=== PATIENT | female | born 1950 | race Caucasian/White ===

== ENCOUNTER 2018-04-14 12:17 | Outpatient (REF) | payer MEDICARE, BC, SELFPAY ==
[2018-04-14 21:36] LABS: Anion Gap 7.9 mmol/L (3-11); BUN 20 mg/dL (7-18); CO2 25.1 mmol/L (21.0-32.0); CREATININE 1.15 mg/dL (0.55-1.02); Calcium 9.1 mg/dL (8.5-10.1); Chloride 110 mmol/L (98-107); Estimated GFR 47.21 (mL/min/1.73m2); Glucose 91 mg/dL (70-100); Potassium 3.7 mmol/L (3.5-5.1); Sodium 143 mmol/L (136-145)
== END 2018-04-14 12:37 ==
LOC: NCHCN 12:17
PROVIDERS: PCP Nurse Practitioner Family; Visit Provider Nurse Practitioner Family
DX: F43.20 Adjustment disorder, unspecified (principal); E78.5 Hyperlipidemia, unspecified; R51 Headache; J45.20 Mild intermittent asthma, uncomplicated; F32.9 Major depressive disorder, single episode, unspecified; Z62.810 Personal history of physical and sexual abuse in childhood
CPT/HCPCS: 80048

== ENCOUNTER → 2018-12-19 12:55 | Outpatient (BNVA) | payer MEDICARE, BC, SELFPAY | PROVIDERS: PCP Nurse Practitioner Family; Visit Provider Nurse Practitioner Adult Health | DX: G43.009 Migraine without aura, not intractable, without status migrainosus (principal) | CPT/HCPCS: 99213 ==

== ENCOUNTER → 2018-12-22 13:39 | Outpatient (BNVA) | payer MEDICARE, BC, SELFPAY | PROVIDERS: PCP Nurse Practitioner Family; Visit Provider Nurse Practitioner Adult Health | DX: G43.009 Migraine without aura, not intractable, without status migrainosus (principal) | CPT/HCPCS: 99211 ==

== ENCOUNTER → 2019-03-06 13:00 | Outpatient (BNVA) | payer MEDICARE, BC, SELFPAY | PROVIDERS: PCP Nurse Practitioner Family; Visit Provider Nurse Practitioner Adult Health | DX: G43.009 Migraine without aura, not intractable, without status migrainosus (principal) | CPT/HCPCS: 99213 ==

== ENCOUNTER 2019-04-06 12:54 | Outpatient (REF) | payer MEDICARE, BC, SELFPAY ==
[2019-04-06 21:20] LABS: Abs Immature Grans 0.01 k/cumm (0.0-0.09); Absolute Basophil Count 0.06 k/cumm (0.0-0.2); Absolute Lymphocyte Count 1.12 k/cumm (1.2-3.4); Absolute Monocyte Count 0.45 k/cumm (0.11-0.7); Absolute Neutrophil Count 3.43 k/cumm (1.2-6.7); Basophils % 1.1; Eosinophils % 5.6; HCT 41.5 % (36.0-46.0); HGB 13.4 g/dL (12.0-15.5); Immature Grans % 0.2; Lymphocytes % 20.9; Mean Corp. HGB Concentration 32.3 g/dL (32.0-36.0); Mean Corpuscular Hemoglobin 28.2 pg (27.0-33.0); Mean Corpuscular Volume 87.2 fL (80-95); Mean Platelet Volume 10.6 fL (8.0-11.0); Monocytes % 8.4; Neutrophils % 63.8; Platelet Count 257 x1000/uL (130-400); RBC 4.76 m/cumm (4.00-5.20); RBC Distribution Width 13.7 % (11.7-14.6); White Blood Cell Count 5.37 k/cumm (4.4-10.8)
[2019-04-06 21:49] LABS: ALT 23 U/L (14-59); AST 13 U/L (15-37); Albumin 3.7 g/dL (3.4-5.0); Alkaline Phosphatase 113 U/L (46-116); Anion Gap 9.5 mmol/L (3-11); BUN 22 mg/dL (7-18); Bilirubin, Total 0.3 mg/dL (0.2-1.0); CO2 24.5 mmol/L (21.0-32.0); CREATININE 1.14 mg/dL (0.55-1.02); Calculated LDL 147 mg/dL; Chloride 107 mmol/L (98-107); Cholesterol 241 mg/dL (50-200); Estimated GFR 47.54 (mL/min/1.73m2); Glucose 79 mg/dL (70-100); HDL Cholesterol 74 mg/dL (40-60); Potassium 4.2 mmol/L (3.5-5.1); Sodium 141 mmol/L (136-145); TSH (W/Ref FT4) 3.82 uIU/mL (0.36-3.74); Total Protein 6.8 g/dL (6.4-8.2); Triglyceride 100 mg/dL (30-150)
[2019-04-06 22:07] LABS: FREE T4 1.09 ng/dL (0.76-1.46)
== END 2019-04-06 13:14 ==
LOC: NCHCN 12:54
PROVIDERS: PCP Nurse Practitioner Family; Visit Provider Nurse Practitioner Family
DX: E78.5 Hyperlipidemia, unspecified (principal); F32.9 Major depressive disorder, single episode, unspecified; R51 Headache; R61 Generalized hyperhidrosis; R06.83 Snoring; M54.5 Low back pain; J30.9 Allergic rhinitis, unspecified
CPT/HCPCS: 80053; 80061; 84439; 84443; 85025

== ENCOUNTER 2020-01-11 01:27 | Outpatient (CLI) | payer MEDICARE, BC, SELFPAY ==
--- NOTE | 2020-01-11 | DI.CTLCSR_ITS ---
EXAM: CT CHEST LUNG CANCER SCREEN CLINICAL HISTORY: THE PATIENT REPORTEDLY HAS A HISTORY OF SMOKING 30 PACK YEARS AND PRESENTLY SMOKES OR HAS QUIT THE PAST 15 YEARS, [id number]-FORMER SMOKER, [facility], Z00.00. TECHNIQUE: Imaging Protocol: Axial computed tomography images with coronal and sagittal reformatted images were created and reviewed COMPARISON: CT ABD PELVIS WITH CONTRAST from 05/17/2013 CT ABD PELVIS WITH CONTRAST from 05/17/2013 CT RENAL COLIC WO CONTRAST from 05/17/2013 FINDINGS: Tracheobronchial tree: Patent where visualized. Mediastinum and Nubia: No dominant adenopathy or fluid collection. Pulmonary parenchyma: No consolidation or dominant measurable mass. Centrilobular emphysema. Lung Nodules: 4 mm pulmonary nodule in the anterolateral aspect of the left lower lobe. Pleura: No effusion or pneumothorax. Heart: The heart is not dilated. Mild coronary artery calcification. No significant pericardial effu juan jose. Aorta: Thoracic aorta non-dilated.Atherosclerosis. Upper abdomen: Unremarkable. Bones: Within normal limits. Soft Tissues: Unremarkable. IMPRESSION: 4 mm pulmonary nodule in the left lower lobe. Lung RADS Cat 2 - Benign Appearance / Behavior: Nodules with a very low likelihood of becoming a clin ically active caner due to size or lack of growth Lung-RADS 1.0 CATEGORIES: Category 0 - Prior chest CT exam(s) being located for comparison. Category 1 - Annual screening in 12 months. No nodules or definitely benign nodules. Category 2 - Annual screening in 12 months. Benign appearance. Nodules with low likelihood of becomin g active cancer. Category 3 - 6-month follow-up. Probably benign. Short-term follow-up suggested. Nodules with low lik elihood of becoming active cancer. Category 4A - 3-month follow-up and CT/PET if >8 mm in size. Suspicious finding. Findings which requi re additional testing. Category 4B - Findings which require additional testing and tissue sampling. Suspicious finding. C Added to Any of the Above - History of prior lung cancer screening. S Added to Any of the Above - Significant unexpected other finding. RADIATION DOSE DELIVERED: 81.26mGy.cm Total DLP DATA REPOSITORY: All CT scans at this facility are submitted to the National Radiology Data Registry (NRDR) Dose Index Registry (DIR) with the [employer] (ACR). RADIATION OPTIMIZATION: All CT scans at this facility use at least one of these dose optimization te chniques: automated exposure control; mA and/or kV adjustment per patient size (includes targeted exa ms where dose is matched to clinical indication); or iterative reconstruction.
--- NOTE | 2020-01-11 14:35 | DI.DEXA_ITS ---
EXAM: XR DEXA BONE DENSITY W/WO SALOMÓN CLINICAL HISTORY: [facility],Z00.00,SCREENING FOR OSTEOPOROSIS IN [place] TECHNIQUE: COMPARISON: No exams were available for comparison FINDINGS: Lateral Spine Image: Unremarkable. No compression deformities identified. Left hip: Total T-Score: -1.5 Total Z-Score: -0.1 T- and Z-scores: Consistent with osteopenia Lumbar Spine: Total T-Score: -2.4 Total Z-Score: -0.4 T- and Z-scores: Consistent with osteopenia IMPRESSION: Findings consistent with osteopenia in the lumbar spine and left hip.
== END 2020-01-11 01:47 ==
PROVIDERS: PCP Nurse Practitioner Family; Visit Provider Nurse Practitioner Family
DX: M85.88 Other specified disorders of bone density and structure, other site (principal); Z78.0 Asymptomatic menopausal state; Z12.2 Encounter for screening for malignant neoplasm of respiratory organs; R91.1 Solitary pulmonary nodule; F17.210 Nicotine dependence, cigarettes, uncomplicated; J43.8 Other emphysema
CPT/HCPCS: 77080; G0297

== ENCOUNTER 2020-04-02 04:39 | Outpatient (CLI) | payer MEDICARE, BC, SELFPAY ==
[2020-04-02 12:10] LABS: Anion Gap 8.5 mmol/L (3-11); BUN 16 mg/dL (7-18); CO2 24.5 mmol/L (21.0-32.0); CREATININE 1.05 mg/dL (0.55-1.02); Calcium 8.8 mg/dL (8.5-10.1); Chloride 111 mmol/L (98-107); Estimated GFR 52.12 (mL/min/1.73m2); Glucose 93 mg/dL (74-106); Potassium 4.2 mmol/L (3.5-5.1); Sodium 144 mmol/L (136-145)
[2020-04-02 12:16] LABS: Calculated LDL 63 mg/dL (<100); Cholesterol 152 mg/dL (<200); HDL Cholesterol 71 mg/dL (40-60); Triglyceride 93 mg/dL (<150)
== END 2020-04-02 04:59 ==
PROVIDERS: Family Medicine; PCP Nurse Practitioner Family; Visit Provider Surgery
DX: E78.5 Hyperlipidemia, unspecified (principal); C50.911 Malignant neoplasm of unspecified site of right female breast
CPT/HCPCS: 36415; 80048; 80061

== ENCOUNTER → 2021-01-29 13:53 | Outpatient (BNVA) | payer MEDICARE, BC, SELFPAY | PROVIDERS: PCP Nurse Practitioner Family; Referring Provider Nurse Practitioner Family; Visit Provider Nurse Practitioner Adult Health | DX: G43.009 Migraine without aura, not intractable, without status migrainosus (principal) | CPT/HCPCS: 99214; 99215 ==

== ENCOUNTER 2021-03-19 21:38 | Emergency (ER) | payer MEDICARE, BC, SELFPAY ==
[2021-03-19 21:41] VITALS: BP 165/84; PULSE 80; RESP 18; TEMP 36.5; O2SAT 97
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
--- NOTE | 2021-03-19 22:00 | DI.CT_ITS ---
Exam(s) CT THORACIC LUMBAR SPINE WO EXAM: CT THORACIC LUMBAR SPINE WO CLINICAL HISTORY: R thoracic/L lumbar paraspinal pain. TECHNIQUE: Imaging Protocol: Axial computed tomography images with coronal and sagittal reformatted images were created and reviewed. CONTRAST MATERIAL: Intravenous: None COMPARISON: CT CT CHEST LUNG CANCER SCREEN from 01/11/[address] CHEST LUNG CANCER SCREEN from 01/11/2020 FINDINGS: OSSEOUS: There are no fractures in the thoracic and lumbar vertebral bodies. No listhesis. No osseo us lesions. No significant disc space narrowing. No significant facet arthropathy with the exceptio n of left-sided degenerative change in the left facet joint at L5-S1 level. Milder degenerative oliveira ges the right facet joint at this level. Other facet joints above this level appear unremarkable. T here is no evidence of osseous spinal canal stenosis.. PARASPINAL SOFT TISSUES: Unremarkable OTHER: There is asymmetric infiltrate right upper lobe apical region was not evident on prior CT scan January 2020. Left lung apex is clear. Also noted in the field of view is some scarring in the soil surveyor ior basal segment of the left lower lobe. No pleural effusions. IMPRESSION: No evidence of fractures in the thoracic and lumbar vertebrae. No osseous lesions. Incidentally noted is significant infiltrate in the superior aspect of the right upper lobe which is a significant new finding was not evident on the prior CT scan of January 2020. This requires further i nvestigation. RADIATION DOSE DELIVERED: 755.07mGy.cm Total DLP DATA REPOSITORY: All CT scans at this facility are submitted to the National Radiology Data Registry (NRDR) Dose Index Registry (DIR) with the [employer] (ACR). RADIATION OPTIMIZATION: All CT scans at this facility use at least one of these dose optimization te chniques: automated exposure control; mA and/or kV adjustment per patient size (includes targeted exa ms where dose is matched to clinical indication); or iterative reconstruction.
[2021-03-19] MEDS: oxyCODONE 10 MG TAB PO (22:11)
[2021-03-19] MEDS: predniSONE 20 MG TAB 60 MG PO (22:11)
[2021-03-19] MEDS: diazePAM 5 MG TAB PO (22:11)
--- NOTE | 2021-03-19 22:16 | NUR.NOTE ---
Nursing Note: Patient to CT scan via wheelchair.
--- NOTE | 2021-03-19 22:25 | NUR.NOTE ---
Nursing Note: Patient returned from CT scan.
--- NOTE | 2021-03-19 23:13 | DI.VRAD_ITS ---
PROCEDURE INFORMATION: Exam: CT Thoracic Spine Without Contrast Exam date and time: 03/19/2021 10:08 PM Age: 70 years old Clinical indication: Other: General; Patient HX: Back pain 5 weeks TECHNIQUE: Imaging protocol: Computed tomography images of the thoracic spine without contrast. COMPARISON: CT CHEST LUNG CANCER SCREEN 01/11/2020 1:33 PM FINDINGS: Vertebrae: No acute fracture. Normal alignment. Discs/Spinal canal/Neural foramina: No significant disc protrusion. No severe spinal canal stenosis. No significant neural foraminal narrowing. Soft tissues: Negative for paraspinal hematoma or fluid collection. Vasculature: Descending thoracic aorta is negative for aneurysm. Mild vascular calcifications are present. Lungs: Moderate consolidation and/or fibrosis noted in the right upper lobe, new from January 2020. Linear pleuroparenchymal scar is observed in the left lower lobe, incidental. The visualized lung rogers are relatively clear. Negative for dependent pleural effusions. IMPRESSION: 1. Negative for compression fracture. 2. Irregular consolidation noted in the right upper lobe. Correlate for any interval radiation treatment. Infectious pneumonia considered. PROCEDURE INFORMATION: Exam: CT Lumbar Spine Without Contrast Exam date and time: 03/19/2021 10:08 PM Age: 70 years old Clinical indication: Other: General; Patient HX: Back pain 5 weeks TECHNIQUE: Imaging protocol: Computed tomography images of the lumbar spine without contrast. COMPARISON: CT CHEST LUNG CANCER SCREEN 01/11/2020 1:33 PM FINDINGS: Vertebrae: No acute fracture. Normal alignment. Negative for destructive or erosive lesion. Discs/Spinal canal/Neural foramina: No significant disc space narrowing. No significant spinal canal stenosis or neural foraminal narrowing. 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 Kidneys and ureters: Visualized kidneys are normal, negative for hydronephrosis. Stomach and bowel: Scattered diverticula are noted in the sigmoid colon, without inflammatory change. Vasculature: Abdominal aorta is negative for aneurysm. Moderate vascular calcifications present. Soft tissues: Psoas muscles are normal. Negative paraspinal fluid collection or soft tissue mass. IMPRESSION: Negative for lumbar spine fracture. No significant degenerative changes. Dictated and Authenticated by: Herb Wallace MD. Ordering:HU Hartman MD
[2021-03-19] MEDS: diazePAM 5 MG TAB 10 MG PO (23:19)
[2021-03-19 23:22] VITALS: BP 97/62; PULSE 84; RESP 16; TEMP 36.4; O2SAT 95
== END 2021-03-19 23:23 | disposition home or self-care (01) ==
PROVIDERS: Emergency Provider Physician Assistant; PCP Nurse Practitioner Family
DX: M54.5 Low back pain (principal); M54.6 Pain in thoracic spine
CPT/HCPCS: 99284; 72128; 72131; J7512

== ENCOUNTER 2021-03-30 10:32 | Emergency (ER) | payer MEDICARE, BC, SELFPAY ==
[2021-03-30] VITALS (15 sets, daily range): BP systolic 116–128; BP diastolic 63–67; PULSE 65–71; RESP 16–18; TEMP 36.4; O2SAT 93–99
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
[2021-03-30] MEDS: Normal Saline 1,000 ML 125 ML IV (11:03)
[2021-03-30] MEDS: HYDROmorphone 2 MG/ML VIAL 1 MG IVP (11:05)
[2021-03-30] MEDS: Dexamethasone 10 MG/ML VIAL IVP (11:06)
[2021-03-30 11:09] LABS: HCT 36.3 % (36.0-46.0); HGB 11.1 g/dL (11.2-15.7); MCH 26.6 pg (27.0-33.0); MCHC 30.6 % (32.0-36.0); MCV 87.1 fL (80-95); Platelet Count 122 10^3/uL (130-400); RBC 4.17 10^6/uL (3.93-5.22); RDW 18.3 % (11.7-14.6); RDW-SD 58.2 fL; WBC 7.11 10^3/uL (4.4-10.8)
[2021-03-30 11:18] LABS: Anion Gap 10.2 mmol/L (3-11); BUN 28 mg/dL (7-18); CO2 28.8 mmol/L (21.0-32.0); CREATININE 0.9 mg/dL (0.55-1.02); Calcium 8.3 mg/dL (8.5-10.1); Chloride 106 mmol/L (98-107); Glucose 78 mg/dL (74-106); Potassium 3.5 mmol/L (3.5-5.1); Sodium 145 mmol/L (136-145)
== END 2021-03-30 12:56 | disposition home or self-care (01) ==
PROVIDERS: Emergency Provider Emergency Medicine; PCP Nurse Practitioner Family
DX: M54.42 Lumbago with sciatica, left side (principal)
CPT/HCPCS: 36415; 80048; 85027; 96361; 96374; 96375; 99283; 99284; J1100

== ENCOUNTER 2021-04-13 20:35 | Emergency (ER) | payer MEDICARE, BC, SELFPAY ==
[2021-04-13 20:53] VITALS: BP 121/66; PULSE 90; RESP 18; TEMP 37.1; O2SAT 93
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
[2021-04-13] MEDS: MORPHine 4 MG/ML SYR IM (21:39)
[2021-04-13] MEDS: Cyclobenzaprine 10 MG TAB, 3 TABS/BTL PO (21:43)
== END 2021-04-13 21:47 | disposition home or self-care (01) ==
PROVIDERS: Emergency Provider Student in an Organized Health Care Education/Training Program; PCP Nurse Practitioner Family
DX: M54.9 Dorsalgia, unspecified (principal); M62.830 Muscle spasm of back; Z85.3 Personal history of malignant neoplasm of breast
CPT/HCPCS: 96372; 99284; 99283; J2270

== ENCOUNTER 2022-12-15 17:48 | Outpatient (REF) | payer MEDICARE, BC, SELFPAY ==
[2022-12-15 21:17] LABS: BUN 18 mg/dL (7-18); CREATININE 0.9 mg/dL (0.55-1.02); Calcium 8.9 mg/dL (8.5-10.1); Chloride 109 mmol/L (98-107); Estimated GFR 68.77 (mL/min/1.73m2); Glucose 71 mg/dL (74-106); Potassium 3.2 mmol/L (3.5-5.1); Sodium 141 mmol/L (136-145)
== END 2022-12-15 17:49 | disposition home or self-care (01) ==
LOC: NCHCN 17:48
PROVIDERS: PCP Nurse Practitioner Family; Visit Provider Nurse Practitioner Family
DX: N28.9 Disorder of kidney and ureter, unspecified (principal); M54.16 Radiculopathy, lumbar region; E78.5 Hyperlipidemia, unspecified
CPT/HCPCS: 80048

== ENCOUNTER 2023-01-13 13:57 | Outpatient (REF) | payer MEDICARE, BC, SELFPAY ==
[2023-01-13 21:38] LABS: Potassium 4.4 mmol/L (3.5-5.1)
== END 2023-01-13 13:58 | disposition home or self-care (01) ==
LOC: NCHCN 13:57
PROVIDERS: PCP Nurse Practitioner Family; Visit Provider Nurse Practitioner Family
DX: E87.6 Hypokalemia (principal)
CPT/HCPCS: 84132

== ENCOUNTER 2023-02-16 15:54 | Outpatient (REF) | payer MEDICARE, BC, SELFPAY ==
[2023-02-16 16:41] LABS: ALT 65 U/L (14-59); AST 47 U/L (15-37); Albumin 3.6 g/dL (3.4-5.0); Alkaline Phosphatase 446 U/L (46-116); Anion Gap 9.1 mmol/L (3-11); BUN 16 mg/dL (7-18); Bilirubin, Total 0.5 mg/dL (0.2-1.0); CO2 28.9 mmol/L (21.0-32.0); CREATININE 1.1 mg/dL (0.55-1.02); Calcium 9.3 mg/dL (8.5-10.1); Calculated LDL 60 mg/dL (<100); Chloride 108 mmol/L (98-107); Cholesterol 159 mg/dL (<200); Estimated GFR 53.72 (mL/min/1.73m2); Glucose 95 mg/dL (74-106); HDL Cholesterol 81 mg/dL (40-60); Potassium 3.8 mmol/L (3.5-5.1); Sodium 146 mmol/L (136-145); TSH (W/Ref FT4) 6.57 uIU/mL (0.36-3.74); Total Protein 7.1 g/dL (6.4-8.2); Triglyceride 91 mg/dL (<150)
[2023-02-16 17:08] LABS: FREE T4 0.93 ng/dL (0.76-1.46)
[2023-02-17 13:13] LABS: GGT 406 U/L (5-55)
== END 2023-02-16 15:55 | disposition home or self-care (01) ==
LOC: NCHCN 15:54
PROVIDERS: PCP Nurse Practitioner Family; Visit Provider Nurse Practitioner Family
DX: E03.9 Hypothyroidism, unspecified (principal); F32.9 Major depressive disorder, single episode, unspecified; R74.8 Abnormal levels of other serum enzymes; E87.6 Hypokalemia; N28.9 Disorder of kidney and ureter, unspecified; I70.90 Unspecified atherosclerosis; C50.919 Malignant neoplasm of unspecified site of unspecified female breast; G44.89 Other headache syndrome; M54.16 Radiculopathy, lumbar region
CPT/HCPCS: 80053; 80061; 82306; 82977; 84439; 84443

== ENCOUNTER 2023-02-24 10:46 | Outpatient (REF) | payer MEDICARE, BC, SELFPAY ==
[2023-02-25 10:48] LABS: Hepatitis A Antibody IgM Negative (Negative); Hepatitis B Core Antibody Negative (Negative); Hepatitis B surface Ag Negative (Negative); Hepatitis C Ab w Rflx HCV PCR Negative (Negative)
== END 2023-02-24 10:47 | disposition home or self-care (01) ==
LOC: NCHCN 10:46
PROVIDERS: PCP Nurse Practitioner Family; Visit Provider Nurse Practitioner Family
DX: R79.89 Other specified abnormal findings of blood chemistry (principal); R74.8 Abnormal levels of other serum enzymes
CPT/HCPCS: 86704; 86709; 86803; 87340

== ENCOUNTER 2023-03-05 00:30 | Outpatient (CLI) | payer MEDICARE, BC, SELFPAY ==
--- NOTE | 2023-03-05 08:00 | DI.US_ITS ---
Exam(s) US ABDOMEN LIMITED EXAM: US ABDOMEN LIMITED CLINICAL HISTORY: ELEVATED ALK PHOS, R74.8; ELEVATED LFTS, R79.89 TECHNIQUE: Ultrasound abdomen performed using standard protocol. COMPARISON: No exams were available for comparison FINDINGS: There is no ascites evident. LIVER: There are no hepatic lesions evident nor dilatation of intrahepatic ducts. GALLBLADDER/BILIARY: There are no gallstones. No gallbladder wall edema nor pericholecystic fluid. The common hepatic duct ismildly dilated, measuring 7mm at the level of lola hepatis. PANCREAS: There is no evidence of pancreatic mass nor dilatation of the pancreatic duct. RIGHT KIDNEY:Nonobstructive 8 mm calculus noted. No solid lesions. No significant cysts. No hydron ephrosis. IMPRESSION: 1. No evidence of cholelithiasis nor dilatation of the biliary tree. CBD diameter 7 mm probably age related. 2. 8 millimeter hyperechoic focus in the right kidney, probably a nonobstructive calculus. No other significant focal right kidney findings. 3. There is no ascites. DATA REPOSITORY:
== END 2023-03-05 00:50 ==
LOC: DI 00:30
PROVIDERS: PCP Nurse Practitioner Family; Visit Provider Nurse Practitioner Family
DX: R79.89 Other specified abnormal findings of blood chemistry (principal); R74.8 Abnormal levels of other serum enzymes; N20.0 Calculus of kidney
CPT/HCPCS: 76705

== ENCOUNTER → 2023-04-01 00:08 | Outpatient (CLI) | payer MEDICARE, BC, SELFPAY ==
--- NOTE | 2023-04-01 | DI.DEXA_ITS ---
Exam(s) XR DEXA BONE DENSITY W/WO SALOMÓN EXAM: XR DEXA BONE DENSITY W/WO SALOMÓN CLINICAL HISTORY: DISORDER BONE DENSITY M85.88 OSTEOPENIA M85.80 SCREENING OSTEOPOROSIS TECHNIQUE: COMPARISON: CR XR DEXA BONE DENSITY W/WO SALOMÓN from 01/11/2020 FINDINGS: Lateral Spine Image: Unremarkable. No compression deformities identified. Left hip: Total T-Score: -1.9. This compares to -1.5 on the prior examination. Total Z-Score: -0.3 T- and Z-scores: Findings are consistent with osteopenia. Note is made of osteoporosis in the femora l neck with a T-score of -2.6. Lumbar Spine: Total T-Score: -2.0. This compares to -2.4 on the prior examination. Total Z-Score: 0.2 T- and Z-scores: Findings are consistent with osteopenia in the lumbar spine. Note is made of osteop orosis in the L1 vertebral body with a T-score of -2.5. IMPRESSION: Findings of osteoporosis seen in the femoral neck and the L1 vertebral body.
== END ==
PROVIDERS: PCP Nurse Practitioner Family; Visit Provider Nurse Practitioner Family
DX: M85.88 Other specified disorders of bone density and structure, other site (principal); Z13.820 Encounter for screening for osteoporosis
CPT/HCPCS: 77080

== ENCOUNTER 2023-05-07 18:19 | Outpatient (REF) | payer MEDICARE, BC, SELFPAY ==
[2023-05-07 15:45] LABS: ALT 46 U/L (14-59); AST 36 U/L (15-37); Albumin 3.6 g/dL (3.4-5.0); Alkaline Phosphatase 350 U/L (46-116); Anion Gap 9.8 mmol/L (3-11); BUN 15 mg/dL (7-18); Bilirubin, Total 0.7 mg/dL (0.2-1.0); CO2 26.2 mmol/L (21.0-32.0); Calcium 9.2 mg/dL (8.5-10.1); Chloride 104 mmol/L (98-107); Estimated GFR 60.23 (mL/min/1.73m2); Glucose 99 mg/dL (74-106); Sodium 140 mmol/L (136-145); Total Protein 6.8 g/dL (6.4-8.2)
[2023-05-07 17:37] LABS: Vitamin D 25 Total 53.3 ng/mL (30-100)
[2023-05-11 11:55] LABS: 2-OH-Ethyl-Flurazepam Negative ng/mL (Cutoff: 10); 7-NH-Clonazepam Negative ng/mL (Cutoff: 10); 7-NH-Flunitrazepam Negative ng/mL (Cutoff: 10); Alpha OH-Alprazolam Negative ng/mL (Cutoff: 10); Alpha-OH Midazolam Negative ng/mL (Cutoff: 10); Alpha-OH-Triazolam Negative ng/mL (Cutoff: 10); Alprazolam Negative ng/mL (Cutoff: 10); Benzodiazepines Interpretation Negative.; Chlordiazepoxide Negative ng/mL (Cutoff: 10); Clobazam Negative ng/mL (Cutoff: 10); Clonazepam Negative ng/mL (Cutoff: 10); Diazepam Negative ng/mL (Cutoff: 10); Flurazepam Negative ng/mL (Cutoff: 10); Lorazepam Negative ng/mL (Cutoff: 10); Midazolam Negative ng/mL (Cutoff: 10); N-Desmethylclobazam Negative ng/mL (Cutoff: 10); Prazepam Negative ng/mL (Cutoff: 10); Temazepam Negative ng/mL (Cutoff: 10); Triazolam Negative ng/mL (Cutoff: 10); Zolpidem Carboxylic acid Negative ng/mL (Cutoff: 10)
== END 2023-05-07 18:20 | disposition home or self-care (01) ==
LOC: NCHCN 18:19
PROVIDERS: PCP Nurse Practitioner Family; Visit Provider Nurse Practitioner Family
DX: R74.8 Abnormal levels of other serum enzymes (principal); R79.89 Other specified abnormal findings of blood chemistry; M81.0 Age-related osteoporosis without current pathological fracture; N28.9 Disorder of kidney and ureter, unspecified; F32.9 Major depressive disorder, single episode, unspecified; G44.89 Other headache syndrome; Z79.899 Other long term (current) drug therapy; M54.16 Radiculopathy, lumbar region
CPT/HCPCS: 80053; 82306; 80346; 83735

== ENCOUNTER 2024-03-10 17:11 | Outpatient (REF) | payer MEDICARE, BC, SELFPAY ==
--- OUTSIDE RECORDS SUMMARY | 2024-03-10 17:18 | XMS_ITS | Encounter Summary ---
Author Organization [facility] Address [address] [place] [address] Care Team Providers Care Technology Advisor Name Role Phone Nerissa Cody Primary Care Provider [phone] Reason for Visit * Reason Onset Date Comments Other 05/04/2012 Encounter Details Date Type Department Care Team (Late st Contact Info) Description 05/04/2012 Telephone [facility] [place] [address] [place] [address] [phone] Joaquin Mckeon MD PhD [address] [place] [address] [address] [place] [phone] Other Social History Tobacco Use Types Packs/Day Years Used Date Smoking Tobacco: Never Assessed Sex and Gender Information Value Date Recorded Sex Assigned at Not on file Gender Identity Not on file Sexual Orientation Not on file documented as of this encounter Miscellaneous Notes * Telephone Encounter - Bianca Schuster - 05/04/2012 1607 EDT REMINDED PT TO BRING NPV FORM TO APT. SPOKE TO PT DIRECTLY. documented in this encounter Plan of Treatment Not on file documented as of this encounter Visit Diagnoses Not on filedocumented in this encounter Care Teams Technology Advisor Relationship Specialty Start Date End Date Nerissa Cody FNP [address] [place], [place] [phone] PCP - General 01/15/10 03/15/16 documented as of this encounter
--- OUTSIDE RECORDS SUMMARY | 2024-03-10 17:18 | XMS_ITS | Continuity of Care Document ---
Author Organization [facility] Address [address] [place] [address] Care Team Providers Care Sales Support Advisor Name Role Phone ROSANA SIMON APRN Primary Care Physician Encounter LTTL_AK FIN NBR [id number] Date(s): 03/22/23 - 03/22/[address] [address] Encounter Diagnosis Malignant neoplasm of unspecified site of right female breast(Final) - Discharge Disposition: Home or Self Care Attending Physician: BRODY CHASE M.D. Admitting Physician: BRODY CHASE M.D. Referring Physician: ROSANA SIMON APRN Allergies, Adverse Reactions, Alerts Substance Reaction Severity Status codeine Nausea Unknown Active Cats Sneezing Mild Active Environmental Smoke Unknown Unknown Active Medications Albuterol (Eqv-ProAir HFA) 0 Refill(s) Start Date: 01/08/23 Status: Ordered atorvastatin 20 mg oral tablet 0 Refill(s) Start Date: 01/08/23 Status: Ordered FLUoxetine 40 mg oral capsule 90 cap, 0 Refill(s) Start Date: 01/04/23 Status: Ordered fluticasone 50 mcg/inh nasal spray 16 sprays, 0 Refill(s) Start Date: 01/04/23 Status: Ordered folic acid 0.4 mg oral tablet 0.4 mg = 1 tab, Oral, Daily, # 100 tab, 0 Refill(s) Start Date: 01/08/23 Status: Ordered gabapentin 100 mg oral capsule 180 EA, TAKE TWO CAPSULES BY MOUTH THREE TIMES A DAY, 0 Refill(s) Start Date: 01/04/23 Status: Ordered oxyCODONE-acetaminophen 5 mg-325 mg oral tablet 120 EA, TAKE 1 TABLET BY MOUTH FOUR TIMES A DAY NEEDED FOR PAIN, 0 Refill(s) Start Date: 01/04/23 Status: Ordered Potassium Chloride (Zva-Clvi-Nnh 10) 10 mEq oral tablet, extended release 90 EA, TAKE ONE TABLET BY MOUTH EVERY DAY, 0 Refill(s) Start Date: 01/04/23 Status: Ordered Zomig 5 mg oral tablet 5 mg = 1 tab, Oral, Daily, PRN as needed for migraine headache, may repeat dose after 2 hours up toa maximum of 10 mg in 24 hours, # 3 tab, 0 Refill(s) Start Date: 01/08/23 Status: Ordered Problem List Condition Confirmation Course Effective Dates Status Health St atus Informant Asthma Confirmed Active S/P tonsillectomy Confirmed Active Breast CA Confirmed Active Migraine Confirmed Active Procedures Procedure Date Related Diagnosis Body Site Status Cataract Completed Colonoscopy Completed Frozen shoulder Completed History of tonsillectomy Completed History of tubal ligation Completed Results Laboratory List Name Date .Morphology (LTTL) 03/22/23 Automated Diff 03/22/23 CBC w/ Diff 03/22/23 Comprehensive Metabolic Panel 03/22/23 Most recent to oldest [Reference Range]: 1 WBC [4.8-10.8 K/mcL] 4.8 K/mcL 1 (03/22/23 10:37 AM) RBC [4.20-5.40 Million/mcL] 4.18 Million /mcL 2 *LOW* (03/22/23 10:37 AM) Neutro Auto [42.2-75.2 %] 73.3 % 3 (03/22/23 10:37 AM) Lymph Auto [20.5-51.1 %] 14.3 % 4 *LOW* (03/22/23 10:37 AM) Hanson Auto [1.7-9.3 %] 7.6 % 5 (03/22/23 10:37 AM) Basophil Auto [0.0-0.8 %] 0.6 % 6 (03/22/23 10:37 AM) BUN [8-26 mg/dL] 18 mg/dL (03/22/23 10:37 AM) Glucose Level [74-106 mg/dL] 127 mg/dL *HI* (03/22/23 10:37 AM) Potassium Level [3.5-5.1 mmol/L] 3.7 mmo l/L (03/22/23 10:37 AM) Baso Absolute [0.0-0.2 K/mcL] 0.0 K/mcL 7 (03/22/23 10:37 AM) MCV [81.0-99.0 fL] 88.5 fL 8 (03/22/23 10:37 AM) RBC Morph [Normal] Normal 9 (03/22/23 10:37 AM) AST [15-41 IntlUnit/L] 41 IntlUnit/L (03/22/23 10:37 AM) ALT [14-54 IntlUnit/L] 37 IntlUnit/L (03/22/23 10:37 AM) MCHC [32.0-36.0 g/dL] 31.9 g/dL 10 *LOW* (03/22/23 10:37 AM) Osmolality [275-295 mOsm/kg] 285 mOsm/kg (03/22/23 10:37 AM) Sodium Level [134-143 mmol/L] 141 mmol/L (03/22/23 10:37 AM) Lymph Absolute [1.2-3.4 K/mcL] 0.7 K/mcL 11 *LOW* (03/22/23 10:37 AM) Hct [37.0-47.0 %] 37.0 % 12 (03/22/23 10:37 AM) Calcium Level [8.9-10.3 mg/dL] 9.1 mg/dL (03/22/23 10:37 AM) Hanson Absolute [0.1-0.6 K/mcL] 0.4 K/mcL 13 (03/22/23 10:37 AM) Albumin Level [3.5-5.0 g/dL] 3.7 g/dL (03/22/23 10:37 AM) Protein Total [6.5-8.1 g/dL] 6.4 g/dL *LOW* (03/22/23 10:37 AM) MCH [27.0-31.0 pg] 28.2 pg 14 (03/22/23 10:37 AM) Neutro Absolute [1.4-6.5 K/mcL] 3.5 K/mc L 15 (03/22/23 10:37 AM) Bilirubin Total [0.2-1.2 mg/dL] 0.7 mg/d L (03/22/23 10:37 AM) Hgb [12.0-16.0 g/dL] 11.8 g/dL 16 *LOW* (03/22/23 10:37 AM) Alk Phos [38-130 IntlUnit/L] 283 IntlUni t/L *HI* (03/22/23 10:37 AM) MPV [7.4-10.4 fL] 8.2 fL 17 (03/22/23 10:37 AM) Platelets [130-400 K/mcL] 85 K/mcL 18 *LOW* (03/22/23 10:37 AM) CO2 [22-32 mmol/L] 26 mmol/L (03/22/23 10:37 AM) Eos Absolute [0.0-0.2 K/mcL] 0.2 K/mcL 1 9 (03/22/23 10:37 AM) Chloride Level [98-111 mmol/L] 105 mmol/ L (03/22/23 10:37 AM) RDW-CV [11.5-14.5 %] 14.0 % 20 (03/22/23 10:37 AM) A/G Ratio [1.0-2.5 g/dL] 1.4 g/dL (03/22/23 10:37 AM) BUN/Creat Ratio [8.0-20.0] 19.6 (03/22/23 10:37 AM) Globulin [2.3-3.5 g/dL] 2.7 g/dL (03/22/23 10:37 AM) Imm Gran Absolute 0.01 21 *NA* (03/22/23 10:37 AM) Imm Gran Auto [0.0-0.5 %] 0.2 % 22 (03/22/23 10:37 AM) NRBC Auto 0 23 *NA* (03/22/23 10:37 AM) NRBC Absolute 0 24 *NA* (03/22/23 10:37 AM) Slide Review Morph Only (03/22/23 10:37 AM) Creatinine Level [0.44-1.00 mg/dL] 0.92 mg/dL (03/22/23 10:37 AM) Plt Estimation Decreased 25 *NA* (03/22/23 10:37 AM) Anion Gap [3.0-12.0] 10.0 (03/22/23 10:37 AM) Eos, Auto [0.00-3.00 %] 4.00 % 26 *HI* (03/22/23 10:37 AM) eGFR CKD-EPI [>=60 mL/min/1.73 m2] 67 mL /min/1.73 m2 (03/22/23 10:37 AM) 1Result Comment: Results verified by repeat analysis. 2Result Comment: Results verified by repeat analysis. 3Result Comment: Results verified by repeat analysis. 4Result Comment: Results verified by repeat analysis. 5Result Comment: Results verified by repeat analysis. 6Result Comment: Results verified by repeat analysis. 7Result Comment: Results verified by repeat analysis. 8Result Comment: Results verified by repeat analysis. 9Result Comment: Results verified by repeat analysis. 10Result Comment: Results verified by repeat analysis. 11Result Comment: Results verified by repeat analysis. 12Result Comment: Results verified by repeat analysis. 13Result Comment: Results verified by repeat analysis. 14Result Comment: Results verified by repeat analysis. 15Result Comment: Results verified by repeat analysis. 16Result Comment: Results verified by repeat analysis. 17Result Comment: Results verified by repeat analysis. 18Result Comment: Results verified by repeat analysis. Verified by repeat and microscopic estimate 19Result Comment: Results verified by repeat analysis. 20Result Comment: Results verified by repeat analysis. 21Result Comment: Results verified by repeat analysis. 22Result Comment: Results verified by repeat analysis. 23Result Comment: Results verified by repeat analysis. 24Result Comment: Results verified by repeat analysis. 25Result Comment: Results verified by repeat analysis. 26Result Comment: Results verified by repeat analysis. Social History Social History Type Response Tobacco Former tobacco user Tobacco Use:. Sex Patient Care team information Care Team Personnel Name: ROSANA SIMON APRN Position: No Access Member Role: Primary Care Physician Address: Address: [address] [place] [id number] [place] [address] Care Team Related Persons Name: COLLINS HUMMEL Address: Home [address] [place] [address] [place] Name: COLLINS HUMMEL
--- OUTSIDE RECORDS SUMMARY | 2024-03-10 17:18 | XMS_ITS | Encounter Summary ---
Author Organization [facility] Address [address] [place] [address] Care Team Providers Care Consumer Marketing Analyst Name Role Phone Unavailable Primary Care Provider Unavailabl e Encounter Details Date Type Department Care Team (Late st Contact Info) Description 01/13/2010 Results Only [facility] Laboratory Services - [facility] ([facility] [address] [place], [place] [id number] Dylan Torres MD [address] [place] [address] Social History Tobacco Use Types Packs/Day Years Used Date Smoking Tobacco: Never Assessed Sex and Gender Information Value Date Recorded Sex Assigned at Not on file Gender Identity Not on file Sexual Orientation Not on file documented as of this encounter Plan of Treatment Not on file documented as of this encounter Procedures Procedure Name Priority Date/Time Associated Diagnosis Comments SURGICAL PATHOLOGY Routine 01/13/2010 0:00 EDT documented in this encounter Results * SURGICAL PATHOLOGY (01/13/2010 0:00 EDT) Pathology Report: SURGICAL PATHOLOGY REPORT ? Reports generated via electronic interface contain original data; ? however they are lacking the format of the original report. ? Caution should be taken when reading/interpreti ng unformatted reports. ? Name: ? ROSANA NINA ? Accession #: ? [id number] ? : ? 1950 (Age: 59) ??F ? Collect Date: ? 01/13/2010 ? Location: ? [facility] ? Receive Date: ? 01/13/2010 ? Provider: DYLAN TORRES MD ? Copy to: SHYANNE BOUDREAUX MD ? Final Pathologic Diagnosis: ? A. ?Colon, ascending, polyp, biopsy: ? 1. ?Tubular adenoma. ? B. ?Colon, hepatic flexure, polyp, biopsies: ? 1. ?Tubular adenoma. ? Document reviewed and electronically signed by: ? Gilmer Vernon MD ? Report ??Date: 01/16/2010 18:37 ? By the signature above, the attending physician certifies that he/she has ? personally conducted a gross and/or microscopic examination of the described ? specimens and rendered or confirmed the above diagnosis. ? Specimen(s) Received: ? A. ? ascending colon polyp ? B. ? Polyp hepatic flexure ? Clinical History: ? Colorectal screen ? Gross Description: ? [facility] labelled Rosana Nina and #1 ? ascending colon polyp is a 0.3 x 0.2 x 0.1 cm biopsy. ??The specimen is ? submitted intact as (A). ? Received in reMaile's fixative labelled Rosana Nina and #2 hepatic ? flexure polyp are three polypoid biopsies which vary in size from 0.3 x 0.2 x ?? 0.2 cm up to 0.4 x 0.3 x 0.3 cm. ??The specimens are submitted intact as (B). ? (LOIS Peng/stew ? End of Report ? DB KWONG 01/13/2010 01/13/2010 19: 19 EDT Dylan Torres MD PATHOLOGY ORDERABLES Performing Organization Address City/State/[facility] Co de Phone Number [facility] [address] [place] [address] documented in this encounter Visit Diagnoses Not on filedocumented in this encounter
--- OUTSIDE RECORDS SUMMARY | 2024-03-10 17:18 | XMS_ITS | Encounter Summary ---
Author Organization [facility] Address [address] [place] [address] Care Team Providers Care Set Up And Lay Out Inspector Name Role Phone Unavailable Primary Care Provider Unavailabl e Encounter Details Date Type Department Care Team (Late st Contact Info) Description 05/11/2008 Before PRISM Converted Visit (Maple) [facility] - Maple conversion [address] [place] [address] Gini Claudio [address] [place], [place] [id number] Social History Tobacco Use Types Packs/Day Years Used Date Smoking Tobacco: Never Assessed Sex and Gender Information Value Date Recorded Sex Assigned at Not on file Gender Identity Not on file Sexual Orientation Not on file documented as of this encounter Progress Notes * Gini Claudio J - 02/21/2009 0957 EDT NEUROLOGY HEALTH CARE SERVICE PROGRESS/FOLLOWUP NOTE - 05/11/2008 PROBLEM Migraine. NGOC Harman is seen in the office for a followup appointment. She was last seen on November 04, 2007, by Dr. Mckeon and Dr. Yaya Harris. Since her last appointment, she has had a job change as of last April 2008. She has had a significant decrease in the number of headaches and the severity. She has had one or two headaches that she describes as bad headaches for which she has had to take Zomig. The rest of them she thinks she does quite well with Aleve. At her last visit, she was offered the opportunity to see Dr. Gayle, but she postponed that, just wanting to see what happened without any particular intervention. When she takes the Zomig, it is usually 2.5 mg. PAST MEDICAL HISTORY She has an inflamed nerve in the left foot and ankle. She has had some injections of alcohol in that over the last six months. REVIEW OF SYSTEMS Denies fevers, chills, chest pain, shortness of breath, or problems with bladder or bowels. 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 She smokes about a half a pack of cigarettes daily. She has no caffeine. She does not tolerate strong, spicy foods. She drinks beer on occasion. ALLERGIES No known drug allergies. MEDICATIONS 1. Prozac 20 mg one p.o. daily. 2. Advair inhaler 250/50 twice daily. 3. Aspirin 81 mg once daily. 4. Vitamin E 800 international units daily. 5. Zomig 2.5 mg. 6. Metoclopramide 10 mg as needed. 7. Lotrel 2.5/10 mg five tablets daily. 8. Flonase p.r.n. 9. Aleve twice daily. OBJECTIVE This is a well-groomed woman in no acute distress, blood pressure 118/72, heart rate 92 and regular, respiratory rate 16, weight 146 pounds. Neurologic exam not done. ASSESSMENT Ghazal has had some improvement primarily secondary to a job change probably more than anything. PLAN 1. Diagnostic: Nothing today. 2. Therapeutic: Continue current medications at this point. We cautioned her about the increased risk of chronic daily headaches with the use of NSAIDs. 3. Followup with me will be in four months. Patient was seen with Dr.Robert Mckeon Signed by Gini Claudio NP 06/21/2008 11:12 Gini Claudio NP - Gini Claudio NP - Job ID: [id number] Doc ID: [id number] cc: MACEY Vidal documented in this encounter Plan of Treatment Not on file documented as of this encounter Visit Diagnoses Not on filedocumented in this encounter
--- OUTSIDE RECORDS SUMMARY | 2024-03-10 17:18 | XMS_ITS | Encounter Summary ---
Author Organization [facility] Address [address] [place] [address] Care Team Providers Care Sheet Metal Erector Name Role Phone JakeNerissaGhazal Luis Antonio AYDIN Primary Care Provider [phone] Encounter Details Date Type Department Care Team (Late st Contact Info) Description 02/24/2023 Lab Requisition [facility] Pathology & Laboratory Medicine - [facility] [address] [place] [address] Outr Resulting Lab, Provider Social History Tobacco Use Types Packs/Day Years Used Date Smoking Tobacco: Never Assessed Interpersonal Safety Answer Date Record ed Physically Hurt Never 04/14/2020 Verbally Threaten Not on file 04/14/2020 Sex and Gender Information Value Date Recorded Sex Assigned at Not on file Gender Identity Not on file Sexual Orientation Not on file documented as of this encounter Plan of Treatment Not on file documented as of this encounter Procedures Procedure Name Priority Date/Time Associated Diagnosis Comments ACUTE HEPATITIS PROFILE Routine 02/24/2023 10:10 EDT documented in this encounter Results * ACUTE HEPATITIS PROFILE (02/24/2023 10:10 EDT) Hep B Surface Ag Negative Negative 02/25/2023 10:43 EDT [facility] Hep C Antibody Negative Negative 02/25/2023 10:43 EDT [facility] Hepatitis A Antibody, IgM Negative Negative 02/25/2023 10:43 EDT [facility] Comment:The results of this assay can be falsely lowered due to the consumption of Biotin. Hepatitis B Core Ab, Total Negative Negative 02/25/2023 10:43 EDT [facility] Blood VENOUS BLOOD / Unknown 02/24/2023 10:10 EDT 02/24/2023 21:26 EDT Provider Outr Resulting Lab CHEMISTRY & BLOOD GAS ORDERABLES [facility] [address] [place] [address] documented in this encounter Visit Diagnoses Not on filedocumented in this encounter Care Teams Sheet Metal Erector Relationship Specialty Start Date End Date Ghazal Joseph APRN [address] [place] [address] PCP - General 03/16/16 documented as of this encounter
--- OUTSIDE RECORDS SUMMARY | 2024-03-10 17:18 | XMS_ITS | Encounter Summary ---
Author Organization [facility] Address [address] [place] [address] Care Team Providers Care Plastics Patternmaker Name Role Phone Unavailable Primary Care Provider Unavailabl e Encounter Details Date Type Department Care Team (Late st Contact Info) Description 11/04/2007 Before PRISM Converted Visit (Maple) [facility] - Maple conversion [address] [place] [address] Joaquin Mckeon MD PhD [address] [facility] [address] [place] [id number] Social History Tobacco Use Types Packs/Day Years Used Date Smoking Tobacco: Never Assessed Sex and Gender Information Value Date Recorded Sex Assigned at Not on file Gender Identity Not on file Sexual Orientation Not on file documented as of this encounter Progress Notes * Joaquin Mckeon MD - 05/02/2009 2223 EDT NEUROLOGY HEALTH CARE SERVICE PROGRESS/FOLLOWUP NOTE - 11/04/2007 SUBJECTIVE Ghazal Nina is a 56-year-old woman with a history of migraine. She was last seen in clinic in followup on January 21, 2007, along with Dr. Yaya Harris. MEDICATIONS 9 Since her last visit, she has been maintained on: 1. Prozac 20 mg daily. 2. Flonase nasal spray as needed. 3. Advair inhaler daily. 4. Aspirin 81 mg daily. 5. Vitamin E daily. 6. Zomig 5 mg as needed. 7. Lotrel 2.5/10 four tablets daily. 8. Fexofenadine 180 mg as needed. 9. Metoclopramide 10 mg as needed. She has noticed a reduction in her headache frequency, generally down to 6 to 11 days per month, although in June 2007, she had two days with headaches. She attributes reduction in her headaches to Lotrel, as well changes in her job. She finds that Zomig is effective for her for the headaches. OBJECTIVE Blood pressure 122/72, pulse 76, respiration 16, weight 148 pounds, currently with 3/10 headache. She has normal speech, language and recall, normal coordinated eye movements, facial movements, limb movements and gait. IMPRESSION Ghazal Nina has shown some benefit from Lotrel. PLAN Increase Lotrel to 2.5/10, five tablets daily, watching for potential side effects which might include pedal edema, constipation, orthostatic lightheadedness, and cough. I will refer her to Dr. Roxann Gayle for cognitive behavioral therapy. I refilled the prescription for Zomig 5 mg tablets. She will keep track of her headaches with a headache record and return to clinic in approximately six months. Signed by Joaquin Mckeon MD,PhD 11/28/2007 08:30 Joaquin Mckeon MD,PhD - Joaquin Mckeon MD,PhD - Job ID: [id number] Doc ID: [id number] cc: MACEY Vidal documented in this encounter Plan of Treatment Not on file documented as of this encounter Visit Diagnoses Not on filedocumented in this encounter
--- OUTSIDE RECORDS SUMMARY | 2024-03-10 17:18 | XMS_ITS | Encounter Summary ---
Author Organization [facility] Address [address] [place] [address] Care Team Providers Care Acoustic Engineer Name Role Phone Nerissa Cody Primary Care Provider [phone] Encounter Details Date Type Department Care Team (Latest Contact Info) Description 03/11/2016 10:11 EDT - 03/11/2016 23:59 EDT Hospital Encounter [address] [address] Unknown, Provider, Discharge Disposition: Home or Self Care Social History Tobacco Use Types Packs/Day Years Used Date Smoking Tobacco: Never Assessed Sex and Gender Information Value Date Recorded Sex Assigned at Not on file Gender Identity Not on file Sexual Orientation Not on file documented as of this encounter Discharge Disposition Disposition Code Departure Means Destination Home or Self Snf documented in this encounter Plan of Treatment Not on file documented as of this encounter Visit Diagnoses Not on filedocumented in this encounter Care Teams Acoustic Engineer Relationship Specialty Start Date End Date Nerissa Cody FNP [address] [place] [address] PCP - General 01/15/10 03/15/16 documented as of this encounter
--- OUTSIDE RECORDS SUMMARY | 2024-03-10 17:18 | XMS_ITS | Encounter Summary ---
Author Organization [facility] Address [address] [place] [address] Care Team Providers Care Flooring Professional Name Role Phone Nerisas Cody MACEY Primary Care Provider Encounter Details Date Type Department Care Team (Late st Contact Info) Description 02/07/2013 Results Only [facility] [phone] Rosana Simon, MOVING WORKER [address] [facility] [address] [place] [phone] Social History Tobacco Use Types Packs/Day Years Used Date Smoking Tobacco: Never Assessed Sex and Gender Information Value Date Recorded Sex Assigned at Not on file Gender Identity Not on file Sexual Orientation Not on file documented as of this encounter Plan of Treatment Not on file documented as of this encounter Procedures Procedure Name Priority Date/Time Associated Diagnosis Comments SURGICAL PATHOLOGY Routine 02/07/2013 8:42 EDT documented in this encounter Results * SURGICAL PATHOLOGY (02/07/2013 8:42 EDT) Pathology Report: SURGICAL PATHOLOGY REPORT Reports generated via electronic interface contain original data; however they are lacking the format of the original report. Caution should be taken when reading/interpreting unformatted reports. Name: ? SELIN NINAHREVELINE Ruelas ? Accession #: ? [id number] ? : ? 1950 (Age: 62) ??F ? Collect Date: ? 02/07/2013 ? Location: ? [facility] ? Receive Date: ? 02/08/2013 ? Provider: ROSANA SIMON MOVING WORKER Copy to: ? Final Pathologic Diagnosis: SKIN OF THIGH, RIGHT LATERAL, EXCISIONAL BIOPSIES: - Fragments of squamous cell carcinoma, well differentiated, invasive. ??See comment. Comment: The specimen consists of several portions of skin, many of which consist of consist of well differentiated, invasive squamous cell carcinoma. ??The largest portion of tissue, which resembles an elliptical excision, has squamous cell carcinoma at the deep margin. ??(Dr. Huerta)/[facility] Microscopic Description: The stratum corneum is thickened by confluent parakeratosis. ??The epidermis is hyperplastic with accentuation of the rete architecture. ??The keratinocytes show a significant degree of nuclear atypia that involves the full thickness of the epidermis. ??The cells have an increased nuclear-cytoplasmic ratio with nuclear pleomorphism and hyperchromasia. ??The atypia also involves the epithelium of follicular structures. ??There is a moderately dense lymphohistiocytic infiltrate in the superficial dermis. ??(Dr. Huerta)/[facility] Document reviewed and electronically signed by: DIOGO HUERTA MD Report ??Date: 02/10/2013 16:49 By the signature above, the attending physician certifies that he/she has personally conducted a gross and/or microscopic examination of the described specimens and rendered or confirmed the above diagnosis. Specimen(s) Received: Lesion R lateral thigh Clinical History: Not listed Gross Description: Received in formalin labelled with proper patient identification (initials B, K) and lesion R lateral thigh is an unoriented elliptical excision of plummer-white skin measuring 2.0 x 1.2 cm and is excised to a depth of 0.5 cm. ??There is an eccentric 0.9 x 0.8 x 0.3 cm ovoid conway-white and scaled, centrally brown and crusted nodule. ??The margins are inked. ??Also received is a 1.3 x 0.5 x 0.2 cm irregular plummer-conway and smooth, focally granular skin fragment. ??Also received is a 1.0 x 0.7 x 0.3 cm irregular plummer-conway smooth skin fragment. ??Also received is a 0.3 cm in diameter x 0.6 cm in thickness punch biopsy of plummer-white granular skin. ??The specimen is entirely submitted as follows: BLOCK MCCOLLUM 1- ?excision, central sections 2- ??excision, central sections 3- ??excision, tips, reverse en face 4-5- ??larger skin fragment, serially sectioned 6- ??smaller skin fragment, trisected 7- ??punch, intact Ramana Payam 02/09/2013 09:55 AM End of Report DB KWONG 02/07/2013 8:42 EDT 02/08/2013 8:42 EDT Rosana Simon MOVING WORKER PATHOLOGY ORDERAB LES Performing Organization Address City/State/[facility] Co de Phone Number [facility] [address] [place] [address] documented in this encounter Visit Diagnoses Not on filedocumented in this encounter Care Teams Flooring Professional Relationship Specialty Start Date End Date Nerissa Cody FNP [address] [place], [place] [address] PCP - General 01/15/10 03/15/16 documented as of this encounter
--- OUTSIDE RECORDS SUMMARY | 2024-03-10 17:18 | XMS_ITS | Encounter Summary ---
Author Organization [facility] Address [address] [place] [address] Care Team Providers Care Butcher Helper Name Role Phone JakeJamal wrayyn Luis Antonio AYDIN Primary Care Provider [phone] [phone] Encounter Details Date Type Department Care Team (Late st Contact Info) Description 03/28/2020 Lab Requisition [facility] Pathology & Laboratory Medicine - [facility] [address] [place] [address] Rosa Maria Huff MD [address] [place] [address] Unspecified lump in the right breast, unspecified quadrant Social History Tobacco Use Types Packs/Day Years Used Date Smoking Tobacco: Never Assessed Sex and Gender Information Value Date Recorded Sex Assigned at Not on file Gender Identity Not on file Sexual Orientation Not on file documented as of this encounter Plan of Treatment Not on file documented as of this encounter Procedures Procedure Name Priority Date/Time Associated Diagnosis Comments SURGICAL PATHOLOGY Today 03/28/2020 13 :55 EDT Unspecified lump in the right breast, unspecified quadrant documented in this encounter Results * SURGICAL PATHOLOGY (03/28/2020 13:55 EDT) Ancillary Studies Addendum SPECIMEN A - BREAST, RIGHT, 7 O'CLOCK ESTROGEN AND PROGESTERONE RECEPTORS Tissue submitted: Paraffin embedded tissue block labelled [id number] from [facility] Immunohistochemical assays for estrogen receptors (SP1, Lazear) and progesterone receptors (16, Leica) have been performed on this specimen. Intranuclear receptor complexes were visualized on tissue sections using an HRP polymer immunohistochemical technique. This assay is intended for paraffin-embedded tissue fixed in 10% neutral buffered formalin for 6-72 hours. Results are reported as negative (<1% nuclear staining) or positive with the proportion of positive cells noted. Estrogen receptor expression in <5% of tumor cells may not have a strong interaction with estrogen receptor modulators such as Tamoxifen. Reference: ASCO-CAP Guideline Recommendations for IHC testing of ER and [place]. J Clin Oncol 2010;28:4774-4445. INTERPRETATION: BREAST, RIGHT, ULTRASOUND-GUIDED CORE BIOPSY: - Adenocarcinoma, invasive - Negative for estrogen receptors - Negative for progesterone receptors COMMENT: Cold ischemic time and total formalin fixation time appropriate: Yes Internal control benign epithelium is appropriately staining for estrogen and progesterone receptors HER2 (ERBB2) IMMUNOHISTOCHEMISTRY Tissue submitted: Paraffin embedded tissue block labelled [id number] From [facility] Fixative: Formalin This immunohistochemical assay is intended to paraffin-embedded tissue fixed in 10% neutral buffered formalin for 6-72 hours; 18-24 hour fixation with maximum tissue thickness of 3-4 millimeters is recommended for best assay performance. Time from biopsy to placement in formalin (cold ischemic time) should be minimized to less than one hour. Her2 should not be performed on alcohol fixed tissues. The assay was performed under appropriate conditions according to the lining scrubber's instructions with appropriate assay and tissue controls using an Anti-Her2 (4B5) Rabbit Monoclonal Antibody (Lazear). Her2 Scoring Guidelines (invasive tumor component only) 0 negative No staining or membrane staining in less than 10% of cells 1+ negative Faint partial membrane staining in more than 10% of cells 2+ weakly positive Moderate complete membrane staining in more than 10% of cells 3+ positive Strong complete membrane staining in more than 10% of cells Reference: ASCO-CAP Recommendations for Her2 Testing. J Clin Oncol 2018; epub (www.jco.org January 18, 2018) *FDA statement Assay results Her2 IHC Score: 3+ Tumor location: Right Breast 7 o'clock Cold ischemic time and total formalin fixative time appropriate: Yes Cells with complete membrane stainin% Membrane staining intensity: Strong Partial membrane staining: Present in 40% of cells Cytoplasmic staining: Faint Staining pattern: Homogeneous Staining in benign epithelium: Absent The Her2 assay performed is interpreted as: POSITIVE SPECIMEN B - RIGHT AXILLA ESTROGEN AND PROGESTERONE RECEPTORS Tissue submitted: Paraffin embedded tissue block labelled [id number] from [facility] Immunohistochemical assays for estrogen receptors (SP1, Lazear) and progesterone receptors (16, Leica) have been performed on this specimen. Intranuclear receptor complexes were visualized on tissue sections using an HRP polymer immunohistochemical technique. This assay is intended for paraffin-embedded tissue fixed in 10% neutral buffered formalin for 6-72 hours. Results are reported as negative (<1% nuclear staining) or positive with the proportion of positive cells noted. Estrogen receptor expression in <5% of tumor cells may not have a strong interaction with estrogen receptor modulators such as Tamoxifen. Reference: ASCO-CAP Guideline Recommendations for IHC testing of ER and [place]. J Clin Oncol 2010;28:1210-4320. INTERPRETATION: LYMPH NODE, RIGHT AXILLA, ULTRASOUND-GUIDED CORE BIOPSY: - Adenocarcinoma, invasive - Negative for estrogen receptors - Negative for progesterone receptors COMMENT: Cold ischemic time and total formalin fixation time appropriate: Yes HER2 (ERBB2) IMMUNOHISTOCHEMISTRY Tissue submitted: Paraffin embedded tissue block labelled [id number] From [facility] Fixative: Formalin This immunohistochemical assay is intended to paraffin-embedded tissue fixed in 10% neutral buffered formalin for 6-72 hours; 18-24 hour fixation with maximum tissue thickness of 3-4 millimeters is recommended for best assay performance. Time from biopsy to placement in formalin (cold ischemic time) should be minimized to less than one hour. Her2 should not be performed on alcohol fixed tissues. The assay was performed under appropriate conditions according to the lining scrubber's instructions with appropriate assay and tissue controls using an Anti-Her2 (4B5) Rabbit Monoclonal Antibody (Lazear). Her2 Scoring Guidelines (invasive tumor component only) 0 negative No staining or membrane staining in less than 10% of cells 1+ negative Faint partial membrane staining in more than 10% of cells 2+ weakly positive Moderate complete membrane staining in more than 10% of cells 3+ positive Strong complete membrane staining in more than 10% of cells Reference: ASCO-CAP Recommendations for Her2 Testing. J Clin Oncol 2018; epub (www.jco.org January 18, 2018) *FDA statement Assay results Her2 IHC Score: 3+ Tumor location: Right axilla lymph node Cold ischemic time and total formalin fixative time appropriate: Yes Cells with complete membrane stainin% Membrane staining intensity: Strong Partial membrane staining: Present in 20% of cells Cytoplasmic staining: Faint Staining pattern: Homogeneous Staining in benign epithelium: N/A The Her2 assay performed is interpreted as: POSITIVE NOTE: One or more of the reagents used in immunoperoxidase testing in this case may not have been cleared or approved by the U.S. Food and Drug Administration (FDA). The FDA has determined that such clearance or approval is not necessary. These tests are used for clinical purposes. They should not be regarded as investigational or for research. These reagents' performance characteristics have been determined by [facility] and/or by the referring laboratory. The positive and negative controls worked appropriately. If immunoperoxidase staining has been performed on alcohol fixed cytology specimens, which has not been fully validated, the assays should be interpreted with caution and correlated with clinical data. This laboratory is certified under the Clinical Laboratory Improvement Amendments of 1988 (CLIA-88) as qualified to perform high complexity clinical laboratory testing. 0 13:47 [facility] Addendum electronically signed by Dylan Simons MD on 04/01/2020 at 1347 Final Diagnosis A. 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 See comment. B. 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 See comment. 0 13:47 [facility] Diagnosis Comment A preliminary diagnosis was communicated to Dr. Ramana Huff on 03/29/20 at 4:[address] Ramana Chew. Train Examiner slides of this case were reviewed at the intradepartmental consultation conference. The findings in both biopsies is of an invasive carcinoma with focal apocrine features, invading fibroadipose tissue with prominent tumor infiltrating lymphocytes. Specimen B is designated as a lymph node. Although lymphoid tissue is present, no definite lymph node is identified. Clinical correlation is needed. Estrogen and progesterone receptor assays and Her2 studies have been ordered and results will be issued in an Addendum. 0 13:47 [facility] Attestation There was significan t resident/fellow involvement in the diagnostic evaluation of this case. By the signature below, the attending physician certifies that they have personally conducted a gross and/or microscopic examination of the described specimens and rendered or confirmed the above diagnosis. 0 13:47 EDT [facility] at 0915 Clinical History Right breast mass 7 o'clock 5 cm from nipple. Right axillary lymph node; clinical diagnosis code: N63.10 0 13:47 EDT [facility] Gross Description A. Received in formalin labelled with proper patient identification (initials B, K) and RT breast are 4 yellow and white fibrofatty tissue cores (0.5 cm to 1.4 cm in length, and each 0.1 cm in diameter). Entirely submitted in A1-A2. Time removed from patient: 13:55 hours 03/28/2020 Time placed in formalin: 13:55 hours 03/28/2020 Time out of formalin: 09:00 03/29/2020 B. Received in formalin labelled with proper patient identification (initials B, K) and RT axilla are 7 yellow and white fibrofatty tissue cores (0.4 cm to 2.0 cm in length, and ranging from 0.1 to 0.2 cm in diameter). Entirely submitted in B1-B3. Time removed from patient: 14:20 hours 03/28/2020 Time placed in formalin: 14:20 hours 03/28/2020 Time out of formalin: 09:00 03/29/2020 Sophie Osborn 03/29/2020 7:28 0 13:47 EDT [facility] Resident/Fell ow: Shobha Oliver MD 0 13:47 EDT [facility] Performing Lab [facility] 0 13:47 EDT [facility] Scanned Images 0 13:47 EDT [facility] Tissue BREAST STRUCTURE / Unknown 03/28/2020 13:55 EDT 03/28/2020 22:59 EDT Tissue specimen (specimen) AXILLARY LYMPH NODE STRUCTURE / Unknown 03/28/2020 13:55 EDT 03/28/2020 22:59 EDT Rosa Maria Huff MD PATHOLOGY ORDERABLES [facility] [address] [place] [address] documented in this encounter Visit Diagnoses Diagnosis Unspecified lump in the right breast, unspecified quadrant documented in this encounter Care Teams Butcher Helper Relationship Specialty Start Date End Date Ghazal Joseph APRN [address] [place] [address] PCP - General 03/16/16 documented as of this encounter
--- OUTSIDE RECORDS SUMMARY | 2024-03-10 17:18 | XMS_ITS | Encounter Summary ---
Author Organization [facility] Address [address] [place] [address] Care Team Providers Care Career Resource Specialist Name Role Phone Unavailable Primary Care Provider Unavailabl e Encounter Details Date Type Department Care Team (Late st Contact Info) Description 01/21/2007 Before PRISM Converted Visit (Maple) [facility] - Maple conversion [address] [place] [address] Yaya Harris MD [address] [place] [address] Social History Tobacco Use Types Packs/Day Years Used Date Smoking Tobacco: Never Assessed Sex and Gender Information Value Date Recorded Sex Assigned at Not on file Gender Identity Not on file Sexual Orientation Not on file documented as of this encounter Progress Notes * Yaya Harris - 06/09/2009 1701 EST NEUROLOGY HEALTH CARE SERVICE PROGRESS/FOLLOWUP NOTE - 01/21/2007 PROBLEM 1. Asthma. 2. Migraine headaches CURRENT MEDICATIONS 1. Prozac 20 mg daily. 2. Mariela 180 mg daily. 3. Flonase 50 mcg one spray daily. 4. Advair 250/50 daily one puff b.i.d. 5. Aspirin 81 mg daily. 6. Vitamin E 400 daily. 7. Zomig 5 mg tablet p.r.n. 8. Lotrel 2.5/10 mg three tablets daily. 9. Metoclopramide 10 mg p.r.n. ALLERGIES None. INTERIM HISTORY Ghazal is a 56-year-old woman with migraine headache. She was last seen in our clinic in July 2006. At that point, she was having headache frequency between 11 to 14 every month. She was startedon Lotrel 2.5/10 gradually increasing her dose up to three tablets per day and she is here today for follow up. Since her last visit and change she was started on Lotrel, her headache frequency was almost the same. She had seven in August. She had eight in September. She had 12 in September, 14 in October and 12 in November. Every times has to take Zomig between half to two tablets. Her headache frequency was about the same. She believes that the Topamax was working better. But we discontinued Topamax as she started to have a ringing at the higher dose of Topamax which was 200 mg daily, no other complaint. REVIEW OF SYSTEMS No fever or chills, weight loss. No double vision, blurry vision. No chest pain, shortness of breath. No abdominal pain. No diarrhea. No constipation. No joint swelling or pain. No urinary symptoms. No psychiatric problem. No skin rash. No bleeding tendency. the rest of 10 point review of system was negative. OBJECTIVE General Exam: Her blood pressure was 102/64. Her pulse was 67. Respirations was 16. Her weight was 142. She does not have any pain at the point. There was no carotid or subclavian bruit. Normal heartsound. No gallop, no murmur. Clear both lung. abd was lax no tenderness, no palpable organ. Neurological examination: Fully awake and oriented. Speech and language normal. Memory and concentration were unremarkable. Cranial nerve examination: Normal eye movements. No nystagmus. No field defect. Normal funduscopic exam. No facial asymmetry. Intact facial sensation. Normal shoulder shrug. Normal hearing to finger rub. Motor power, no drift, normal motor power, 3 deep tendon reflexes, flexor plantar bilateral, sensation intact both superficial and deep sensation. Coordination finger to nose and heel to knee test and her gait is normal. ASSESSMENT / PLAN She still has the headache frequency the same. She is tolerated Lotrel very well. She does not haveany complications. We recommend to increase the dose to four tablets daily. She will continue on this dose until March and then she will give us a call if she is still having headache, maybe we willhave to switch to Namenda. saw and examined the patient with the resident/fellow. I agree with the findings and plan of care documented in the resident's/fellow's note. Signed by Joaquin Mckeon MD,PhD 05/25/2007 09:12 Reviewed by Yaya Harris MD 03/08/2007 12:41 Ladonna Harris, Danii Harris, Nicolás Mckeon MD,PhD Dictated by: Shireen Harris MD Joaquin Mckeon MD,PhD - Yaya Harris MD - C[facility] Job ID: [id number] Doc ID: [id number] cc: MACEY Vidal documented in this encounter Plan of Treatment Not on file documented as of this encounter Visit Diagnoses Not on filedocumented in this encounter
--- OUTSIDE RECORDS SUMMARY | 2024-03-10 17:18 | XMS_ITS | Encounter Summary ---
Author Organization [facility] Address [address] [place] [address] Care Team Providers Care Publication Director Name Role Phone Unavailable Primary Care Provider Unavailabl e Encounter Details Date Type Department Care Team (Late st Contact Info) Description 05/11/2008 16:20 EDT Hospital Encounter [address] [address] Joaquin Mckeon MD PhD [address] [place] [address] [address] [place] [address] Social History Tobacco Use Types Packs/Day Years [...]
--- OUTSIDE RECORDS SUMMARY | 2024-03-10 17:18 | XMS_ITS | Clinical Summary ---
Author Organization [facility] Address [address] [place] [address] Care Team Providers Care Play Therapist Name Role Phone Ghazal Joseph APRN Primary Care Provider [phone] Social History Tobacco Use Types Packs/Day Years Used Date Smoking Tobacco: Never Assessed Interpersonal Safety Answer Date Record ed Physically Hurt Never 04/14/2020 Verbally Threaten Not on file 04/14/2020 Sex and Gender Information Value Date Recorded Sex Assigned at Not on file Gender Identity Not on file Sexual Orientation Not on file Plan of Treatment Health Maintenance Due Date Last Done Comments Hepatitis C Screen 1950 RSV Immunization ( o r 60+ Years) (1 - 1-dose 60+ series) 2011 Fall Risk Screening 12/26/2016 COVID-19 Vaccine ( season) 2023 Care Teams Play Therapist Relationship Specialty Start Date End Date Ghazal Joseph APRN [address] [place] [address] PCP - General 03/16/16
--- OUTSIDE RECORDS SUMMARY | 2024-03-10 17:18 | XMS_ITS | Referral Summary ---
Author Organization [facility] Address [address] [place] [address] Care Team Providers Care Jacquard Twine Polisher Operator Name Role Phone JakeGhazal Luis Antonio AYDIN Primary Care Provider [phone] Social History Tobacco Use Types Packs/Day Years Used Date Smoking Tobacco: Never Assessed Interpersonal Safety Answer Date Record ed Physically Hurt Never 04/14/2020 Verbally Threaten Not on file 04/14/2020 Sex and Gender Information Value Date Recorded Sex Assigned at Not on file Gender Identity Not on file Sexual Orientation Not on file Plan of Treatment Not on file Care Teams Jacquard Twine Polisher Operator Relationship Specialty Start Date End Date Ghazal Joseph APRN [address] [place] [address] PCP - General 03/16/16
--- OUTSIDE RECORDS SUMMARY | 2024-03-10 17:18 | XMS_ITS | Encounter Summary ---
Author Organization [facility] Address [address] [place] [address] Care Team Providers Care Glass Deposition Tender Name Role Phone Unavailable Primary Care Provider Unavailabl e Encounter Details Date Type Department Care Team (Latest Contact Info) Description 11/04/2007 9:09 EDT - 11/04/2007 11:59 EDT Hospital Encounter [address] [address] Joaquin Mckeon MD PhD [address] [place] [address] [address] [place] [address] Discharge Disposition: Auto Discharge Social History Tobacco Use Types Packs/Day Years Used Date Smoking Tobacco: Never Assessed Sex and Gender Information Value Date Recorded Sex Assigned at Not on file Gender Identity Not on file Sexual Orientation Not on file documented as of this encounter Discharge Disposition Disposition Code Departure Means Destination Auto Discharge documented in this encounter Plan of Treatment Not on file documented as of this encounter Visit Diagnoses Not on filedocumented in this encounter
--- OUTSIDE RECORDS SUMMARY | 2024-03-10 17:18 | XMS_ITS | Continuity of Care Document ---
Author Organization [facility] Address [address] [place] [address] Care Team Providers Care Teaching Music Lessons Name Role Phone ROSANA SIMON APRN Primary Care Physician Encounter [facility] NBR [id number] Date(s): 01/08/23 - 01/08/23 [facility] [address] [place] [address] [place] Encounter Diagnosis Breast CA(Discharge Diagnosis) - 01/08/23 Discharge Disposition: Home or Self Care Attending Physician: Rosa Maria Huff Allergies, Adverse Reactions, Alerts Substance Reaction Severity Status codeine Nausea Unknown Active Cats Sneezing Mild Active Environmental Smoke Unknown Unknown Active Assessment and Plan Future Appointments Functional Status 01/08/23 Recent Travel History No recent travel Other exposure to Infectious Disease Non e Medications Albuterol (Eqv-ProAir HFA) 0 Refill(s) Start [...] Start Date: 01/04/23 Status: Ordered Potassium Chloride (Trt-Ryjh-Buz 10) 10 mEq oral tablet, extended release [...] tonsillectomy Completed History of tubal ligation Completed Vital Signs Most recent to oldest [Reference Range]: 1 Temperature Temporal Artery [36-38 Deg C ] 35.2 Deg C *LOW* (01/08/23 11:00 AM) Apical Heart Rate [60-100 bpm] 84 bpm (01/08/23 11:00 AM) Blood Pressure [90-140/60-90 mmHg] 148/8 2mmHg *HI* (01/08/23 11:00 AM) Weight 71.2 kg (01/08/23 11:00 AM) Weight Measured (lbs) 156.969 lb (01/08/23 11:00 AM) [place] Body Weight Calculated 53.55 kg (01/08/23 11:00 AM) Height 161.29 cm (01/08/23 11:00 AM) Height/Length Measured (inches) 63.5 inc h (01/08/23 11:00 AM) BSA Measured 1.79 m2 (01/08/23 11:00 AM) Body Mass Index 27.37 kg/m2 (01/08/23 11:00 AM) Social History Social History Type Response Tobacco Former tobacco user Tobacco Use:. Sex Physician Outpatient Note * Rosa Maria Huff: PERFORM Event Display: Office Clinic Note Physician Authored Date: [id number] ROSANA HUMMEL :1950 Age:72 years Sex:Female Visit Date:01/08/2023 Primary Care Physician: ROSANA SIMON APRN Chief Complaint MEDIPORT REMOVAL History of Present Illness Rosana is a sarina lady who has ??completed treatment for breast cancer. ??She now needs to have the port removed. ??The procedure, purpose, risk, expected benefits, potential complications alternative forms of therapy discussed with her and she is agreeable to the procedure Physical Exam Vitals & Measurements T:??35.2?C ??(Temporal Artery)?? HR:??84??(Apical)?? BP:??148/82?? SpO2:??96%?? HT:??161.29??cm?? WT:??71.2??kg?? BMI:??27.37?? BSA:??1.79?? Procedure Preop Dx: infusaport in place Postop diagnosis: Same Procedure:??Removal Geqcvj-f-Kmjh Anesthesia: 1% lidocaine Technique patient was identified then taken into the procedure room where after timeout the left breast chest and neck were prepped with Betadine solution draped in sterile fashion the patient placedin Trendelenburg position. After infiltration with 1% Xylocaine??an incision was made directly over??lying the previous incision that had been used to place the port.?? By blunt and sharp dissection the port was dissected free from the pocket. ??The??Prolene sutures were cut. ??The port was removedin its entirety. ??Pressure held at the venous insertion site. ??The??lining of the pocket was cauterized using the Bovie cautery. ??Hemostasis assured. ??The wound was closed subcutaneous with 3-0 Vi cryl and Steri-Strips for skin closure. ??A pressure dressing applied and patient discharged in stable condition Assessment/Plan 1.??Breast CA??C50.919 Problem List/Past Medical History Ongoing Asthma Breast CA Migraine S/P tonsillectomy Historical No qualifying data Procedure/Surgical History ???Cataract???Colonoscopy???Frozen shoulder???History of tonsillectomy???History of tubal ligation Medications Albuterol (Eqv-ProAir HFA) atorvastatin 20 mg oral tablet FLUoxetine 40 mg oral capsule fluticasone 50 mcg/inh nasal spray folic acid 0.4 mg oral tablet, 0.4 mg= 1 tab, Oral, Daily gabapentin 100 mg oral capsule oxyCODONE-acetaminophen 5 mg-325 mg oral tablet Potassium Chloride (Acf-Bhkw-Zct 10) 10 mEq oral tablet, extended release Zomig 5 mg oral tablet, 5 mg= 1 tab, Oral, Daily, PRN Allergies Cats??(Sneezing) Environmental Smoke??(Unknown) codeine??(Nausea) Social History Alcohol Never Electronic Cigarette/Vaping Electronic Cigarette Use: Never. Tobacco Former tobacco user Tobacco Use:. Electronically Signed on 01/08/23 12:24 PM Rosa Maria Huff Patient Care team information Care Team Personnel Name: ROSANA SIMON APRN Position: No Access Member Role: Primary Care Physician Address: Address: [address] [place] [address] Care Team Related Persons Name: COLLINS HUMMEL Address: [address] [place], [place] [address] [place] [address]
--- OUTSIDE RECORDS SUMMARY | 2024-03-10 17:18 | XMS_ITS | Encounter Summary ---
Author Organization [facility] Address [address] [place] [address] Care Team Providers Care Parking Lot Attendant Name Role Phone Unavailable Primary Care Provider Unavailabl e Encounter Details Date Type Department Care Team (Late st Contact Info) Description 11/15/2009 Results Only [facility] - [facility] ([facility]) [address] [place], [place] [id number] Carlos Hartley ARNP [address] [place] [address] Social History Tobacco Use Types Packs/Day Years Used Date Smoking Tobacco: Never Assessed Sex and Gender Information Value Date Recorded Sex Assigned at Not on file Gender Identity Not on file Sexual Orientation Not on file documented as of this encounter Plan of Treatment Not on file documented as of this encounter Procedures Procedure Name Priority Date/Time Associated Diagnosis Comments CYTOPATHOLOGY Routine 11/15/2009 0:00 EDT documented in this encounter Results * CYTOPATHOLOGY (11/15/2009 0:00 EDT) Pathology Report: CYTOPATHOLOGY REPORT ? Reports generated via electronic interface contain original data; ? however they are lacking the format of the original report. ? Caution should be taken when reading/interpreti ng unformatted reports. ? Name: ? ROSANA NINA ? Accession #: ? [id number] ? : ? 1950 (Age: 58) ??F ?Collect Date: ? 11/15/2009 ? Location: ? [facility] ? Receive Date: ? 11/19/2009 ? Provider: ?CARLOS CULP ? Copy to: ?SHYANNE BOUDREAUX MD ? Specimen/Source: ?Pap Test, Vagina/Cervix/Endo cervix, ThinPrep Imaging ? System with manual evaluation ? Last Menstrual Period: ? Previous Gynecologic Pathology: ? Yes: H/O 01/88 Mild Atypia ? Other: ? HPVA - HPV testing requested if ASC-US on the current ThinPrep Pap test. ? SPECIMEN ADEQUACY ? Satisfactory for Evaluation ? - transformation zone component present ? GENERAL CATEGORIZATION ? Negative for Intraepithelial Lesion or Malignancy ? Document reviewed and electronically signed by: ? Joaquin Stumler, [place](ASCP) ? Report Date: ??11/22/2009 10:33 ? End of Report ? DB KWONG 11/15/2009 11/19/2009 Carlos CULP PATHOLOGY ORDERABL ES [facility] [address] [place] [address] documented in this encounter Visit Diagnoses Not on filedocumented in this encounter
--- OUTSIDE RECORDS SUMMARY | 2024-03-10 17:18 | XMS_ITS | Encounter Summary ---
Author Organization [facility] Address [address] [place] [address] Care Team Providers Care City Route Driver Name Role Phone Unavailable Primary Care Provider Unavailabl e Encounter Details Date Type Department Care Team (Late st Contact Info) Description 01/21/2007 9:34 EDT Hospital Encounter [address] [address] Joaquin Mckeon MD PhD [address] [place] [address] [address] [place] [address] Social History Tobacco Use Types [...]
--- OUTSIDE RECORDS SUMMARY | 2024-03-10 17:18 | XMS_ITS | Encounter Summary ---
Author Organization [facility] Address [address] [place] [address] Care Team Providers Care Behavioral Therapy Coordinator Name Role Phone Nerissa Cody MACEY Primary Care Provider [phone] Encounter Details Date Type Department Care Team (Late st Contact Info) Description 03/11/2016 Results Only [facility] [phone] Nelly Mixon, DO [address] [place] [address] Social History Tobacco Use Types Packs/Day Years Used Date Smoking Tobacco: Never Assessed Sex and Gender Information Value Date Recorded Sex Assigned at Not on file Gender Identity Not on file Sexual Orientation Not on file documented as of this encounter Plan of Treatment Not on file documented as of this encounter Procedures Procedure Name Priority Date/Time Associated Diagnosis Comments SURGICAL PATHOLOGY Routine 03/11/2016 10 :58 EDT documented in this encounter Results * SURGICAL PATHOLOGY (03/11/2016 10:58 EDT) Pathology Report: SURGICAL PATHOLOGY REPORT Reports generated via electronic interface contain original data; however they are lacking the format of the original report. Caution should be taken when reading/interpret ing unformatted reports. Name: ? ESTEPHANIE ROSANA Jessenia ? Accession #: ? [id number] ? : ? 1950 (Age: 65) ??F ? Collect Date: ? 03/11/2016 ? Location: ? [facility] ? Receive Date: ? 03/11/2016 ? Provider: NELLY MIXON DO Copy to: ROSANA Luis Antonio [employer]EARCH SPECIALIST ? Final Pathologic Diagnosis: RECTUM, POLYPS, BIOPSIES: - Fragments of hyperplastic polyp(s). Document reviewed and electronically signed by: CATHY GUERRERO MD Report ??Date: 03/13/2016 13:27 By the signature above, the attending physician certifies that he/she has personally conducted a gross and/or microscopic examination of the described specimens and rendered or confirmed the above diagnosis. Specimen(s) Received: Rectal polyps x2 Clinical History: P/H colon polyps; clinical diagnosis code: Z86.010 Gross Description: ? Received in formalin labelled with proper patient identification (initials B, K) and rectal polyps are two plummer-brown tissues averaging 0.3 x 0.2 x 0.2 cm. Entirely submitted in 1. Sophie Osborn 03/12/2016 11:46 AM End of Report [facility] 03/11/2016 10:5 8 EDT 03/11/2016 10:58 EDT Nelly Mixon DO PATHOLOGY ORDERABLES [facility] [address] [place] [address] documented in this encounter Visit Diagnoses Not on filedocumented in this encounter Care Teams Behavioral Therapy Coordinator Relationship Specialty Start Date End Date Nerissa Cody FNP [address] [place], [place] [id number] PCP - General 01/15/10 03/15/16 documented as of this encounter
--- OUTSIDE RECORDS SUMMARY | 2024-03-10 17:18 | XMS_ITS | Encounter Summary ---
Author Organization [facility] Address [address] [place] [address] Care Team Providers Care Slot Machine Floor Person Name Role Phone Nerissa Cody MACEY Primary Care Provider [phone] Encounter Details Date Type Department Care Team (Late st Contact Info) Description 12/10/2006 Results Only [facility] [address] [place] [address] Carlos Hartley ARNP [address] [place] [address] Social History Tobacco Use Types Packs/Day Years Used Date Smoking Tobacco: Never Assessed Sex and Gender Information Value Date Recorded Sex Assigned at Not on file Gender Identity Not on file Sexual Orientation Not on file documented as of this encounter Plan of Treatment Not on file documented as of this encounter Procedures Procedure Name Priority Date/Time Associated Diagnosis Comments CYTOPATHOLOGY Routine 12/10/2006 0:00 EDT documented in this encounter Results * CYTOPATHOLOGY (12/10/2006 0:00 EDT) Pathology Report: CYTOPATHOLOGY REPORT Reports generated via electronic interface contain original data; however they are lacking the format of the original report. Caution should be taken when reading/interpreti ng unformatted reports. Name: ? ROSANA NINA ? Accession #: ? [id number] : ? 1950 (Age: 55) ??F ?Collect Date: ? 12/10/2006 Location: ? [facility] ? Receive Date: ? 12/14/2006 Provider: ?CARLOS CULP Copy to: ? Specimen/Source: ?ThinPrep Pap Test, Vagina/Cervix/Endo cervix, processed on [facility] ThinPrep Imaging System, with manual evaluation Last Menstrual Period: ? Previous Gynecologic Pathology: ? Yes: MIld Atypia ? SPECIMEN ADEQUACY ? Satisfactory for Evaluation - transformation zone component present GENERAL CATEGORIZATION ? Negative for Intraepithelial Lesion or Malignancy ? Document reviewed and electronically signed by: ? Aliyah Crum, [facility](ASCP) ? Report Date: ??12/15/2006 11:18 End of Report DB KWONG 12/10/2006 12/14/2006 Carlos CULP PATHOLOGY ORDERABL ES DB KW[facility] [address] [place] [address] documented in this encounter Visit Diagnoses Not on filedocumented in this encounter Care Teams Slot Machine Floor Person Relationship Specialty Start Date End Date Nerissa Cody FNP [address] [place], [place] [phone] PCP - General 01/15/10 03/15/16 documented as of this encounter
--- OUTSIDE RECORDS SUMMARY | 2024-03-10 17:19 | XMS_ITS | Encounter Summary ---
Author Organization [facility] Address [address] [place] [address] Care Team Providers Care Sap Crm Developer Name Role Phone Ghazal Joseph APRN Primary Care Provider [phone] Encounter Details Date Type Department Care Team (Late st Contact Info) Description 04/03/2021 Notes Only [facility] [address] [place] [address] Herlinda Payton, RN Social History Tobacco Use Types Packs/Day Years Used Date Smoking Tobacco: Former Cigarettes 1 50 0 01/28/1964 - 01/27/2014 Smokeless Tobacco: Never Overall Financial Resource Strain (CARDIA) Answe r Date Recorded How hard is it for you to pa y for the very basics like food, housing, medical care, and heating? Not hard at all 12/19/2020 Hunger Vital Sign Answer Date Recorded Within the past 12 months, y ou worried that your food would run out before you got the money to buy more. Never true 12/20/19 21 Ran Out of Food in the Last Year Not on file 12/19/2020 PRAPARE - Transportation Answer Date Re corded In the past 12 months, has l ack of transportation kept you from medical appointments or from getting medications? No 12/19/2020 Lack of Transportation (Non-Medical) Not on file 12/19/2020 Housing Stability Vital Sign Answer Marcelo e Recorded In the last 12 months, was t here a time when you were not able to pay the mortgage or rent on time? No 12/19/2020 In the last 12 months, how many places have you lived? 2 12/19/2020 In the last 12 months, was t here a time when you did not have a steady place to sleep or slept in a snf (including now)? No 12/19/2020 Sex and Gender Information Value Date Recorded Sex Assigned at Not on file Gender Identity Not on file Sexual Orientation Not on file documented as of this encounter Progress Notes * Herlinda Payton, RN - 04/03/2021 1:30 PM EDT [facility] Outreach Treatment Note - Socorro Nina [id number] 1950 Allergies Allergen Reactions ??? Codeine Nausea Only Cycle: 6 Day: Medication Dose Route Kadcyla 225mg IV Cumulative Drug Doses Medication Cumulative Dose Patient tolerated treatment well without incident or adverse reaction. Patient instructed to contact this clinic during regular business hours if they have any concerns related to treatment, patient was instructed to contact [facility] section leader screen printing oncologist after hours, on weekends and holidays for concernsrelated to their cancer diagnosis current treatment. documented in this encounter Plan of Treatment Not on file documented as of this encounter Visit Diagnoses Not on filedocumented in this encounter Care Teams Sap Crm Developer Relationship Specialty Start Date End Date Ghazal Joseph APRN [address] [place] [address] PCP - General Family Medicine 12/19/20 documented as of this encounter
--- OUTSIDE RECORDS SUMMARY | 2024-03-10 17:19 | XMS_ITS | Encounter Summary ---
Author Organization [facility] Address [facility] [place] [address] Care Team Providers Care Food And Beverage Checker Name Role Phone Ghazal Joseph APRN Primary Care Provider [phone] [phone] Encounter Details Date Type Department Care Team (Late st Contact Info) Description 01/23/2021 9:30 AM EDT Office Visit [facility] [address] [place] [address] Maricruz Cooley, RN HER2-positive carcinoma of right breast; Intractable periodic headache syndrome; Encounter for therapeutic drug level monitoring Social History Tobacco Use Types Packs/Day Years Used Date Smoking Tobacco: Never Assessed Overall Financial Resource Strain (CARDIA) Ans[place] r [...] place to sleep or slept in a fci (including now)? No 12/19/2020 Sex and Gender Information Value Date Recorded Sex Assigned at Not on file Gender Identity Not on file Sexual Orientation Not on file documented as of this encounter Last Filed Vital Signs Vital Sign Reading Time Taken Comments Blood Pressure 145/84 01/23/2021 9:30 AM EDT Pulse 85 01/23/2021 9:30 AM EDT Temperature 36.3 ??C (97.3 ??F) 01/23/2021 9:30 AM ED T Respiratory Rate 18 01/23/2021 9:30 AM EDT Oxygen Saturation 98% 01/23/2021 9:30 AM EDT Inhaled Oxygen Concentration - - Weight 63.9 kg (140 lb 14 oz) 01/23/2021 9:30 AM EDT Height 163 cm (5' 4.17) 01/23/2021 9:30 AM EDT Body Mass Index 24.05 01/23/2021 9:30 AM EDT documented in this encounter Progress Notes * Maricruz Cooley APRN - 01/23/2021 9:30 AM EDT Images from the original note were not included. Diagnosis:R ?multifocal IDC, Gr 2-3, ER-/MT-, Her2 3+ by IHC, N1 Subjective HPI:Ghazal Nina is 70 y.o.F referred by Dr. Huff for a consultation on new diagnosis of breast cancer. - late January 2020 felt lump in r breast -03/15/20 mammogram with R US ovoid lobular lesion at the 7 o'clock 5 cm from nipple 1.4x1.3x0.8 cm -03/28/20 ultrasound-guided biopsy of right breast mass and axillary lymph node -04/18/2020 MRI breast bilateral: The right breast ovoid enhancing poorly marginated mass in the right lower outer quadrant measuring 1.4 x 1.4 x 2 cm. Avoid new enhancing mass in the right upper outer quadrant measuring approximately 4.5 x 5.1 x 5.6 mm this is suspicious for neoplastic lesion. Addit ional irregular nodular areas of enhancement in the right mid breast extending to monitor I will again with multiple small nodular enhancing foci in the right nipple. Findings are suspicious for neoplastic involvement. Enlarged enhancing right axillary lymph nodes consistent with known metastatic involvement measuring 1.3 x 1.6 x 1.6 cm. Left breast no mass or abnormal enhancement. No abnormal nipple enhancement or retraction. No skin thickening. Complains on soreness and pain in the right axillary area Interval history(01/23/21): Ms. Nina is in clinic for follow-up of breast cancer. She completed neoadjuvant chemotherapy followed by surgery on November 07 and November 21. She has residual disease afterneoadjuvant chemotherapy and she started on Kadcyla on December 10 in [place]. Ghazal is here today forC3. She is feeling well today. She is currently receiving RT and treatments have been going well. She does complain of pain in her left shoulder during positioning on table. No skin issues. She is using Alvaro's cream. She is still having migraines but she thinks she may be having rebound headaches from the medication. She is seeing the neurologist in [facility] on the of this month. Her MRI was negative for metastatic disease. Denies any dizziness, vision changes, confusion or changes inbalance or weakness. Other than the headaches she is feeling well. Appetite is good. No nausea, vomiting or constipation. She does have some diarrhea for a few days post treatment but it is well controlled with the imodium. She has taken Zofran in the past without having any issues with headaches. No breast issues or new lumps or bumps. She denies any numbness or tingling in extremities. No otherfocal complaints today. 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 Father had kidney cancer OBGYN History: , menarche at age of 12, age of first live 23, menopausal in mid 50s, no hormone replacement therapy, use local estrogen cream Allergies: Allergies Allergen Reactions ??? Codeine Nausea Only Medications: Your Medications Accurate as of January 23, 2021 9:56 AM. If you have any questions, ask your nurse or doctor. Continued medications, unchanged Dose Details albuterol sulfate 90 mcg/actuation Aepb Inhale 180 mcg into the lungs. 180 mcg Refills: 0 atorvastatin 10 mg Tab Commonly known as: Lipitor Take 20 mg by mouth daily. 20 mg Refills: 0 benazepriL 20 mg Tab Commonly known as: LOTENSIN Take 10 mg by mouth daily. 10 mg Refills: 0 Calcium 600 + D(3) 600 mg(1,500mg) -200 unit Tab Take by mouth. Generic drug: calcium-vitamin D3 Refills: 0 CREAM BASE TOP Apply topically. Jeans Cream. Apply to area of radiation twice a day but no less than 2 hours before a treatment. Refills: 0 FLUoxetine 10 mg Cap Commonly known as: PROzac Take 30 mg by mouth daily. 30 mg Refills: 0 fluticasone propionate 50 mcg/actuation Spsn Commonly known as: FLONASE 1 spray daily. 1 spray Refills: 0 ondansetron 4 mg Tab Commonly known as: Zofran Refills: 0 oxyCODONE-acetaminophen 5-325 mg Tab Commonly known as: Percocet Refills: 0 prochlorperazine 10 mg Tab Commonly known as: Compazine Refills: 0 Singulair 10 mg Tab Take 10 mg by mouth nightly. Generic drug: montelukast 10 mg Refills: 0 ZOLMitriptan 5 mg Tab Commonly known as: ZOMIG Take 5 mg by mouth as needed for Migraine. Initial dose: 1.25 to 2.5 mg (maximum: 5 mg/dose). May repeat dose after 2 hours. Max daily dose: 10 mg 5 mg Refills: 0 Review of Systems: Constitutional: Negative for fever, chills, activity change, fatigue and unexpected weight change. HEENT: Negative for sore throat, mouth sores and trouble swallowing. Positive for headaches. Eyes: Negative. Respiratory: Negative for cough, shortness of breath and wheezing. Tickle in my throat at night Cardiovascular: Negative for chest pain, palpitations and leg swelling. Gastrointestinal: Negative for nausea, vomiting, abdominal pain, diarrhea, constipation and abdominal distention. Genitourinary: Negative for dysuria and difficulty urinating. Musculoskeletal: Negative. Skin: Negative. Neurological: Negative. Hematological: Negative for adenopathy. PE: General: AAAx3, in NAD Head: Normocephalic, without obvious abnormality, atraumatic Eyes: PERRL, conjunctiva/corneas clear, EOM's intact both eyes Ears: Normal external ear canals, both ears Nose: Nares normal, septum midline, mucosa normal, no drainage or sinus tenderness Throat: Lips, mucosa, and tongue normal; teeth and gums normal Neck: Supple, symmetrical, trachea midline, no adenopathy, thyroid: not enlarged, symmetric, no tenderness/mass/nodules Back: Symmetric, no curvature, ROM normal, no CVA tenderness Lungs: Clear to auscultation bilaterally, respirations unlabored Chest Wall: Right breast surgically absent, well-healed surgical incision. No palpable masses or lumps in the left breast Heart: Regular rate and rhythm, S1, S2 normal, no murmur, rub or gallop Abdomen: Soft, non-tender, bowel sounds active all four quadrants, no masses, no organomegaly. There is no appreciable ascites Extremities: Extremities normal, atraumatic, no cyanosis or edema Pulses: 2+ and symmetric Skin: Skin color, texture, turgor normal, no rashes or lesions Lymph nodes: No palpable lymph nodes in cervical or axillary areas Neurologic: Normal No focal deficit. Vitals BP 145/84 (BP Location (NBP): Left arm, Patient Position: Sitting, BP Cuff Sizes: Adult (25-34 cm)) Pulse 85 Temp 36.3 ??C (97.3 ??F) (Temporal) Resp 18 Ht 163 cm (5' 4.17) Wt 63.9 kg (140 lb 14 oz) SpO2 98% BMI 24.05 kg/m?? Pathology: 11/21/20 11/07/20 03/28/20 INTERPRETATION: BREAST, RIGHT, ULTRASOUND-GUIDED CORE BIOPSY: - Adenocarcinoma, invasive - Negative for estrogen receptors - Negative for progesterone receptors COMMENT: Cold ischemic time and total formalin fixation time appropriate: Yes Internal control benign epithelium is appropriately staining for estrogen and progesterone receptors HER2 (ERBB2) IMMUNOHISTOCHEMISTRY Her2 IHC Score: 3+ Tumor location: Right [...] - RIGHT AXILLA ESTROGEN AND PROGESTERONE RECEPTORS INTERPRETATION: LYMPH NODE, RIGHT AXILLA, ULTRASOUND-GUIDED CORE BIOPSY: - Adenocarcinoma, invasive - Negative for estrogen receptors - Negative for progesterone receptors COMMENT: Cold ischemic time and total formalin fixation time appropriate: Yes HER2 (ERBB2) IMMUNOHISTOCHEMISTRY Tissue submitted: Paraffin embedded tissue block labelled [id number] From [facility] F 3+ positive Strong complete membrane staining in more than 10% of cells Reference: ASCO-CAP Recommendations for Her2 Testing. J Clin Oncol 2018; epub (www.jco.org December) *FDA statement Assay results Her2 IHC Score: [...] Administration (FDA). The FDA has determined that suchclearance or approval is not necessary. These tests are used for clinical purposes. They should notbe regarded as investigational or for research. These reagents' performance characteristics have been determined by [facility] and/or by the referring laboratory. The positive and negative controls worked appropriately. If immunoperoxidase staining has been performed on alcohol fixed cytology specimens, which has not been fully validated, the assays should be interpreted with caution and correlated with clinical data. This laboratory is certified under the ClinicalLaboratory Improvement Amendments of 1988 (CLIA-88) as qualified to perform high complexity clinical laboratory testing. ?? Final Diagnosis A. 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 See comment. B. 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 See comment. ?? Diagnosis Comment A preliminary diagnosis was communicated to Dr. Ramana Huff on 03/29/20 at 4:25 pm byDr. Ramana Chew. Bid Analyst slides of this case were reviewed at the intradepartmental consultation conference. The findings in both biopsies is of an invasive carcinoma with focal apocrine features, invading fibroadipose tissue with prominent tumor infiltrating lymphocytes. Specimen B is designated as a lymphnode. Although lymphoid tissue is present, no definite lymph node is identified. Clinical correlation is needed. Estrogen and progesterone receptor assays and Her2 studies have been ordered and results will be issued in an Addendum. ?? Attestation There was significant resident/fellow involvement in the diagnostic evaluation of this case. By the signature below, the attending physician certifies that they have personally conducted a gross and/or microscopic examination of the described specimens and rendered or confirmed the above diagnosis. ?? Clinical History Right breast mass 7 o'clock 5 cm from nipple. Right axillary lymph node; clinical diagnosis code: N63.10 ?? Gross Description A. Received in formalin labelled with proper patient identification (initials B, K) and RT breast are 4 yellow and white fibrofatty tissue cores (0.5 cm to 1.4 cm in length, and each 0.1 cm in diameter). Entirely submitted in A1-A2. Time removed from patient: 13:55 hours 03/28/2020 Time placed in formalin: 13:55 hours 03/28/2020 Time out of formalin: 09:00 03/29/2020 Labs: 01/20/21- WBC-3.8 Hgb/Hct-10.3/33.6 Plt-134 ANC-2.36 Na-140 K+-4.1 Ca-9.1 Glucose-88 BUN/Cr-16/0.92 T. Bili-0.5 Albumin-3.4 Alk phos- 286 AST-39 ALT-33 01/02/21- WBC-4.3 Hgb/Hct-10.7/34.3 MCV-89.6 Plt-158 Na-140 K+-4.0 Ca-8.8 BUN/cr-17/0.96 T. Bili-0.2 albumin-3.5 Alk phos-316 AST-81 ALT-64 12/10/2020 WBC 4.6, hemoglobin 11.8, platelet count 183, ANC 2.82, 11/25/20 BUN 13, creatinine 1.02, calcium 9.0, protein 6.1, albumin 3.7, alkaline phosphatase 379, AST 35, ALT 32. 04/19/2020 sodium 141, potassium 4.0, calcium 9.8, BUN 19, creatinine 1.09, TB 0.5, total protein 7.1, albumin 4.0, alkaline phosphatase 418, AST 26, ALT 33 WBC 5.3, hemoglobin 13.5, platelet count 268 Imagin01/15/21- MRI brain- Impression: No intracranial mass, mass effect or abnormal enhancement with no evidence of metastatic disease. No acute or recent infarct on diffusion series. 12/02/2020 echocardiogram: The estimated ejection fraction is 60-65%. Normal ventricular systolic function 10/09/20 breast MRI 05/03/2020 LV ejection fraction 66%. The left ventricular wall motion is normal. 05/03/2020 brain MRI: Impression: No intracranial mass, mass-effect or abnormal enhancement with no evidence of metastatic disease. No acute or recent infarct on diffusion series. 05/01/2020 CT chest, abdomen pelvis: Impression: No focal infiltrate or pulmonary mass with mild biapical scarring. Right axillary adenopathy as described on the recent MRI breast examination. No mediastinal mass or adenopathy. Small enhancing nodular lesion in the right breast as described on recent breast MRI no evidence of metastatic disease in abdomen or pelvis. 05/01/2020 bone scan: Impression: Normal whole-body bone scan. No evidence of osseous metastatic disease. 03/15/20 mammogram with R US ovoid lobular lesion at the 7 o'clock 5 cm from nipple 1.4x1.3x0.8 cm -03/28/20 ultrasound second mass 1.1 x 0.6 x 0.7 cm at 10-11 o'clock position -04/18/2020 MRI breast bilateral: The right breast ovoid enhancing poorly marginated mass in the right lower outer quadrant measuring 1.4 x 1.4 x 2 cm. Avoid no new enhancing mass in the right upper outer quadrant measuring approximately 4.5 x 5.1 x 5.6 mm this is suspicious for neoplastic lesion. Ad ditional irregular nodular areas of enhancement in the right mid breast extending to monitor I willagain with multiple small nodular enhancing foci in the right nipple. Findings are suspicious for neoplastic involvement. Enlarged enhancing right axillary lymph nodes consistent with known metastatic involvement measuring 1.3 x 1.6 x 1.6 cm. Left breast no mass or abnormal enhancement. No abnormal nipple enhancement or retraction. No skin thickening Assessment and Plan: Diagnosis:R ?multifocal IDC, Gr 2-3, ER-/MT-, Her2 3+ by IHC, T2N1M0, stage IIB, [id number], ER-/MT-,Her 2 3+ By IHC Treatment: -06/04/2020 -09/17/2020 6 cycle of neoadjuvant TCHP -11/07/20 right total mastectomy and sentinel lymph node biopsy -11/21/2020 right lymph node dissection - 12/10/20 started Kadcyla 3.6 mg/kg Mrs. Nina is a new diagnosis of right breast ductal carcinoma grade 2-3 ER and MT negative and HER-2 3+ by immunochemistry. Lymph node has histologically proven IDC as well. He alkaline phosphatase is above 400 which is concerning for more extensive disease. CT chest showed right axillary lymphadenopathy but no distant metastatic disease. Bone scan and brain MRI negative for metastatic disease. She had Mediport placed. We discussed treatment with chemotherapy and targeted HER-2 therapy. Treatment plan recommended 6 cycles of docetaxel, carboplatin, trastuzumab and Pertuzumab followed by surgery and radiation therapy. --------- Peggy is back from [place] where she completed 6 cycle of TCHP chemotherapy in neoadjuvant fashion under care of Dr.Swati Street. She underwent right mastectomy and sentinel lymph node biopsy November 07, 2020.pathology revealed residual 6 mm tumor as well as 4 mm deposit in lymph node. She had lymph node dissection on November 21. 1 out of 2 lymph nodes was positive for carcinoma. As per Dr. Street plan Mrs. Nina started adjuvant Kadcyla on December 10 with plan for total of 14 cycles followed by neratinib p.o. She is currently receiving adjuvant radiation in [place] with Dr. Lange. We will continue Kacyla every 3 weeks with monitoring for liver function and thrombocytopenia. We will hold treatment for platelet count below 75,000 on liver enzymes more than upper limit of normal x3 or elevated bilirubin. We will check echocardiogram every 3 months during her anti-Her2 treatment. # LFT's- normalized. # Headaches- she has a history of migraines. She feels this headache is different and her usual medications are not helping. MRI was negative for metastatic disease. Possibly rebound migraines. She has an appt with Neurology in [facility] on the . Plan: 1. Proceed with C3 Kadcyla today as scheduled. 2. Echocardiogram in March 2021. 3. Follow up with neurology as scheduled. 4 Next visit in 3 weeks with CBC, CMP, Mg and 4th cycle of Kadcyla. Ghazal voiced understanding of the plan and was given an opportunity to ask questions which I answered to the best of my ability.Amaury understands he can call the clinic between visits with any questions/concerns or new symptoms. Maricruz Cooley MSN, PICKLING MACHINE OPERATOR, AOCNP Medical Oncology documented in this encounter Plan of Treatment Not on file documented as of this encounter Visit Diagnoses Diagnosis HER2-positive carcinoma of right breast Intractable periodic headache syndrome Variants of migraine, not elsewhere classified, with intractable migraine, so stated, without mention of status migrainosus Encounter for therapeutic drug level monitoring Encounter for therapeutic drug monitoring documented in this encounter Care Teams Food And Beverage Checker Relationship Specialty Start Date End Date Ghazal Joseph APRN [address] [place] [address] PCP - General Family Medicine 12/19/20 documented as of this encounter
--- OUTSIDE RECORDS SUMMARY | 2024-03-10 17:19 | XMS_ITS | Encounter Summary ---
Author Organization [facility] Address [facility] [place] [address] Care Team Providers Care Rn Bone Marrow Transplant Name Role Phone Ghazal Joseph APRN Primary Care Provider [phone] Reason for Visit * Reason Comments On Treatment Visit Encounter Details Date Type Department Care Team (Late st Contact Info) Description 02/07/2021 11:45 AM EDT Office Visit Radiation Oncology at [address] [address] Jonna Lange MD [facility] [place] [address] Malignant neoplasm of upper-outer quadrant of right female breast, unspecified estrogen receptor status Social History Tobacco Use Types Packs/Day Years [...] place to sleep or slept in a detention (including now)? No 12/19/2020 Sex and Gender Information Value Date Recorded Sex Assigned at Not on file Gender Identity Not on file Sexual Orientation Not on file documented as of this encounter Last Filed Vital Signs Vital Sign Reading Time Taken Comments Blood Pressure 145/87 02/07/2021 11:46 AM EDT Pulse 78 02/07/2021 11:46 AM EDT Temperature 36.6 ??C (97.8 ??F) 02/07/2021 11:46 AM E DT Respiratory Rate 16 02/07/2021 11:46 AM EDT Oxygen Saturation 100% 02/07/2021 11:46 AM EDT Inhaled Oxygen Concentration - - Weight 63.8 kg (140 lb 9.6 oz) 02/07/2021 11:46 AM EDT Height - - Body Mass Index 24 01/23/2021 9:30 AM EDT documented in this encounter Progress Notes * Jonna Lange MD - 02/07/2021 11:45 AM EDT Images from the original note were not included. DIAGNOSIS: Breast ca, R, IDC, ER-HI-, Her2+, cT1 cN1, s/p neoadjuvant TCHP followed by R mastectomy& SNB, then completion R ax lymph node dissxn, ypT1b ypN1. Continues on kadcyla & neratinibplanned. ?? CURRENT TREATMENT DOSE: 44 Gy R Supraclav, Axilla, IMC & R Chest Wall ANTICIPATED TOTAL DOSE: 50 Gy R Supraclav, Axilla, IMC & R Chest Wall; 60 Gy Mastectomy Scar Current # of xrt received: 22 R Supraclav, Axilla, IMC & R Chest Wall Anticipated total # of xrt txs: 25 R Supraclav, Axilla, IMC & R Chest Wall; 30 Mastectomy Scar Evaluation of port verification films: Approved. For details, see electronic film record in [employer]. Changes in Medical Condition: Increased skin rxn w/in irrad'd area. Back of R shoulder has least degree of skin rxn but is the most itchy. She applies silvadene, aquaphor & phytoplex cream to irrad'd area. Denies throat irritation. Pain?: When on tx table w/arms up, manages w/visualization, does not want to take analgesic. Your Medications Accurate as of February 07, 2021 12:14 PM. If you have any questions, ask your nurse or doctor. Continued medications, unchanged Dose Details ACETAMINOPHEN ORAL Take 1,000 mg by mouth. 1,000 mg Refills: 0 albuterol sulfate 90 mcg/actuation Aepb Commonly known as: ProAir RespiClick Inhale 180 mcg into the lungs. 180 mcg Refills: 0 atorvastatin 20 mg Tab Commonly known as: Lipitor Refills: 0 benazepriL 10 mg Tab Commonly known as: LOTENSIN Take by mouth. Refills: 0 Calcium 600 + D(3) 600 [...] 1 spray daily. 1 spray Refills: 0 oxyCODONE-acetaminophen 5-325 mg Tab Commonly known as: Percocet Refills: 0 PROBIOTIC ORAL Take by mouth daily. Refills: 0 silver sulfADIAZINE 1 % Crea Commonly known as: SILVADENE Apply as often as needed to irradiated area, up to 4 g/day. Quantity: 85 g Refills: 0 Singulair 10 mg Tab Take 10 mg by mouth nightly. Generic drug: montelukast 10 mg Refills: 0 ZOLMitriptan 5 mg Tab Commonly known as: ZOMIG Take 5 mg by mouth as needed for Migraine. Initial dose: 1.25 to 2.5 mg (maximum: 5 mg/dose). May repeat dose after 2 hours. Max daily dose: 10 mg 5 mg Refills: 0 Physical Exam: BP 145/87 (Patient Position: Sitting) Pulse 78 Temp 36.6 ??C (97.8 ??F) (Temporal) Resp 16 Wt 63.8 kg (140 lb 9.6 oz) SpO2 100% BMI 24.00 kg/m?? A&Ox3, NAD. Irrad'd area w/moderately brisk erythema, moist prominent in R infraclav area & overlying R clavicle; mild folliculitis, most prominent in R post shoulder area; skin intact. Imagin12/24/20 Dx'ic Rad Interp CTsim: No suspicious lesion. Performance Status: KPS 100% Response to xrt: As expected. Irradiation Related Symptoms: Skin rxn. Treatment for Symptom Control: Given mepilex-lite to protect irrad'd area from clothing rubbing against it. Discussed use of benadryl cream for itchiness; could also try benadryl tab/capsule PO @ bedtime for itchiness. Silvadene, phytoplex cream, skintegrity ointment, aquaphor ointment, Alvaro's cream. Pain Management: Visualization. Recommendation on Continuing Course of xrt: Cont. documented in this encounter Plan of Treatment Not on file documented as of this encounter Visit Diagnoses Diagnosis Malignant neoplasm of upper-outer quadrant of right female breast, unspecified estrogen receptor status documented in this encounter Care Teams Rn Bone Marrow Transplant Relationship Specialty Start Date End Date Ghazal Joseph APRN [address] [place] [address] PCP - General Family Medicine 12/19/20 documented as of this encounter
--- OUTSIDE RECORDS SUMMARY | 2024-03-10 17:19 | XMS_ITS | Encounter Summary ---
Author Organization [facility] [place] [address] Care Team Providers Care Shrinker Name Role Phone Ghazal Joseph APRN Primary Care Provider [phone] Encounter Details Date Type Department Care Team (Latest Contact Info) Description 01/18/2023 Travel Social History Tobacco Use Types Packs/Day Years [...] place to sleep or slept in a residential (including now)? No 12/19/2020 Sex and Gender Information Value Date Recorded Sex Assigned at Not on file Gender Identity Not on file Sexual Orientation Not on file documented as of this encounter Plan of Treatment Not on file documented as of this encounter Visit Diagnoses Not on filedocumented in this encounter Care Teams Shrinker Relationship Specialty Start Date End Date Ghazal Joseph APRN [address] [place] [address] PCP - General Family Medicine 12/19/20 documented as of this encounter
--- OUTSIDE RECORDS SUMMARY | 2024-03-10 17:19 | XMS_ITS | Encounter Summary ---
Author Organization [facility] [place] [address] Care Team Providers Care Statistician Mathematical Name Role Phone Ghazal Joseph APRN Primary Care Provider [phone] Encounter Details Date Type Department Care Team (Late st Contact Info) Description 04/30/2022 1:00 PM EDT Office Visit [facility] [address] [address] Maricruz Cooley, RN Breast cancer metastasized to axillary lymph node, right; Intractable periodic headache syndrome Social History Tobacco Use Types Packs/Day Years [...] file 12/19/2020 Housing Stability Vital Sign Answer Mracelo e Recorded In the last 12 months, [...] place to sleep or slept in a longterm (including now)? No 12/19/2020 Sex and Gender Information Value Date Recorded Sex Assigned at Not on file Gender Identity Not on file Sexual Orientation Not on file documented as of this encounter Last Filed Vital Signs Vital Sign Reading Time Taken Comments Blood Pressure 149/77 04/30/2022 1:21 PM EDT Pulse 72 04/30/2022 1:21 PM EDT Temperature 36.4 ??C (97.5 ??F) 04/30/2022 1:21 PM ED T Respiratory Rate - - Oxygen Saturation 96% 04/30/2022 1:21 PM EDT Inhaled Oxygen Concentration - - Weight 66.9 kg (147 lb 7.8 oz) 04/30/2022 1:21 P M EDT Height 162 cm (5' 3.78) 04/30/2022 1:21 PM EDT Body Mass Index 25.49 04/30/2022 1:21 PM EDT documented in this encounter Progress Notes * Maricruz Cooley, AYDIN - 04/30/2022 1:00 PM EDT Images from the original note were not included. 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 Huff for a [...] mid breast [place] small nodular enhancing foci in the right nipple. Findings are suspicious for neoplastic involvement. Enlarged enhancing right axillary lymph nodes consistent with known metastatic involvement measuring 1.3 x 1.6 x 1.6 cm. Left breast no mass or abnormal enhancement. No abnormal nipple enhancement or retraction. No skin thickening. Complains on soreness and pain in the right axillary area Ghazal developed intense lumbar pain in the beginning of March and went to [facility] on March 03. Another visit to ER on March 06. She was seen by her chiropractor on March 13. No improvement in backpain. She had several visits to emergency room with back pain he followed with Dr. Street she has been on the full dose of 240 mg neratinib daily since December 11. Interval history(04/30/22)- Ms Nina returns to clinic today for routine followup of her breast cancer and neratinib toxicity check. She is compliant with neratinib and tolerates it reasonably well. She has had more issues with diarrhea lately and has needed to take immodium several times/day. The first time it happened she did not do that and she went 5-6 times before she realized that she should start taking it. She also has had more headaches lately as well. She denies any numbness or tingling loss of bowel or bladder control. Her appetite is good. Her weight is relatively stable. No nausea or vomiting. ROS is otherwise negatve. Interval history(02/23/22): Ms. Nina is in clinic for follow-up of breast cancer and neratinib toxicity check. Ghazal is compliant with neratinib and tolerates it reasonably well with mild fatigue.. Denies any bleeding.. No diarrhea. She denies any numbness, tingling or loss of bowel or bladdercontrol. Denies any falls. No difficulties with gait. Appetite is good. No nausea, vomiting or constipation. No new lumps or bumps. No other focal complaints today. PMH: No interval changes since last visit Acute back pain. ER visit on April 13 DERIK, diarrhea/pancytopenia and headaches admitted at the end of May [address] [facility] Migraine, asthma, tonsillectomy, tubal ligation, cataract surgery, colonoscopy for colon polyp, frozen shoulder repair Social History: No interval changes since last visit. 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 Father had kidney cancer OBGYN History: No interval changes since last visit , menarche at age of 12, age of first live 23, menopausal in mid 50s, no hormone replacement therapy, use local estrogen cream Allergies: Allergies Allergen Reactions ??? Codeine Nausea Only Medications: Your Medications Accurate as of April 30, 2022 2:07 PM. If you have any questions, ask your nurse or doctor. Continued medications, unchanged Dose Details albuterol sulfate 90 mcg/actuation Aepb Commonly known as: ProAir RespiClick Inhale 180 mcg into the lungs. 180 mcg Refills: 0 atorvastatin 20 mg Tab Commonly known as: Lipitor Refills: 0 calcium-vitamin D3 600 mg-5 mcg (200 unit) Tab Take by mouth. Refills: 0 FLUoxetine 10 mg Cap Commonly known as: PROzac Take 30 mg by mouth daily. 30 mg Refills: 0 fluticasone propionate 50 mcg/actuation Spsn Commonly known as: Flonase 1 spray daily. 1 spray Refills: 0 folic acid 1 mg Tab Commonly known as: Folvite Take 1 mg by mouth daily. 1 mg Refills: 0 montelukast 10 mg Tab Commonly known as: Singulair Take 10 mg by mouth nightly. 10 mg Refills: 0 neratinib 40 mg tablet Commonly known as: Nerlynx Take 6 tablets (240 mg) by mouth daily. Indications: HER2 positive breast cancer 240 mg Quantity: 180 tablet Refills: 11 oxyCODONE-acetaminophen 5-325 mg Tab Commonly known as: Percocet Refills: 0 potassium chloride ER 10 mEq Tbsr Commonly known as: K-Dur/Klor-Con Take 1 tablet by mouth daily. 10 mEq Quantity: 30 tablet Refills: 3 ZOLMitriptan 5 mg Tab Commonly known as: ZOMIG Take 1 tablet by mouth as needed for Migraine. Initial dose: 1.25 to 2.5 mg (maximum: 5 mg/dose). May repeat dose after 2 hours. Max daily dose: 10 mg 5 mg Quantity: 30 tablet Refills: 0 Review of Systems: Constitutional: Negative for fever, chills, activity change, fatigue and unexpected weight change. HEENT: Negative for sore throat, mouth sores and trouble swallowing. Positive for headaches. Eyes: Negative. Respiratory: Negative for cough, shortness of breath and wheezing. Cardiovascular: Negative for chest pain, palpitations and leg swelling. Gastrointestinal: Negative for nausea, vomiting, abdominal pain, constipation and abdominal distention.positive for diarrhea Genitourinary: Negative for dysuria and difficulty urinating. Musculoskeletal: Positive for LBP and upper leg pain Skin: Erythema at radiation site on right chest. Neurological: Negative. Hematological: Negative for adenopathy. PE: [...] or edema Pulses: 2+ and symmetric Skin: Grade 2-3 skin reaction on right breast to right clavicle to radiation. Lymph nodes: No palpable lymph nodes in cervical or axillary areas Neurologic: Normal No focal deficit. Vitals BP 149/77 (BP Location (NBP): Left arm, Patient Position: Sitting, BP Cuff Sizes: Adult (25-34 cm)) Pulse 72 Temp 36.4 ??C (97.5 ??F) Ht 162 cm (5' 3.78) Wt 66.9 kg (147 lb 7.8 oz) SpO2 96% BMI 25.49 kg/m?? Pathology: 11/21/20 11/07/20 03/28/20 INTERPRETATION: BREAST, [...] Tissue submitted: Paraffin embedded tissue block labelled [id number] From [facility] F 3+ positive Strong complete membrane [...] performance characteristics have been determined by [facility] and/or by the referring laboratory. The [...] 03/29/20 at 4:25 pm byDr. Ramana Chew. Steam Service Inspector slides of this case were reviewed at [...] 03/28/2020 Time out of formalin: 09:00 03/29/2020 LABS: 04/30/22- WBC-3.5 Hgb/Hct-12.3/37.4 MCV-94.7 Plt-70 ANC-2.45 Na-141 K+-3.6 Ca-9.5 Glucose-86 BUN/cr-15/0.88 T. Bili-0.7 albumin-3.7 Alk phos- 380 AST-56 ALT-44 04/11/2021 WBC 3.1, hemoglobin 9.8, platelet count 44,000, magnesium 2.1, sodium 140, potassium 3.4,cold cell 8.5, BUN 11, creatinine 1.01, TB 0.6, total protein 7.1, albumin 3.4, alkaline phosphatase 259, ALT 44, AST 54. 9/08/23 WBC WBC 3.7 H/H 12.1/37 Plts 63 ANC 2479 Na 141 K+ 3.1 BUN/Cr 18/0.95 t bili 0.6 Alk phos 319 AST 35 ALT 24 02/22/2022 BUN 16, creatinine 0.78, TB 0.8, total protein 6.4, alkaline phosphatase 319, albumin 3.4, AST 49, ALT 17 WBC 3.2, hemoglobin 12.1, platelet count 63,000, ANC 2048, 01/06/2022 sodium 144, potassium 4.2, calcium 9.4, BUN 17, creatinine 0.95, TB 1.1, total protein 6.4, albumin 3.6, alkaline phosphatase 370, AST 52, ALT 42, WBC 3.3, hemoglobin 13.5, platelet count 57,000 12/17/2021 WBC 3.8, hemoglobin 13.3, platelet count 76, ANC 2.5, monocytes 10.9%, sodium 143, potassium 3.2, calcium 9.2, BUN 12, creatinine 0.85, TB 1.2, albumin 3.4, alkaline phosphatase 346, AST 84, ALT 66 03/26/21- WBC-8.1 Hgb/Hct-11.0/35.5 Plt-137 ANC-6.4 Na-138 K+-3.4 Ca-9.0 Glucose-94 BUN/cr-22/0.80 T. Bili-0.5 Albumin-3.3 Alk phos- 252 AST-40 ALT-53 Mg-2.0 03/03/21-WBC-5.2 Hgb/Hct-11.4/36.4 Plt-129 ANC-3.8 Na-137 K+-3.8 Ca-9.4 Glucose-98 BUN/cr-13/0.94 T. Bili-0.4 Albumin-3.7 Alk phos- 493 AST-51 ALT-38 Mg-1.9 02/10/21- WBC-4.6 Hgb/Hct-10.9/35.7 Plt-112 ANC-2.94 Na-140 K+-4.9 Ca-10.1 Glucose-89 BUN/cr-15/0.90 T. Bili-0.5 Albumin-3.7 Alk phos-394 AST-56 ALT-49 Mg-2.0 01/20/21- WBC-3.8 Hgb/Hct-10.3/33.6 Plt-134 ANC-2.36 Na-140 K+-4.1 [...] WBC 5.3, hemoglobin 13.5, platelet count 268 Imagin04/27/22- CT chest/abdomen/pelvis w contrast: CT chest impression- Stable area of mild consolidation involving the anterior aspect of the right lung apex likely reflecting radiation fibrosis with minimal lung scarring in the anterolateral aspectof the right upper lobe. Lungs otherwise clear with no focal consolidation or pulmonary mass. No mediastinal, hilar or axillary adenopathy. CT Abd/pelvis w contrast: Impression- Splenomegaly. The spleen appears slightly larger since previous study. No focal spleniclesion. Stable small cyst in the right hepatic lobe. No suspicious focal hepatic lesions. Tiny low-attenuation renal lesions bilaterally which were seen previously without significant change, too small to characterize. Findings likely reflect small cysts. 02/06/2022 CT chest, abdomen pelvis: Focal area of consolidation with air bronchogram in anterior aspect of the right flank may reflect radiation pneumonitis or radiation fibrosis. Minimal scarring also noted. Lung: Was clear with no focal infiltrate or pulmonary mass. No mediastinal, hilar or axillary adenopathy. Previously describedright axillary adenopathy is no longer seen. Splenomegaly. Spleen size appears slightly increased since prior study. No focal splenic lesion. Stable cyst in the right hepatic lobe. No suspicious focal hepatic lesion. Tiny low-attenuation renal lesions bilaterally too small to characterize. Findingslikely reflect small cyst. 01/07/2022 echocardiogram: LVEF is 59% point. Wall motion is normal. Normal left ventricular wall thickness and chamber size. Normal right ventricular size and function. No significant valvular disease. 08/21/2021 echocardiogram LVEF 60-65-65%, grade 2 diastolic dysfunction. 07/31/2021 liver ultrasound showed no abnormalities. 04/11/2021 lumbar MRI: Impression: No focal marrow lesion or abnormal enhancement with no evidence of regional osseous metastatic disease. No focal disc protrusion no significant lumbar stenosis. Mild splenomegaly. Normal conus. 04/09/21 PET scan: IMPRESSION 1. No evidence for osseous metastasis. 2. Small FDG avid linear subcutaneous soft tissue tissue thickening in the medial right chest wall is favored to represent post-radiation inflammation. 3. FDG avid opacities in the right upper lung and medial left upper lung are most consistent with post-radiation inflammation. 4. Small FDG avid adenopathy in the precarinal and right hilar regions, consistent with reactive inflammatory lymph nodes. 5. Small FDG avid nodule posterior to the left upper thyroid pole is stable compared to CT of 04/2020, consistent with a small exophytic thyroid nodule or parathyroid adenoma. 6. Increased FDG avidity within the left lateral tongue and left tongue base, may represent normal physiologic variant uptake, although a neoplastic etiology is not excluded. Consider direct visualization. (This result was discussed with Dr. Grigsby). 03/26/21- NM Bone Scan- No abnormal focal osseous uptake to suggest osseous metastatic disease. No significant change from prior study. 03/19/2021 CT lumbar spine and CT thoracic spine: Impression: Negative for compression fracture. Irregular consolidation noted in the right upper lobe. Correlate for any interval radiation treatment. Negative for lumbar spine fracture. No significant degenerative changes. 02/24/21- CT abd/pelvis w - Impression- Mild splenomegaly, new since prior study. No focal splenic lesion. Stable cyst in right hepatic lobe. No suspicious focal hepatic lesion. Stable tiny low-attenuation renal lesions bilaterally. Difficult to characterize based on size. Findings likely reflect small cysts. 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 Lymph [...] followed by surgery and radiation therapy. --------- Luis Daniel back from [place] where she completed 6 cycle of TCHP chemotherapy in neoadjuvant fashionunder care of Dr.Swati Street. She underwent right [...] 14 cycles followed by neratinib p.o. She completed adjuvant radiation in [facility] with Dr. Lange on 02/18/21. She received total 5 cycles of Kadcyla. Kadcyla was held last week due to possible side effect/backpain. Bone scan was negative for metastatic disease. We will resume Kadcyla this . We will continue Kadcyla every 3 weeks with monitoring for liver function and thrombocytopenia. We will hold treatment for platelet count below 75,000 or liver enzymes more than upper limit of normalx3 or elevated bilirubin. We will check echocardiogram every 3 months during her anti-Her2 treatment. Echo done in March 2021- EF 60-65% Even though the chances of the pain relates to cancer recurrence are very low I plan to restage herwith PET scan. Back pain: Lumbar MRI and PET scan are negative for metastatic disease.. Referral to palliative care Dr. Leger for pain management. We will send prescription for gabapentin 100 mg 3 times daily. Ghazal was in the ED 5 times for severe low back pain radiating down legs for acute onset low backpain that she has had for over 8 weeks now. Pain was getting worse and not relieved with medication. Metastatic work-up was negative. . She states her legs feel weak but denies numbness. Gait is steady and she has not had any falls. Kadcyla can cause arthralgias/myalgias and peripheral neuropathy. Her platelet counts and 44,000 so we will hold off Kadcyla. She plans to go to [place] in couple of weeks or so, but she is not sure if he is able to travel given her debilitating back pain 12/22/21 completed Kacyla on October 28, 2021. She is currently on neratinib 240 mg a dayfor total of 1 year if tolerates. She complains of heartburns and nosebleeds. She is still thrombocytopenic most likely due toprior treatment with Kadcyla. Her liver enzymes elevated, but not high enough to halt neratinib. Her oncologist in [place] planned to restage her with CT scan in December. 01/19/22 Ghazal tolerates neratinib reasonably well with some fatigue. He has mild leukopenia and thrombocytopenia, but platelet count is improving.. I am not sure if that is a side effect of Kadcylaor neratinib is contributing to that She has very mild nosebleeds. No signs of bleeding. We will continue to monitor. She can continue full dose of medication. If her counts go down we can reconsiderand hold neratinib following by dose reduction. 02/23/22 ARJUN. Mrs. Nina currently on adjuvant neratinib. Has mild fatigue, mild leukopenia and thrombocytopenia. Mild elevation of liver enzymes. Over davis, she tolerates treatment well. We will continue current regimen. We will check on her every 4-5 weeks for neratinib toxicity. She is going back to [place] in mid of May. Will do restaging CT scan prior next visit 04/02/22 she continues on neratinib. She has some fatigue and leukopenia and thrombocytopenia. Her Alk phos remains elevated. She also has diarrhea now. She is controlling it with imodium. She is hypokalemic today as well. She will receive one dose of IV potassium and one liter of fluid. She will take the imodium as soon as she gets the diarrhea so that it does not get too bad. When she returns rigoll have a CT scan prior to the visit. She will be going to [place] for the winter in mid May. --- 04/30/22- Amaury is tolerating the Neratinib 240mg daily well. No evidence of clinical toxicities. Her diarrhea has resolved. She is now controlling it with imodium. We reviewed lab work and CT scanstoday. No clinical evidence of disease recurrence. She is stable. Thrombocytopenia has improved- plt 70k. Alk phos remains elevated. We will continue Neratinib 240 mg daily. She will be returning to [place] in 2 weeks and will follow up with her oncologist there. # LFT's-alkaline phosphatase elevated # Headaches- she has a history of migraines. MRI was negative for metastatic disease. She is being followed by Neurology. #Rectal bleeding: Likely secondary to bleeding internal hemorrhoids and there is evidence on colonoscopy done in September 2021. GI recommended capsule endoscopy. Currently resolved. #Iron deficiency: Was treated with IV Venofer #Abnormal liver enzymes: Liver enzymes are elevated most likely secondary to neratinib. Will monitor Plan: 1. Continue neratinib 240 mg daily 2. Ghazal returns to [place] in 2 weeks and will follow up with oncology [place]. [place] Ghazal voiced understanding of the plan and was given an opportunity to ask questions which I answered to the best of my ability.Amaury understands he can call the clinic between visits with any questions/concerns or new symptoms. 99 documented in this encounter Plan of Treatment Not on file documented as of this encounter Visit Diagnoses Diagnosis Breast cancer metastasized to axillary lymph node, right Intractable periodic headache syndrome Variants of migraine, not elsewhere classified, with intractable migraine, so stated, without mention of status migrainosus documented in this encounter Care Teams Statistician Mathematical Relationship Specialty Start Date End Date Ghazal Joseph APRN [address] [place] [address] PCP - General Family Medicine 12/19/20 documented as of this encounter
--- OUTSIDE RECORDS SUMMARY | 2024-03-10 17:19 | XMS_ITS | Encounter Summary ---
Author Organization [facility] Address [address] [place] [address] Care Team Providers Care Exercise Specialist Name Role Phone Ghazal Joseph APRN Primary Care Provider [phone] Encounter Details Date Type Department Care Team (Late st Contact Info) Description 01/23/2021 Notes Only [facility] [address] [place] [address] Rere Faulkner RN Social History Tobacco Use Types Packs/Day [...] place to sleep or slept in a fdc (including now)? No 12/19/2020 Sex and Gender Information Value Date Recorded Sex Assigned at Not on file Gender Identity Not on file Sexual Orientation Not on file documented as of this encounter Progress Notes * Rere Faulkner RN - 01/23/2021 3:00 PM EDT [facility] [place] [place] - Socorro Harman Jessenia Maico [id number] Allergies Allergen Reactions ??? Codeine Nausea Only Cycle: 3 Day: Medication Dose Route kadcyla 225 mg IV Cumulative Drug Doses Medication Cumulative Dose Patient tolerated treatment well without incident or adverse reaction. Patient instructed to contact this clinic during regular business hours if they have any concerns related to treatment, patient was instructed to contact [facility] manager environmental health and safety oncologist after hours, on weekends and holidays for concernsrelated to their cancer diagnosis current treatment. documented in this encounter Plan of Treatment Not on file documented as of this encounter Visit Diagnoses Not on filedocumented in this encounter Care Teams Exercise Specialist Relationship Specialty Start Date End Date Ghazal Joseph APRN [address] [place] [address] PCP - General Family Medicine 12/19/20 documented as of this encounter
--- OUTSIDE RECORDS SUMMARY | 2024-03-10 17:19 | XMS_ITS | Encounter Summary ---
Author Organization [facility] Address [facility] [place] [address] Care Team Providers Care Reconciliation Analyst Name Role Phone Ghazal Joseph APRN Primary Care Provider [phone] Reason for Referral * Consultation (Routine) - Closed Specialty Diagnoses / Procedures Referred By Contsusy t Referred To Contact Hospice and Palliative Medicine Diagnoses Acute bilateral low back pain with bilateral sciatica Graeme Grigsby MD [facility] [address] [place] [address] Ruddy Leger MD [address] [place] [address] Referral ID Status Reason Start Date Expiration Date V isits Requested Visits Authorized [id number] Closed Consult, Test & Treat 04/14/2021 10/11/2021 1 1 Encounter Details Date Type Department Care Team (Late st Contact Info) Description 04/14/2021 9:30 AM EDT Office Visit [facility] [address] [place] [address] Graeme Grigsby MD [facility] [place] [address] Acute bilateral low back pain with bilateral sciatica; HER2-positive carcinoma of right breast; Breast cancer metastasized to axillary lymph node, right; Elevated serum alkaline phosphatase level Social History Tobacco Use Types Packs/Day Years [...] place to sleep or slept in a skilled nursing (including now)? No 12/19/2020 Sex and Gender Information Value Date Recorded Sex Assigned at Not on file Gender Identity Not on file Sexual Orientation Not on file documented as of this encounter Last Filed Vital Signs Vital Sign Reading Time Taken Comments Blood Pressure 97/77 04/14/2021 9:43 AM EDT Pulse 86 04/14/2021 9:43 AM EDT Temperature 36.6 ??C (97.9 ??F) 04/14/2021 9:43 AM ED T Respiratory Rate 18 04/14/2021 9:43 AM EDT Oxygen Saturation 94% 04/14/2021 9:43 AM EDT Inhaled Oxygen Concentration - - Weight 63.4 kg (139 lb 12.4 oz) 04/14/2021 9:43 AM EDT Height 162 cm (5' 3.78) 04/14/2021 9:43 AM EDT Body Mass Index 24.16 04/14/2021 9:43 AM EDT documented in this encounter Progress Notes * Graeme Grigsby MD - 04/14/2021 9:30 AM EDT Images from the original note were not included. Diagnosis:R ?multifocal IDC, Gr 2-3, ER-/LA-, Her2 3+ by IHC, N1 CC: I had terrible back sick HPI:Ghazal Nina is 70 y.o.F referred by [...] of March and went to [facility] on March 03-. Another visit to ER on March 06. She was seen by her chiropractor on March 13. No improvement in backpain. She had several visits to emergency room with back pain Interval history(04/14/21): Ms. Nina is in clinic for follow-up of breast cancer and back pain. She went to emergency room yesterday. Had prescription for oxycodone and Flexeril. No improvement inback pain. She still has back pain on and off. Back pain that radiates down her left leg. She states at times her legs feel weak. She denies any numbness, tingling or loss of bowel or bladder control. Denies any falls. No difficulties with gait. Appetite is good. No nausea, vomiting or constipation. No new lumps or bumps. No other focal complaints today. PMH: Acute back pain. ER visit on April 13 DERIK, diarrhea/pancytopenia and headaches admitted at the end of May 2020 in [facility] Migraine, asthma, tonsillectomy, tubal ligation, cataract surgery, colonoscopy for colon polyp, frozen shoulder repair Social History: No interval changes since last visit. 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 Father had kidney cancer OBGYN History: No interval changes since last visit , menarche at age of 12, age of first live 23, menopausal in mid 50s, no hormone replacement therapy, use local estrogen cream Allergies: Allergies Allergen Reactions ??? Codeine Nausea Only Medications: Your Medications Accurate as of April 14, 2021 9:46 AM. If you have any questions, ask your nurse or doctor. Continued medications, unchanged Dose Details acetaminophen 500 mg Tab Commonly known as: Tylenol Take by mouth. Refills: 0 albuterol sulfate 90 mcg/actuation Aepb [...] 2 hours before a treatment. Refills: 0 diazePAM 5 mg Tab Commonly known as: Valium Take by mouth. Refills: 0 FLUoxetine 10 mg Cap Commonly known as: PROzac Take 30 mg by mouth daily. 30 mg Refills: 0 fluticasone propionate 50 mcg/actuation Spsn Commonly known as: Flonase 1 spray daily. 1 spray Refills: 0 HYDROcodone-acetaminophen 5-325 mg Tab Commonly known as: [place] TAKE 1 TABLET BY MOUTH EVERY 4 TO 6 HOURS NEEDED FOR PAIN Refills: 0 methylPREDNISolone 4 mg Dspk Commonly known as: MEDROL DOSPACK FOLLOW PACKAGE DIRECTIONS Refills: 0 oxyCODONE-acetaminophen 5-325 mg Tab Commonly known as: Percocet Refills: 0 pantothenic Ac-Min Oil-Pet,Hyd 41 % Oint Commonly known as: Aquaphor Apply topically. Refills: 0 * PREDNISONE (BULK) MISC by Misc.(Non-Drug; Combo Route) route. Client does not know dosage. states she takes two pills a day and has two more days to take it. She is taking for pinched nerve in lower left back. Refills: 0 * predniSONE 20 mg Tab Commonly known as: Deltasone Refills: 0 PROBIOTIC ORAL Take by mouth daily. Refills: 0 silver sulfADIAZINE 1 % Crea Commonly known as: Silvadene Apply as often as needed to irradiated [...] dose: 10 mg 5 mg Refills: 0 * This list has 2 medication(s) that are the same as other medications prescribed for you. Read thedirections carefully, and ask your doctor or other care provider to review them with you. Review of Systems: Constitutional: Negative for fever, [...] Neurologic: Normal No focal deficit. Vitals BP 97/77 (BP Location (NBP): Left arm, Patient Position: Sitting, BP Cuff Sizes: Adult (25-34 cm)) Pulse 86 Temp 36.6 ??C (97.9 ??F) (Temporal) Resp 18 Ht 162 cm (5' 3.78) Wt 63.4 kg (139 lb 12.4 oz) SpO2 94% BMI 24.16 kg/m?? Pathology: 11/21/20 11/07/20 03/28/20 INTERPRETATION: BREAST, [...] Tissue submitted: Paraffin embedded tissue block labelled [id number] From [facility] F 3+ positive Strong complete membrane [...] performance characteristics have been determined by [facility] and/or by the referring laboratory. The [...] 03/29/20 at 4:25 pm byDr. Ramana Chew. Curator Of Manuscripts slides of this case were reviewed at [...] 03/28/2020 Time out of formalin: 09:00 03/29/2020 04/11/2021 WBC 3.1, hemoglobin 9.8, platelet count 44,000, magnesium 2.1, sodium 140, potassium 3.4,cold cell 8.5, BUN 11, creatinine 1.01, TB 0.6, total protein 7.1, albumin 3.4, alkaline phosphatase 259, ALT 44, AST 54. Labs: 03/26/21- WBC-8.1 Hgb/Hct-11.0/35.5 Plt-137 ANC-6.4 Na-138 K+-3.4 [...] WBC 5.3, hemoglobin 13.5, platelet count 268 Imagin04/11/2021 lumbar MRI: Impression: No focal marrow lesion [...] and Plan: Diagnosis:R ?multifocal IDC, Gr 2-3, ER-/LA-, Her2 3+ by IHC, T2N1M0, stage IIB, [id number], ER-/LA-,Her 2 3+ By IHC Treatment: -06/04/2020 -09/17/2020 6 cycle of neoadjuvant TCHP -11/07/20 right total mastectomy and sentinel lymph node biopsy -11/21/2020 right lymph node dissection - 12/10/20 started Kadcyla 3.6 mg/kg -02/19/21 completed adjuvant radiation therapy Mrs. Nina is a new diagnosis of right breast ductal carcinoma grade 2-3 ER and LA negative and HER-2 3+ by immunochemistry. Lymph [...] radiation therapy. --------- Peggy is back from [place] where she completed 6 cycle of TCHP [...] neratinib p.o. She completed adjuvant radiation in [facility] with Dr. Lange on 02/18/21. [...] off Kadcyla. She plans to go to [place] in couple of weeks or so, but she is not sure if he is able to travel given her debilitating back pain # LFT's-alkaline phosphatase elevated # Headaches- she has a history of migraines. She feels this headache is different and her usual medications are not helping. MRI was negative for metastatic disease. Possibly rebound migraines. She is being followed by Neurology. Plan: 1. Hold Kadcyla 2. Gabapentin 100 mg 3 times daily 3. Referral to Dr. Leger 4. Next visit in 2 weeks with CBC, CMP, Mg and 7th cycle of Kadcyla Ghazal voiced understanding of the plan and was given an opportunity to ask questions which I answered to the best of my ability.Amaury understands he can call the clinic between visits with any questions/concerns or new symptoms. 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
--- OUTSIDE RECORDS SUMMARY | 2024-03-10 17:19 | XMS_ITS | Encounter Summary ---
Author Organization [facility] Address [facility] [place] [address] Care Team Providers Care Mortgage Collector Name Role Phone Ghazal Joseph APRN Primary Care Provider [phone] Encounter Details Date Type Department Care Team (Late st Contact Info) Description 02/06/2022 Ancillary Procedure Radiology Library [place] [facility] [place] [address] Ghazal Joseph APRN [address] [place] [address] Social History Tobacco Use Types Packs/Day Years [...] place to sleep or slept in a [place] health care facility (including now)? No 12/19/2020 Sex and Gender Information Value Date Recorded Sex Assigned at Not on file Gender Identity Not on file Sexual Orientation Not on file documented as of this encounter Plan of Treatment Not on file documented as of this encounter Procedures Procedure Name Priority Date/Time Associated Diagnosis Comments FILM LIBRARY STORAGE ONLY CT CHEST ABDOMEN PELVIS Routine 02/06/2022 12:00 AM EDT documented in this encounter Results * Film Library- Storage Only CT Chest Abdomen Pelvis (02/06/2022 12:00 AM EDT) Narrative [facility] - 02/18/2022 1:19 PM EDT This exam is auto-finalizing. It's purpose is for storage only. Ghazal Joseph APRN Fco FILM LIBRARY ORDERABLES Performing Organization Address City/State/[facility] Co de Phone Number [place], [place] documented in this encounter Visit Diagnoses Not on filedocumented in this encounter Care Teams Mortgage Collector Relationship Specialty Start Date End Date Ghazal Joseph APRN [address] [place] [address] PCP - General Family Medicine 12/19/20 documented as of this encounter
--- OUTSIDE RECORDS SUMMARY | 2024-03-10 17:19 | XMS_ITS | Encounter Summary ---
Author Organization [facility] Address [facility] [address] Care Team Providers Care Wildlife Enforcement Major Name Role Phone Ghazal Joseph AYDIN Primary Care Provider [phone] Encounter Details Date Type Department Care Team (Late st Contact Info) Description 04/02/2022 11:30 AM EDT Office Visit [facility] [address] [place] [address] Keyona Hanley APRN [facility] [place] [address] HER2-positive carcinoma of right breast; Hypokalemia Social History Tobacco Use Types Packs/Day Years [...] place to sleep or slept in a nursing home (including now)? No 12/19/2020 Sex and Gender Information Value Date Recorded Sex Assigned at Not on file Gender Identity Not on file Sexual Orientation Not on file documented as of this encounter Last Filed Vital Signs Vital Sign Reading Time Taken Comments Blood Pressure 138/77 04/02/2022 11:18 AM EDT Pulse 71 04/02/2022 11:18 AM EDT Temperature 36.6 ??C (97.9 ??F) 04/02/2022 11:18 AM E DT Respiratory Rate - - Oxygen Saturation 96% 04/02/2022 11:18 AM EDT Inhaled Oxygen Concentration - - Weight 66.3 kg (146 lb 2.6 oz) 04/02/2022 11:18 AM EDT Height 161.3 cm (5' 3.5) 04/02/2022 11:18 AM ED T Body Mass Index 25.48 04/02/2022 11:18 AM EDT documented in this encounter Patient Instructions * Patient Instructions* Keyona Hanley APRN - 04/02/2022 11:30 AM EDT She will return in [address] scan prior and lab documented in this encounter Progress Notes * Keyona Hanley APRN - 04/02/2022 11:30 AM EDT Images from the original note were not included. Diagnosis:R ?multifocal IDC, Gr 2-3, ER-/AL-, Her2 3+ by IHC, N1 CC: I [...] the beginning of March and went to [facility] on March 03-. Another visit to ER on March 06. She was seen by her chiropractor on March 13. No improvement in backpain. She had several visits to emergency room with back pain he followed with Dr. Street she has been on the full dose of 240 mg neratinib daily since December 11. Interval history 04/02/22 Ms Nina returns to clinic today for routine followup of her breast cancer and neratinib toxicity check. She is compliant with neratinib and tolerates it reasonably well. She has had more issues with diarrhea lately and has needed to take immodium several times/day. The first time it happened she did not do that and she went 5-6 times before she realized that she shouldstart taking it. She also has had more headaches lately as well. She denies any numbness or tingling loss of bowel or bladder control. Her appetite is good. Her weight is relatively stable. No nauseaor vomiting. ROS is otherwise negatve. Interval history(02/23/22): [...] end of May 2020 in [facility] Migraine, asthma, tonsillectomy, tubal ligation, cataract surgery, colonoscopy for colon polyp, frozen shoulder repair Social History: No interval changes since last visit. 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 Father had kidney cancer OBGYN History: No interval changes since last visit , menarche at age of 12, age of first live 23, menopausal in mid 50s, no hormone replacement therapy, use local estrogen cream Allergies: Allergies Allergen Reactions ??? Codeine Nausea Only Medications: Your Medications Accurate as of April 02, 2022 12:45 PM. If you have any questions, ask [...] Tab Commonly known as: Percocet Refills: 0 ZOLMitriptan 5 mg Tab Commonly [...] masses or lumps in the left breast examination in the presence of RN Rox Heart: Regular rate and rhythm, S1, S2 [...] Neurologic: Normal No focal deficit. Vitals BP 138/77 (Patient Position: Sitting, BP Cuff Sizes: Adult (25-34 cm)) Pulse 71 Temp 36.6 ??C (97.9 ??F) Ht 161.3 cm (5' 3.5) Wt 66.3 kg (146 lb 2.6 oz) SpO2 96% BMI 25.48 kg/m?? Pathology: 11/21/20 11/07/20 03/28/20 INTERPRETATION: BREAST, [...] Tissue submitted: Paraffin embedded tissue block labelled [id number] From [facility] F 3+ positive Strong complete membrane staining in more than 10% of cells Reference: ASCO-CAP Recommendations for Her2 Testing. J Clin Oncol 2018; epub (www.jco.org January 182018) *FDA statement Assay results Her2 IHC Score: [...] performance characteristics have been determined by [facility] and/or by the referring laboratory. The positive [...] 03/29/20 at 4:25 pm byDr. Ramana Chew. Assistant Professor Surgical Technology slides of this case were reviewed at [...] phosphatase 259, ALT 44, AST 54. Labs: 04/02/22 WBC WBC 3.7 H/H 12.1/37 Plts 63 [...] WBC 5.3, hemoglobin 13.5, platelet count 268 Imagin02/06/2022 CT chest, abdomen pelvis: Focal area of [...] and Plan: Diagnosis:R ?multifocal IDC, Gr 2-3, ER-/AL-, Her2 3+ by IHC, T2N1M0, stage IIB, [id number], ER-/AL-,Her 2 3+ By IHC Treatment: -06/04/2020 -09/17/2020 6 cycle of neoadjuvant TCHP -11/07/20 right total mastectomy and sentinel lymph node biopsy -11/21/2020 right lymph node dissection - 12/10/20 started Kadcyla 3.6 mg/kg -02/19/21 completed adjuvant radiation therapy -10/28/2021 completed adjuvant Kadcyla -11/27/2021 started neratinib escalating dose -12/11/2021 on full dose of neratinib 240 mg a day Mrs. Nina is a new diagnosis of right breast ductal carcinoma grade 2-3 ER and AL negative and HER-2 3+ by immunochemistry. Lymph [...] radiation therapy. --------- Luis Daniel back from [place] where she completed 6 cycle of TCHP [...] neratinib p.o. She completed adjuvant radiation in [facility] with Dr. Lange on 02/18/21. She received [...] off Kadcyla. She plans to go to [place] in couple of weeks or so, but [...] enough to halt neratinib. Her oncologist in [place] planned to restage her with CT scan [...] neratinib toxicity. She is going back to [place] in mid of May. Will do restaging [...] not get too bad. When she returns karinewill have a CT scan prior to the visit. She will be going to [place] for the winter in mid May. # LFT's-alkaline phosphatase elevated # Headaches- she has a history of migraines. She feels this headache is different and her usual medications are not helping. MRI was negative for metastatic disease. Possibly rebound migraines. She is being followed by Neurology. #Rectal bleeding: Likely secondary to bleeding internal hemorrhoids and there is evidence on colonoscopy done in September 2021. GI recommended capsule endoscopy. Currently resolved. #Iron deficiency: Was treated with IV Venofer #Abnormal liver enzymes: Liver enzymes are elevated most likely secondary to neratinib. Will monitor Plan: 1. Continue neratinib 240 mg daily 2. She will return in 4 weeks with labs prior and CT scan 3. She will receive hydration and IV potassium today I will also give her a prescription for oral potassium to take while she is having the diarrhea. She knows to stop it when her diarrhea resolves. Ghazal voiced understanding of the plan and was given an opportunity to ask questions which I answered to the best of my ability.Amaury understands he can call the clinic between visits with any questions/concerns or new symptoms. 99 documented in this encounter Plan of Treatment Not on file documented as of this encounter Visit Diagnoses Diagnosis HER2-positive carcinoma of right breast Hypokalemia Hypopotassemia documented in this encounter Care Teams Wildlife Enforcement Major Relationship Specialty Start Date End Date Ghazal Joseph APRN [address] [place] [address] PCP - General Family Medicine 12/19/20 documented as of this encounter
--- OUTSIDE RECORDS SUMMARY | 2024-03-10 17:19 | XMS_ITS | Encounter Summary ---
Author Organization [facility] Address [address] [place] [address] Care Team Providers Care Rn L And D Name Role Phone Nerissa Cody MACEY Primary Care Provider [phone] Encounter Details Date Type Department Care Team (Late st Contact Info) Description 12/09/2005 Results Only [facility] - [facility] [address] [place] [address] Carlos Hartley ARNP [address] [place] [id number] Social History Tobacco Use Types Packs/Day Years Used Date Smoking Tobacco: Never Assessed Sex and Gender Information Value Date Recorded Sex Assigned at Not on file Gender Identity Not on file Sexual Orientation Not on file documented as of this encounter Plan of Treatment Not on file documented as of this encounter Procedures Procedure Name Priority Date/Time Associated Diagnosis Comments CYTOPATHOLOGY Routine 12/09/2005 0:00 EDT documented in this encounter Results * CYTOPATHOLOGY (12/09/2005 0:00 EDT) Pathology Report: CYTOPATHOLOGY REPORT Reports generated via electronic interface contain original data; however they are lacking the format of the original report. Caution should be taken when reading/interpreti ng unformatted reports. Name: ? ROSANA NINA ? Accession #: ? [id number] : ? 1950 (Age: 54) ??F ?Collect Date: ? 12/09/2005 Location: ? [facility] ? Receive Date: ? 12/11/2005 Provider: ?CARLOS CULP Copy to: ? Specimen/Source: ?ThinPrep Pap Test, Cervix/Endocervix, processed on [employer] ThinPrep Imaging System, with manual evaluation Last Menstrual Period: ? 1 yr. Other: ? Additional clinical information: Previous Atypical. Benign Hx. HPVA - HPV testing requested if ASC-US on the current ThinPrep Pap test. ? SPECIMEN ADEQUACY ? Satisfactory for Evaluation - transformation zone component present GENERAL CATEGORIZATION ? Negative for Intraepithelial Lesion or Malignancy ? Document reviewed and electronically signed by: ? DOMENICO Calvert(ASCP) ? Report Date: ??12/14/2005 12:40 End of Report DB KWONG 12/09/2005 12/11/2005 Carlos CULP PATHOLOGY ORDERABL ES [facility] [address] [place] [address] documented in this encounter Visit Diagnoses Not on filedocumented in this encounter Care Teams Rn L And D Relationship Specialty Start Date End Date Nerissa Cody FNP [address] [place], [place] [id number] PCP - General 01/15/10 03/15/16 documented as of this encounter
--- OUTSIDE RECORDS SUMMARY | 2024-03-10 17:19 | XMS_ITS | Encounter Summary ---
Author Organization [facility] Address [facility] [place] [address] Care Team Providers Care Advertising Strategist Name Role Phone Ghazal Joseph APRN Primary Care Provider [phone] Encounter Details Date Type Department Care Team (Late st Contact Info) Description 01/07/2022 4:40 PM EDT Ext Surgery or Single Event [facility] [address] [place] [address] Loreta Gonzalez MD [address] [place] [address] DR CARDIOLOGY [place], [place] [id number] HER2-positive carcinoma of right breast Social History Tobacco Use Types Packs/Day Years [...] place to sleep or slept in a prison (including now)? No 12/19/2020 Sex and Gender Information Value Date Recorded Sex Assigned at Not on file Gender Identity Not on file Sexual Orientation Not on file documented as of this encounter Plan of Treatment Not on file documented as of this encounter Procedures Procedure Name Priority Date/Time Associated Diagnosis Comments ECHO SCAN (SCAN) 01/07/2022 12:0 0 AM EDT documented in this encounter Results * SCAN DOC: ECHO (01/07/2022 12:00 AM EDT) Anatomical Region Laterality Modality Cardiac Other Unknown MEDIA MGR SCAN EXT O RDR/RSLT documented in this encounter Visit Diagnoses Diagnosis HER2-positive carcinoma of right breast documented in this encounter Care Teams Advertising Strategist Relationship Specialty Start Date End Date Ghazal Joseph APRN [address] [place] [address] PCP - General Family Medicine 12/19/20 documented as of this encounter
--- OUTSIDE RECORDS SUMMARY | 2024-03-10 17:19 | XMS_ITS | Encounter Summary ---
Author Organization [facility] [place] [address] Care Team Providers Care Brusher And Shearer Name Role Phone Ghazal Joseph APRN Primary Care Provider [phone] Encounter Details Date Type Department Care Team (Late st Contact Info) Description 03/06/2021 9:30 AM EDT Office Visit [facility] [address] [place] [address] Maricruz Cooley, RN HER2-positive carcinoma of right breast; Acute left-sided low back pain without sciatica Social History Tobacco Use Types Packs/Day Years [...] place to sleep or slept in a usp (including now)? No 12/19/2020 Sex and Gender Information Value Date Recorded Sex Assigned at Not on file Gender Identity Not on file Sexual Orientation Not on file documented as of this encounter Last Filed Vital Signs Vital Sign Reading Time Taken Comments Blood Pressure 142/82 03/06/2021 9:19 AM EDT Pulse 78 03/06/2021 9:19 AM EDT Temperature 36.5 ??C (97.7 ??F) 03/06/2021 9:19 AM ED T Respiratory Rate - - Oxygen Saturation 98% 03/06/2021 9:19 AM EDT Inhaled Oxygen Concentration - - Weight 63.9 kg (140 lb 14 oz) 03/06/2021 9:19 AM EDT Height 162 cm (5' 3.78) 03/06/2021 9:19 AM EDT Body Mass Index 24.35 03/06/2021 9:19 AM EDT documented in this encounter Progress Notes * Maricruz Cooley APRN - 03/06/2021 9:30 AM EDT Images from the original note were not included. Diagnosis:R ?multifocal IDC, Gr 2-3, ER-/VT-, Her2 3+ by IHC, N1 Subjective HPI:Ghazal [...] pain in the right axillary area Interval history(03/06/21): Ms. Nina is in clinic for follow-up of breast cancer. She completed neoadjuvant chemotherapy followed by surgery on November 07 and November 21. She has residual disease after neoadjuvant chemotherapy and she started on Kadcyla on December 10 in [place]. Ghazal is here today for C5. She was in the emergency room for low back pain over a 2 week period that was progressively getting worse. She was taking tylenol and advil without any pain relief. She was given Prednisone po- she is currently taking 40mg daily and will taper down. She is currently pain free. Denies any numbness of tingling in extremities. No weakness, loss of bowel or bladder control or trouble with gait. She has a moderate amount of erythema to the right breast and chest area post RT. She does complain ofdry mouth today and finds it difficult to eat. Using silvadene, aquaphor ointment and mepilex to chest area. She is still having migraines and is seeing Neurology. She may try Botox for the migraines. Appetite is good. No nausea, vomiting or constipation. She does have some diarrhea for a few days post treatment but it is well controlled with the imodium. She has taken Zofran in the past without having any issues with headaches. No new lumps or bumps. She denies any numbness or tingling in extremities. No other focal complaints today. 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 Father had kidney cancer OBGYN History: , menarche at age of 12, age of first live 23, menopausal in mid 50s, no hormone replacement therapy, use local estrogen cream Allergies: Allergies Allergen Reactions ??? Codeine Nausea Only Medications: Your Medications Accurate as of March 06, 2021 9:34 AM. If you have any questions, ask [...] Oil-Pet,Hyd 41 % Oint Commonly known as: AQUAPHOR Apply topically. Refills: 0 PROBIOTIC ORAL Take by mouth [...] dysuria and difficulty urinating. Musculoskeletal: Negative. Skin: Erythema at radiation site on right [...] Neurologic: Normal No focal deficit. Vitals BP 142/82 (BP Location (NBP): Left arm, Patient Position: Sitting) Pulse 78 Temp 36.5 ??C (97.7 ??F) Ht 162 cm (5' 3.78) Wt 63.9 kg (140 lb 14 oz) LMP (LMP Unknown) SpO2 98% BMI24.35 kg/m?? Pathology: 11/21/20 11/07/20 03/28/20 INTERPRETATION: BREAST, [...] Tissue submitted: Paraffin embedded tissue block labelled [id number] From [facility] F 3+ positive [...] at 4:25 pm byDr. Ramana Chew. Steam Conditioner Operator slides of this case were reviewed at [...] Time out of formalin: 09:00 03/29/2020 Labs: 03/03/21-WBC-5.2 Hgb/Hct-11.4/36.4 Plt-129 ANC-3.8 Na-137 K+-3.8 Ca-9.4 [...] WBC 5.3, hemoglobin 13.5, platelet count 268 Imagin02/24/21- CT abd/pelvis w - Impression- Mild splenomegaly, [...] and Plan: Diagnosis:R ?multifocal IDC, Gr 2-3, ER-/VT-, Her2 3+ by IHC, T2N1M0, stage IIB, zeA1bO0u, ER-/VT-,Her 2 3+ By IHC Treatment: -06/04/2020 -09/17/2020 6 cycle of neoadjuvant TCHP -11/07/20 right total mastectomy and sentinel lymph node biopsy -11/21/2020 right lymph node dissection - 12/10/20 started Kadcyla 3.6 mg/kg Mrs. 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 Lymph [...] radiation therapy. --------- Peggy is back from [place] where she completed 6 cycle of TCHP [...] neratinib p.o. She completed adjuvant radiation in [facility] with Dr. Lange on 02/18/21. We will continue Kacyla every 3 weeks with monitoring for liver function and thrombocytopenia. We will hold treatment for platelet count below 75,000 or liver enzymes more than upper limit of normal x3 or elevated bilirubin. We will check echocardiogram every 3 months during her anti-Her2 treatment. Echo done in March 2021- EF 60-65% # Low back pain- Ghazal was in the ED on 03/03 for acute onset low back pain that she has had for over 3 weeks now. Pain was getting worse and not relieved with medication. CT scan done - showed no metastatic disease. She is taking Prednisone 40mg po daily and is pain free at present. Will order bone scan to evaluate for any metastatic disease. She has had a consistently rising Alk phos. # LFT's- normalized. # Headaches- she has a history of migraines. She feels this headache is different and her usual medications are not helping. MRI was negative for metastatic disease. Possibly rebound migraines. She is being followed by Neurology. Plan: 1. Proceed with C5 Kadcyla today as scheduled. 2. NM bone scan 4 Next visit in 3 weeks with CBC, CMP, Mg and 6th cycle of Kadcyla. Ghazal voiced understanding of the plan and was given an opportunity to ask questions which I answered to the best of my ability.Amaury understands he can call the clinic between visits with any questions/concerns or new symptoms. Maricruz Cooley MSN, MACHINERY RIGGER, AOCNP Medical Oncology documented in this encounter Plan of Treatment Not on file documented as of this encounter Visit Diagnoses Diagnosis HER2-positive carcinoma of right breast Acute left-sided low back pain without sciatica documented in this encounter Care Teams Brusher And Shearer Relationship Specialty Start Date End Date Ghazal Joseph APRN [address] [place] [address] PCP - General Family Medicine 12/19/20 documented as of this encounter
--- OUTSIDE RECORDS SUMMARY | 2024-03-10 17:19 | XMS_ITS | Encounter Summary ---
Author Organization [facility] Address [facility] [address] [place] [address] Care Team Providers Care Mobile Solutions Architect Name Role Phone Ghazal Joseph APRN Primary Care Provider [phone] Encounter Details Date Type Department Care Team (Late st Contact Info) Description 01/11/2022 Orders Only Hematology and Oncology at [facility] [place] [address] Graeme Grigsby MD [facility] [address] [place]EMAT[place] [address] High risk medication use (Primary Dx) Social History Tobacco Use Types Packs/Day Years [...] place to sleep or slept in a fpc (including now)? No 12/19/2020 Sex and Gender Information Value Date Recorded Sex Assigned at Not on file Gender Identity Not on file Sexual Orientation Not on file documented as of this encounter Plan of Treatment Not on file documented as of this encounter Visit Diagnoses Diagnosis High risk medication use- Primary Encounter for long-term (current) use of other medications documented in this encounter Care Teams Mobile Solutions Architect Relationship Specialty Start Date End Date Ghazal Joseph APRN [address] [place] [address] PCP - General Family Medicine 12/19/20 documented as of this encounter
--- OUTSIDE RECORDS SUMMARY | 2024-03-10 17:19 | XMS_ITS | Encounter Summary ---
Author Organization [facility] Address [address] [place] [address] Care Team Providers Care Emts Name Role Phone Unavailable Primary Care Provider Unavailabl e Encounter Details Date Type Department Care Team (Late st Contact Info) Description 02/10/2006 Before PRISM Converted Visit (Maple) [facility] - Maple conversion [address] [place] [address] Joaquin Mckeon MD PhD [address] [facility] [address] [place] [id number] Social History Tobacco Use Types Packs/Day Years Used Date Smoking Tobacco: Never Assessed Sex and Gender Information Value Date Recorded Sex Assigned at Not on file Gender Identity Not on file Sexual Orientation Not on file documented as of this encounter Progress Notes * Joaquin Mckeon MD - 07/26/2009 1103 EST NEUROLOGY HEALTH CARE SERVICE PROGRESS/FOLLOWUP NOTE - 02/10/2006 Ghazal Nina is a 55 year-old woman with a history of chronic recurrent headaches consistent with migraine. She was last seen in clinic in follow up on 09/17/05 with Maricruz Davies. Since her last visit she had been started on a higher dose of Topamax to 100 mg p.o. b.i.d. She subsequently developed a left greater than right high pitched humming tinnitus and discontinued the Topamax at the end ofSeptember 2005. This reduced the volume of the tinnitus,but did not eliminate it, so she restarted the Topamax approximately four days later and the tinnitus increased again, so she discontinued it permanently at that point and she still experiences at low volume this tinnitus. She states that her headaches have decreased in severity to approximately 2 -3/10. The last severe headache she experienced was in 07/2005, and she has been off Topamax now for approximately three months. She took Zomig for six days in September, 13 days in October, 10 days in November, 10 days in December. Maybe 20% of those days she required taking Zomig two tablets to relieve her attack. In terms of the number of attacks of headaches that she had, if they are measured in successive days as a single attack, she had four attacks in September, eight in October, six in November and six in December. On rare occasions, she may have a mild headache that she does not treat with Zomig all. She has noticed that her headache pattern has changed somewhat since she entered menopause. She is still having hot flashes and menstrual irregularity. She does states that her headaches now will often begin with a feeling of a chill as a prodrome to her headaches. Medications: Prozac 20 mg daily, Mariela 180 mg daily, Flonase 50 mg daily Advair 100/50 b.i.d., aspirin 81 mg daily, vitamin E 800 units daily, Zomig 5 mg p.r.n., metoclopramide 10 mg p.r.n. On examination, blood pressure is 120/72, pulse 76, respirations 16, weight is 136pounds. Currentlyin no pain. She has normal speech, language and recall. Normal coordinated eye movements, facial movements and limb movements in gait. Impression: Ghazal Nina continues to have chronic recurrent headaches consistent with migraine. She is now off of Topamax. We had a discussion about potential preventive medications for migraineand in particular considered Atacand, Depakote, Norvasc and Lotrel, as well as Neurontin. After describing all of these medications, she stated that she was interested in trying Atacand which is off label use of this medication for migraine, but based on inadequately sized controlled clinical trial. We will start her at 16 mg daily. Side effects of Atacand were minimal apart from rare orthostaticlightheadedness. She will use Zomig 5 mg tablets not to exceed two days per week on average, without running the risk of increasing the possibility of developing medication overuse headache. She willreturn to clinic in approximately four monthstime and be seen either by myself or Mariann Santos nursepractitioner. Signed by Joaquin Mckeon MD 02/22/2006 08:39 Nicolás Almanza MD Joaquin Mckeon MD - Joaquin Mckeon MD P - cjr Job ID: [id number] Document ID: [id number] cc: [email or web address] Vidal documented in this encounter Plan of Treatment Not on file documented as of this encounter Visit Diagnoses Not on filedocumented in this encounter
--- OUTSIDE RECORDS SUMMARY | 2024-03-10 17:19 | XMS_ITS | Encounter Summary ---
Author Organization [facility] Address [facility] [place] [address] Care Team Providers Care Division Human Resources Manager Name Role Phone Ghazal Joseph APRN Primary Care Provider [phone] [phone] Encounter Details Date Type Department Care Team (Late st Contact Info) Description 12/22/2021 10:00 AM EDT Office Visit [facility] [address] [place] [address] Graeme Chase MD [facility] [place] [address] HER2-positive carcinoma of right breast (Primary Dx) Social History Tobacco Use Types [...] place to sleep or slept in a jail (including now)? No 12/19/2020 Sex and Gender Information Value Date Recorded Sex Assigned at Not on file Gender Identity Not on file Sexual Orientation Not on file documented as of this encounter Last Filed Vital Signs Vital Sign Reading Time Taken Comments Blood Pressure 151/76 12/22/2021 11:01 AM EDT Pulse 77 12/22/2021 11:01 AM EDT Temperature 36.4 ??C (97.5 ??F) 12/22/2021 1 1:01 AM EDT Respiratory Rate - - Oxygen Saturation 96% 12/22/2021 11: 01 AM EDT Inhaled Oxygen Concentration - - Weight 64.8 kg (142 lb 13.7 oz) 022 11:01 AM EDT Height 163 cm (5' 4.17) 12/22/2021 11: 01 AM EDT Body Mass Index 24.39 12/22/2021 11:01 AM EDT documented in this encounter Progress Notes * Graeme Chase MD - 12/22/2021 10:00 AM EDT Images from the original note were not included. Diagnosis:R ?multifocal IDC, Gr 2-3, ER-/FL-, Her2 3+ by IHC, N1 CC: I [...] the beginning of March and went to [facility] on March 03-. Another visit to ER on March 06. She was seen by her chiropractor on March 13. No improvement in backpain. She had several visits to emergency room with back pain Interval history(12/22/21): Ms. Nina is in clinic for follow-up of breast cancer and neratinib toxicity check. She returned from [place]. Ghazal started neratinib and escalating dose on November 27.She followed with Dr. Street she has been on the full dose of 240 mg neratinib daily since December 11. Complains on frequent nosebleeds and heartburns. She still has back pain on and off. She was evaluated by orthopedics but her surgery was canceled due to thrombocytopenia in spite of transfusing 2 units of platelets. She denies any numbness, tingling or loss of bowel or bladder control. Denies any falls. No difficulties with gait. Appetite is good. No nausea, vomiting or constipation. No new lumpsor bumps. No other focal complaints today. She had mammogram in [place] in October. PMH: No interval changes since last visit Acute back pain. ER visit on April 13 DERIK, diarrhea/pancytopenia and headaches admitted at the end of May 2020 in [place] [facility] Migraine, asthma, tonsillectomy, tubal ligation, cataract surgery, colonoscopy for colon polyp, frozen shoulder repair Social History: No interval changes since last visit. 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 Father had kidney cancer OBGYN History: No interval changes since last visit , menarche at age of 12, age of first live 23, menopausal in mid 50s, no hormone replacement therapy, use local estrogen cream Allergies: Allergies Allergen Reactions ??? Codeine Nausea Only Medications: Your Medications Accurate as of December 22, 2021 11:29 AM. If you have any questions, ask [...] as: LOTENSIN Take by mouth. Refills: 0 calcium-vitamin D3 600 mg-5 mcg (200 unit) Tab Take by mouth. Refills: 0 CREAM BASE TOP Apply topically. [...] by mouth daily. 1 mg Refills: 0 gabapentin 100 mg Cap Commonly known as: Neurontin Take 1 capsule by mouth 3 times daily. 100 mg Quantity: 90 capsule Refills: 12 HYDROcodone-acetaminophen 5-325 mg Tab Commonly known as: [place] TAKE 1 TABLET BY MOUTH EVERY 4 TO 6 HOURS NEEDED FOR PAIN Refills: 0 methylPREDNISolone 4 mg Dspk Commonly known as: MEDROL DOSPACK FOLLOW PACKAGE DIRECTIONS Refills: 0 montelukast 10 mg Tab Commonly known as: Singulair Take 10 mg by mouth nightly. 10 mg Refills: 0 NERLYNX ORAL Take 240 mg by mouth daily. Unsure of dosage. Stares she she takes 6 pills per day has a picture onher phone 40 mg tab nerlynx. 240 mg Refills: 0 oxyCODONE-acetaminophen 5-325 mg Tab Commonly [...] 4 g/day. Quantity: 85 g Refills: 0 ZOLMitriptan 5 mg Tab Commonly [...] Neurologic: Normal No focal deficit. Vitals BP 151/76 (BP Location (NBP): Left arm, Patient Position: Sitting, BP Cuff Sizes: Adult (25-34 cm)) Pulse 77 Temp 36.4 ??C (97.5 ??F) Ht 163 cm (5' 4.17) Wt 64.8 kg (142 lb 13.7 oz) SpO2 96% BMI 24.39 kg/m?? Pathology: 11/21/20 11/07/20 03/28/20 INTERPRETATION: BREAST, [...] Tissue submitted: Paraffin embedded tissue block labelled [id number] From [facility] F 3+ positive Strong complete membrane [...] performance characteristics have been determined by [facility] and/or by the referring laboratory. The [...] 03/29/20 at 4:25 pm byDr. Ramana Chew. Vet Tech slides of this case were reviewed at [...] phosphatase 259, ALT 44, AST 54. Labs: 12/17/2021 WBC 3.8, hemoglobin 13.3, platelet count [...] WBC 5.3, hemoglobin 13.5, platelet count 268 Imagin08/21/2021 echocardiogram LVEF 60-65-65%, grade 2 diastolic dysfunction. [...] visualization. (This result was discussed with Dr. Chase). 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 Lymph [...] radiation therapy. --------- Luis Daniel back from [place] where she completed 6 cycle of TCHP [...] neratinib p.o. She completed adjuvant radiation in [facility] with Dr. Lange on 02/18/21. She received [...] off Kadcyla. She plans to go to [place] in couple of weeks or so, but [...] enough to halt neratinib. Her oncologist in [place] planned to restage her with CT scan in December. # LFT's-alkaline phosphatase elevated # Headaches- she [...] 1. Continue neratinib 240 mg daily 2. CMP in 2 weeks 3. Next visit in 4 weeks with CBC, CMP and echocardiogram Ghazal voiced understanding of the plan and was given an opportunity to ask questions which I answered to the best of my ability.Amaury understands he can call the clinic between visits with any questions/concerns or new symptoms. documented in this encounter Miscellaneous Notes * Addendum Note - Rere Faulkner RN - 12/22/2021 10:00 AM EDTAddended by: RERE FAULKNER on: 12/22/2021 03:22 PM Modules accepted: Orders * Addendum Note - Graeme Chase MD - 12/22/2021 10:00 AM EDTAddended by: GRAEME CHASE on: 12/22/2021 03:49 PM Modules accepted: Orders documented in this encounter Plan of Treatment Not on file documented as of this encounter Visit Diagnoses Diagnosis HER2-positive carcinoma of right breast- Primary documented in this encounter Care Teams Division Human Resources Manager Relationship Specialty Start Date End Date Ghazal Joseph APRN [address] [place] [address] PCP - General Family Medicine 12/19/20 documented as of this encounter
--- OUTSIDE RECORDS SUMMARY | 2024-03-10 17:19 | XMS_ITS | Encounter Summary ---
Author Organization [facility] Address [address] [place] [address] Care Team Providers Care Lime Sludge Kiln Operator Name Role Phone Unavailable Primary Care Provider Unavailabl e Encounter Details Date Type Department Care Team (Latest Contact Info) Description 07/21/2006 11:36 EST - 07/21/2006 11:59 [facility] Hospital Encounter [address] [address] Joaquin Mckeon MD PhD [address] [place] [address] [address] [place] [id number] Discharge Disposition: Auto Discharge Social History Tobacco [...]
--- OUTSIDE RECORDS SUMMARY | 2024-03-10 17:19 | XMS_ITS | Encounter Summary ---
Author Organization Count Includes [facility] Address [facility] [place] [address] Care Team Providers Care Balling Machine Operator Name Role Phone Ghazal Joseph APRN Primary Care Provider [phone] [phone] Encounter Details Date Type Department Care Team (Late st Contact Info) Description 01/19/2022 2:00 PM EDT Office Visit [facility] [address] [place] [address] Graeme Grigsby MD [facility] [place] [address] Breast cancer metastasized to axillary lymph node, right (Primary Dx); HER2-positive carcinoma of right breast Social History [...] Sign Reading Time Taken Comments Blood Pressure 149/75 01/19/2022 3:05 PM EDT Pulse 83 01/19/2022 3:05 PM EDT Temperature 36.9 ??C (98.4 ??F) 01/19/2022 3:05 PM ED T Respiratory Rate - - Oxygen Saturation 96% 01/19/2022 3:05 PM EDT Inhaled Oxygen Concentration - - Weight 65.8 kg (145 lb 1 oz) 01/19/2022 3:05 PM EDT Height 162 cm (5' 3.78) 01/19/2022 3:05 PM EDT Body Mass Index 25.07 01/19/2022 3:05 PM EDT documented in this encounter Progress Notes * Graeme Grigsby MD - 01/19/2022 2:00 PM EDT Images from the original note were not included. 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 Another visit to ER on March 06. She was seen by her chiropractor on March 13. No improvement in backpain. She had several visits to emergency room with back pain he followed with Dr. Street she has been on the full dose of 240 mg neratinib daily since December 11. Interval history(01/19/22): Ms. Nina is in clinic for follow-up of breast cancer and neratinib toxicity check. Ghazal is compliant with neratinib and tolerates it reasonably well with mild fatigue... Complains on mild nosebleeds 1-2 tinmes a week. No diarrhea. She denies any numbness, tingling [...] at the end of May 2020 in [facility] Migraine, asthma, tonsillectomy, tubal ligation, cataract surgery, colonoscopy for colon polyp, frozen shoulder repair Social History: No interval changes since last visit. 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 Father had kidney cancer OBGYN History: No interval changes since last visit , menarche at age of 12, age of first live 23, menopausal in mid 50s, no hormone replacement therapy, use local estrogen cream Allergies: Allergies Allergen Reactions ??? Codeine Nausea Only Medications: Your Medications Accurate as of January 19, 2022 3:10 PM. If you have any questions, ask [...] HYDROcodone-acetaminophen 5-325 mg Tab Commonly known as: [place] TAKE 1 TABLET BY MOUTH EVERY 4 [...] Neurologic: Normal No focal deficit. Vitals BP 149/75 (BP Location (NBP): Left arm, Patient Position: Sitting, BP Cuff Sizes: Adult (25-34 cm)) Pulse 83 Temp 36.9 ??C (98.4 ??F) Ht 162 cm (5' 3.78) Wt 65.8 kg (145 lb 1 oz) SpO2 96% BMI 25.07 kg/m?? Pathology: 11/21/20 11/07/20 03/28/20 INTERPRETATION: BREAST, [...] Tissue submitted: Paraffin embedded tissue block labelled [id number] From [facility] F 3+ positive Strong complete membrane [...] performance characteristics have been determined by [facility] and/or by the referring laboratory. The [...] 03/29/20 at 4:25 pm byDr. Ramana Chew. Loan Teller slides of this case were reviewed at [...] phosphatase 259, ALT 44, AST 54. Labs: 01/06/2022 sodium 144, potassium 4.2, calcium 9.4, [...] WBC 5.3, hemoglobin 13.5, platelet count 268 Imagin01/07/2022 echocardiogram: LVEF is 59% point. Wall motion [...] Her2 3+ by IHC, T2N1M0, stage IIB, [id number], ER-/VT-,Her 2 3+ By IHC Treatment: -06/04/2020 [...] neratinib p.o. She completed adjuvant radiation in [facility] with Dr. Lange on 02/18/21. She received [...] tolerates neratinib reasonably well with some fatigue. Your platelet counts are still low as well as white cell count. I am not sure if that is a side effect of concealer on neratinibis contributing. She has very mild nosebleeds. No other signs of bleeding. We will continue to monitor. She can continue full dose of medication. If her counts go down we can reconsider and hold neratinib following by dose reduction. Will do restaging CT scan prior next visit # LFT's-alkaline phosphatase elevated # Headaches- she [...] 1. Continue neratinib [address] chest abdomen pelvis prior to next visit 3. Next visit in 4 weeks with CBC, CMP Ghazal voiced understanding of the plan and was given an opportunity to ask questions which I answered to the best of my ability.Amaury understands he can call the clinic between visits with any questions/concerns or new symptoms. 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
--- OUTSIDE RECORDS SUMMARY | 2024-03-10 17:19 | XMS_ITS | Encounter Summary ---
Author Organization [facility] Address [facility] [place] [address] Care Team Providers Care Workers Compensation Defense Attorney Name Role Phone Ghazal Joseph APRN Primary Care Provider [phone] Reason for Visit * Reason Comments Follow-up Encounter Details Date Type Department Care Team (Late st Contact Info) Description 12/22/2021 3:00 PM EDT Office Visit Radiation Oncology at [address] [address] Jonna Lange MD [facility] [place] [address] S/P radiotherapy Social History Tobacco Use Types Packs/Day Years [...] as of this encounter Progress Notes * Jonna Lange MD - 12/22/2021 3:00 PM EDT Images from the original note were not included. CC: Sched'd fu s/p xrt completion. HPI: Ghazal is a 70 y/o f who completed xrt to R supraclav, R axilla, R IMC & R chest wall 1 yr., 10 mos ago (02/19/21) for breast ca, R, IDC, ER-MD-, Her2+, cT1 cN1, s/p neoadjuvant TCHP followed by R mastectomy &??SNB, then completion R ax lymph node dissxn, ypT1b ypN1. Continued on kadcyla during xrt & after xrt completion; completed adjuvant kadcyla 10/28/21. 12/11/21 full dose neratinib started, which continues. Subjective: No new problem. Lives in [place] Apr - November; has a surgical onc & a med onc in [place]. Surg onc obtained L mmg w/in past month, which was clear. Past Medical History: Diagnosis Date ??? Depression ??? Hypertension ??? Skin cancer No lupus/scleroderma. DERIK. History reviewed. No pertinent surgical history. Past Surgical History No past surgical history on file. B tubal ligation. L shoulder surg, biceps repair Tonsillectomy Cheilectomy Eyelid procedure. Your Medications Accurate as of December 22, 2021 3:41 PM. If you have any questions, ask your nurse or doctor. Continued medications with new dosing Dose Details neratinib 40 mg tablet Commonly known as: Nerlynx Take 6 tablets (240 mg) by mouth daily. Indications: HER2 positive breast cancer What changed: ?? medication strength ?? additional instructions Changed by: BRODY CHASE MD 240 mg Quantity: 180 tablet Refills: 11 Continued medications, unchanged Dose Details acetaminophen 500 [...] HYDROcodone-acetaminophen 5-325 mg Tab Commonly known as: [place] TAKE 1 TABLET BY MOUTH EVERY 4 TO 6 HOURS NEEDED FOR PAIN Refills: 0 methylPREDNISolone 4 mg Dspk Commonly known as: MEDROL DOSPACK FOLLOW PACKAGE DIRECTIONS Refills: 0 montelukast 10 mg Tab Commonly known as: Singulair Take 10 mg by mouth nightly. 10 mg Refills: 0 oxyCODONE-acetaminophen 5-325 mg Tab [...] care provider to review them with you. Physical Exam Constitutional: General: She is not in acute distress. Comments: 142.5 lbs 97.5 F 77 151/76 SpO2 96% HENT: Head: Normocephalic. Eyes: General: No scleral icterus. Right eye: No discharge. Left eye: No discharge. Extraocular Movements: Extraocular movements intact. Conjunctiva/sclera: Conjunctivae normal. Pulmonary: Effort: Pulmonary effort is normal. No respiratory distress. Breath sounds: No stridor. Comments: S/p R mastectomy, w/minimal hyperpigmentation, skin intact, no visible/palpable ca. Chest: Breasts: Right: No axillary adenopathy or supraclavicular adenopathy. Left: No inverted nipple, mass, nipple discharge, skin change, tenderness, axillary adenopathy or supraclavicular adenopathy. Abdominal: General: There is no distension. Palpations: Abdomen is soft. There is no mass. Tenderness: There is no abdominal tenderness. There is no guarding or rebound. Musculoskeletal: General: No swelling or tenderness. Normal range of motion. Cervical back: Normal range of motion and neck supple. No tenderness. Right lower leg: No edema. Left lower leg: No edema. Lymphadenopathy: Head: Right side of head: No submental, submandibular, preauricular, posterior auricular or occipital adenopathy. Left side of head: No submental, submandibular, preauricular, posterior auricular or occipital adenopathy. Cervical: No cervical adenopathy. Upper Body: Right upper body: No supraclavicular or axillary adenopathy. Left upper body: No supraclavicular or axillary adenopathy. Skin: General: Skin is warm and dry. Neurological: Mental Status: She is alert and oriented to person, place, and time. Motor: No weakness. Coordination: Coordination normal. Gait: Gait normal. Psychiatric: Mood and Affect: Mood normal. Behavior: Behavior normal. Thought Content: Thought content normal. Judgment: Judgment normal. A: ARJUN. P: Rtc 1 yr. 15 mins encounter. . documented in this encounter Plan of Treatment Not on file documented as of this encounter Visit Diagnoses Diagnosis S/P radiotherapy Convalescence following radiotherapy documented in this encounter Care Teams Workers Compensation Defense Attorney Relationship Specialty Start Date End Date Ghazal Joseph APRN [address] [place] [address] PCP - General Family Medicine 12/19/20 documented as of this encounter
--- OUTSIDE RECORDS SUMMARY | 2024-03-10 17:19 | XMS_ITS | Encounter Summary ---
Author Organization [facility] Address [facility] [place] [address] Care Team Providers Care Police Service Technician Name Role Phone Ghazal Joseph APRN Primary Care Provider [phone] [phone] Reason for Visit * Reason Comments On Treatment Visit Encounter Details Date Type Department Care Team (Late st Contact Info) Description 02/11/2021 11:15 AM EDT Office Visit Radiation Oncology at [address] [address] Jonna Lange MD [facility] [place] [address] Malignant neoplasm of upper-outer quadrant of right [...] place to sleep or slept in a penitentiary (including now)? No 12/19/2020 Sex and Gender Information Value Date Recorded Sex Assigned at Not on file Gender Identity Not on file Sexual Orientation Not on file documented as of this encounter Last Filed Vital Signs Vital Sign Reading Time Taken Comments Blood Pressure 116/71 02/11/2021 11:42 AM EDT Pulse 79 02/11/2021 11:42 AM EDT Temperature 36.7 ??C (98.1 ??F) 02/11/2021 1 1:42 AM EDT Respiratory Rate 16 02/11/2021 11:4 2 AM EDT Oxygen Saturation 100% 02/11/2021 11: 42 AM EDT Inhaled Oxygen Concentration - - Weight 63.6 kg (140 lb 3.2 oz) 02/12/20 11:42 AM EDT with shoes Height - - Body Mass Index 23.94 01/23/2021 9:30 AM EDT documented in this encounter Progress Notes * Jonna Lange MD - 02/11/2021 11:15 AM EDT Images from the original note were not included. DIAGNOSIS: Breast ca, R, IDC, ER-WA-, Her2+, cT1 cN1, s/p neoadjuvant TCHP followed by R mastectomy& SNB, then completion R ax lymph node dissxn, ypT1b ypN1. Continues on kadcyla & neratinibplanned. ?? CURRENT TREATMENT DOSE: 48 Gy R Supraclav, Axilla, IMC & R Chest Wall ANTICIPATED TOTAL DOSE: 50 Gy R Supraclav, Axilla, IMC & R Chest Wall; 60 Gy Mastectomy Scar Current # of xrt received: 24 R Supraclav, Axilla, IMC & R Chest Wall Anticipated total # of xrt txs: 25 R Supraclav, Axilla, IMC & R Chest Wall; 30 Mastectomy Scar Evaluation of port verification films: Approved. For details, see electronic film record in [employer]. Changes in Medical Condition: Manages skin rxn w/in irrad'd area w/silvadene, aquaphor ointment & mepilex-lite. Denies throat irritation. Pain?: In shoulders when on tx table w/arms up, manages w/visualization, does not want to take analgesic. Your Medications Accurate as of February 11, 2021 11:59 AM. If you have any questions, ask [...] 5 mg Refills: 0 Physical Exam: BP 116/71 (Patient Position: Sitting) Pulse 79 Temp 36.7 ??C (98.1 ??F) (Temporal) Resp 16 Wt 63.6 kg (140 lb 3.2 oz) Comment: with shoes SpO2 100% BMI 23.94 kg/m?? A&Ox3, NAD. Irrad'd area w/moderately brisk erythema, most prominent in R infraclav area & overlying R clavicle where there is a 3 x 3 cm mildly moist area; mild folliculitis, most prominent in R post shoulder area. Imagin12/24/20 Dx'ic Rad Interp CTsim: No suspicious lesion. Performance Status: KPS 100% Response to xrt: As expected. Irradiation Related Symptoms: Skin rxn. Treatment for Symptom Control: Mepilex-lite. Discussed use of benadryl cream for itchiness; could also try benadryl tab/capsule PO @ bedtime for itchiness. Silvadene, aquaphor ointment, Alvaro's cream. Pain Management: Visualization. Recommendation on Continuing Course of xrt: Cont. documented in this encounter Plan of Treatment Not on file documented as of this encounter Visit Diagnoses Diagnosis Malignant neoplasm of upper-outer quadrant of right female breast, unspecified estrogen receptor status documented in this encounter Care Teams Police Service Technician Relationship Specialty Start Date End Date Ghazal Joseph APRN [address] [place] [address] PCP - General Family Medicine 12/19/20 documented as of this encounter
--- OUTSIDE RECORDS SUMMARY | 2024-03-10 17:19 | XMS_ITS | Encounter Summary ---
Author Organization [facility] [place] [address] Care Team Providers Care Patient Manager Name Role Phone Ghazal Joseph [employer] Primary Care Provider [phone] [phone] Reason for Visit * Diagnostic Test (Routine) - Closed Specialty Diagnoses / Procedures Referred By Contsusy t Referred To Contact Radiology Diagnoses Breast cancer metastasized to axillary lymph node, right Procedures NM PET CT Skull Base to Mid-thigh Graeme Grigsby MD [facility] [address] [place] [address] [facility] [place] [address] Referral ID Status Reason Start Date Expiration Date V isits Requested Visits Authorized [id number] Closed Specialty Service Requested 03/31/2021 09/29/2022 1 1 Encounter Details Date Type Department Care Team (Latest Contact Info) Description 04/09/2021 2:29 PM EDT - 04/09/2021 11:59 PM EDT Hospital Encounter [place] [address] [facility] [address] [place] [address] Discharge Disposition: Home Social History Tobacco Use Types Packs/Day Years [...] place to sleep or slept in a senior living (including now)? No 12/19/2020 Sex and Gender Information Value Date Recorded Sex Assigned at Not on file Gender Identity Not on file Sexual Orientation Not on file documented as of this encounter Medications at Time of Discharge Medication Sig Dispensed Refills Start Date End Date atorvastatin (Lipitor) 20 mg Tablet 12/20/2020 oxyCODONE-acetaminophen (Percocet) 5-325 mg Tablet 10/05/2020 montelukast (Singulair) 10 mg Tablet Take 10 mg by mouth nightly. FLUoxetine (PROzac) 10 mg Capsule Take 40 mg by mouth daily. calcium-vitamin D3 600 mg-5 mcg (200 unit) Tablet Take by mouth. fluticasone propionate (FLONASE) 50 mcg/actuation [place], Suspension 1 spray daily. albuterol sulfate 90 mcg/actuation Aerosol Powdr Breath Activated Inhale 180 mcg into the lungs. diazePAM (Valium) 5 mg Tablet Take by mouth. 03/19/2021 01/19/2022 HYDROcodone-acetaminophe n ([place]) 5-325 mg Tablet TAKE 1 TABLET BY MOUTH EVERY 4 TO 6 HOURS NEEDED FOR PAIN 03/14/2021 01/19/2022 methylPREDNISolone (MEDROL DOSPACK) 4 mg Tablets, Dose Pack FOLLOW PACKAGE DIRECTIONS 03/21/2021 01/19/2022 acetaminophen (Tylenol) 500 mg Tablet Take by mouth. 01/29/2021 01/19/2022 PREDNISONE, BULK, MISC by Misc.(Non-Drug; Combo Route) route. Client does not know dosage. states she takes two pills a day and has two more days to take it. She is taking for pinched nerve in lower left back. 01/19/2022 predniSONE (Deltasone) 20 mg Tablet 03/03/2021 01/19/2022 pantothenic Ac-Min Oil-Pet,Hyd (AQUAPHOR) 41 % Ointment Apply topically. 01/19/2022 Lactobacillus acidophilus (PROBIOTIC ORAL) Take by mouth daily. 022 silver sulfADIAZINE (SILVADENE) 1 % CreamIndications:Contact dermatitis due to radiation Apply as often as needed to irradiated area, up to 4 g/day. 85 g 01/28/2021 01/19/2022 benazepriL (LOTENSIN) 10 mg Tablet Take by mouth. 05/01/2019 01/19/2022 emollient base (CREAM BASE TOP) Apply topically. Jeans Cream. Apply to area of radiation twice a day but no less than 2 hours before a treatment. 01/19/2022 ZOLMitriptan (ZOMIG) 5 mg Tablet Take 5 mg by mouth as needed for Migraine. Initial dose: 1.25 to 2.5 mg (maximum: 5 mg/dose). May repeat dose after 2 hours. Max daily dose: 10 mg 04/30/2022 documented as of this encounter Plan of Treatment Not on file documented as of this encounter Procedures Procedure Name Priority Date/Time Associated Diagnosis Comments NM PET CT SKULL BASE TO MID-THIGH ([facility]) Routine 04/09/2021 4:12 PM EDT Breast cancer metastasized to axillary lymph node, right POCT GLUCOSE Routine 04/09/2021 2:38 PM EDT documented in this encounter Results * POCT Glucose (04/09/2021 2:38 PM EDT) Glucose, POC 76 65 - 199 mg/dL [facility] Comment: Supplemental ranges: <140 mg/dL before meals <180 mg/dL all other times of the day Blood 04/09/2021 2:38 PM EDT 04/09/2021 2:38 PM EDT Graeme Grigsby MD POINT OF CARE TEST O RDERABLES [facility] [place] [address] documented in this encounter Visit Diagnoses Not on filedocumented in this encounter Care Teams Patient Manager Relationship Specialty Start Date End Date Ghazal Joseph APRN [address] [place] [address] PCP - General Family Medicine 12/19/20 documented as of this encounter
--- OUTSIDE RECORDS SUMMARY | 2024-03-10 17:19 | XMS_ITS | Encounter Summary ---
Author Organization [facility] [place] [address] Care Team Providers Care Security Infrastructure Engineer Name Role Phone Ghazal Joseph APRN Primary Care Provider [phone] [phone] Encounter Details Date Type Department Care Team (Late st Contact Info) Description 02/13/2021 10:30 AM EDT Office Visit [facility] [address] [place] [address] Maricruz Cooley, RN HER2-positive carcinoma of right breast Social History [...] place to sleep or slept in a custodial (including now)? No 12/19/2020 Sex and Gender Information Value Date Recorded Sex Assigned at Not on file Gender Identity Not on file Sexual Orientation Not on file documented as of this encounter Last Filed Vital Signs Vital Sign Reading Time Taken Comments Blood Pressure 138/70 02/13/2021 10:09 AM EDT Pulse 81 02/13/2021 10:09 AM EDT Temperature 36.7 ??C (98.1 ??F) 02/13/2021 1 0:09 AM EDT Respiratory Rate - - Oxygen Saturation 100% 02/13/2021 10: 09 AM EDT Inhaled Oxygen Concentration - - Weight 63.8 kg (140 lb 10.5 oz) 021 10:09 AM EDT Height 162 cm (5' 3.78) 02/13/2021 10: 09 AM EDT Body Mass Index 24.31 02/13/2021 10:09 AM EDT documented in this encounter Progress Notes * Maricruz Cooley APRN - 02/13/2021 10:30 AM EDT Images from the original note were not included. Diagnosis:R ?multifocal IDC, Gr 2-3, ER-/WA-, Her2 3+ by IHC, N1 Subjective HPI:Ghazal [...] pain in the right axillary area Interval history(02/13/21): Ms. Nina is in clinic for follow-up of breast cancer. She completed neoadjuvant chemotherapy followed by surgery on November 07 and November 21. She has residual disease afterneoadjuvant chemotherapy and she started on Kadcyla on December 10 in [place]. Ghazal is here today forC4. She is feeling well today. This will be her last week of treatment. She has a moderate amount of erythema to the right breast and chest area. Does not want any pain medication. Using silvadene, aquaphor ointment and mepilex to are She is still having migraines and is seeing Neurology. She may try Botox for the migraines. Her MRI was negative for metastatic disease. Denies any dizziness, vision changes, confusion or changes in balance or weakness. 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 Father had kidney cancer OBGYN History: , menarche at age of 12, age of first live 23, menopausal in mid 50s, no hormone replacement therapy, use local estrogen cream Allergies: Allergies Allergen Reactions ??? Codeine Nausea Only Medications: Your Medications Accurate as of February 13, 2021 10:52 AM. If you have any questions, ask [...] Neurologic: Normal No focal deficit. Vitals BP 138/70 Pulse 81 Temp 36.7 ??C (98.1 ??F) Ht 162 cm (5' 3.78) Wt 63.8 kg (140 lb 10.5 oz) LMP (LMP Unknown) SpO2 100% BMI 24.31 kg/m?? Pathology: 11/21/20 11/07/20 03/28/20 INTERPRETATION: BREAST, [...] Tissue submitted: Paraffin embedded tissue block labelled [id number] From [facility] F 3+ positive Strong complete membrane [...] performance characteristics have been determined by [facility] and/or by the referring laboratory. The [...] 03/29/20 at 4:25 pm byDr. Ramana Chew. [facility] Demonstration Agent slides of this case were reviewed at [...] Time out of formalin: 09:00 03/29/2020 Labs: 02/10/21- WBC-4.6 Hgb/Hct-10.9/35.7 Plt-112 ANC-2.94 Na-140 K+-4.9 [...] WBC 5.3, hemoglobin 13.5, platelet count 268 Imagin01/30/21- ECHO- EF 60-65% 01/15/21- MRI brain- Impression: [...] and Plan: Diagnosis:R ?multifocal IDC, Gr 2-3, ER-/WA-, Her2 3+ by IHC, T2N1M0, stage IIB, znM2rB1s, ER-/WA-,Her 2 3+ By IHC Treatment: -06/04/2020 -09/17/2020 6 cycle of neoadjuvant TCHP -11/07/20 right total mastectomy and sentinel lymph node biopsy -11/21/2020 right lymph node dissection - 12/10/20 started Kadcyla 3.6 mg/kg Mrs. Nina is a new diagnosis of right breast ductal carcinoma grade 2-3 ER and WA negative and HER-2 3+ by immunochemistry. Lymph [...] radiation therapy. --------- Peggy is back from [place] where she completed 6 cycle of TCHP [...] She is currently receiving adjuvant radiation in [facility] with Dr. Lange. We will continue Kacyla every 3 weeks with monitoring for liver function and thrombocytopenia. We will hold treatment for platelet count below 75,000 on liver enzymes more than upper limit of normal x3 or elevated bilirubin. We will check echocardiogram every 3 months during her anti-Her2 treatment. Echo done in March 2021 reviewed today. EF 60-65% # LFT's- normalized. # Headaches- she has a history of migraines. She feels this headache is different and her usual medications are not helping. MRI was negative for metastatic disease. Possibly rebound migraines. She is being followed by Neurology. Plan: 1. Proceed with C4 Kadcyla today as scheduled. She will complete RT this week. 2. Follow up with neurology as scheduled. 4 Next visit in 3 weeks with CBC, CMP, Mg and 5th cycle of Kadcyla. Ghazal voiced understanding of the plan and was given an opportunity to ask questions which I answered to the best of my ability.Amaury understands he can call the clinic between visits with any questions/concerns or new symptoms. Maricruz HAY, ASSEMBLER MECHANICAL ORDNANCE, AOCNP Medical Oncology documented in this encounter Plan of Treatment Not on file documented as of this encounter Visit Diagnoses Diagnosis HER2-positive carcinoma of right breast documented in this encounter Care Teams Security Infrastructure Engineer Relationship Specialty Start Date End Date Ghazal Joseph APRN [address] [place] [address] PCP - General Family Medicine 12/19/20 documented as of this encounter
--- OUTSIDE RECORDS SUMMARY | 2024-03-10 17:19 | XMS_ITS | Encounter Summary ---
Author Organization [facility] [place] [address] Care Team Providers Care Training Consultant Name Role Phone Ghazal Joseph APRN Primary Care Provider [phone] [phone] Encounter Details Date Type Department Care Team (Late st Contact Info) Description 04/27/2022 Ancillary Procedure Radiology Library at [facility] [place] [id number] Ghazal Joseph APRN [address] [place] [address] Social History Tobacco Use Types [...] place to sleep or slept in a alf (including now)? No 12/19/2020 Sex and Gender Information Value Date Recorded Sex Assigned at Not on file Gender Identity Not on file Sexual Orientation Not on file documented as of this encounter Plan of Treatment Not on file documented as of this encounter Procedures Procedure Name Priority Date/Time Associated Diagnosis Comments FILM LIBRARY STORAGE ONLY CT CHEST ABDOMEN PELVIS Routine 04/27/2022 12:00 AM EDT documented in this encounter Results * Film Library- Storage Only CT Chest Abdomen Pelvis (04/27/2022 12:00 AM EDT) Narrative [facility] - 04/28/2022 4:19 PM EDT This exam is auto-finalizing. It's purpose is for storage only. Ghazal Joseph APRN Fco FILM LIBRARY ORDERABLES Performing Organization Address City/State/[facility] Co de Phone Number [place], [place] documented in this encounter Visit Diagnoses Not on filedocumented in this encounter Care Teams Training Consultant Relationship Specialty Start Date End Date Ghazal Joseph APRN [address] [place] [address] PCP - General Family Medicine 12/19/20 documented as of this encounter
--- OUTSIDE RECORDS SUMMARY | 2024-03-10 17:19 | XMS_ITS | Encounter Summary ---
Author Organization [facility] Address [facility] [place] [address] Care Team Providers Care Lip And Gate Builder Name Role Phone Ghazal Joseph APRN Primary Care Provider [phone] [phone] Encounter Details Date Type Department Care Team (Late st Contact Info) Description 02/13/2021 Notes Only [facility] [address] [place] [address] Ashley Vazquez RN Social History Tobacco Use Types Packs/Day [...] to sleep or slept in a senior care (including now)? No 12/19/2020 Sex and Gender Information Value Date Recorded Sex Assigned at Not on file Gender Identity Not on file Sexual Orientation Not on file documented as of this encounter Progress Notes * Ashley Vazquez RN - 02/13/2021 11:59 AM EDT [facility] - [place] Nina [phone] Allergies Allergen Reactions ??? Codeine Nausea Only Cycle:4 Day: Medication Dose Route Kadcyla 225 mg IV Patient tolerated treatment well without incident or adverse reaction. Patient instructed to contact this clinic during regular business hours if they have any concerns related to treatment, patient was instructed to contact [facility] leather production worker oncologist after hours, on weekends and holidays for concernsrelated to their cancer diagnosis current treatment. documented in this encounter Plan of Treatment Not on file documented as of this encounter Visit Diagnoses Not on filedocumented in this encounter Care Teams Lip And Gate Builder Relationship Specialty Start Date End Date Ghazal Joseph APRN [address] [place] [address] PCP - General Family Medicine 12/19/20 documented as of this encounter
--- OUTSIDE RECORDS SUMMARY | 2024-03-10 17:19 | XMS_ITS | Encounter Summary ---
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, right Procedures NM PET CT Skull Base to Mid-thigh Graeme Grigsby MD [facility] [address] [place] [address] [place] [address] Referral ID Status Reason Start Date Expiration Date V isits Requested Visits Authorized [id number] Closed Specialty Service Requested 03/31/2021 09/29/2022 1 1 Reason for Visit * Diagnostic Test (Routine) - Closed Specialty Diagnoses / Procedures Referred By Contac t Referred To Contact Radiology Diagnoses Breast cancer metastasized to axillary lymph node, right Procedures NM PET CT Skull Base to Mid-thigh Graeme Grigsby MD [facility] [address] [place] [address] [place] [address] Referral ID Status Reason Start Date Expiration Date V isits Requested Visits Authorized [id number] Closed Specialty Service Requested 03/31/2021 09/29/2022 1 1 Encounter Details Date Type Department Care Team (Latest Contact Info) Description 04/09/2021 2:28 PM EDT Hospital Encounter [place] [address] Graeme Grigsby MD [facility] [address] [place] [address] Breast cancer metastasized to axillary lymph node, right Discharge Disposition: Home Social History Tobacco Use [...] place to sleep or slept in a assisted (including now)? No 12/19/2020 Sex and Gender [...] by mouth. fluticasone propionate (FLONASE) 50 mcg/actuation [place], Suspension 1 spray daily. albuterol sulfate 90 mcg/actuation Aerosol Powdr Breath Activated Inhale 180 mcg into the lungs. diazePAM (Valium) 5 mg Tablet Take by mouth. 03/19/2021 01/19/2022 HYDROcodone-acetaminophe n ([place]) 5-325 mg Tablet TAKE 1 TABLET BY [...] cancer metastasized to axillary lymph node, right documented in this encounter Results * NM PET CT Skull Base to Mid-thigh (04/09/2021 4:12 PM EDT) Anatomical Region Laterality Modality Positron Emissio n Tomography (PET) Impressions 04/10/2021 12:51 PM EDT 1. ??No evidence for osseous metastasis. 2. ??Small FDG avid linear subcutaneous soft tissue tissue thickening in the medial right chest wall is favored to represent post-radiation inflammation. 3. ??FDG avid opacities in the right upper lung and medial left upper lung are most consistent with post-radiation inflammation. 4. ??Small FDG avid adenopathy in the precarinal and right hilar regions, consistent with reactive inflammatory lymph nodes. 5. ??Small FDG avid nodule posterior to the left upper thyroid pole is stable compared to CT of 04/2020, consistent with a small exophytic thyroid nodule or parathyroid adenoma. 6. ??Increased FDG avidity within the left lateral tongue and left tongue base, may represent normal physiologic variant uptake, although a neoplastic etiology is not excluded. Consider direct visualization. (This result was discussed with Dr. Grigsby). Preliminary report signed by: Quinn Ramirez at 04/10/2021 11:21 AM I have personally reviewed the image(s) and the resident's interpretation and agree with the findings, Martin Aguilar MD at 04/10/2021 12:51 PM Thank you for letting us participate in the care of this patient. ??If you are a health care provider and have any questions regarding this report, please contact the number below. ??For patients who have questions please contact the health care management assistant that requested your imaging first. ? Electronically signed by: Martin Aguilar MD, [facility] ([phone]), at 04/10/2021 12:51 PM Narrative 04/10/2021 12:51 PM EDT EXAMINATION: NM PET CT STANDARD SKULL BASE TO MID-THIGH CLINICAL HISTORY: Breast cancer, staging Restaging of breast cancer, new onset of back pain, please evaluate for bone metastasis TECHNIQUE: Following IV injection of 59-isxrvj-3-deoxyglucose (FDG) a standard uptake of approximately 60 minutes, a noncontrast CT scan followed by a PET scan were acquired from the base of the skull to mid thighs. The noncontrast CT was used for anatomic localization and photon attenuation correction of the PET scan. Blood glucose level: 76 (mg/dL) FDG dose: 9.6 mCi COMPARISON: CT chest 03/16/2021 and 12/24/2020. CT chest 05/01/2020 FINDINGS: HEAD/NECK: Asymmetric FDG avidity within the left lateral tongue and left tongue base (centered on axial image 22). Small FDG avid nodule posterior to the left upper pole thyroid (axial image 40), stable compared to 05/01/2020. Normal activity in all other soft tissue regions of the neck and visualized lower head. No significant adenopathy. CHEST: Post right mastectomy with small linear subcutaneous FDG avid soft tissue thickening in the medial right chest wall (axial image 86). Small FDG avid adenopathy in the right hilar (axial image 73) and precarinal (axial image 67) regions, most consistent with reactive inflammatory lymph nodes. FDG avid opacities at the right apex, anterior right upper lobe, and medial left upper lung are consistent with post radiation inflammation. Postsurgical changes in the right axilla with focal FDG avidity with a focus of FDG avid subcutaneous thickening is consistent with inflammation (axial image 67). Normal activity in all other soft tissue regions. Left chest wall MediPort catheter tip at the lower SVC. ABDOMEN/PELVIS: Normal activity in all soft tissue regions. No significant adenopathy. Small CT visualized lymph nodes in the left periaortic region (axial image 163) with adjacent inflammatory changes, with a similar CT appearance compared to CT of 05/01/2020 consistent with reactive lymph nodes. SKELETON/EXTREMITIES: Decreased marrow activity in lower cervical/upper thoracic spine consistent with postradiation change. Normal activity in all other regions of the axial and visualized appendicular skeleton. No blastic or lytic osseous lesions. Resulting Agency Comment Unexpected Finding Procedure Note Martin Aguilar MD - 04/10/2021 EXAMINATION: NM PET CT STANDARD SKULL BASE TO MID-THIGH CLINICAL HISTORY: Breast cancer, staging Restaging of breast cancer, new onset of back pain, please evaluate forbone metastasis TECHNIQUE: Following IV injection of 70-fktavs-2-deoxyglucose (FDG) astandard uptake of approximately 60 minutes, a noncontrast CT scan followed by aPET scan were acquired from the base of the skull to mid thighs. The noncontrast CTwas used for anatomic localization and photon attenuation correction of thePET scan. Blood glucose level: 76 (mg/dL) FDG dose: 9.6 mCi COMPARISON: CT chest 03/16/2021 and 12/24/2020. CT chest 05/01/2020 FINDINGS: HEAD/NECK: Asymmetric FDG avidity within the left lateral tongue and left tonguebase (centered on axial image 22). Small FDG avid nodule posterior to the left upper pole thyroid (axialimage 40), stable compared to 05/01/2020. Normal activity in all other soft tissue regions of the neck andvisualized lower head. No significant adenopathy. CHEST: Post right mastectomy with small linear subcutaneous FDG avid softtissue thickening in the medial right chest wall (axial image 86). Small FDG avid adenopathy in the right hilar (axial image 73) andprecarinal (axial image 67) regions, most consistent with reactive inflammatorylymph nodes. FDG avid opacities at the right apex, anterior right upper lobe, andmedial left upper lung are consistent with post radiation inflammation. Postsurgical changes in the right axilla with focal FDG avidity with afocus of FDG avid subcutaneous thickening is consistent with inflammation (axialimage 67). Normal activity in all other soft tissue regions. Left chest wallMediPort catheter tip at the lower SVC. ABDOMEN/PELVIS: Normal activity in all soft tissue regions. No significant adenopathy. Small CT visualized lymph nodes in the left periaortic region (axial [id number]) with adjacent inflammatory changes, with a similar CT appearance comparedto CT of 05/01/2020 consistent with reactive lymph nodes. SKELETON/EXTREMITIES: Decreased marrow activity in lower cervical/upper thoracic spineconsistent with postradiation change. Normal activity in all other regions of the axial and visualizedappendicular skeleton. No blastic or lytic osseous lesions. IMPRESSION 1. No evidence for osseous metastasis. 2. Small FDG avid linear subcutaneous soft tissue tissue thickening inthe medial right chest wall is favored to represent post-radiationinflammation. 3. FDG avid opacities in the right upper lung and medial left upper lungare most consistent with post-radiation inflammation. 4. Small FDG avid adenopathy in the precarinal and right hilar regions, consistent with reactive inflammatory lymph nodes. 5. Small FDG avid nodule posterior to the left upper thyroid pole isstable compared to CT of 04/2020, consistent with a small exophytic thyroid noduleor parathyroid adenoma. 6. Increased FDG avidity within the left lateral tongue and left tonguebase, may represent normal physiologic variant uptake, although a neoplasticetiology is not excluded. Consider direct visualization. (This result was discussedwith Dr. Grigsby). Preliminary report signed by: Quinn Ramirez at 04/10/2021 11:21 AM I have personally reviewed the image(s) and the resident's interpretationand agree with the findings, Martin Aguilar MD at 04/10/2021 12:51 PM Thank you for letting us participate in the care of this patient. If youare a health care provider and have any questions regarding this report,please contact the number below. For patients who have questions please contactthe health care management assistant that requested your imaging first. Electronically signed by: Martin Aguilar MD, [facility]([phone]), at 04/10/2021 12:51 PM Graeme Grigsby MD IMG PET ORDERABLES documented in this encounter Visit Diagnoses Diagnosis Breast cancer metastasized to axillary lymph node, right documented in this encounter Administered Medications Inactive Administered Medications - up to 3 most recent administrations Medication Order MAR Action Action Date Dose Rate Site fludeoxyglucose (F-18) FDG injection 0-20 mCi 0-20 mCi, Intravenous, ONCE PRN, 1 dose, Starting on Wed04/09/21 at 1455, Until Wed04/09/21 at 1449, Per Protocol, Radiology Contrast, Routine Given 04/09/2021 2:49 PM EDT 9.6 mCi Left Arm documented in this encounter Care Teams Supervisor Laboratory Animal Facility Relationship Specialty Start Date End Date Ghazal Joseph, BUILDING RENTAL SUPERINTENDENT [address] [place] [address] PCP - General Family Medicine 12/19/20 documented as of this encounter
--- OUTSIDE RECORDS SUMMARY | 2024-03-10 17:19 | XMS_ITS | Encounter Summary ---
Author Organization [facility] [place] [address] Care Team Providers Care Scientist Name Role Phone Ghazal Joseph APRN Primary Care Provider [phone] Encounter Details Date Type Department Care Team (Late st Contact Info) Description 01/17/2024 Telephone Radiation Oncology at [address] [address] Kassandra Diaz Social History Tobacco Use Types Packs/Day Years [...] encounter Miscellaneous Notes * Telephone Encounter - Kassandra Diaz - 01/17/2024 10:10 AM EDT Ghazal called in today to cancel her appointment with Dr. Lange on 01/24/2024. She did not want to reschedule. documented in this encounter Plan of Treatment Not on file documented as of this encounter Visit Diagnoses Not on filedocumented in this encounter Care Teams Scientist Relationship Specialty Start Date End Date Ghazal Joseph APRN [address] [place] [address] PCP - General Family Medicine 12/19/20 documented as of this encounter
--- OUTSIDE RECORDS SUMMARY | 2024-03-10 17:19 | XMS_ITS | Encounter Summary ---
Author Organization [facility] Address [address] [place] [address] Care Team Providers Care Sales And Production Manager Name Role Phone Unavailable Primary Care Provider Unavailabl e Encounter Details Date Type Department Care Team (Late st Contact Info) Description 09/17/2005 Before PRISM Converted Visit (Maple) [facility] - Maple conversion [address] [place] [address] Maricruz Davies I, CONSUMER SALES REPRESENTATIVE [address] [place] [phone] Social History Tobacco Use Types Packs/Day Years Used Date Smoking Tobacco: Never Assessed Sex and Gender Information Value Date Recorded Sex Assigned at Not on file Gender Identity Not on file Sexual Orientation Not on file documented as of this encounter Progress Notes * Maricruz Davies - 10/03/2009 1326 EST NEUROLOGY PROGRESS/FOLLOWUP NOTE - 09/17/2005 Problem: 1. Migraine. 2. Epicondylitis. Subjective: The patient is here today in follow-up from her visit on 05/18/05 at which time she wasstarted on Topamax Since being on Topamax, she notes that the intensity of her headaches has diminished significantly. She now rates them a 2 to 3/10 in intensity; howeverthe frequency of them is thesame. She brings her diary with her and she has had a total of 9 headaches in 06/06, 9 in 07/06 and12 in 08/07. She does report that she has taken a trial of Frova and Relpax and she believes that the Frova has been successful in aborting headaches. Complaints of bilateral elbow pain, right dominant; the pain seems to be more intense in the right than the left. This happened several months ago, she has been taking glucosamine chondroitin forit, and she feels that it is related to arthritis. She has been doing this for the last three to four months. Allergies: No known drug allergies. Current Medications: 1. Prozac 20 daily. 2. Topamax 100 q.a.m., 50 q.p.m. 3. Mariela 180 daily. 4. Flonase. 5. Aspirin 81 mg daily. 6. Glucosamine chondroitin daily. 7. Vitamin E daily. 8. Zomig 5 p.r.n. 9. Reglan 10 p.r.n. 10. Frova p.r.n. 11. Relpax p.r.n. Objective: Alert and in no distress, very well appearing. Blood pressure is 124/68, pulse 80, respiratory rate is 20. Height is 5 feet 4 inches, weight 137 pounds. Skin is warm and dry to touch Cardiac: Regular rate and rhythm, S1 and S2, no murmurs, rubs or gallops. Lungs: Clinically clear with good aeration throughout. Elbows: Right greater than left with tenderness at lateral epicondyle. Neurologic Examination: Cranial nerves II through XII are intact. Bulk and tone is normal. Power isfull. DTRs are 2+ and symmetric. Toes are downgoing. No evidence of pathoreflexia. Station and gaitis narrow based and fluid with good arm swing. Assessment: The patient has noticed a significant decrease in the severity of her headache since beginning Topamax I suspect that we have an increase in this and hope she will decrease the frequency of her headaches also. If she does not, it would be worthwhile to add a second prophylactic in combination therapy. NEUROLOGY PROGRESS/FOLLOWUP NOTE - 09/17/2005 Epicondylitis bilaterally, right greater than left. Plan: 1. Increase to 100 mg p.o. b.i.d. 2. Frova 2.5 mg as directed, #18, refill x 12. 3. Relpax 40, as directed, #18, refill x 12. 4. I took the liberty of prescribing bilateral armbands for her. [facility]. 5. Reevaluatein three months. Signed by Maricruz Davies NP 09/24/2005 12:59 ANancMoira Ybarra NP Maricruz Davies NP - Maricruz Davies NP A - hw Job ID: [id number] Document ID: [id number] cc: MACEY Vidal documented in this encounter Plan of Treatment Not on file documented as of this encounter Visit Diagnoses Not on filedocumented in this encounter
--- OUTSIDE RECORDS SUMMARY | 2024-03-10 17:19 | XMS_ITS | Clinical Summary ---
Author Organization [facility] Address [facility] [place] [address] Care Team Providers Care Power Saw Operator Name Role Phone Ghazal Joseph APRN Primary Care Provider [phone] [phone] Allergies Active Allergy Reactions Criticality Noted Date Comments Codeine Nausea Only 04/19/2020 Medications Medication Sig Dispensed Refills Start Date End Date Status montelukast (Singulair) 10 mg Tablet Take 10 mg by mouth nightly. Active FLUoxetine (PROzac) 10 mg Capsule Take 40 mg by mouth daily. Active calcium-vitamin D3 600 mg-5 mcg (200 unit) Tablet Take by mouth. Active fluticasone propionate (FLONASE) 50 mcg/actuation [place], Suspension 1 spray daily. Act basilio albuterol sulfate 90 mcg/actuation Aerosol Powdr Breath Activated Inhale 180 mcg into the lungs. Active oxyCODONE-acetaminoph en (Percocet) 5-325 mg Tablet 10/05/2020 Active atorvastatin (Lipitor) 20 mg Tablet 12/20/2020 Active folic acid (Folvite) 1 mg Tablet Take 400 mcg by mouth daily. Active potassium chloride ER (K-Dur/Klor-Con) 10 mEq Tablet Sustained ReleaseIndications:HE R2-positive carcinoma of right breast,Hypokalemia Take 1 tablet by mouth daily. 30 tablet 3 04/02/2022 Active ZOLMitriptan (ZOMIG) 5 mg TabletIndications:Int ractable periodic headache syndrome Take 1 tablet by mouth as needed for Migraine. Initial dose: 1.25 to 2.5 mg (maximum: 5 mg/dose). May repeat dose after 2 hours. Max daily dose: 10 mg 30 tablet 04/30/2022 Active gabapentin (Neurontin) 100 mg capsule Take 100 mg by mouth 3 times daily. 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 04/19/2020 Malignant neoplasm of lower- outer quadrant of female breast, estrogen receptor negative 04/19/2020 HER2-positive carcinoma of right breast 04/19/20 Resolved Problems Problem Noted Date Diagnosed Date Resolved Date Malignant neoplasm of right breast 04/19/2020 04/19/2020 Hormone receptor positive ma lignant neoplasm of breast 04/19/2020 04/19/2020 Encounters Date Type Department Care Team Description 01/17/2024 Telephone Radiation Oncology at [address] [phone] Kassandra Diaz from Last 3 Months Family History Medical History Relation Comments Cancer Father Cancer Mother Breast Cancer Sister Cancer Sister Relation Status Comments Father Mother Sister Social History Tobacco Use Types Packs/Day Years [...] on file Sexual Orientation Not on file Last Filed Vital Signs Vital Sign Reading Time Taken Comments Blood Pressure 166/82 03/22/2023 12:32 PM EDT Pulse 67 03/22/2023 12:32 PM EDT Temperature 36.6 ??C (97.9 ??F) 03/22/2023 12:32 PM E DT Respiratory Rate 18 03/22/2023 12:32 PM EDT Oxygen Saturation 99% 03/22/2023 12:32 PM EDT Inhaled Oxygen Concentration - - Weight 72 kg (158 lb 11.7 oz) 03/22/2023 12:32 P M EDT Height 162 cm (5' 3.78) 03/22/2023 12:32 PM EDT Body Mass Index 27.43 03/22/2023 12:32 PM EDT Plan of Treatment Health Maintenance Due Date Last Done Comments CT Colonography 1950 Colonoscopy 1950 Colorectal Cancer Screening 1950 FIT DNA 1950 FIT 1950 Sigmoidoscopy (10 year) with FIT yearly 1950 Sigmoidoscopy 1950 Hepatitis C Screening 12/26/1969 Tdap adult 12/26/1970 Tetanus vaccine 12/26/1970 Breast Cancer Share Decision Needed 1991 Breast Cancer screening 1991 Zoster vaccine (1 of 2) 12/26/2001 Advance Directive 12/26/2006 Bone Density Scan 12/26/2016 Pneumoccocal Vaccine: 65+ (1 of 1 - PCV) 12/26/2016 Covid-19 Vaccine (1 - season) 2023 Influenza (Flu) vaccine (1 o f 1 - Influenza standard series) 04/02/2024 Care Teams Power Saw Operator Relationship Specialty Start Date End Date Ghazal Joseph APRN [address] [place] [address] PCP - General Family Medicine 12/19/20
--- OUTSIDE RECORDS SUMMARY | 2024-03-10 17:19 | XMS_ITS | Encounter Summary ---
Author Organization [facility] Address [facility] [place] [address] Care Team Providers Care Title One Reading Teacher Name Role Phone Ghazal Joseph APRN Primary Care Provider [phone] [phone] Reason for Visit * Reason Comments Follow-up Encounter Details Date Type Department Care Team (Late st Contact Info) Description 01/18/2023 2:00 PM EDT Office Visit Radiation Oncology at [address] [phone] Jonna Lange MD [facility] [place] [address] S/P radiotherapy Social History Tobacco Use Types [...] Sign Reading Time Taken Comments Blood Pressure 135/91 01/18/2023 2:09 PM EDT Pulse 76 01/18/2023 2:09 PM EDT Temperature 36.8 ??C (98.2 ??F) 01/18/2023 2:09 PM ED T Respiratory Rate 16 01/18/2023 2:09 PM EDT Oxygen Saturation 98% 01/18/2023 2:09 PM EDT Inhaled Oxygen Concentration - - Weight 70.6 kg (155 lb 9.6 oz) 01/18/2023 2:09 P M EDT Height - - Body Mass Index 26.73 12/14/2022 2:53 PM EDT documented in this encounter Patient Instructions * Patient Instructions* Jonna Lange MD - 01/18/2023 2:00 PM EDT Your exam is without worrisome finding. Someone will contact you to schedule followup in 1 year. documented in this encounter Progress Notes * Jonna Lange MD - 01/18/2023 2:00 PM EDT Images from the original note were not included. CC: Sched'd fu s/p xrt completion. HPI: Ghazal is a 72 y/o f who completed xrt to R supraclav, R axilla, R IMC & R chest wall 1 yr., 11 mos ago (02/19/21) for breast ca, R, IDC, ER-GA-, Her2+, cT1 cN1, s/p neoadjuvant TCHP followed by R mastectomy & SNB, then completion R ax lymph node dissxn, ypT1b ypN1. Continued on kadcyla during xrt & after xrt completion; completed adjuvant kadcyla 10/28/21. 12/11/21 full dose neratinib started, which completed 12/25/22. 11/27/22 L mmg ([place]): Neg. Subjective: No new problem, specifically denies pain. Energy level good. Past Medical History: Diagnosis Date Depression Hypertension Skin cancer No lupus/scleroderma. DERIK. History reviewed. No pertinent surgical history. Past Surgical History No past surgical history on file. B tubal ligation. L shoulder surg, biceps repair Tonsillectomy Cheilectomy Eyelid procedure. Your Medications Accurate as of January 18, 2023 2:18 PM. If you have any questions, ask your nurse or doctor. Continued medications, unchanged Dose Details albuterol sulfate 90 mcg/actuation Aerosol Powdr Breath Activated Commonly known as: ProAir RespiClick Inhale 180 mcg into the lungs. 180 mcg Refills: 0 atorvastatin 20 mg tablet Commonly known as: Lipitor Refills: 0 calcium-vitamin D3 600 mg-5 mcg (200 unit) Tablet Take by mouth. Refills: 0 FLUoxetine 10 mg capsule Commonly known as: PROzac Take 40 mg by mouth daily. 40 mg Refills: 0 fluticasone propionate 50 mcg/actuation [place], Suspension Commonly known as: Flonase 1 spray daily. 1 spray Refills: 0 folic acid 1 mg tablet Commonly known as: Vitamin B9 Take 400 mcg by mouth daily. 400 mcg Refills: 0 gabapentin 100 mg capsule Commonly known as: Neurontin Take 100 mg by mouth 3 times daily. 100 mg Refills: 0 montelukast 10 mg tablet Commonly known as: Singulair Take 10 mg by mouth nightly. 10 mg Refills: 0 neratinib 40 mg tablet Commonly known as: Nerlynx Take 6 tablets (240 mg) by mouth daily. Indications: HER2 positive breast cancer 240 mg Quantity: 180 tablet Refills: 11 oxyCODONE-acetaminophen 5-325 mg tablet Commonly known as: Percocet Refills: 0 potassium chloride ER 10 mEq ER tablet Commonly known as: Klor-Con, K-Tab Take 1 tablet by mouth daily. 10 mEq Quantity: 30 tablet Refills: 3 ZOLMitriptan 5 mg tablet Commonly known as: Zomig Take 1 tablet by mouth as needed for Migraine. Initial dose: 1.25 to 2.5 mg (maximum: 5 mg/dose). May repeat dose after 2 hours. Max daily dose: 10 mg 5 mg Quantity: 30 tablet Refills: 0 Physical Exam Constitutional: General: She is not in acute distress. Comments: BP (!) 135/91 (Patient Position: Sitting) Pulse 76 Temp 36.8 ??C (98.2 ??F) (Temporal) Resp 16 Wt 70.6 kg (155 lb 9.6 oz) SpO2 98% BMI 26.73 kg/m?? HENT: Head: Normocephalic. Eyes: General: No scleral icterus. Right eye: No discharge. Left eye: No discharge. Extraocular Movements: Extraocular movements intact. Conjunctiva/sclera: Conjunctivae normal. Pulmonary: Effort: Pulmonary effort is normal. No respiratory distress. Breath sounds: No stridor. Comments: S/p R mastectomy, w/scattered telangiectasias, skin intact, no visible/palpable ca. Chest: Breasts: Left: No inverted nipple, mass, nipple discharge, skin change or tenderness. Abdominal: General: There is no distension. Palpations: [...] normal. A: ARJUN. P: Rtc 1 yr. She zayas in [place] where she is followed by [facility]. 15 mins encounter. . documented in this encounter Plan of Treatment Not on file documented as of this encounter Visit Diagnoses Diagnosis S/P radiotherapy Convalescence following radiotherapy documented in this encounter Care Teams Title One Reading Teacher Relationship Specialty Start Date End Date Ghazal Joseph APRN [address] [place] [address] PCP - General Family Medicine 12/19/20 documented as of this encounter
--- OUTSIDE RECORDS SUMMARY | 2024-03-10 17:19 | XMS_ITS | Encounter Summary ---
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 No 12/19/2020 Sex and Gender Information Value Date Recorded Sex Assigned at Not on file Gender Identity Not on file Sexual Orientation Not on file documented as of this encounter Last Filed Vital Signs Vital Sign Reading Time Taken Comments Blood Pressure 108/72 01/28/2021 11:00 AM EDT Pulse 84 01/28/2021 11:00 AM EDT Temperature 36.3 ??C (97.3 ??F) 01/28/2021 1 1:00 AM EDT Respiratory Rate 16 01/28/2021 11:0 0 AM EDT Oxygen Saturation 97% 01/28/2021 11: 00 AM EDT Inhaled Oxygen Concentration - - Weight 63.2 kg (139 lb 6.4 oz) 01/29/20 11:00 AM EDT with shoes Height - - Body Mass Index 23.8 01/23/2021 9:30 AM EDT documented in this encounter Patient Instructions * Patient Instructions* Lee Lange MD - 01/28/2021 11:30 AM EDT Prescription for silvadene cream sent to [facility] in [place]. 1% hydrocortisone cream available over the counter without a prescription can be used for itchinesswithin irradiated area. Any/all of the creams/ointments can be applied to irradiated area as often as needed but try to notapply any cream/ointment to irradiated area within 2 hours prior to radiotherapy. documented in this encounter Progress Notes * Lee Lange MD - 01/28/2021 11:30 AM EDT Images from the original note were not included. DIAGNOSIS: Breast ca, R, IDC, ER-[place]-, Her2+, cT1 cN1, s/p neoadjuvant TCHP followed by R mastectomy& SNB, then completion R ax lymph node dissxn, ypT1b ypN1. Continues on kadcyla & neratinibplanned. ?? CURRENT TREATMENT DOSE: 30 Gy R Supraclav, Axilla, IMC & R Chest Wall ANTICIPATED TOTAL DOSE: 50 Gy R Supraclav, Axilla, IMC & R Chest Wall; 60 Gy Mastectomy Scar Current # of xrt received: 15 R Supraclav, Axilla, IMC & R Chest Wall Anticipated total # of xrt txs: 25 R Supraclav, Axilla, IMC & R Chest Wall; 30 Mastectomy Scar Evaluation of port verification films: Approved. For details, see electronic film record in [employer] System. Changes in Medical Condition: Increased skin rxn w/in irrad'd area, assoc'd w/itchiness. Denies skin/throat irritation. Intermittent increased tiredness which she says is manageable. Pain?: When on tx table w/arms up, manages w/visualization, does not want to take analgesic. Your Medications Accurate as of January 28, 2021 12:00 PM. If you have any questions, ask your nurse or doctor. New Medications Dose Details silver sulfADIAZINE 1 % Crea Commonly known as: SILVADENE Apply as often as needed to irradiated area, up to 4 g/day. Started by: LEE LANGE MD Quantity: 85 g Refills: 0 Continued medications, unchanged Dose Details ACETAMINOPHEN ORAL Take 1,000 mg by mouth. 1,000 mg Refills: 0 albuterol sulfate 90 mcg/actuation Aepb Inhale 180 mcg into the lungs. 180 mcg Refills: 0 atorvastatin 20 mg Tab Commonly known as: Lipitor Refills: 0 * benazepriL 20 mg Tab Commonly known as: LOTENSIN Take 10 mg by mouth daily. 10 mg Refills: 0 * benazepriL 10 mg Tab Commonly known as: LOTENSIN Take by mouth. Refills: 0 Calcium 600 + D(3) 600 mg(1,500mg) -200 unit Tab Take by mouth. Generic drug: calcium-vitamin D3 Refills: 0 CREAM BASE TOP Apply topically. Jeans Cream. Apply to area of radiation twice a day but no less than 2 hours before a treatment. Refills: 0 cyclobenzaprine 5 mg Tab Commonly known as: Flexeril TAKE 1 TABLET BY MOUTH THREE TIMES DAILY NEEDED Refills: 0 FLUoxetine 10 mg Cap Commonly [...] provider to review them with you. Physical Exam: BP 108/72 (Patient Position: Sitting) Pulse 84 Temp 36.3 ??C (97.3 ??F) (Temporal) Resp 16 Wt 63.2 kg (139 lb 6.4 oz) Comment: with shoes SpO2 97% BMI 23.80 kg/m?? A&Ox3, NAD. Irrad'd area w/mild to moderate erythema, primarily UIQ & overlying R clavicle, assoc'd w/mild to moderate folliculitis, skin intact. Imagin12/24/20 Dx'ic Rad Interp CTsim: No suspicious lesion. Performance Status: KPS 100% Response to xrt: As expected. Irradiation Related Symptoms: Skin rxn. Treatment for Symptom Control: Rx for silvadene, discussed use of 1% htc for itchiness & given phytoplex cream, skintegrity ointment & aquaphor ointment. She declined mepilex-lite. Alvaro's cream. Pain Management: Visualization. Recommendation on Continuing Course of xrt: Cont. 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
--- OUTSIDE RECORDS SUMMARY | 2024-03-10 17:19 | XMS_ITS | Encounter Summary ---
Author Organization [facility] Address [facility] [place] [address] Care Team Providers Care Dock Guard Name Role Phone Ghazal Joseph APRN Primary Care Provider [phone] [phone] Reason for Visit * Reason Comments Radiation Follow-up Encounter Details Date Type Department Care Team (Late st Contact Info) Description 02/25/2021 11:00 AM EDT Office Visit Radiation Oncology at [address] [phone] Jonna Lange MD [facility] [place] [address] Malignant neoplasm of upper-outer quadrant of right [...] Sign Reading Time Taken Comments Blood Pressure 129/83 02/25/2021 11:01 AM EDT Pulse 74 02/25/2021 11:01 AM EDT Temperature 36.4 ??C (97.5 ??F) 02/25/2021 11:01 AM E DT Respiratory Rate 20 02/25/2021 11:01 AM EDT Oxygen Saturation 99% 02/25/2021 11:01 AM EDT Inhaled Oxygen Concentration - - Weight 63.1 kg (139 lb 3.2 oz) 02/25/2021 11:01 AM EDT Height 162 cm (5' 3.78) 02/25/2021 11:01 AM EDT Body Mass Index 24.06 02/25/2021 11:01 AM EDT documented in this encounter Patient Instructions * Patient Instructions* Jonna Lange MD - 02/25/2021 11:00 AM EDT Continue silvadene & yossi's cream to pinkest area, as you have been, & remedy- phytoplex to rest of right chest, as you have been. Mepilex-lite can be continued to protect irradiated area. Please do not use a straight/regular razor on your right underarm. An electric razor is ok. Please do not expose the irradiated area to sun, cover it with clothing. Please do not expose irradiated area to chlorinated water. Saltwater or freshwater is ok. Please do not expose irradiated area to hot tub water. Hot bath/shower ok. Someone will contact you to schedule followup with me in 1 month. documented in this encounter Progress Notes * Jonna Lange MD - 02/25/2021 11:00 AM EDT Images from the original note were not included. CC: Sched'd fu s/p xrt completion. HPI: Ghazal is a 70 y/o f who completed xrt to R supraclav, R axilla, R IMC 7 R chest wall 6 days ago (02/19/21) for breast ca, R, IDC, ER-[place]-, Her2+, cT1 cN1, s/p neoadjuvant TCHP followed by R mastectomy &??SNB, then completion R ax lymph node dissxn, ypT1b ypN1. ??Continues on kadcyla &??neratinib planned. Subjective: Irrad'd skin healing. Applies silvadene & yossi's cream to pinkest area near mastectomy scar & remedy-phytoplex cream to rest of R chest wall. Protects irrad'd area w/mepilex-lite.Swelling below mastectomy scar. Past Medical History: Diagnosis Date ??? Depression ??? Hypertension ??? Skin cancer No lupus/scleroderma. DERIK. History reviewed. No pertinent surgical history. Past Surgical History No past surgical history on file. B tubal ligation. L shoulder surg, biceps repair Tonsillectomy Cheilectomy Eyelid procedure. Your Medications Accurate as of February 25, 2021 12:41 PM. If you have any questions, ask [...] 10 mg 5 mg Refills: 0 Physical Exam Constitutional: General: She is not in acute distress. Comments: BP 129/83 (Patient Position: Sitting) Pulse 74 Temp 36.4 ??C (97.5 ??F) (Temporal) Resp 20 Ht 162 cm (5' 3.78) Wt 63.1 kg (139 lb 3.2 oz) LMP (LMP Unknown) SpO2 99% BMI 24.06 kg/m?? HENT: Head: Normocephalic. Eyes: General: No scleral icterus. Right eye: No discharge. Left eye: No discharge. Extraocular Movements: Extraocular movements intact. Conjunctiva/sclera: Conjunctivae normal. Pulmonary: Effort: Pulmonary effort is normal. No respiratory distress. Breath sounds: No stridor. Comments: S/p R mastectomy, w/moderately brisk erythema on R chest wall, most prominent along lateral third of mastectomy scar where there is superficial moist desquamation. Possible seroma inferior to mastectomy scar. No evidence of infection. No visible/palpable ca. Musculoskeletal: Cervical back: Normal range of motion and neck supple. Neurological: Mental Status: She is alert and oriented to person, place, and time. Coordination: Coordination normal. Gait: Gait normal. Psychiatric: Mood and Affect: Mood normal. Behavior: Behavior normal. Thought Content: Thought content normal. Judgment: Judgment normal. A: Healing well s/p xrt. P: Continue present management w/yossi strange's cream, remedy-phytoplex cream & mepilex-litepads. Care of irrad'd skin discussed. Rtc 1 mo. documented in this encounter Plan of Treatment Not on file documented as of this encounter Visit Diagnoses Diagnosis Malignant neoplasm of upper-outer quadrant of right female breast, unspecified estrogen receptor status documented in this encounter Care Teams Dock Guard Relationship Specialty Start Date End Date Ghazal Joseph APRN [address] [place] [address] PCP - General Family Medicine 12/19/20 documented as of this encounter
--- OUTSIDE RECORDS SUMMARY | 2024-03-10 17:19 | XMS_ITS | Encounter Summary ---
Author Organization [facility] [place] [address] Care Team Providers Care Napper Tender Name Role Phone Ghazal Joseph APRN Primary Care Provider [phone] Reason for Referral * Consultation (Routine) - Closed Specialty Diagnoses / Procedures Referred By Sal t Referred To Contact Diagnoses HER2-positive carcinoma of right breast Graeme Grigsby MD [facility] [address] [place]ATOLOG[place] [address] Rosa Maria Huff MD [address] [place] [address] Referral ID Status Reason Start Date Expiration Date V isits Requested Visits Authorized [id number] Closed Consult, Test & Treat 12/14/2022 06/12/2023 1 1 Encounter Details Date Type Department Care Team (Latest Contact Info) Description 12/14/2022 2:30 PM EDT Office Visit Hematology Oncology at [address] [phone] Graeme Grigsby MD [facility] [address] HEMATOLOG[place] [address] HER2-positive carcinoma of right breast (Primary Dx); Personal history of colonic polyps; Anemia due to antineoplastic chemotherapy Social History Tobacco Use Types Packs/Day Years [...] place to sleep or slept in a care home (including now)? No 12/19/2020 Sex and Gender Information Value Date Recorded Sex Assigned at Not on file Gender Identity Not on file Sexual Orientation Not on file documented as of this encounter Last Filed Vital Signs Vital Sign Reading Time Taken Comments Blood Pressure 128/69 12/14/2022 2:53 PM EDT Pulse 85 12/14/2022 2:53 PM EDT Temperature 36.6 ??C (97.9 ??F) 12/14/2022 2:53 PM ED T Respiratory Rate 16 12/14/2022 2:53 PM EDT Oxygen Saturation 96% 12/14/2022 2:53 PM EDT Inhaled Oxygen Concentration - - Weight 69.4 kg (153 lb) 12/14/2022 2:53 PM EDT Height 162.5 cm (5' 3.98) 12/14/2022 2:53 PM ED T Body Mass Index 26.28 12/14/2022 2:53 PM EDT documented in this encounter Progress Notes * Graeme Grigsby MD - 12/14/2022 2:30 PM EDT Images from the original note were not included. Diagnosis:R ?multifocal IDC, Gr 2-3, ER-/AR-, Her2 3+ by IHC, N1 CC: I [...] the beginning of March and went to [facility] on March 03-. Another visit to ER on March 06. She was seen by her chiropractor on March 13. No improvement in backpain. She had several visits to emergency room with back pain he followed with Dr. Street she has been on the full dose of 240 mg neratinib daily since December 11. Interval history(12/14/22): Ms. Nina is in clinic for follow-up of breast cancer and neratinib toxicity check. She return from [place] a week ago she followed with Dr.Swati Street. Ghazal is compliant with neratinib and tolerates it reasonably well with mild fatigue. The plan is to continue neratinib until December 25 then stop. Overall, she feels well... No diarrhea. She denies any numbness, tingling [...] at the end of May 2020 in [facility] Migraine, asthma, tonsillectomy, tubal ligation, cataract surgery, colonoscopy for colon polyp, frozen shoulder repair Social History: No interval changes since last visit. 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 Father had kidney cancer OBGYN History: No interval changes since last visit , menarche at age of 12, age of first live 23, menopausal in mid 50s, no hormone replacement therapy, use local estrogen cream Allergies: Allergies Allergen Reactions ??? Codeine Nausea Only Medications: Your Medications Accurate as of December 14, 2022 2:58 PM. If you have any questions, ask [...] mg capsule Commonly known as: PROzac Take 30 mg by mouth daily. 30 mg Refills: 0 fluticasone propionate 50 mcg/actuation [place], Suspension Commonly known as: Flonase 1 spray daily. 1 spray Refills: 0 folic acid 1 mg tablet Commonly known as: Vitamin B9 Take 1 mg by mouth daily. 1 mg Refills: 0 gabapentin 100 mg capsule Commonly [...] to auscultation bilaterally, respirations unlabored Chest Wall: Deferred as the patient was examined by Dr. Lorena Street 2 weeks ago. Heart: Regular rate and rhythm, S1, S2 [...] Neurologic: Normal No focal deficit. Vitals BP 128/69 Pulse 85 Temp 36.6 ??C (97.9 ??F) Resp 16 Ht 162.5 cm (5' 3.98) Wt 69.4kg (153 lb) SpO2 96% BMI 26.28 kg/m?? Pathology: 11/21/20 11/07/20 03/28/20 INTERPRETATION: BREAST, [...] Tissue submitted: Paraffin embedded tissue block labelled [id number] From [facility] F 3+ positive [...] 03/29/20 at 4:25 [address]Dr. Ramana Chew. [facility] slides of this case were reviewed at [...] Time out of formalin: 09:00 03/29/2020 Labs: 11/30/2022 folate > 24.1, vitamin B12 >1500, ferritin 93.9, transferrin 246, iron 73, TIBC 326,iron saturation 22%, BUN 13, creatinine 0.8, potassium 3.7, calcium 9.1, AST 20, ALT 27, alkaline phosphatase 223, TB 0.5, WBC 4.0, hemoglobin 10.3, platelet count 98, ANC 2.88. 02/22/2022 BUN 16, creatinine 0.78, TB 0.8, [...] WBC 5.3, hemoglobin 13.5, platelet count 268 Imagin11/27/2022 mammogram: Impression: Left breast category 1. Negative. No evidence of malignancy. Normal interval follow-up with annual mammogram is recommended. 11/26/2022 PET scan: Impression: Status post left mastectomy and right axillary lymph nodes dissection. No PET/CT evidence for localized recurrent right breast cancer, lymph node, intrahepatic or intraosseous metastasis.Prominent amount of FDG localization within the gastric antrum. Findings nonspecific and could be ph ysiologic. 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 Lymph node has histologically proven IDC as well. Her alkaline phosphatase is above 400 which is [...] radiation therapy. --------- Luis Daniel back from [place] where she completed 6 cycle of TCHP [...] neratinib p.o. She completed adjuvant radiation in [facility] with Dr. Lange on 02/18/21. She [...] off Kadcyla. She plans to go to [place] in couple of weeks or so, but [...] enough to halt neratinib. Her oncologist in [place] planned to restage her with CT scan [...] neratinib toxicity. She is going back to [place] in mid of May. Will do restaging CT scan prior next visit 12/14/22 Mrs. Nina continues on adjuvant neratinib. She returned from [place] recently where shewill follow with Dr. Lorena Street. Your left breast mammogram was negative. Surveillance PET scan was done in October 2022 and was negative for metastatic disease. ARJUN. She is doing well with oncological standpoint. She plans to finish neratinib in about 2 weeks. We will refer her to Dr. Sotelo for Mediport removal. Given there are no new issues or complaints we will see her back in 3-1/2 months # LFT's-alkaline phosphatase elevated # Headaches- she [...] Plan: 1. Continue neratinib 240 mg daily until 12/25/[address] Huff for Mediport removal 3. Next visit with CBC and CMP in 3-1/2 months Ghazal voiced understanding of the plan and was given an opportunity to ask questions which I answered to the best of my ability.Amaury understands he can call the clinic between visits with any questions/concerns or new symptoms. 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
--- OUTSIDE RECORDS SUMMARY | 2024-03-10 17:19 | XMS_ITS | Encounter Summary ---
Author Organization [facility] Address [address] [place] [address] Care Team Providers Care Eyeglass Lens Cutter Name Role Phone Unavailable Primary Care Provider Unavailabl e Encounter Details Date Type Department Care Team (Late st Contact Info) Description 02/10/2006 8:05 EDT Hospital Encounter [address] [address] Joaquin Mckeon MD PhD [address] [place] [address] [address] [place] [address] Social History Tobacco Use Types [...]
--- OUTSIDE RECORDS SUMMARY | 2024-03-10 17:19 | XMS_ITS | Encounter Summary ---
Author Organization [facility] [place] [address] Care Team Providers Care Management Recruiter Name Role Phone Ghazal Joseph ROTARY SHEAR OPERATOR Primary Care Provider [phone] Reason for Referral * Diagnostic Test (Routine) - Closed Specialty Diagnoses / Procedures Referred By Sal t Referred To Contact Radiology Diagnoses Breast cancer metastasized to axillary lymph node, right Procedures NM PET CT Skull Base to Mid-thigh Graeme Grigsby MD [facility] [place] [address] [facility] [place] [address] Referral ID Status Reason Start Date Expiration Date V isits Requested Visits Authorized [id number] Closed Specialty Service Requested 03/31/2021 09/29/2022 1 1 * Consultation (Urgent) - Closed Specialty Diagnoses / Procedures Referred By Sal t Referred To Contact [facility] Diagnoses Acute left-sided low back pain without sciatica Pain- L sided low back pain/ h/o of breast cancer/ MRI 04/11/21 @ [place]/ ?pain mgmt options Graeme Grigsby MD [facility] [place] [address] [facility] [place] [address] Referral ID Status Reason Start Date Expiration Date V isits Requested Visits Authorized [id number] Closed Pain Consult 03/31/2021 03/31/2022 1 1 Encounter Details Date Type Department Care Team (Late st Contact Info) Description 03/31/2021 4:00 PM EDT Office Visit [facility] [address] [place] [phone] Graeme Grigsby MD [facility] [place] [address] Acute left-sided low back pain without sciatica (Primary Dx); HER2-positive carcinoma of right breast; Breast cancer metastasized to axillary lymph node, right Social History Tobacco Use Types Packs/Day Years [...] Sign Reading Time Taken Comments Blood Pressure 145/70 03/31/2021 4:08 PM EDT Pulse 87 03/31/2021 4:08 PM EDT Temperature 36.7 ??C (98.1 ??F) 03/31/2021 4:08 PM ED T Respiratory Rate 18 03/31/2021 4:08 PM EDT Oxygen Saturation 98% 03/31/2021 4:08 PM EDT Inhaled Oxygen Concentration - - Weight - - Height - - Body Mass Index - - documented in this encounter Progress Notes * Graeme Grigsby MD - 03/31/2021 4:00 PM EDT Images from the original note were not included. Diagnosis:R ?multifocal IDC, Gr 2-3, ER-/DC-, Her2 3+ by IHC, N1 CC: I [...] pain in the right axillary area Interval history(03/31/21): Ms. Nina is in clinic for follow-up of breast cancer and new backache. Ghazal developed intense lumbar pain in the beginning of March and went to [facility] on March 03. Another visit to ER on March 06. She was seen by her chiropractor on March 13. No improvement in back pain. She was seen in [place] [facility] on March 14 and in the emergency room of [facility] on March 19. Fourth visit to ER was on March 25. Bone scan was done on March 26. Reportedly it was negative for metastatic disease. She went to ER on Wednesday again. Hydromorphone along with Narcan were prescribed. She still has back pain on and off. Back pain that radiates down her left leg. She denies ever having any back issues in the past. She denies any heavy lifting or trauma. She states at times her legs feel weak. She denies any numbness, tingling or loss of bowel or bladder control. Denies anyfalls. No difficulties with gait. Appetite is good. No nausea, vomiting or constipation. No new lumps or bumps. No other focal complaints today. PMH: Acute back pain DERIK, diarrhea/pancytopenia and headaches admitted at the end of May 2020 in [facility] Migraine, asthma, tonsillectomy, tubal ligation, cataract surgery, colonoscopy for colon polyp, frozen shoulder repair Social History: No interval changes since last visit. 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 Father had kidney cancer OBGYN History: No interval changes since last visit , menarche at age of 12, age of first live 23, menopausal in mid 50s, no hormone replacement therapy, use local estrogen cream Allergies: Allergies Allergen Reactions ??? Codeine Nausea Only Medications: Your Medications Accurate as of March 31, 2021 4:45 PM. If you have any questions, ask [...] HYDROcodone-acetaminophen 5-325 mg Tab Commonly known as: [place] TAKE 1 TABLET BY MOUTH EVERY 4 [...] Musculoskeletal: Positive for LBP and upper leg pain/weakness. Skin: Erythema at radiation site on right [...] Neurologic: Normal No focal deficit. Vitals BP 145/70 (BP Location (NBP): Left arm, Patient Position: Sitting, BP Cuff Sizes: Adult (25-34 cm)) Pulse 87 Temp 36.7 ??C (98.1 ??F) (Temporal) Resp 18 SpO2 98% Pathology: 4/11/07/20 03/28/20 INTERPRETATION: BREAST, RIGHT, ULTRASOUND-GUIDED CORE BIOPSY: [...] Tissue submitted: Paraffin embedded tissue block labelled [id number] From [facility] F 3+ positive Strong complete membrane [...] performance characteristics have been determined by [facility] and/or by the referring laboratory. The [...] 03/29/20 at 4:25 [address]Dr. Ramana Chew. [employer] slides of this case were reviewed at [...] Time out of formalin: 09:00 03/29/2020 Labs: 03/26/21- WBC-8.1 Hgb/Hct-11.0/35.5 Plt-137 ANC-6.4 Na-138 [...] WBC 5.3, hemoglobin 13.5, platelet count 268 Imagin03/26/21- [place] Bone Scan- No abnormal focal osseous [...] and Plan: Diagnosis:R ?multifocal IDC, Gr 2-3, ER-/DC-, Her2 3+ by IHC, T2N1M0, stage IIB, [id number], ER-/DC-,Her 2 3+ By IHC Treatment: -06/04/2020 -09/17/2020 6 cycle of neoadjuvant TCHP -11/07/20 right total mastectomy and sentinel lymph node biopsy -11/21/2020 right lymph node dissection - 12/10/20 started Kadcyla 3.6 mg/kg -02/19/21 completed adjuvant radiation therapy Mrs. Nina is a new diagnosis of right breast ductal carcinoma grade 2-3 ER and DC negative and HER-2 3+ by immunochemistry. Lymph [...] neratinib p.o. She completed adjuvant radiation in [facility] with Dr. Lange on 02/18/21. [...] to restage herwith PET scan. Back pain: Will obtain lumbar MRI. Referral to pain clinic at [facility] . We will send prescription for gabapentin 100 mg 3 times daily Ghazal was in the ED 4 times for severe low back pain radiating down legs for acute onset low backpain that she has had for over 6 weeks now. Pain was getting worse and not relieved with medication. CT scan and bone scan negative for metastatic disease. She is taking Prednisone and oxycodone daily at present which is controlling the pain to a tolerable level. She states her legs feel weak but denies numbness. Gait is steady and she has not had any falls. Kadcyla can cause arthralgias/myalgiasand peripheral neuropathy. Will hold drug today and see if she has any improvement in her symptoms.If symptoms improve will dose reduce C6 to 3mg/kg. # LFT's- normalized. # Headaches- she has a history of migraines. She feels this headache is different and her usual medications are not helping. MRI was negative for metastatic disease. Possibly rebound migraines. She is being followed by Neurology. Plan: 1. Stand-alone blood work and cycle 6 Kadcyla as scheduled. 2. PET scan and lumbar MRI 3. Referral to pain clinic at [facility] 4. Next visit on April 24 weeks with CBC, CMP, Mg and 7th cycle of Kadcyla 5. Gabapentin 100 mg 3 times daily Ghazal voiced understanding of the plan and was given an opportunity to ask questions which I answered to the best of my ability.Amaury understands he can call the clinic between visits with any questions/concerns or new symptoms. documented in this encounter Plan of Treatment Scheduled Referrals Name Type Priority Associated Diagnoses Order Schedule Referral to Pain Management Outpatient Referral Routine Acute left-sided low back pain without sciatica Ordered: 03/31/2021 documented as of this encounter Results * NM PET CT [...] who have questions please contact the health rehab care assistant that requested your imaging first. ? Electronically signed by: Martin Aguilar MD, [facility] ([phone]), at 04/10/2021 12:51 PM Narrative 04/10/2021 12:51 PM EDT EXAMINATION: NM PET CT STANDARD SKULL BASE TO MID-THIGH CLINICAL HISTORY: Breast cancer, staging Restaging of breast cancer, new onset of back pain, please evaluate for bone metastasis TECHNIQUE: Following IV injection of 86-jjhajf-0-deoxyglucose (FDG) a standard uptake of approximately 60 [...] forbone metastasis TECHNIQUE: Following IV injection of 97-qsctlu-4-deoxyglucose (FDG) astandard uptake of approximately 60 minutes, [...] nodes in the left periaortic region (axial [id number]) with adjacent inflammatory changes, with a similar [...] patients who have questions please contactthe health rehab care assistant that requested your imaging first. 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
--- OUTSIDE RECORDS SUMMARY | 2024-03-10 17:19 | XMS_ITS | Encounter Summary ---
Author Organization [facility] Address [facility] [place] [address] Care Team Providers Care Patrol Police Lieutenant Name Role Phone Ghazal Joseph APRN Primary Care Provider [phone] Reason for Visit * Reason Comments Radiation Follow-up Encounter Details Date Type Department Care Team (Late st Contact Info) Description 04/08/2021 4:30 PM EDT Office Visit Radiation Oncology at [address] [phone] [facility] [place] [address] Malignant neoplasm of upper-outer quadrant of right [...] Sign Reading Time Taken Comments Blood Pressure 89/57 04/08/2021 4:56 PM EDT Pulse 63 04/08/2021 4:56 PM EDT Temperature 36.7 ??C (98.1 ??F) 04/08/2021 4 :56 PM EDT Respiratory Rate 16 04/08/2021 4:56 PM EDT Oxygen Saturation 97% 04/08/2021 4:5 6 PM EDT Inhaled Oxygen Concentration - - Weight 64.7 kg (142 lb 9.6 oz) 04/08/20 4:56 PM EDT with shoes Height - - Body Mass Index 24.65 03/27/2021 9:05 AM EDT documented in this encounter Patient Instructions * Patient Instructions* Jonna Lange MD - 04/08/2021 4:30 PM EDT The irradiated area has healed well. Someone will contact you to schedule followup with me in [address] Grigsby will let me know if you should see me sooner. Due for left mammogram this Apr. documented in this encounter Progress Notes * Jonna Lange MD - 04/08/2021 4:30 PM EDT Images from the original note were not included. CC: Sched'd fu s/p xrt completion. HPI: Ghazal is a 70 y/o f who completed xrt to R supraclav, R axilla, R IMC & R chest wall 6 wks ago (02/19/21) for breast ca, R, IDC, ER-ND-, Her2+, cT1 cN1, s/p neoadjuvant TCHP followed by R mastectomy &??SNB, then completion R ax lymph node dissxn, ypT1b ypN1. Continued on kadcyla during xrt &??neratinib was planned. 03/03/21 developed low back pain which radiates down L leg. 03/26/21 bone scan neg. 03/31/21 kadcyla, cycle #6. Subjective: Irrad'd skin healed; no longer applies any cream to area. Low back pain radiates down Lleg. Recently has noticed mild L leg weakness. No numbness. No bladder/bowel problem. She has scheduled PT appt 04/11/21, thinking low back pain may be sciatica from benign etiology. Accompanied by . Past Medical History: Diagnosis Date ??? Depression ??? Hypertension ??? Skin cancer No lupus/scleroderma. DERIK. No past surgical history on file. Past Surgical History No past surgical history on file. B tubal ligation. L shoulder surg, biceps repair Tonsillectomy Cheilectomy Eyelid procedure. Your Medications Accurate as of April 08, 2021 5:34 PM. If you have any questions, ask [...] HYDROcodone-acetaminophen 5-325 mg Tab Commonly known as: [place] TAKE 1 TABLET BY MOUTH EVERY 4 [...] not in acute distress. Comments: BP (!) 89/57 (Patient Position: Sitting) Pulse 63 Temp 36.7 ??C (98.1 ??F) (Temporal) Resp 16 Wt 64.7 kg (142 lb 9.6 oz) Comment: with shoes SpO2 97% BMI 24.65 kg/m?? HENT: Head: Normocephalic. Eyes: General: No scleral icterus. Right eye: No discharge. Left eye: No discharge. Extraocular Movements: Extraocular movements intact. Conjunctiva/sclera: Conjunctivae normal. Pulmonary: Effort: Pulmonary effort is normal. No respiratory distress. Breath sounds: No stridor. Comments: S/p R mastectomy, w/resolution of prior erythema & moist desquamation. No visible/palpable ca. Chest: Breasts: Left: No inverted [...] oriented to person, place, and time. Motor: Weakness (L leg minimally weaker than R on hip flexion & knee extension) present. Coordination: Coordination normal. Gait: Gait normal. Psychiatric: Mood and Affect: Mood normal. Behavior: Behavior normal. Thought Content: Thought content normal. Judgment: Judgment normal. A: Skin w/in irrad'd area healed. Low back pain unknown etiology. P: PET/CT tomorrow () & MRI L spine 04/11/21 ([facility]), both ordered by Dr. Grigsby. She plans to winter in [place] & will followup w/me in November 2021. She was informed that left mammogram due this month & she will get it done in [place] this winter. documented in this encounter Plan of Treatment Not on file documented as of this encounter Visit Diagnoses Diagnosis Malignant neoplasm of upper-outer quadrant of right female breast, unspecified estrogen receptor status documented in this encounter Care Teams Patrol Police Lieutenant Relationship Specialty Start Date End Date Ghazal Joseph APRN [address] [place] [address] PCP - General Family Medicine 12/19/20 documented as of this encounter
--- OUTSIDE RECORDS SUMMARY | 2024-03-10 17:19 | XMS_ITS | Encounter Summary ---
Author Organization [facility] Address [facility] [place] [address] Care Team Providers Care Financial Operations Analyst Name Role Phone Ghazal Joseph APRN Primary Care Provider +1 [phone] Encounter Details Date Type Department Care Team (Late st Contact Info) Description 04/02/2022 [facility] [address] [place] [address] Tiffany Fernandez RN Social History Tobacco Use Types Packs/Day [...] place to sleep or slept in a long-term (including now)? No 12/19/2020 Sex and Gender Information Value Date Recorded Sex Assigned at Not on file Gender Identity Not on file Sexual Orientation Not on file documented as of this encounter Progress Notes * Tiffany Fernandez RN - 04/02/2022 3:54 PM EDT [facility] Outreach Treatment Note - Socorro Ruelas Maico [id number] Allergies Allergen Reactions ??? Codeine Nausea Only INFUSION THERAPY ADMINISTRATION NOTES DIAGNOSIS: Breast Cancer REASON FOR VISIT: Hydration & Potassium replacement SUBJECTIVE Ghazal offers no complaints. OBJECTIVE IV ACCESS: Right Chest Mediport 1 liter NS over 2 hours and 10meq KCL over 1 hour. REACTIONS (DESCRIPTION, TIME, INTERVENTION AND EFFECTIVENESS) none ASSESSMENT Ghazal was awake, alert and tolerated treatment well. PLAN Return to clinic per routine. Patient tolerated treatment well without incident or adverse reaction. Patient instructed to contact this clinic during regular business hours if they have any concerns related to treatment, patient was instructed to contact [facility] educational psychology professor oncologist after hours, on weekends and holidays for concernsrelated to their cancer diagnosis current treatment. documented in this encounter Plan of Treatment Not on file documented as of this encounter Visit Diagnoses Not on filedocumented in this encounter Care Teams Financial Operations Analyst Relationship Specialty Start Date End Date Ghazal Joseph APRN [address] [place] [address] PCP - General Family Medicine 12/19/20 documented as of this encounter
--- OUTSIDE RECORDS SUMMARY | 2024-03-10 17:19 | XMS_ITS | Encounter Summary ---
Author Organization [facility] [place] [address] Care Team Providers Care Special Distribution Clerk Name Role Phone Ghazal Joseph APRN Primary Care Provider [phone] [phone] Encounter Details Date Type Department Care Team (Late st Contact Info) Description 03/27/2021 9:00 AM EDT Office Visit [facility] [address] [place] [address] Maricruz Cooley, RN HER2-positive carcinoma of right breast; Acute bilateral low back pain with bilateral sciatica Social History Tobacco Use Types Packs/Day [...] place to sleep or slept in a m[facility]p (including now)? No 12/19/2020 Sex and Gender Information Value Date Recorded Sex Assigned at Not on file Gender Identity Not on file Sexual Orientation Not on file documented as of this encounter Last Filed Vital Signs Vital Sign Reading Time Taken Comments Blood Pressure 134/77 03/27/2021 9:05 AM EDT Pulse 75 03/27/2021 9:05 AM EDT Temperature 36.5 ??C (97.7 ??F) 03/27/2021 9:05 AM ED T Respiratory Rate 18 03/27/2021 9:05 AM EDT Oxygen Saturation 96% 03/27/2021 9:05 AM EDT Inhaled Oxygen Concentration - - Weight 65.2 kg (143 lb 11.8 oz) 03/27/2021 9:05 AM EDT Height 162 cm (5' 3.78) 03/27/2021 9:05 AM EDT Body Mass Index 24.84 03/27/2021 9:05 AM EDT documented in this encounter Progress Notes * Maricruz Cooley APRN - 03/27/2021 9:00 AM EDT Images from the original note were not included. Diagnosis:R ?multifocal IDC, Gr 2-3, ER-/DC-, Her2 3+ by IHC, N1 Subjective HPI:Ghazal [...] pain in the right axillary area Interval history(03/27/21): Ms. Nina is in clinic for follow-up of breast cancer. She completed neoadjuvant chemotherapy followed by surgery on November 07 and November 21. She has residual disease afterneoadjuvant chemotherapy and she started on Kadcyla on December 10 in [place]. Ghazal is here today forC6. She has been in the ED 3 times since her last infusion for severe back pain that radiates down her legs. She denies ever having any back issues in the past. She denies any heavy lifting or trauma. She states at times her legs feel weak. She denies any numbness, tingling or loss of bowel or bladder control. Denies any falls. She is taking oxycodone and prednisone which is helping the pain. Pain was 10 out of 10. No difficulties with gait. Appetite is good. No nausea, vomiting or constipation. She does have some diarrhea for a few days post treatment but it is well controlled with the imodium. No new lumps or bumps. No other focal complaints today. 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 Father had kidney cancer OBGYN History: , menarche at age of 12, age of first live 23, menopausal in mid 50s, no hormone replacement therapy, use local estrogen cream Allergies: Allergies Allergen Reactions ??? Codeine Nausea Only Medications: Your Medications Accurate as of March 27, 2021 10:22 AM. If you have any questions, ask [...] HYDROcodone-acetaminophen 5-325 mg Tab Commonly known as: [place] TAKE 1 TABLET BY MOUTH EVERY [...] Neurologic: Normal No focal deficit. Vitals BP 134/77 (BP Location (NBP): Right arm, Patient Position: Sitting, BP Cuff Sizes: Adult (25-34 cm)) Pulse 75 Temp 36.5 ??C (97.7 ??F) (Temporal) Resp 18 Ht 162 cm (5' 3.78) Wt 65.2kg (143 lb 11.8 oz) SpO2 96% BMI 24.84 kg/m?? Pathology: 11/21/20 11/07/20 03/28/20 INTERPRETATION: BREAST, [...] Tissue submitted: Paraffin embedded tissue block labelled [id number] From [facility] F 3+ positive Strong complete [...] performance characteristics have been determined by [facility] and/or by the referring laboratory. [...] 03/29/20 at 4:25 pm byDr. Ramana Chew. Sales Service Supervisor slides of this case were reviewed at [...] disease. No significant change from prior study. 02/24/21- CT abd/pelvis w - Impression- Mild [...] Her2 3+ by IHC, T2N1M0, stage IIB, [id number], ER-/DC-,Her 2 3+ By IHC Treatment: -06/04/2020 [...] radiation therapy. --------- Peggy is back from [place] where she completed 6 cycle of TCHP [...] neratinib p.o. She completed adjuvant radiation in [facility] with Dr. Lange on 02/18/21. We will [...] back pain- Ghazal was in the ED 3 times for severe low back pain radiating down legs for acute onset low back pain that she has had for over 6 [...] Kadcyla can cause arthralgias/myalgias and peripheral neuropathy. Will hold drug today and see if she has any improvementin her symptoms. If symptoms improve will dose reduce C6 to 3mg/kg. # LFT's- normalized. # Headaches- she has a history of migraines. She feels this headache is different and her usual medications are not helping. MRI was negative for metastatic disease. Possibly rebound migraines. She is being followed by Neurology. Plan: 1. Hold C6 Kadcyla today as scheduled. 2. Call patient next week to see if she is feeling any better. 3 Next visit in 3 weeks with CBC, CMP, Mg and 6th cycle of Kadcyla at 3mg/kg. Ghazal voiced understanding of the plan and was given an opportunity to ask questions which I answered to the best of my ability.Amaury understands he can call the clinic between visits with any questions/concerns or new symptoms. Maricruz Cooley MSN, DIETITIAN RESEARCH, AOCNP Medical Oncology documented in this encounter Plan of Treatment Not on file documented as of this encounter Visit Diagnoses Diagnosis HER2-positive carcinoma of right breast Acute bilateral low back pain with bilateral sciatica documented in this encounter Care Teams Special Distribution Clerk Relationship Specialty Start Date End Date Ghazal Joseph APRN [address] [place] [address] PCP - General Family Medicine 12/19/20 documented as of this encounter
--- OUTSIDE RECORDS SUMMARY | 2024-03-10 17:19 | XMS_ITS | Encounter Summary ---
Author Organization [facility] Address [facility] [place] [address] Care Team Providers Care Director Of Flight Operations Name Role Phone Ghazal Joseph APRN Primary Care Provider [phone] [phone] Encounter Details Date Type Department Care Team (Late st Contact Info) Description 01/30/2021 4:40 PM EDT Ext Surgery or Single Event [facility] [address] [address] Loreta Gonzalez MD [address] [place] [address] DR CARD[place]OLOG[place], [place] [id number] HER2-positive carcinoma of right breast Social History [...] Date/Time Associated Diagnosis Comments ECHO SCAN (SCAN) 01/30/2021 12:0 0 AM EDT documented in this encounter Results * SCAN DOC: ECHO (01/30/2021 12:00 AM EDT) Anatomical Region Laterality Modality Cardiac Other Unknown MEDIA MGR SCAN EXT O RDR/RSLT documented in this encounter Visit Diagnoses Diagnosis HER2-positive carcinoma of right breast documented in this encounter Care Teams Director Of Flight Operations Relationship Specialty Start Date End Date Ghazal Joseph APRN [address] [place] [address] PCP - General Family Medicine 12/19/20 documented as of this encounter
--- OUTSIDE RECORDS SUMMARY | 2024-03-10 17:19 | XMS_ITS | Encounter Summary ---
Author Organization [facility] Address [facility] [place] [address] Care Team Providers Care Armature Winder Name Role Phone Ghazal Joseph APRN Primary Care Provider +1 [phone] Encounter Details Date Type Department Care Team (Late st Contact Info) Description 02/23/2022 2:30 PM EDT [facility] Visit [facility] [address] 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 lymph node, right; HER2-positive carcinoma of right breast; Elevated serum alkaline phosphatase level Social History [...] Sign Reading Time Taken Comments Blood Pressure 138/73 02/23/2022 2:54 PM EDT Pulse 76 02/23/2022 2:54 PM EDT Temperature 36.6 ??C (97.9 ??F) 02/23/2022 2:54 PM ED T Respiratory Rate - - Oxygen Saturation 96% 02/23/2022 2:54 PM EDT Inhaled Oxygen Concentration - - Weight 65.6 kg (144 lb 10 oz) 02/23/2022 2:54 PM EDT Height 162 cm (5' 3.78) 02/23/2022 2:54 PM EDT Body Mass Index 02/23/2022 2:54 PM EDT documented in this encounter Progress Notes * Graeme Grigsby MD - 02/23/2022 2:30 PM EDT Images from the original note were not included. 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 on March 03. Another visit to ER on March 06. She was seen by her chiropractor on March 13. No improvement in backpain. She had several visits to emergency room with back pain he followed with Dr. Street she has been on the full dose of 240 mg neratinib daily since December 11. Interval history(02/23/22): Ms. Nina is in clinic [...] at the end of May 2020 in [facility] Migraine, asthma, tonsillectomy, tubal ligation, cataract surgery, colonoscopy for colon polyp, frozen shoulder repair Social History: No interval changes since last visit. 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 Father had kidney cancer OBGYN History: No interval changes since last visit , menarche at age of 12, age of first live 23, menopausal in mid 50s, no hormone replacement therapy, use local estrogen cream Allergies: Allergies Allergen Reactions ??? Codeine Nausea Only Medications: Your Medications Accurate as of February 23, 2022 3:05 PM. If you have any questions, ask [...] Neurologic: Normal No focal deficit. Vitals BP 138/73 (BP Location (NBP): Left arm, Patient Position: Sitting, BP Cuff Sizes: Adult (25-34 cm)) Pulse 76 Temp 36.6 ??C (97.9 ??F) Ht 162 cm (5' 3.78) Wt 65.6 kg (144 lb 10 oz) SpO2 96% BMI 25.00 kg/m?? Pathology: 11/21/20 11/07/20 03/28/20 INTERPRETATION: BREAST, [...] Tissue submitted: Paraffin embedded tissue block labelled [id number] From [facility] F 3+ positive [...] 03/29/20 at 4:25 [address] byDr. Ramana Chew. Travel Counselor [employer] slides of this case were reviewed at [...] phosphatase 259, ALT 44, AST 54. 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 Lymph [...] radiation therapy. --------- Luis Daniel back from [place] where she completed 6 cycle of TCHP [...] neratinib p.o. She completed adjuvant radiation in [facility] with Dr. Lange on [...] off Kadcyla. She plans to go to [place] in couple of weeks or so, but [...] enough to halt neratinib. Her oncologist in [place] planned to restage her with CT scan [...] neratinib toxicity. She is going back to [place] in mid of May. Will do restaging [...] 1. Continue neratinib 240 mg daily 2. Next visit with [facility] in 4-5 weeks with CBC, CMP Ghazal voiced understanding [...] cancer metastasized to axillary lymph node, right HER2-positive carcinoma of right breast Elevated serum alkaline phosphatase level Other nonspecific abnormal serum enzyme levels documented in this encounter Care Teams Armature Winder Relationship Specialty Start Date End Date Ghazal Joseph APRN [address] [place] [address] PCP - General Family Medicine 12/19/20 documented as of this encounter
--- OUTSIDE RECORDS SUMMARY | 2024-03-10 17:19 | XMS_ITS | Encounter Summary ---
Author Organization [facility] Address [facility] [place] [address] Care Team Providers Care Wastewater Treatment Plant Operator Name Role Phone Ghazal Joseph APRN Primary Care Provider +1 [phone] Reason for Visit * Reason Comments On Treatment Visit Encounter Details Date Type Department Care Team (Late st Contact Info) Description 02/18/2021 11:15 AM EDT Office Visit Radiation Oncology at [address] [address] Jonna Lange MD [facility] [place] [address] Malignant neoplasm of upper-outer quadrant of right [...] place to sleep or slept in a half-way (including now)? No 12/19/2020 Sex and Gender Information Value Date Recorded Sex Assigned at Not on file Gender Identity Not on file Sexual Orientation Not on file documented as of this encounter Last Filed Vital Signs Vital Sign Reading Time Taken Comments Blood Pressure 135/84 02/18/2021 11:00 AM EDT Pulse - - Temperature 36.4 ??C (97.5 ??F) 02/18/2021 11:00 AM E DT Respiratory Rate 16 02/18/2021 11:00 AM EDT Oxygen Saturation 97% 02/18/2021 11:00 AM EDT Inhaled Oxygen Concentration - - Weight 62.9 kg (138 lb 9.6 oz) 02/18/2021 11:00 AM EDT Height - - Body Mass Index 23.96 02/13/2021 10:09 AM EDT documented in this encounter Patient Instructions * Patient Instructions* Jonna Lange MD - 02/18/2021 11:15 AM EDT Your last radiotherapy will be tomorrow. Please continue silvadene @ least once/day to irradiated area. Continue aquaphor ointment, 1% hydrocortisone cream & mepilex-lite as needed. Remedy-phytoplex may help decrease soreness/itchiness. Benadryl cream, available over the counter without a prescription, can be used for itchiness. You could take benadryl tablet/capsule @ bedtime for itchiness. It will likely cause drowsiness. Please do not use a straight/regular razor on your right underarm. An electric razor is ok. Please do not expose the irradiated area to sun, cover it with clothing. Please do not swim in chlorinated water. Saltwater or freshwater is ok. Please do not expose irradiated area to hot tub water. Hot bath/shower is ok. Followup with me Jorge., 02/25/21 @ 11. You may resume supplements day after last radiotherapy. documented in this encounter Progress Notes * Jonna Lange MD - 02/18/2021 11:15 AM EDT Images from the original note were not included. DIAGNOSIS: Breast ca, R, IDC, ER-DE-, Her2+, cT1 cN1, s/p neoadjuvant TCHP followed by R mastectomy& SNB, then completion R ax lymph node dissxn, ypT1b ypN1. Continues on kadcyla & neratinibplanned. ?? CURRENT TREATMENT DOSE: 50 Gy R Supraclav, Axilla, IMC & R Chest Wall; 58 Gy Mastectomy Scar ANTICIPATED TOTAL DOSE: 50 Gy R Supraclav, Axilla, IMC & R Chest Wall; 60 Gy Mastectomy Scar Current # of xrt received: 25 R Supraclav, Axilla, IMC & R Chest Wall; 29 Mastectomy Scar Anticipated total # of xrt txs: 25 R Supraclav, Axilla, IMC & R Chest Wall; 30 Mastectomy Scar Evaluation of port verification films: Approved. For details, see electronic film record in Zapper System. Changes in Medical Condition: Manages skin rxn w/in irrad'd area w/silvadene, aquaphor ointment, 1%htc, mepilex-lite & tylenol. Denies throat irritation. Pain?: In shoulders when on tx table w/arms up, manages w/visualization, does not want to take analgesic. Your Medications Accurate as of February 18, 2021 11:30 AM. If you have any questions, ask [...] 5 mg Refills: 0 Physical Exam: BP 135/84 (Patient Position: Sitting) Temp 36.4 ??C (97.5 ??F) (Temporal) Resp 16 Wt 62.9 kg (138 lb 9.6 oz) LMP (LMP Unknown) SpO2 97% BMI 23.96 kg/m?? A&Ox3, NAD. Irrad'd area w/moderately brisk erythema, most prominent in R axilla, infraclav area & overlying R clavicle where there is assoc'd moist desquamation. Imagin12/24/20 Dx'ic Rad Interp CTsim: No suspicious lesion. Performance Status: KPS 100% Response to xrt: As expected. Irradiation Related Symptoms: Skin rxn. Treatment for Symptom Control: Given Remedy-phytoplex cream. Mepilex-lite. Discussed use of benadryl cream for itchiness; could also try benadryl tab/capsule PO @ bedtime for itchiness. Silvadene, aquaphor ointment, Alvaro's cream. Pain Management: Tylenol. Recommendation on Continuing Course of xrt: Cont. Completes xrt tomorrow. Care of irrad'd skin discussed. Rtc 02/25/21. documented in this encounter Plan of Treatment Not on file documented as of this encounter Visit Diagnoses Diagnosis Malignant neoplasm of upper-outer quadrant of right female breast, unspecified estrogen receptor status documented in this encounter Care Teams Wastewater Treatment Plant Operator Relationship Specialty Start Date End Date Ghazal Joseph APRN [address] [place] [address] PCP - General Family Medicine 12/19/20 documented as of this encounter
--- OUTSIDE RECORDS SUMMARY | 2024-03-10 17:19 | XMS_ITS | Encounter Summary ---
Author Organization [facility] Address [facility] [place] [address] Care Team Providers Care Fire Control Technician B Name Role Phone Ghazal Joseph APRN Primary Care Provider [phone] [phone] Encounter Details Date Type Department Care Team (Late st Contact Info) Description 02/19/2021 11:15 AM EDT Notes Only Radiation Oncology at [address] [phone] Jonna Lange MD [facility] [place] [address] Social History Tobacco Use Types Packs/Day Years [...] Progress Notes * Jonna Lange MD - 02/19/2021 11:15 AM EDT Ghazal Nina has completed xrt for breast ca, R, IDC, ER-MT-, Her2+, cT1 cN1, s/p neoadjuvantTCHP followed by R mastectomy & SNB, then completion R ax lymph node dissxn, ypT1b ypN1. Continues on kadcyla & neratinib planned. The course of xrt is summarized as follows: Treatment was given from 01/08/21 to 02/19/21. 50 Gy in 25 fxs was given to R supraclavicular fossa, R axilla, R IMC & R chest wall with 6 & 10 MV Xray external beam, followed by volume reduction & 10 Gy/5 fxs to mastectomy scar with 6 & 9 MeV electron beam, boosting mastectomy scar to 60 Gy/30 fxs. 3D xrt used. The course of xrt was tolerated well, w/the expected side effect of skin reaction w/in irradiated area managed w/Remedy-phytoplex cream, silvadene, aquaphor ointment, yossi's cream & mepilex-lite.Exam near completion of xrt showed moderately brisk erythema of irradiated area, most prominent in R axilla, infraclavicular area & overlying R clavicle where there was associated moist desquamation. FU w/me 02/25/21. documented in this encounter Plan of Treatment Not on file documented as of this encounter Visit Diagnoses Not on filedocumented in this encounter Care Teams Fire Control Technician B Relationship Specialty Start Date End Date Ghazal Joseph APRN [address] [place] [address] PCP - General Family Medicine 12/19/20 documented as of this encounter
--- OUTSIDE RECORDS SUMMARY | 2024-03-10 17:19 | XMS_ITS | Encounter Summary ---
Author Organization [facility] Address [facility] [place] [address] Care Team Providers Care Press Offbearer Name Role Phone Ghazal Joseph APRN Primary Care Provider [phone] [phone] Encounter Details Date Type Department Care Team (Late st Contact Info) Description 03/06/2021 Notes Only [facility] [address] [place] [address] Bindu Gutierres RN Social History Tobacco Use Types Packs/Day [...] as of this encounter Progress Notes * Bindu Gutierres RN - 03/06/2021 1:36 PM EDT [facility] Outreach Treatment Note - Socorro Nina [id number] Allergies Allergen Reactions ??? Codeine Nausea Only Cycle:5 Day: Medication Dose Route Kadcyla 225 Cumulative Drug Doses Medication Cumulative Dose Patient tolerated treatment well without incident or adverse reaction. Patient instructed to contact this clinic during regular business hours if they have any concerns related to treatment, patient was instructed to contact [facility] pediatric surgeon oncologist after hours, on weekends and holidays for concernsrelated to their cancer diagnosis current treatment. [facility] Outreach Treatment Note - Socorro documented in this encounter Plan of Treatment Not on file documented as of this encounter Visit Diagnoses Not on filedocumented in this encounter Care Teams Press Offbearer Relationship Specialty Start Date End Date Ghazal Joseph APRN [address] [place] [address] PCP - General Family Medicine 12/19/20 documented as of this encounter
--- OUTSIDE RECORDS SUMMARY | 2024-03-10 17:19 | XMS_ITS | Encounter Summary ---
Author Organization [facility] Address [facility] [place] [address] Care Team Providers Care Surveyor Name Role Phone Ghazal Joseph APRN Primary Care Provider [phone] Encounter Details Date Type Department Care Team (Late st Contact Info) Description 03/22/2023 11:30 AM EDT Office Visit Hematology Oncology at [address] [phone] Graeme Grigsby MD [facility] [place] [address] HER2-positive carcinoma of right breast Social History [...] Mass Index 27.43 03/22/2023 12:32 PM EDT documented in this encounter Progress Notes * Graeme Grigsby MD - 03/22/2023 11:30 AM EDT Images from the original note were not included. Diagnosis:R ?multifocal IDC, Gr 2-3, ER-/GA-, Her2 3+ by IHC, N1 CC: I had terrible back sick HPI:Ghazal Nina is 72 y.o.F referred by Dr. Huff for a [...] of March and went to [facility] on March 03. Another visit to ER [...] clinic for follow-up of breast cancer. She stopped neratinib on December 26. Peggy had her Mediport removed by Dr. Huff. Overall, she feels well. No diarrhea. She denies any numbness, tingling [...] at the end of May 2020 in [place] Mediport placement Migraine, asthma, tonsillectomy, tubal ligation, cataract surgery, colonoscopy for colon polyp, frozen shoulder repair Social History: No interval changes since last visit. 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 Father had kidney cancer OBGYN History: No interval changes since last visit , menarche at age of 12, age of first live 23, menopausal in mid 50s, no hormone replacement therapy, use local estrogen cream Allergies: Allergies Allergen Reactions Codeine Nausea Only Medications: Your Medications Accurate as of March 22, 2023 12:13 PM. If you have any questions, ask [...] mg Refills: 0 fluticasone propionate 50 mcg/actuation [place], Suspension Commonly known as: Flonase 1 spray [...] 10 mg Refills: 0 oxyCODONE-acetaminophen 5-325 mg tablet Commonly known as: [...] as the patient was examined by Dr. Daria iverson Heart: Regular rate and rhythm, S1, S2 [...] areas Neurologic: Normal No focal deficit. Vitals There were no vitals taken for this visit. Pathology: 11/21/20 11/07/20 03/28/20 INTERPRETATION: BREAST, RIGHT, [...] Tissue submitted: Paraffin embedded tissue block labelled [id number] From [facility] F 3+ [...] to perform high complexity clinical laboratory testing. Final Diagnosis A. 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 See comment. B. 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 See comment. Diagnosis Comment A preliminary diagnosis was communicated to Dr. Ramana Huff on 03/29/20 at 4:25 pm byDr. Ramana Chew. It Service Delivery Manager slides of this case were reviewed at [...] results will be issued in an Addendum. Attestation There was significant resident/fellow involvement in the diagnostic evaluation of this case. By the signature below, the attending physician certifies that they have personally conducted a gross and/or microscopic examination of the described specimens and rendered or confirmed the above diagnosis. Clinical History Right breast mass 7 o'clock 5 cm from nipple. Right axillary lymph node; clinical diagnosis code: N63.10 Gross Description A. Received in formalin labelled with proper patient identification (initials B, K) and RT breast are 4 yellow and white fibrofatty tissue cores (0.5 cm to 1.4 cm in length, and each 0.1 cm in diameter). Entirely submitted in A1-A2. 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 Nina is a new diagnosis of right breast ductal carcinoma grade 2-3 ER and GA negative and HER-2 3+ by immunochemistry. Lymph [...] radiation therapy. --------- Luis Daniel back from [place] where she completed 6 cycle of TCHP [...] neratinib p.o. She completed adjuvant radiation in [facility] with Dr. Lange on 02/18/21. She [...] off Kadcyla. She plans to go to [place] in couple of weeks or so, but [...] enough to halt neratinib. Her oncologist in [place] planned to restage her with CT scan [...] neratinib toxicity. She is going back to [place] in mid of May. Will do restaging CT scan prior next visit 12/14/22 Mrs. Nina continues on adjuvant neratinib. She returned from [place] recently where shewill follow with Dr. Lorena [...] will see her back in 3-1/2 months 03/22/23 Ghazal completed 1 year of neratinib. ARJUN. She is going back to [place] in the middle of May. ARJUN. She will see her primary oncologist in the end of May. She will call us back when she is back from [place] in November to schedule follow-up appointment. #Thrombocytopenia: Cause is unclear, patient will follow with her primary oncologist in [place]. # LFT's-alkaline phosphatase elevated # Headaches- she [...] Venofer #Abnormal liver enzymes: Liver enzymes are normal now. Liver enzymes are elevated most likely secondary to neratinib. Will monitor Plan: 1. Observation 2. F/u with primary oncologist as scheduled 3. Next visit on as-needed basis. She will call us when she is back from [place] to schedule the appointment Ghazal voiced understanding of the plan and [...] breast documented in this encounter Care Teams Surveyor Relationship Specialty Start Date End Date Ghazal Joseph APRN [address] [place] [address] PCP - General Family Medicine 12/19/20 documented as of this encounter
--- OUTSIDE RECORDS SUMMARY | 2024-03-10 17:19 | XMS_ITS | Encounter Summary ---
Author Organization [facility] Address [address] [place] [address] Care Team Providers Care Graduate Nurse Name Role Phone Unavailable Primary Care Provider Unavailabl e Encounter Details Date Type Department Care Team (Late st Contact Info) Description 07/21/2006 Before PRISM Converted Visit (Maple) [facility] - Maple conversion [address], [place] [id number] Joaquin Mckeon MD PhD 1 [facility] [address] [place] [id number] Social History Tobacco Use Types Packs/Day Years Used Date Smoking Tobacco: Never Assessed Sex and Gender Information Value Date Recorded Sex Assigned at Not on file Gender Identity Not on file Sexual Orientation Not on file documented as of this encounter Progress Notes * Joaquin Mckeon MD - 08/05/2009 7650 EST NEUROLOGY HEALTH CARE SERVICE PROGRESS/FOLLOWUP NOTE - 07/21/2006 PATIENT PROFILE Ghazal Nina is a 55-year-old woman with a history of chronic recurrent headaches consistent with migraine. She was seen in clinic in followup on February 10, 2006. Since her last visit, she was placed on: Atacand 16 mg daily, which she has taken along with: 1. Prozac 20 mg daily. 2. Mariela 180 mg daily. 3. Flonase 50 mcg daily. 4. Advair 100/50 daily. 5. Aspirin 80 mg daily. 6. Vitamin E daily. 7. Metoclopramide 10 mg p.r.n. 8. Zomig 5 mg tablets p.r.n. She is no longer taking Topamax, which had been at 150 mg daily or glucosamine and chondroitin. Her headaches have essentially been unchanged since her last visit. She had 12 days with headaches in March, 13 days with headaches in April, 11 days with headaches in May, 15 days with headaches in June, and she typically has 1-2 days per month where her headaches reach a [id number] intensity. She typically takes Zomig with each of her headaches at 5 mg, which works well but may take up to 1 hour to provide relief. She takes this medication at mild pain and her headaches rarely progress beyond mild. On rare occasions she may require 2 tablets taken 2 hours apart. She hashad some concerns about a rise in her cholesterol 240 mg/dL as well as a 10-pound weight gain that has been present without a change in her diet. She also notes that rainy weather can be a trigger for her headaches and she may describe a premonitory symptom of feeling cool prior to the onset of herheadaches. PHYSICAL EXAMINATION On examination, blood pressure is 110/60, pulse 80, respirations 16. Weight is 144 pounds, which isup from 136 pounds in January. She is currently in no pain. She has normal speech, language and recall. Normal coordinated eye movements, facial movements, and limb movements and gait. EDUIN Nina continues to have chronic recurrent headaches. The plan will be to discontinue Atacand and start her on Lotrel as an off-label medication for migraine at 2.5/10 tablets to be increased as tolerated over 3 weeks up to 3 tablets daily. She will continue to use 5 mg tablets on an as-needed basis but will try to limit her use not to exceed 2 days per week. Iurged her to quit smoking as she continues to smoke 8-10 cigarettes per day. She will keep a diary of her headache events and will return to clinic in approximately 5 months. In that interval, she may be interested in participating in a clinical trial for a new agent for migraine. Signed by Joaquin Mckeon MD,PhD 08/20/2006 08:06 Sendy Mckeon MD,PhDJoaquin Mckeon MD,PhD Joaquin Mckeon MD,PhD - Joaquin Mckeon MD,PhD A - ts Job ID: [id number] Document ID: [id number] cc: MACEY Vidal documented in this encounter Plan of Treatment Not on file documented as of this encounter Visit Diagnoses Not on filedocumented in this encounter
--- OUTSIDE RECORDS SUMMARY | 2024-03-10 17:20 | XMS_ITS | Encounter Summary ---
Author Organization [facility] [place] [address] Care Team Providers Care Safety Analyst Name Role Phone Ghazal Joseph APRN Primary Care Provider [phone] [phone] Encounter Details Date Type Department Care Team (Late st Contact Info) Description 01/15/2021 7:20 PM EDT Ancillary [place] [phone] Maricruz Cooley, RN Social History Tobacco Use Types Packs/Day [...] Associated Diagnosis Comments FILM LIBRARY STORAGE ONLY MR HEAD Routine 01/15/2021 7:16 PM EDT documented in this encounter Results * Film Library- Storage Only MR Head (01/15/2021 7:16 PM EDT) Narrative [facility] - 01/15/2021 7:16 PM EDT This exam is auto-finalizing. It's purpose is for storage only. Maricruz Cooley RN G FILM LIBRARY ORD ERABLES Performing Organization Address City/State/[facility] Co de Phone Number [place], [place] documented in this encounter Visit Diagnoses Not on filedocumented in this encounter Care Teams Safety Analyst Relationship Specialty Start Date End Date Ghazal Joseph APRN [address] [place] [address] PCP - General Family Medicine 12/19/20 documented as of this encounter
--- OUTSIDE RECORDS SUMMARY | 2024-03-10 17:20 | XMS_ITS | Encounter Summary ---
Author Organization [facility] Address [facility] [place] [address] Care Team Providers Care Patient Relations Manager Name Role Phone None Primary Care Provider Unavailabl e Reason for Referral * Consultation (Routine) - Closed Specialty Diagnoses / Procedures Referred By Contac t Referred To Contact Radiation Oncology Diagnoses Breast cancer metastasized to axillary lymph node, right HER2-positive carcinoma of right breast Graeme Grigsby MD [facility] [address] [place] [address] Jonna Lange MD [facility] [place] [address] Referral ID Status Reason Start Date Expiration Date V isits Requested Visits Authorized [id number] Closed Consult, Test & Treat 12/16/2020 12/16/2021 1 1 Encounter Details Date Type Department Care Team (Late st Contact Info) Description 12/16/2020 2:00 PM EDT Office Visit [address] [place] [phone] Graeme Grigsby MD [facility] [address] [place] [address] Breast cancer metastasized to axillary lymph node, right; Elevated serum alkaline phosphatase level; HER2-positive carcinoma of right breast; High risk medication use Social History Tobacco Use Types Packs/Day Years Used Date Smoking Tobacco: Never Assessed Sex and Gender Information Value Date Recorded Sex Assigned at Not on file Gender Identity Not on file Sexual Orientation Not on file documented as of this encounter Last Filed Vital Signs Vital Sign Reading Time Taken Comments Blood Pressure 130/70 12/16/2020 2:09 PM EDT Pulse 78 12/16/2020 2:09 PM EDT Temperature 36.7 ??C (98.1 ??F) 12/16/2020 2:09 PM ED T Respiratory Rate 18 12/16/2020 2:09 PM EDT Oxygen Saturation 100% 12/16/2020 2:09 PM EDT Inhaled Oxygen Concentration - - Weight 62.5 kg (137 lb 12.6 oz) 12/16/2020 2:09 PM EDT Height 161 cm (5' 3.39) 12/16/2020 2:09 PM EDT Body Mass Index 24.11 12/16/2020 2:09 PM EDT documented in this encounter Progress Notes * Graeme Grigsby MD - 12/16/2020 2:00 PM EDT Images from the original note were not included. 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 Huff for a [...] pain in the right axillary area Interval history: Ms. Nina is in clinic for follow-up appointment on breast cancer. She completed neoadjuvant chemotherapy followed by surgery on November 07 and November 21. She has residual disease after neoadjuvant chemotherapy she started on Kadcyla on December 10. Today she feels well. Denies any pain. Appetite is good. Otherwise, no focal complaints. 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 Father had kidney cancer OBGYN History: , menarche at age of 12, age of first live 23, menopausal in mid 50s, no hormone replacement therapy, use local estrogen cream Allergies: Allergies Allergen Reactions ??? Codeine Nausea Only Medications: Your Medications Accurate as of December 16, 2020 1:51 PM. If you have any questions, ask your nurse or doctor. Continued medications, unchanged Dose Details albuterol sulfate 90 mcg/actuation Aepb Inhale 180 mcg into the lungs. 180 mcg Refills: 0 amLODIPine 10 mg Tab Commonly known as: Norvasc Take 10 mg by mouth daily. 10 mg Refills: 0 atorvastatin 10 mg Tab Commonly known as: Lipitor Take 20 mg by mouth daily. 20 mg Refills: 0 benazepriL 20 mg Tab Commonly known as: LOTENSIN Take 10 mg by mouth daily. 10 mg Refills: 0 Calcium 600 + D(3) 600 mg(1,500mg) -200 unit Tab Take by mouth. Generic drug: calcium-vitamin D3 Refills: 0 estrogens (conjugated) 0.625 mg/gram Crea Commonly known as: PREMARIN Place vaginally daily. Refills: 0 FLUoxetine 10 mg Cap Commonly known as: PROzac Take 30 mg by mouth daily. 30 mg Refills: 0 fluticasone propionate 50 mcg/actuation Spsn Commonly known as: FLONASE 1 spray daily. 1 spray Refills: 0 Singulair 10 mg Tab Take 10 mg by mouth nightly. Generic drug: montelukast 10 mg Refills: 0 vitamin E 400 unit Cap Take by mouth. Refills: 0 ZOLMitriptan 5 mg Tab Commonly known as: ZOMIG Take 5 mg by mouth as needed for Migraine. Initial dose: 1.25 to 2.5 mg (maximum: 5 mg/dose). May repeat dose after 2 hours. Max daily dose: 10 mg 5 mg Refills: 0 ZONISAMIDE ORAL Take 10 mg by mouth 2 times daily. 10 mg Refills: 0 Review of Systems: Constitutional: Negative for fever, chills, activity change, fatigue and unexpected weight change. HEENT: Negative for sore throat, mouth sores and trouble swallowing. Eyes: Negative. Respiratory: Negative for cough, shortness [...] abnormality, atraumatic Eyes: PERRL, conjunctiva/corneas clear, EOM's intact, fundi benign, both eyes Ears: Normal TM's and external ear canals, both ears Nose: Nares normal, septum midline, mucosa normal, no drainage or sinus tenderness Throat: Lips, mucosa, and tongue normal; teeth and gums normal Neck: Supple, symmetrical, trachea midline, no adenopathy, thyroid: not enlarged, symmetric, no tenderness/mass/nodules, no carotid bruit or JVD Back: Symmetric, no curvature, ROM normal, no [...] normal, no rashes or lesions Lymph nodes: Palpable not fixed right axillary lymph node about 15 mm in size. No palpable lymph nodes in cervical or axillary areas Neurologic: Normal Vitals BP 130/70 (BP Location (NBP): Left arm, Patient Position: Sitting, BP Cuff Sizes: Adult (25-34 cm)) Pulse 78 Temp 36.7 ??C (98.1 ??F) (Temporal) Resp 18 Ht 161 cm (5' 3.39) Wt 62.5 kg (137 lb 12.6 oz) SpO2 100% BMI 24.11 kg/m?? Pathology: 11/21/20 11/07/20 03/28/20 INTERPRETATION: BREAST, [...] Tissue submitted: Paraffin embedded tissue block labelled [id number] From [facility] F 3+ positive Strong complete membrane [...] performance characteristics have been determined by [facility] and/or by the referring laboratory. The [...] 03/29/20 at 4:25 pm byDr. Ramana Chew. Beam Dyer slides of this case were reviewed at [...] Time out of formalin: 09:00 03/29/2020 Labs: 12/10/2020 WBC 4.6, hemoglobin 11.8, platelet count 183, ANC 2.82, 11/25/20 BUN 13, creatinine 1.02, calcium 9.0, protein 6.1, albumin 3.7, alkaline phosphatase 379, AST 35, ALT 32. 04/19/2020 sodium 141, potassium 4.0, calcium 9.8, BUN 19, creatinine 1.09, TB 0.5, total protein 7.1, albumin 4.0, alkaline phosphatase 418, AST 26, ALT 33 WBC 5.3, hemoglobin 13.5, platelet count 268 Imagin12/02/2020 echocardiogram: The estimated ejection fraction is 60-65%. Normal ventricular systolic function 10/09/20 breast MRI 05/25/21 brain MRI: Negative for intracranial findings 05/03/2020 LV ejection fraction 66%. 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 Lymph node has histologically proven IDC as well. He alkaline phosphatase is above 400 which is concerning for more extensive disease. CT chest showed right axillary lymphadenopathy but no distant metastatic disease. Bone scan and brain MRI negative for metastatic disease. She had Mediport placed. We discussed treatment with chemotherapy and targeted HER-2 therapy. I recommended 6 cycles of docetaxel, carboplatin, trastuzumab and Pertuzumab followed by surgery and radiation therapy. --------- Peggy is back from [place] where she completed 6 cycle of TCHP chemotherapy in neoadjuvant fashion under care of Dr.Swati Street. She underwent right mastectomy and sentinel lymph node biopsy November 07.pathology revealed residual 6 mm tumor as well as 4 mm deposit in lymph node. She had lymph node dissection on November 21. 1 out of 2 lymph nodes was positive for carcinoma. As per Dr. Street plan Mrs. Nina started adjuvant Kadcyla on December 10 with plan for total of 14 cycles followed by neratinib p.o. I will make a referral to our radiation oncologist at [facility] for adjuvant radiation therapy. We will continue Konsyl every 3 weeks with monitoring for liver function and thrombocytopenia. We will hold treatment for platelet count below 75,000 on liver enzymes more than upper limit of normal x3 or elevated bilirubin. We will check echocardiogram every 3 months during her anti-Her2 treatment Plan: 1. Referral to radiation oncology 2. Next visit with CBC, cMP and 2-nd cycle of Kadcyla on January 02 Ms. Nina is accompanied by her today. The plan was discussed with the patient in details. All questions were answered to patient satisfaction. I would like to thank Dr. Huff and Dr. Zamora for allowing me to participate in the care of this wonderful lady. documented in this encounter Plan of Treatment Scheduled Referrals Name Type Priority Associated Diagnoses Orde r Schedule Referral to Radiation Oncology Outpatient Referral Routine Breast cancer metastasized to axillary lymph node, right HER2-positive carcinoma of right breast Ordered: 12/16/2020 documented as of this encounter Visit Diagnoses Diagnosis Breast cancer metastasized to axillary lymph node, right Elevated serum alkaline phosphatase level Other nonspecific abnormal serum enzyme levels HER2-positive carcinoma of right breast High risk medication use Encounter for long-term (current) use of other medications documented in this encounter Care Teams Patient Relations Manager Relationship Specialty Start Date End Date None None PCP - General 02/23/11 12/18/20 documented as of this encounter
--- OUTSIDE RECORDS SUMMARY | 2024-03-10 17:20 | XMS_ITS | Encounter Summary ---
Author Organization [facility] [address] Care Team Providers Care Cash Register Mechanic Name Role Phone GloRenuleelee Shankar APRN Primary Care Provider [phone] Reason for Visit * Reason Comments Dermatitis Encounter Details Date Type Department Care Team (Late st Contact Info) Description 12/10/2010 4:15 PM EDT Office Visit Dermatology [address] [place] [address] [address] [place] [address] Uche Gann MD [address] [facility], [facility] [[email or web address] [place] [address] Actinic keratoses (Primary Dx); Wart; Hand dermatitis Social History Tobacco Use Types Packs/Day Years Used Date Smoking Tobacco: Never Assessed Sex and Gender Information Value Date Recorded Sex Assigned at Not on file Gender Identity Not on file Sexual Orientation Not on file documented as of this encounter Progress Notes * Uche Gann MD - 12/10/2010 5:03 PM EDT Problems: 1. Psoriasiform hand dermatitis. 2. Skin lesions of concern. 3. Verruca vulgaris right second finger. Ghazal is a 59-year-old woman who is referred to me in consultation by Nerissa Cody. I have spoken over the phone to Nerissa about this patient's hand rash and recommended that cotton gloves and Fluocinonide Ointment be tried. Unfortunately that while the gloves helped the ointment did not. The patient went back to using her previous Clobetasol Propionate Ointment that she had been using for about a year on again/off again for hyperkeratotic patches on the palms and fingers of the palmar hands. 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 It has not itched, there are no blisters she just is noticing the thickening of the skin. She was seen by Dr. Prajapati for this problem and the Clobetasol recommended. The patient is also concerned about actinics and was treated with 5-FU this last June for two and a half weeks being applied twice daily to the forehead and temples. That seemed to help. However she would like some post LN2 treatment evaluation. Also on three occasions she states there has been a wart treated on her right second finger. She thinks the liquid nitrogen has not helped. It has been applied with a Cryac canister each time she has had treatments. Physical examination reveals a pleasant 59-year-old woman who has today callus like psoriasiform plaques on pressure points on the palmar hands bilaterally. There is no evidence of any eczematous dermatitis today. She has no vesicles, no cracking, fissuring, scaling. She has well healed actinic keratoses sites on the temples and forehead. She has a small minimal actinic on the right dorsal hand and on the left mormon. She has a verruca vulgaris present on the right second finger dorsally. Assessment & Plan: Psoriasiform hand dermatitis. a. Recommended that she try using good emollient cream such as Cetaphil or could use CeraVe Cream or even Vaseline petroleum jelly under cotton glove occlusion at night but apply good emollients during the day. b. When doing frictional work wear gloves. c. Follow sensitive skincare precautions. Try to minimize hand washing. Do not use antibacterial soap but regular mild soap such as Ivory, Dove, Basis, et cetera. d. Explained that this will, as Dr. Prajapati told her, take a while to clear and go away. This tends to be a stubborn dermatitis. However I think that in time it will improve. Actinic keratoses facial, right dorsal hand, right forearm, left mormon area. a. Patient reassured about excellent results after 5-FU course and about minimal actinics seen on exam today. None were treated. Verruca vulgaris, right dorsal second finger distal to the DIP joint. a. Discussed the advantages of cotton applicator applied LN2 versus Cryac. b. Patient is willing to try LN2 x3 today using the cotton applicator. c. RTC in 4-6 weeks for repeat check on this may cancel if doing well., CC: MACEY Vidal-MELYSSA documented in this encounter Plan of Treatment Not on file documented as of this encounter Visit Diagnoses Diagnosis Actinic keratoses- Primary Actinic keratosis Wart Viral warts, unspecified Hand dermatitis Contact dermatitis and other eczema, due to unspecified cause documented in this encounter Care Teams Cash Register Mechanic Relationship Specialty Start Date End Date Nerissa Cody APRN [address] [place] [address] PCP - General 06/24/10 02/22/11 documented as of this encounter
--- OUTSIDE RECORDS SUMMARY | 2024-03-10 17:20 | XMS_ITS | Encounter Summary ---
Author Organization [facility] Address [facility] [place] [address] Care Team Providers Care Addressing Machine Operator Name Role Phone None Primary Care Provider Unavailabl e Reason for Referral * Consultation (Routine) - Specialty Diagnoses / Procedures Referred By Contac t Referred To Contact General Surgery Diagnoses HER2-positive carcinoma of right breast High risk medication use Graeme Grigsby MD [facility] DR HEMAT[place]Y [place] [address] Rosa Maria Huff MD [address] [place] [address] Referral ID Status Reason Start Date Expiration Date V isits Requested Visits Authorized [id number] Consult, Test & Treat 04/22/2020 10/19/2020 1 1 Encounter Details Date Type Department Care Team (Late st Contact Info) Description 04/22/2020 3:30 PM EDT Office Visit [facility] [address] [place] [id number] Graeme Grigsby MD [facility] DR HEMATOLOGY [place] [address] Breast cancer metastasized to axillary lymph node, right; HER2-positive carcinoma of right breast; High risk medication use; Elevated serum alkaline phosphatase level Social History Tobacco Use Types Packs/Day Years Used Date Smoking Tobacco: Never Assessed Sex and Gender Information Value Date Recorded Sex Assigned at Not on file Gender Identity Not on file Sexual Orientation Not on file documented as of this encounter Last Filed Vital Signs Vital Sign Reading Time Taken Comments Blood Pressure 130/67 04/22/2020 3:30 PM EDT Pulse 70 04/22/2020 3:30 PM EDT Temperature 36.7 ??C (98.1 ??F) 04/22/2020 3:30 PM ED T Respiratory Rate - - Oxygen Saturation 100% 04/22/2020 3:30 PM EDT Inhaled Oxygen Concentration - - Weight 67.1 kg (148 lb) 04/22/2020 3:30 PM EDT Height 162.6 cm (5' 4) 04/22/2020 3:30 PM EDT Body Mass Index 25.4 04/22/2020 3:30 PM EDT documented in this encounter Progress Notes * Graeme Grigsby MD - 04/22/2020 3:30 PM EDT Images from the original note were not included. Diagnosis:R ?multifocal IDC, Gr 2-3, ER-/AK-, Her2 3+ by IHC, N1 Subjective:I have soreness in the site of lymph node biopsy HPI:Ghazal Nina is 69 y.o.F referred by Dr. 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 Father had kidney cancer OBGYN History: , menarche at age of 12, age of first live 23, menopausal in mid 50s, no hormone replacement therapy, use local estrogen cream Allergies: Allergies Allergen Reactions ??? Codeine Nausea Only Medications: Your Medications Accurate as of April 22, 2020 5:13 PM. If you have any questions, ask [...] bilaterally, respirations unlabored Chest Wall: Right breast palpable mass 15 mm at 7:00 5 cm from nipple, no palpable masses or lumps in the left breast Heart: Regular rate and rhythm, S1, S2 normal, no murmur, rub or gallop Abdomen: Soft, non-tender, bowel sounds active all four quadrants, no masses, no organomegaly. There is no appreciable ascites Extremities: Extremities normal, atraumatic, no cyanosis or edema Pulses: 2+ and symmetric Skin: Skin color, texture, turgor normal, no rashes or lesions Lymph nodes: Cervical, supraclavicular, and axillary nodes normal Neurologic: Normal Vitals BP 130/67 Pulse 70 Temp 36.7 ??C (98.1 ??F) Ht 162.6 cm (5' 4) Wt 67.1 kg (148 lb) SpO2 100% BMI 25.40 kg/m?? Pathology: 03/28/20 INTERPRETATION: BREAST, RIGHT, ULTRASOUND-GUIDED CORE BIOPSY: [...] Tissue submitted: Paraffin embedded tissue block labelled [id number] From [facility] F 3+ positive Strong complete membrane [...] performance characteristics have been determined by [facility] and/or by the referring laboratory. The [...] 03/29/20 at 4:25 pm byDr. Ramana Chew. 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 Nina is a new diagnosis of right breast ductal carcinoma grade 2-3 ER and AK negative and HER-2 3+ by immunochemistry. Lymph node has histologically proven IDC as well. He alkaline phosphatase is above 400 which is concerning for more extensive disease. I am going to stage her with CT chest abdomen pelvis, bone scan and given her history of migraine brain MRI to evaluate for metastatic disease. We discussed treatment with chemotherapy and targeted HER-2 therapy. Will discuss particular regimen after we have her staging reports. We will send her back to Dr. Huff for consideration of Mediport placement Plan: 1. CT chest, abdomen pelvis, bone scan, brain MRI 2. Mediport placement 3. Echocardiogram 4. Next visit in 2 weeks Ms. Dunn is accompanied by her today. The plan was discussed with the patient in details.All questions were answered to patient satisfaction. I would like to thank Dr. Hfuf and Dr. Zamora for allowing me to participate in the care of this wonderful lady. documented in this encounter Plan of Treatment Scheduled Referrals Name Type Priority Associated Diagnoses Orde r Schedule Referral to General Surgery Outpatient Referral Routine HER2-positive carcinoma of right breast High risk medication use Ordered: 04/22/2020 documented as of this encounter Visit Diagnoses Diagnosis Breast cancer metastasized to axillary lymph node, right HER2-positive carcinoma of right breast High risk medication use Encounter for long-term (current) use of other medications Elevated serum alkaline phosphatase level Other nonspecific abnormal serum enzyme levels documented in this encounter Care Teams Addressing Machine Operator Relationship Specialty Start Date End Date None None PCP - General 02/23/11 12/18/20 documented as of this encounter
--- OUTSIDE RECORDS SUMMARY | 2024-03-10 17:20 | XMS_ITS | Encounter Summary ---
Author Organization [facility] Address [place] [address] Care Team Providers Care Fan Blade Truer Name Role Phone Ghazal Joseph APRN Primary Care Provider [phone] Encounter Details Date Type Department Care Team (Late st Contact Info) Description 12/24/2020 Notes Only Radiation Oncology at [address] [address] Fallon Green, [facility] OFFICE OF CARE MANAGEMENT Social History Tobacco Use Types Packs/Day Years [...] as of this encounter Progress Notes * Fallon Green MSW - 12/24/2020 10:37 AM EDT Reason for Referral: Brief assessment of social and emotional needs. Met with pt after her sim today. Social Supports: Pt identified her of 49 years as her primary support. They have a son and daughter and both live local. Living Situation/Daily Activities/Transportation: Pt indicated she manages her daily chores and activities. She does not expect any issues with transportation. Work/Finances/Insurance: Pt is a retired [employer]. Her is from [employer]. She has Medicare and BCBS for insurance. Advance Directives: Pt indicated she has completed her advance directive. Requested a copy for her medical record. Utilization of Community Resources: None at this time. Adjustment to Illness/Mental Health Issues: Pt indicated she is coping the best she can. She and her winter in [place] and they are back up now and brought the sunshine with them. She feels well supported by er family and friends. She is looking forward to watching her grandson play baseball. Offered support. Identified Needs: Pt did not identify any specific needs at this time. Referrals: None at this time. Plan: Informed pt of [employer] availability and contact information. Will follow for support and resources. documented in this encounter Plan of Treatment Not on file documented as of this encounter Visit Diagnoses Not on filedocumented in this encounter Care Teams Fan Blade Truer Relationship Specialty Start Date End Date Ghazal Joseph APRN [address] [place] [address] PCP - General Family Medicine 12/19/20 documented as of this encounter
--- OUTSIDE RECORDS SUMMARY | 2024-03-10 17:20 | XMS_ITS | Encounter Summary ---
Author Organization [facility] Address [facility] [place] [address] Care Team Providers Care Voting Machine Mechanic Name Role Phone None Primary Care Provider Unavailabl e Encounter Details Date Type Department Care Team (Late st Contact Info) Description 05/01/2020 10:05 PM EDT Ancillary Procedure [place] [address] Graeme Grigsby MD [facility] [address] [place] [address] Social History Tobacco Use Types Packs/Day Years [...] Associated Diagnosis Comments FILM LIBRARY STORAGE ONLY NUCLEAR MEDICINE Routine 05/01/2020 10:00 PM EDT documented in this encounter Results * Film Library- Storage Only nuclear medicine (05/01/2020 10:00 PM EDT) Narrative RAD - 05/01/2020 10:00 PM EDT This exam is auto-finalizing. It's purpose is for storage only. Graeme Grigsby MD IMG FILM LIBRARY ORD ERABLES [place], [place] documented in this encounter Visit Diagnoses Not on filedocumented in this encounter Care Teams Voting Machine Mechanic Relationship Specialty Start Date End Date None None PCP - General 02/23/11 12/18/20 documented as of this encounter
--- OUTSIDE RECORDS SUMMARY | 2024-03-10 17:20 | XMS_ITS | Encounter Summary ---
Author Organization [facility] Address [facility] [place] [address] Care Team Providers Care Pain Management Specialist Name Role Phone Ghazal Joseph AYDIN Primary Care Provider [phone] Reason for Visit * Consultation (Routine) - Closed Specialty Diagnoses / Procedures Referred By Sal fournier Referred To Contact Radiation Oncology Diagnoses Malignant neoplasm of upper-outer quadrant of right female breast, unspecified estrogen receptor status Procedures Re-simulation for Radiation Therapy Planning Jonna Lange MD [facility] [place] [address] [facility] Rad Onc Office [address] [place] [id number] Referral ID Status Reason Start Date Expiration Date V isits Requested Visits Authorized [id number] Closed Consult, Test & Treat 01/13/2021 01/13/2022 1 1 Encounter Details Date Type Department Care Team (Latest Contact Info) Description 01/14/2021 1:00 PM EDT Ancillary Appointment Radiation Oncology at [address] [address] Jonna Lange MD [facility] [address] Malignant neoplasm of upper-outer quadrant of right [...] place to sleep or slept in a chcf (including now)? No 12/19/2020 Sex and Gender Information Value Date Recorded Sex Assigned at Not on file Gender Identity Not on file Sexual Orientation Not on file documented as of this encounter Progress Notes * Jonna Lange MD - 01/14/2021 1:00 PM EDT Here for resim as beam films suggest significant decrease in R chest wall swelling. Sim: Custom vag bag & breast bd immobilization; flat bbs on R mastectomy & 3 drain site scars; CT through neck & chest; 3D xrt planned. She tolerated sim well, w/o problem. Tx Plan: 3D xrt. Start adaptive plan when ready; continue w/present plan in interim. documented in this encounter Plan of Treatment Scheduled Orders Name Type Priority Associated Diagnoses Orde r Schedule Re-simulation for Radiation Therapy Planning Procedures Routine Malignant neoplasm of upper-outer quadrant of right female breast, unspecified estrogen receptor status Ordered: 01/13/2021 documented as of this encounter Visit Diagnoses Diagnosis Malignant neoplasm of upper-outer quadrant of right female breast, unspecified estrogen receptor status documented in this encounter Care Teams Pain Management Specialist Relationship Specialty Start Date End Date Ghazal Joseph APRN [address] [place] [address] PCP - General Family Medicine 12/19/20 documented as of this encounter
--- OUTSIDE RECORDS SUMMARY | 2024-03-10 17:20 | XMS_ITS | Encounter Summary ---
Author Organization [facility] Address [facility] [place] [address] Care Team Providers Care Cosmetics Counter Manager Name Role Phone None Primary Care Provider Unavailabl e Encounter Details Date Type Department Care Team (Latest Contact Info) Description 12/15/2016 9:42 PM EDT - 12/15/2016 11:59 PM EDT Hospital En[place] [address] Discharge Disposition: Home Social History Tobacco Use Types Packs/Day Years Used Date Smoking Tobacco: Never Assessed Sex and Gender Information Value Date Recorded Sex Assigned at Not on file Gender Identity Not on file Sexual Orientation Not on file documented as of this encounter Medications at Time of Discharge Medication Sig Dispensed Refills Start Date End Date albuterol (ACCUNEB) 0.63 mg/3 mL Solution for Nebulization Inhale into the lungs. 04/01/2015 01/14/2021 Calcium Citrate-Vitamin D3 315 mg-6.25 mcg (250 unit) Tablet Take by mouth. 04/12/2013 01/14/2021 vitamin E (vitamin E) 400 unit Capsule Take 800 Units by mouth. 04/12/2013 01/14/2021 documented as of this encounter Plan of Treatment Not on file documented as of this encounter Procedures Procedure Name Priority Date/Time Associated Diagnosis Comments SURGICAL PATHOLOGY REPORT Routine 12/15/2016 12:00 PM EDT documented in this encounter Results * Surgical Pathology Report (12/15/2016 12:00 PM EDT) Final Diagnosis [id number] ?Location: [facility] The signing pathologist has (i) examined the relevant preparation(s) for the specimen(s) and (ii) rendered or confirmed the diagnosis(es). . ?Surgical Pathology DIAGNOSIS Skin, left ala nasi, ?? shave biopsy: - BASAL CELL CARCINOMA, NODULAR TYPE Electronically signed by: ??Claudio Toure MD Verified: ??12/16/2016 ?Dermatopatholo gist, Bone & Soft Tissue Pathologist CLINICAL INFORMATION Specimen Submitted: A - L ala nasi, shave Clinical History: 3 mm pink papule Clinical Diagnosis: BCC versus nevus Referring Identifier: ?(not provided) SPECIMEN PROCESSING A - Labeled/Fixative : Left ala nasi, formalin. Quantity/Size: Single, 0.3 x 0.2 x 0.1 cm. Tissue Description: Shave of plummer shiny skin. Sections/Process ing: Submitted intact. (T1) ??ksb 12/16/2016 2:[address] [facility] SPECIMEN FROM SKIN / Unknown 12/15/2016 12:00 PM EDT 12/15/2016 12:00 PM EDT Ninoska Prajapati MD PATHOLOGY/CYTOLOGY O RDERABLES [facility] [place] [address] documented in this encounter Visit Diagnoses Not on filedocumented in this encounter Care Teams Cosmetics Counter Manager Relationship Specialty Start Date End Date None None PCP - General 02/23/11 12/18/20 documented as of this encounter
--- OUTSIDE RECORDS SUMMARY | 2024-03-10 17:20 | XMS_ITS | Encounter Summary ---
Author Organization [facility] Address [facility] [place] [address] Care Team Providers Care Plate Worker Name Role Phone Ghazal Joseph APRN Primary Care Provider [phone] Reason for Visit * Reason Comments On Treatment Visit Encounter Details Date Type Department Care Team (Late st Contact Info) Description 01/21/2021 12:00 PM EDT Office Visit Radiation Oncology at [address] [phone] Jonna Lange MD [facility] [place] [address] Malignant neoplasm of upper-outer quadrant of right [...] Sign Reading Time Taken Comments Blood Pressure 134/71 01/21/2021 12:23 PM EDT Pulse 88 01/21/2021 12:23 PM EDT Temperature 36.7 ??C (98.1 ??F) 01/21/2021 1 2:23 PM EDT Respiratory Rate 16 01/21/2021 12:2 3 PM EDT Oxygen Saturation - - Inhaled Oxygen Concentration - - Weight 64.7 kg (142 lb 9.6 oz) 01/22/20 12:23 PM EDT with shoes Height - - Body Mass Index 24.65 01/02/2021 9:14 AM EDT documented in this encounter Progress Notes * Jonna Lange MD - 01/21/2021 12:00 PM EDT Images from the original note were not included. DIAGNOSIS: Breast ca, R, IDC, ER-LA-, Her2+, cT1 cN1, s/p neoadjuvant TCHP followed by R mastectomy& SNB, then completion R ax lymph node dissxn, ypT1b ypN1. Continues on kadcyla & neratinibplanned. ?? CURRENT TREATMENT DOSE: 20 Gy R Supraclav, Axilla, IMC & R Chest Wall ANTICIPATED TOTAL DOSE: 50 Gy R Supraclav, Axilla, IMC & R Chest Wall; 60 Gy Mastectomy Scar Current # of xrt received: 10 R Supraclav, Axilla, IMC & R Chest Wall Anticipated total # of xrt txs: 25 R Supraclav, Axilla, IMC & R Chest Wall; 30 Mastectomy Scar Evaluation of port verification films: Approved. For details, see electronic film record in [employer] [facility]. Changes in Medical Condition: None. Denies skin/throat irritation. Asks that her doc in [place], [place],Dr. Jens Lorenzo, be updated. Pain?: When on tx table w/arms up, manages w/visualization, does not want to take analgesic. Your Medications Accurate as of January 21, 2021 12:49 PM. If you have any questions, ask [...] 5 mg Refills: 0 Physical Exam: BP 134/71 Pulse 88 Temp 36.7 ??C (98.1 ??F) (Temporal) Resp 16 Wt 64.7 kg (142 lb 9.6 oz) Comment: with shoes BMI 24.65 kg/m?? A&Ox3, NAD. Irrad'd area w/minimal erythema, primarily overlying R clavicle. Imagin12/24/20 Dx'ic Rad Interp CTsim: No suspicious lesion. Performance Status: KPS 100% Response to xrt: As expected. Irradiation Related Symptoms: Skin rxn. Treatment for Symptom Control: Alvaro's cream. Pain Management: Visualization. Recommendation on Continuing Course of xrt: Cont. Cc: Dr. Jens Lorenzo documented in this encounter Plan of Treatment Not on file documented as of this encounter Visit Diagnoses Diagnosis Malignant neoplasm of upper-outer quadrant of right female breast, unspecified estrogen receptor status documented in this encounter Care Teams Plate Worker Relationship Specialty Start Date End Date Ghazal Joseph APRN [address] [place] [address] PCP - General Family Medicine 12/19/20 documented as of this encounter
--- OUTSIDE RECORDS SUMMARY | 2024-03-10 17:20 | XMS_ITS | Encounter Summary ---
Author Organization [facility] Address [facility] [place] [address] Care Team Providers Care [facility] Owner Name Role Phone Ghazal Joseph AYDIN Primary Care Provider [phone] Reason for Referral * Consultation (Routine) - Closed Specialty Diagnoses / Procedures Referred By Sal fournier Referred To Contact Radiation Oncology Diagnoses Malignant neoplasm of upper-outer quadrant of right female breast, unspecified estrogen receptor status Procedures Re-simulation for Radiation Therapy Planning Jonna Lange MD [facility] [place] [address] [facility] Rad Onc Office [address] [place] [phone] Referral ID Status Reason Start Date Expiration Date V isits Requested Visits Authorized [id number] Closed Consult, Test & Treat 01/13/2021 01/13/2022 1 1 Encounter Details Date Type Department Care Team (Late st Contact Info) Description 01/13/2021 Orders Only Radiation Oncology at [address] [phone] Jonna Lange MD [facility] [place] [address] Malignant neoplasm of upper-outer quadrant of right female breast, unspecified estrogen receptor status Social History Tobacco Use Types Packs/Day Years Used Date Smoking Tobacco: Never Assessed Overall Financial Resource Strain (CARDIA) Jenniffere r Date Recorded How hard is it [...] as of this encounter Plan of Treatment Scheduled Orders [...] status documented in this encounter Care Teams [facility] Owner Relationship Specialty Start Date End Date Ghazal Joseph APRN [address] [place] [address] PCP - General Family Medicine 12/19/20 documented as of this encounter
--- OUTSIDE RECORDS SUMMARY | 2024-03-10 17:20 | XMS_ITS | Encounter Summary ---
Author Organization [facility] Address [facility] [place] [address] Care Team Providers Care Technical Sales Director Name Role Phone Ghazal Joseph APRN Primary Care Provider [phone] Reason for Referral * Consultation (Routine) - Closed Specialty Diagnoses / Procedures Referred By Sal t Referred To Contact Radiation Oncology Diagnoses Malignant neoplasm of upper-outer quadrant of right female breast, unspecified estrogen receptor status Procedures Simulation for Radiation Therapy Planning Jonna Lange MD [facility] [place] [address] [facility] Rad Onc Office [address] [place] [phone] Referral ID Status Reason Start Date Expiration Date V isits Requested Visits Authorized [id number] Closed Consult, Test & Treat 12/19/2020 12/19/2021 99 99 Reason for Visit * Reason Comments Radiation Consult * Consultation (Routine) - Closed Specialty Diagnoses / Procedures Referred By Contac t Referred To Contact Radiation Oncology Diagnoses Breast cancer metastasized to axillary lymph node, right HER2-positive carcinoma of right breast Graeme Grigsby MD [facility] [address] Jonna Lange MD [facility] [place] [address] Referral ID Status Reason Start Date Expiration Date V isits Requested Visits Authorized [id number] Closed Consult, Test & Treat 12/16/2020 12/16/2021 1 1 Encounter Details Date Type Department Care Team (Late st Contact Info) Description 12/19/2020 10:00 AM EDT Office Visit Radiation Oncology at [facility] [place] [address] Jonna Lange MD [facility] [place] [address] Malignant neoplasm of upper-outer quadrant of right [...] Sign Reading Time Taken Comments Blood Pressure 139/87 12/19/2020 9:54 AM EDT Pulse 72 12/19/2020 9:54 AM EDT Temperature - - Respiratory Rate 17 12/19/2020 9:54 AM EDT Oxygen Saturation 99% 12/19/2020 9:54 AM EDT Inhaled Oxygen Concentration - - Weight 62.2 kg (137 lb 3.2 oz) 12/19/2020 9:54 A M EDT Height - - Body Mass Index 24.01 12/16/2020 2:09 PM EDT documented in this encounter Patient Instructions * Patient Instructions* Jonna Lange MD - 12/19/2020 10:00 AM EDT Someone will call you to schedule 12/24/[address] Start exercises to decrease tightness in R underarm, which will improve your comfort during CTsimulation & radiotherapy. Do not take vitamin E supplement during radiotherapy. documented in this encounter Progress Notes * Caterina Young RN - 12/19/2020 10:00 AM EDT RADIATION ONCOLOGY NURSING INITIAL NURSING ASSESSMENT IDENTIFICATION: Ghazal Nina is a 69 y.o. year-old female with right breast PRESENTING SYMPTOMS/CHIEF COMPLAINT: Menarche age: 12 Any oral contraceptive use: Yes 12 years Currently : No history: G 2 P 2 Age at 1st delivery: 22 Breast feeding: No Menopause age: 51 Previous breast biopsies: ROM after surgery: Yes Lymphedema post-surgery: Any new bone pain: No Hormones : Premarin REVIEW OF SYSTEMS: Review of Systems Constitutional: Negative. Eyes: Positive for eye problems (cataracts). Respiratory: Negative. Cardiovascular: Negative. Gastrointestinal: Positive for diarrhea. Endocrine: Negative. Genitourinary: Negative. Musculoskeletal: Negative. Skin: Positive for wound (healed incision right chest wall). Neurological: Positive for headaches (migraines). Hematological: Bruises/bleeds easily. Psychiatric/Behavioral: Positive for depression. IN THE PAST 12 MONTHS HAVE YOU: Fallen more than one time? No Injured yourself as result of the fall? No Experienced difficulty with walking/problems with balance? No Do you use any assistive devices? No Any history of collagen vascular diseases:No Any Implanted Devices/Hardware: No Mediport left chest wall If yes please put alert in ARIA patient summary Prior Radiotherapy: No Prior Chemotherapy: Yes Prior Hormone Therapy: No LEARNING ASSESSMENT REVIEWED: Yes ADVANCED DIRECTIVE: No PAIN ASSESSMENT: [0] out of 10 *eD-H Adult PCS Flow Sheet if 4 or above SOCIAL ASSESSMENT: See EDH social assessment information entered. Support Systems: for 49 years to Ric Prince Barriers to treatment: Referrals/Interventions: RADIATION SPECIFIC TEACHING: Yes [facility] Radiation Therapy and You Site specific teaching : Other: PLAN: New patient consult for Dr Lange * Jonna Lange MD - 12/19/2020 10:00 AM EDT Images from the original note were not included. CC: Referred by Dr. Grigsby for eval for xrt for breast ca. HPI: Ghazal is a 69 y/o f who presented w/self palpated R breast lump. 03/15/20 Dx'ic B mmg: Asymmetry in lateral mid R breast. 03/15/20 US R breast: 1.4 cm lesion @ 7:00, 5 cm from nipple. 03/28/[address] Huff showed R nipple inversion greatest @ 10-11:00 in area of subareolar mass;1.5 cm R breast mass @ 7:00, 5 cm from nipple & tender R axillary lymph node. 03/28/20 US guided core needle bx R breast @ 7:00 & R axilla. Path: A - R breast: [place], IDC, ER-TN-, Her2 IHC+. B _ R axilla: [place], IDC, ER-TN-, Her2 IHC+. 04/18/20 MRI B breast: Known R breast malignancy. 05/01/20 CT ch: R axillary adenopathy. R breast lesions. 05/01/20 CT a/p: Neg for met dz. 05/01/20 bs: Nl 05/03/20 MRI brain: No met dz. 05/25/20 LP. S/p neoadjuvant TCHP x 6. 10/04/[address] Lorenzo (NM) showed complete response in R breast & axilla. 10/17/20 MRI B breast: Decreased size R axillary lymph nodes, dominant R breast mass LOQ, nonmass enhancement central R breast. 10/30/20 Alk P 247 (39-147). 11/07/20 R mastectomy & SNB. 2 drains placed. Path: 6 mm residual IDC in R breast, gr 2, RM neg, 1 of 4 sentinel lymph nodes + (1/4, 4 mm lymph node deposit with associated lymphoid tissue, fibroconnective tissue & necrosis suggestive of lymph node involved by ca w/extranodal extension), ypT1b pyN1a. 11/21/20 completion R LND. 1 drain placed. Path: 1 out of 2 lymph nodes + for ca, fibroconnective tissue w/necrosis. 12/10/20 kadcyla started, w/plan for 14 cycles followed by neratinib. Subjective: Healing well. Sense of fullness R axilla since surgery. ROM arms around shoulders good.Energy level good, 95% nl. Over past wk sometimes lower chest near anterior ribcage feels like sheet metal crunching, causing her to take a deep breath. Able to walk up 10 stair steps & grocery shop w/o problem. Past Medical History: Diagnosis Date ??? Depression ??? Hypertension ??? Skin cancer No lupus/scleroderma. No prior xrt. DERIK No past surgical history on file. B tubal ligation. L shoulder surg, biceps repair Tonsillectomy Cheilectomy Eyelid procedure. Your Medications Accurate as of December 19, 2020 10:16 AM. If you have any questions, ask [...] Commonly known as: PREMARIN Place vaginally daily. Using 2X/wk to prevent sores. Refills: 0 FLUoxetine 10 mg Cap Commonly [...] dose: 10 mg 5 mg Refills: 0 FHx: + ca - breast in sis; kidney in fa; unknown type in mo, under skin of face, doesn't think melanoma. Son tx'd w/LN2 tx for growth over ear. P&SHx: Quit smoking 7 yrs ago. Physical Exam Constitutional: General: She is not in acute distress. Comments: BP 139/87 (Patient Position: Sitting) Pulse 72 Resp 17 Wt 62.2 kg (137 lb 3.2 oz) SpO2 99% BMI 24.01 kg/m?? HENT: Head: Normocephalic. Eyes: General: No scleral icterus. Right eye: No discharge. Left eye: No discharge. Extraocular Movements: Extraocular movements intact. Conjunctiva/sclera: Conjunctivae normal. Pulmonary: Effort: Pulmonary effort is normal. No respiratory distress. Breath sounds: No stridor. Chest: Breasts: Left: No inverted nipple, mass, nipple discharge, skin change or tenderness. Abdominal: General: There is no distension. Palpations: Abdomen is soft. There is no mass. Tenderness: There is no abdominal tenderness. There is no guarding or rebound. Musculoskeletal: General: No swelling or tenderness. Normal range of motion. Cervical back: Normal range of motion and neck supple. No tenderness. Comments: Mild decrease in ROM R arm @ shoulder on elevation/external rotation/abduction. Lymphadenopathy: Head: Right side of head: No [...] Thought content normal. Judgment: Judgment normal. A: Breast ca, R, IDC, ER-TN-, Her2+, cT1 cN1, s/p neoadjuvant TCHP followed by R mastectomy & SNB, then completion R ax lymph node dissxn, ypT1b ypN1. Continues on kadcyla & neratinib planned. P: Xrt to R chest wall & draining lymphatics rec'd to increase likelihood of ca control. Xrt would be given in 30 fxs. Possible side effects of xrt discussed, w/acute/immediate side effects including: Pinkening, soreness & peeling of skin in treated area; swelling of treated area; soreness of treated area; cough;shortness of breath; sore throat; sense of fullness in throat; swelling of R hand/arm, which could be permanent; numbness, tingling, weakness & difficulty coordinating R hand/arm; tiredness. Acute/immediate side effects usually temporary To decrease risk of lymphedema, she was instructed to avoid bp measurement on R upper extremity, avoid needle sticks on R upper extremity, avoid lifting heavy objects with R upper extremity & to contact her physician if upper extremity turns pink or starts to swell. Late/jail side effects of xrt discussed include: Treated soft tissue may tighten & become firmer; achiness/stiffness of chest wall on treated side; R sided rib fracture; CT after xrt may show scarring w/in small volume of lung on treated side; permanent swelling of R hand/arm; small risk of irradiation associated 2nd malignancy. Risk of occurrence of most of late/jail side effects small. Need for CTsim prior to xrt discussed. She would like to proceed w/xrt & will undergo CTsim @ [facility] facility 12/24/20. We discussed exercises to increase ROM R arm @ shoulder & she will start them today. She was advised to not take vit E during xrt. 80 mins in encounter. Radiation rogers:Post mastectomy Radiation boost:Yes Total dose of radiation: 60 Gy documented in this encounter Plan of Treatment Scheduled Orders Name Type Priority Associated Diagnoses Orde r Schedule Simulation for Radiation Therapy Planning Procedures Routine Malignant neoplasm of upper-outer quadrant of right female breast, unspecified estrogen receptor status Ordered: 12/19/2020 documented as of this encounter Visit Diagnoses Diagnosis Malignant neoplasm of upper-outer quadrant of right female breast, unspecified estrogen receptor status documented in this encounter Care Teams Technical Sales Director Relationship Specialty Start Date End Date Ghazal Joseph APRN [address] [place] [address] PCP - General Family Medicine 12/19/20 documented as of this encounter
--- OUTSIDE RECORDS SUMMARY | 2024-03-10 17:20 | XMS_ITS | Encounter Summary ---
Author Organization [facility] [place] [address] Care Team Providers Care Gre Tutor Name Role Phone Nerissa Cody APRN Primary Care Provider [phone] Reason for Visit * Reason Comments Verrucous Vulgaris Encounter Details Date Type Department Care Team (Late st Contact Info) Description 01/26/2011 3:45 PM EDT Office Visit Dermatology [address] [place] [address] [address] [place] [address] Uche Gann MD [address] [facility] [place] [address] Verruca vulgaris (Primary Dx) Social History Tobacco Use Types Packs/Day Years Used Date Smoking Tobacco: Never Assessed Sex and Gender Information Value Date Recorded Sex Assigned at Not on file Gender Identity Not on file Sexual Orientation Not on file documented as of this encounter Progress Notes * Uche Gann MD - 01/26/2011 4:46 PM EDT Problems: 1. Followup psoriasiform hand dermatitis. 2. Verruca vulgaris of right second finger. Ghazal follows up and states that she feels like she is putting paint over rust. She would really like to get down to the root of the problem and understand why she has the hand dermatitis. She would like to find a cure rather than symptomatic therapy. She states that the wart on her right second finger is much improved. She has some mild erythema below either angle of the mouth extending down onto her chin bilaterally. Physical examination reveals a pleasant 60-year-old woman who has actually cleared the callous like psoriasiform plaques on the pressure points on the palmar hands bilaterally. She has no eczematous dermatitis. She has no vesicles, cracking or fissuring. The verruca vulgaris on the right second finger has largely healed but there is still some slight verrucous tissue remaining. She has mild erythema not consistent with angular cheilitis present below either angle of the mouth. Assessment & Plan: Psoriasiform hand dermatitis. a. Continue CeraVe Cream and Cetaphil which she likes and is using. b. When doing frictional work wear gloves. c. Continue sensitive skincare precautions. d. Empathized that there is not a recognized cure for the problem and we really only have symptomatic therapy for this. I encouraged her to keep it up. Verruca vulgaris, right dorsal second finger. a. RTC in one month for repeat check may cancel if doing well. LN 2x2 applied to site. CC: MACEY Vidal-BC documented in this encounter Plan of Treatment Not on file documented as of this encounter Visit Diagnoses Diagnosis Verruca vulgaris- Primary Viral warts, unspecified documented in this encounter Care Teams Gre Tutor Relationship Specialty Start Date End Date Nerissa Cody APRN [address] [place] [address] PCP - General 06/24/10 02/22/11 documented as of this encounter
--- OUTSIDE RECORDS SUMMARY | 2024-03-10 17:20 | XMS_ITS | Encounter Summary ---
Author Organization [facility] [place] [address] Care Team Providers Care Technical Operator Name Role Phone Ghazal Joseph APRN Primary Care Provider [phone] Encounter Details Date Type Department Care Team (Late st Contact Info) Description 01/02/2021 9:30 AM EDT Office Visit [facility] [address] [place] [address] Maricruz Cooley, RN Breast cancer [...] place to sleep or slept in a long term (including now)? No 12/19/2020 Sex and Gender Information Value Date Recorded Sex Assigned at Not on file Gender Identity Not on file Sexual Orientation Not on file documented as of this encounter Last Filed Vital Signs Vital Sign Reading Time Taken Comments Blood Pressure 135/79 01/02/2021 9:14 AM EDT Pulse 77 01/02/2021 9:14 AM EDT Temperature 36.8 ??C (98.2 ??F) 01/02/2021 9:14 AM ED T Respiratory Rate 18 01/02/2021 9:14 AM EDT Oxygen Saturation 99% 01/02/2021 9:14 AM EDT Inhaled Oxygen Concentration - - Weight 65.5 kg (144 lb 6.4 oz) 01/02/2021 9:14 A M EDT Height 162 cm (5' 3.78) 01/02/2021 9:14 AM EDT Body Mass Index 24.96 01/02/2021 9:14 AM EDT documented in this encounter Progress Notes * Maricruz Cooley, AYDIN - 01/02/2021 9:30 AM EDT Images from the original note were not included. 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 Nina is in clinic for follow-up of breast cancer. She completed neoadjuvant chemotherapy followed by surgery on November 07 and November 21. She has residual disease after neoadjuvant chemotherapy and she started on Kadcyla on December 10 in [place]. Ghazal is here today for C2. She is complaining of headaches. She has a history of migraine headaches but she states this headache is different. She is waking up with the headache in the morning. She has been taking her Zomig without any relief. Denies any dizziness, vision changes, confusion or changes in balance or weakness. Other than the headaches she is feeling well. Appetite is good. No nausea, vomiting, constipat ion or diarrhea. She has taken Zofran in the past without having any issues with headaches. No breast issues or new lumps or bumps. She denies any numbness or tingling in extremities. 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 Father had kidney cancer OBGYN History: , menarche at age of 12, age of first live 23, menopausal in mid 50s, no hormone replacement therapy, use local estrogen cream Allergies: Allergies Allergen Reactions ??? Codeine Nausea Only Medications: Your Medications Accurate as of January 02, 2021 9:21 AM. If you have any questions, ask [...] 2 hours before a treatment. Refills: 0 estrogens (conjugated) 0.625 mg/gram Crea [...] Neurologic: Normal No focal deficit. Vitals BP 135/79 (BP Location (NBP): Left arm, Patient Position: Sitting, BP Cuff Sizes: Adult (25-34 cm)) Pulse 77 Temp 36.8 ??C (98.2 ??F) (Temporal) Resp 18 Ht 162 cm (5' 3.78) Wt 65.5 kg (144 lb 6.4 oz) SpO2 99% BMI 24.96 kg/m?? Pathology: 11/21/20 11/07/20 03/28/20 INTERPRETATION: BREAST, [...] Tissue submitted: Paraffin embedded tissue block labelled [id number] From [facility] F 3+ positive Strong complete membrane [...] performance characteristics have been determined by [facility] and/or by the referring laboratory. The [...] 03/29/20 at 4:25 pm byDr. Ramana Chew. 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 Lymph [...] radiation therapy. --------- Peggy is back from [place] where she completed 6 cycle of TCHP [...] 14 cycles followed by neratinib p.o. She will be starting radiation in [facility] for adjuvant radiation therapy next week. We will continue Kacyla every 3 weeks with monitoring for liver function and thrombocytopenia. We will hold treatment for platelet count below 75,000 on liver enzymes more than upper limit of normal x3 or elevated bilirubin. We will check echocardiogram every 3 months during her anti-Her2 treatment. # LFT's- Grade 2 elevation- continue at same dose for today and monitor enzymes closely. Platelets 158,000. # Headaches- she has a history of migraines. She feels this headache is different and her usual medications are not helping. Last MRI in May 2020 negative. Will repeat MRI. May be related to medications. She has had ondansetron in the past without any headaches. Possibly related to Kadcyla. Milind mmended she follow up with neurologist. Plan: 1. Proceed with C2 Kadcyla today as scheduled. 2. MRI of brain 3. Consider neurology referral. 4. Next visit in 3 weeks with CBC, cMP and 3rd cycle of Kadcyla. Ghazal voiced understanding of the plan and was given an opportunity to ask questions which I answered to the best of my ability.Amaury understands he can call the clinic between visits with any questions/concerns or new symptoms. Maricruz Cooley MSN, AUTOMATIC WINDER OPERATOR, AOCNP Medical Oncology documented in this encounter Plan of Treatment Not on file documented as of this encounter Visit Diagnoses Diagnosis Breast cancer metastasized to axillary lymph node, right documented in this encounter Care Teams Technical Operator Relationship Specialty Start Date End Date Ghazal Joseph APRN [address] [place] [address] PCP - General Family Medicine 12/19/20 documented as of this encounter
--- OUTSIDE RECORDS SUMMARY | 2024-03-10 17:20 | XMS_ITS | Encounter Summary ---
Author Organization [facility] Address [facility] [place] [address] Care Team Providers Care Steel Welder Name Role Phone None Primary Care Provider Unavailabl e Encounter Details Date Type Department Care Team (Latest Contact Info) Description 04/24/2020 2:17 PM EDT - 04/24/2020 11:59 PM EDT Hospital Encounter Laboratory [facility] [place] [address] Discharge Disposition: Home Social History Tobacco Use Types Packs/Day Years Used Date Smoking Tobacco: Never Assessed Sex and Gender Information Value Date Recorded Sex Assigned at Not on file Gender Identity Not on file Sexual Orientation Not on file documented as of this encounter Medications at Time of Discharge Medication Sig Dispensed Refills Start Date End Date montelukast (Singulair) 10 mg Tablet Take 10 mg by mouth nightly. FLUoxetine (PROzac) 10 mg Capsule Take 40 mg by mouth daily. calcium-vitamin D3 600 mg-5 mcg (200 unit) Tablet Take by mouth. fluticasone propionate (FLONASE) 50 mcg/actuation [place], Suspension 1 spray daily. albuterol sulfate 90 mcg/actuation Aerosol Powdr Breath Activated Inhale 180 mcg into the lungs. benazepriL (LOTENSIN) 10 mg Tablet Take by mouth. 05/01/2019 01/19/2022 albuterol (ACCUNEB) 0.63 mg/3 mL Solution for Nebulization Inhale into the lungs. 04/01/2015 01/14/2021 Calcium Citrate-Vitamin D3 315 mg-6.25 mcg (250 unit) Tablet Take by mouth. 04/12/2013 01/14/2021 vitamin E (vitamin E) 400 unit Capsule Take 800 Units by mouth. 04/12/2013 01/14/2021 zonisamide (Zonegran) 100 mg Capsule Take by mouth. 05/01/2019 01/14/2021 ZONISAMIDE ORAL Take 10 mg by mouth 2 times daily. 12/19/2020 atorvastatin (Lipitor) 10 mg Tablet Take 20 mg by mouth daily. 01/23/2021 estrogens, conjugated, (PREMARIN) 0.625 mg/gram Cream Place vaginally daily. Using 2X/wk to prevent sores. 01/21/2021 benazepriL (LOTENSIN) 20 mg Tablet Take 10 mg by mouth daily. 02/07/2021 amLODIPine (Norvasc) 10 mg Tablet Take 10 mg by mouth daily. 12/19/2020 ZOLMitriptan (ZOMIG) 5 mg Tablet Take 5 mg by mouth as needed for Migraine. Initial dose: 1.25 to 2.5 mg (maximum: 5 mg/dose). May repeat dose after 2 hours. Max daily dose: 10 mg 04/30/2022 vitamin E (vitamin E) 400 unit Capsule Take by mouth. documented as of this encounter Plan of Treatment Not on file documented as of this encounter Procedures Procedure Name Priority Date/Time Associated Diagnosis Comments SURGICAL PATHOLOGY REPORT Routine 04/24/2020 2:17 PM EDT documented in this encounter Results * Surgical Pathology Report (04/24/2020 2:17 PM EDT) Final Diagnosis [id number] ? Location: [facility]W The signing pathologist has (i) examined the relevant preparation(s) for the specimen(s) and (ii) rendered or confirmed the diagnosis(es). . ?Surgical Pathology DIAGNOSIS CONSULTATION CASE Outside slide(s) labeled [id number], collection date 03/28/2020. Needle biopsies: ?Right breast, 7 o'clock, 5 cm from nipple Diagnosis: ?Invasive ductal carcinoma with focal apocrine ?features, intermediate to high grade. Microcalcificatio ns: ??N/A ER, IL, and HER2 studies (I[facility] slides reviewed): ER: Negative IL: Negative HER2 IHC: Positive (score 3+) Needle biopsies: ?Right axillary lymph node Diagnosis: ?Invasive ductal carcinoma, intermediate to high ?grade, with focal apocrine features, see Discussion. ER, IL, and HER2 studies (I[facility] slides reviewed): ER: Negative IL: Negative HER2 IHC: Positive (score 3+) Electronically signed by: ??Jamilah Alejo DO Verified: ??04/25/2020 ?Pathologist Performed at: ??-[facility] [facility] [place], [place], [place] DISCUSSION Focal lymphocytes are present in specimen B intermixed with the tumor; however, definite lymph node tissue is not seen in this sample. Clinical and radiologic correlation recommended to determine if this represents metastatic carcinoma in a lymph node. SPECIMEN(S) SUBMITTED CONSULTATION CASE A - 16 slide(s) labeled [id number], collection date 03/28/2020. [id number] Report to: [facility] Surgical Pathology Department [facility], [facility], [address]nd Floor [address] [place] [address] ??[id number] CLINICAL INFORMATION Right breast mass 7 o'clock 5 cm from nipple. Right axillary lymph node. SPECIMEN PROCESSING [facility] ([facility]) pathology slide(s) are reviewed. ??Refer to Diagnosis and Specimen Submitted for specific case information. . SPECIMEN PROCESSING For the full text of the [facility] report(s) please refer to Non- Documentation Pathology in the electronic health record (eDH). 04/25/2020 10:29 AM EDT [facility] Consult Case 04/24/2020 2:17 PM EDT 04/24/2020 2:17 PM EDT Graeme Devitskiy MD PATHOLOGY/CYTOLOGY O RDERABLES [facility] [place] [address] documented in this encounter Visit Diagnoses Not on filedocumented in this encounter Care Teams Steel Welder Relationship Specialty Start Date End Date None None PCP - General 02/23/11 12/18/20 documented as of this encounter
--- OUTSIDE RECORDS SUMMARY | 2024-03-10 17:20 | XMS_ITS | Encounter Summary ---
Author Organization [facility] Address [facility] [place] [address] Care Team Providers Care Fire Control Technician B Name Role Phone None Primary Care Provider Unavailabl e Encounter Details Date Type Department Care Team (Late st Contact Info) Description 05/03/2020 1:20 PM EDT Ancillary Procedure [place] [address] Graeme Grigsby MD [facility] [address] [place] [address] Social History Tobacco Use Types Packs/Day Years [...] FILM LIBRARY STORAGE ONLY MR HEAD Routine 05/03/2020 1:17 PM EDT documented in this encounter Results * Film Library- Storage Only MR Head (05/03/2020 1:17 PM EDT) Narrative RAD - 05/03/2020 1:17 PM EDT This exam is auto-finalizing. It's purpose is for storage only. Graeme Grigsby MD IMG FILM LIBRARY ORD ERABLES [place], [place] documented in this encounter Visit Diagnoses Not on filedocumented in this encounter Care Teams Fire Control Technician B Relationship Specialty Start Date End Date None None PCP - General 02/23/11 12/18/20 documented as of this encounter
--- OUTSIDE RECORDS SUMMARY | 2024-03-10 17:20 | XMS_ITS | Encounter Summary ---
Author Organization [facility] Address [facility] [place] [address] Care Team Providers Care Public Relations Studies Director Name Role Phone Ghazal Joseph AYDIN Primary Care Provider [phone] [phone] Reason for Visit * Consultation (Routine) - Closed Specialty Diagnoses / Procedures Referred By Sal fournier Referred To Contact Radiation Oncology Diagnoses Malignant neoplasm of upper-outer quadrant of right female breast, unspecified estrogen receptor status Procedures Simulation for Radiation Therapy Planning Jonna Lange MD [facility] [place] [address] [facility] Rad Onc Office [address] [place] [id number] Referral ID Status Reason Start Date Expiration Date V isits Requested Visits Authorized [id number] Closed Consult, Test & Treat 12/19/2020 12/19/2021 99 99 Encounter Details Date Type Department Care Team (Latest Contact Info) Description 12/24/2020 10:00 AM EDT Ancillary Appointment Radiation Oncology at [address] [address] Jonna Lange MD [facility] [address] Malignant neoplasm of upper-outer quadrant of right [...] place to sleep or slept in a halfway (including now)? No 12/19/2020 Sex and Gender Information Value Date Recorded Sex Assigned at Not on file Gender Identity Not on file Sexual Orientation Not on file documented as of this encounter Patient Instructions * Patient Instructions* Elsie Jade RN - 12/24/2020 10:00 AM EDT Information for Patients receiving radiation therapy to the Breast Approximately two weeks after your first treatment, you may begin to experience side effects causedby the radiation. These effects may continue throughout the treatment period and not start improving until 1-2 weeks after treatment is completed. Your doctor will tell you which side effects you aremost likely to experience, when you will notice them and how long they might last. It is important to follow the appropriate instructions to minimize your discomfort. Skin Care ??? Wash skin in the treatment field with lukewarm water and mild or moisturizing, unscented soap daily. Blot skin dry with a soft towel. ??? Do not apply any ointment, salve, deodorant, perfume, cologne, cosmetic or self-remedy to the treatment area while you are undergoing radiation and for 1-2 weeks following treatment. An all natural deodorant with no aluminum can be used if necessary. ??? Moisturizing cream will be provided for you. This may be used in the treatment area once daily beginning on your first treatment day. Do not apply 2 hours before your radiation treatments. As dryness/redness develop you can use this more often. ??? Do not rub or scratch the skin in the treatment field. This includes shaving unless you use an electric razor. If your skin becomes dry or itchy, tell your nurse or doctor. If necessary, your doctor may order a medication specifically for this problem. ??? Do not use hot water bottles, heating lights, electric heating pads, or hot packs to the treatment area. ??? Keep treated areas out of the sun throughout the treatment period. Be careful of sun exposure to the treatment field for one year following treatment. Please use SPF> 30 to all exposed areas of skin and limit sun exposure. ??? Avoid tight fitting clothes. We would prefer that you wear a cotton t-shirt instead of a bra. If you are unable to go without a bra please wear a soft cotton bra without underwire. ??? Examine your skin in the treatment area daily and watch for changes. If you cannot reach the whole treatment field ask a family member to look at it and apply cream as needed. Be careful to keep the area under your breast clean and dry as this area can get irritated first. ??? You will meet with your nurse and doctor weekly. They will check your skin and help you with any side effects you are having. Please ask to see the nurse if you have concerns in between these days. ??? During the last weeks of treatment you may notice some peeling of skin and/or a moist reaction.Be sure to let us know if this happens so we can provide you with further skin care instructions.. ??? Continue to stay active, walk daily, eat healthy foods and drink several glasses of water each day. Fatigue You may notice that you feel unusually tired towards the end of treatment. This is not unusual. We recommend that you pace your activities and plan for rest periods to avoid becoming over-tired. Feel free to direct any questions or concerns you may have related to your treatment to your nurse or doctor. [facility] Radiation Oncology Our normal business hours are: Wednesday - Wednesday 8 AM to 5 PM [place], [place], [place] For emergent situations after hours please call for either location and ask for the Radiation Oncologist admissions manager rn. documented in this encounter Progress Notes * Jonna Lange MD - 12/24/2020 10:00 AM EDT Here for sim. Sim: Custom vac bag w/breast bd immobilization; flat bbs on R mastectomy & drain site scars; CTthrough neck & chest; 3D xrt planned. She tolerated sim well, w/o problem. Tx Plan: 3D xrt. Start xrt 1-2 wks. She has been advised to not take vit E during xrt. documented in this encounter Plan of Treatment Not on file documented as of this encounter Visit Diagnoses Diagnosis Malignant neoplasm of upper-outer quadrant of right female breast, unspecified estrogen receptor status documented in this encounter Care Teams Public Relations Studies Director Relationship Specialty Start Date End Date Ghazal Joseph, AYDIN [address] [place] [address] PCP - General Family Medicine 12/19/20 documented as of this encounter
--- OUTSIDE RECORDS SUMMARY | 2024-03-10 17:20 | XMS_ITS | Encounter Summary ---
Author Organization [facility] Address [facility] [place] [address] Care Team Providers Care Tinware Lithograph Press Operator Name Role Phone Ghazal Joseph APRN Primary Care Provider [phone] [phone] Encounter Details Date Type Department Care Team (Late st Contact Info) Description 12/17/2005 [place] [id number] Vinicio Crowley MD PATHOLOGY [address] [place] [address] Social History Tobacco Use Types Packs/Day Years [...] Associated Diagnosis Comments SURGICAL PATHOLOGY REPORT Routine 12/17/2005 8:02 AM EDT documented in this encounter Results * Surgical Pathology Report (12/17/2005 8:02 AM EDT) Surgical Pathology Report [id number] ? Location: The signing pathologist has (i) examined the relevant preparation(s) for the specimen(s) and (ii) rendered or confirmed the diagnosis(es). . ?Pathology Surgical Pathology Final Report Clinical Information Specimen Submitted: CONSULTATION CASE A - 6 slides labeled [id number], collection date 12/11/05. [id number] Report to: Vinicio Crowley [place] [address] Phone: ??[phone] Fax: ??[phone] Gross Description [facility] pathology slide(s) are reviewed. ??Refer to Diagnosis and Specimen Submitted for specific case information. For the full text of the [facility] report(s) please refer to Non-DH Documentation Pathology in the Clinical Information System (CIS). Microscopic Description Slides reviewed, microscopic description not recorded. Diagnosis Skin, left scalp, excision ([id number]): 1 - Compound nevus, pigmented, with features suggestive of congenital onset ?and mild to moderate cytologic atypia of the junctional component, ?associated with superficial dermal fibrosis, present 0.05 mm from ?peripheral margin. (see Comment) 12/18/05 PAS 12/18/05 Verified by: ? Maggie Hi ?Dermatopatholo gist ?(Electronic Signature) The attending pathologist whose signature appears on this report has reviewed all diagnostic slides and has edited the gross and/or microscopic portion of the report in rendering the final pathologic diagnosis. Comment The superficial fibrosis is suggestive of prior trauma or biopsy. The reason for the clinically described sudden appearance of this lesion is uncertain. If the lesion recurs or persists, additional sampling is suggested as indicated clinically. ALLYDEYANIRA BERRIOSTERESA 12/17/2005 8:02 AM EDT Vinicio Crowley MD PATHOLOGY/CYTOLOGY O RDERABLES Performing Organization Address City/State/[facility] Co de Phone Number PRASANNA FERNANDES documented in this encounter Visit Diagnoses Not on filedocumented in this encounter Care Teams Tinware Lithograph Press Operator Relationship Specialty Start Date End Date Ghazal Joseph, SPINNING BATH PERSON [address] [place] [address] PCP - General Family Medicine 12/19/20 documented as of this encounter
--- OUTSIDE RECORDS SUMMARY | 2024-03-10 17:20 | XMS_ITS | Encounter Summary ---
Author Organization [facility] Address [facility] [place] [address] Care Team Providers Care Guest Experience Captain Name Role Phone Ghazal Joseph APRN Primary Care Provider [phone] [phone] Encounter Details Date Type Department Care Team (Late st Contact Info) Description 01/02/2021 Notes Only [facility] [address] [place] [address] Rere Faulkner RN Social History [...] Progress Notes * Rere Faulkner RN - 01/02/2021 1:43 PM EDT [facility] Outreach Treatment Note - Socorro Harman Jessenia Maico [id number] Allergies Allergen Reactions ??? Codeine Nausea Only Cycle: 2 Day: Medication Dose Route kadcyla 225 mg IV Cumulative Drug Doses Medication Cumulative Dose Patient tolerated treatment well without incident or adverse reaction. Patient instructed to contact this clinic during regular business hours if they have any concerns related to treatment, patient was instructed to contact [facility] home care companion oncologist after hours, on weekends and holidays for concernsrelated to their cancer diagnosis current treatment. documented in this encounter Plan of Treatment Not on file documented as of this encounter Visit Diagnoses Not on filedocumented in this encounter Care Teams Guest Experience Captain Relationship Specialty Start Date End Date Ghazal Joseph APRN [address] [place] [address] PCP - General Family Medicine 12/19/20 documented as of this encounter
--- OUTSIDE RECORDS SUMMARY | 2024-03-10 17:20 | XMS_ITS | Encounter Summary ---
Author Organization [facility] Address [facility] [place] [address] Care Team Providers Care It Communications Manager Name Role Phone None Primary Care Provider Unavailabl e Encounter Details Date Type Department Care Team (Late st Contact Info) Description 05/01/2020 11:15 AM EDT Ancillary Procedure [place] [address] Graeme Grigsby MD [facility] [address] [place] [address] Social History Tobacco Use Types Packs/Day Years [...] STORAGE ONLY CT CHEST ABDOMEN PELVIS Routine 05/01/2020 11:15 AM EDT documented in this encounter Results * Film Library- Storage Only CT Chest Abdomen Pelvis (05/01/2020 11:15 AM EDT) Narrative [facility] - 05/01/2020 11:15 AM EDT This exam is auto-finalizing. It's purpose is for storage only. Graeme Grigsby MD IMG FILM LIBRARY ORD ERABLES [place], [place] documented in this encounter Visit Diagnoses Not on filedocumented in this encounter Care Teams It Communications Manager Relationship Specialty Start Date End Date None None PCP - General 02/23/11 12/18/20 documented as of this encounter
--- OUTSIDE RECORDS SUMMARY | 2024-03-10 17:20 | XMS_ITS | Encounter Summary ---
Author Organization [facility] Address [facility] [place] [address] Care Team Providers Care Custom Car Builder Name Role Phone None Primary Care Provider Unavailabl e Encounter Details Date Type Department Care Team (Late st Contact Info) Description 05/06/2020 9:00 AM EDT Office Visit [facility] [address] [place] [address] Graeme Grigsby MD [facility] DR HEMATOLOGY [place] [address] Breast cancer metastasized to axillary lymph node, right; Elevated serum alkaline phosphatase level; HER2-positive carcinoma of right breast Social History Tobacco Use Types Packs/Day Years Used Date Smoking Tobacco: Never Assessed Sex and Gender Information Value Date Recorded Sex Assigned at Not on file Gender Identity Not on file Sexual Orientation Not on file documented as of this encounter Last Filed Vital Signs Vital Sign Reading Time Taken Comments Blood Pressure 125/76 05/06/2020 9:12 AM EDT Pulse 90 05/06/2020 9:12 AM EDT Temperature 36.7 ??C (98.1 ??F) 05/06/2020 9:12 AM ED T Respiratory Rate - - Oxygen Saturation 99% 05/06/2020 9:12 AM EDT Inhaled Oxygen Concentration - - Weight 66.2 kg (146 lb) 05/06/2020 9:12 AM EDT Height 162.6 cm (5' 4) 05/06/2020 9:12 AM EDT Body Mass Index 25.06 05/06/2020 9:12 AM EDT documented in this encounter Progress Notes * Graeme Grigsby MD - 05/06/2020 9:00 AM EDT Images from the original note were not included. 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 Overall, she feels at baseline. She had Mediport placement by Dr. No. Developed some discomfort in her throat/neck on the right side. Worries that she may have enlarged lymph node there. Otherwise no focal complaints. She plans to move to [place] for the winter. 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 Father had kidney cancer OBGYN History: , menarche at age of 12, age of first live 23, menopausal in mid 50s, no hormone replacement therapy, use local estrogen cream Allergies: Allergies Allergen Reactions ??? Codeine Nausea Only Medications: Your Medications Accurate as of May 06, 2020 9:05 AM. If you have any questions, ask [...] or axillary areas Neurologic: Normal Vitals BP 125/76 Pulse 90 Temp 36.7 ??C (98.1 ??F) Ht 162.6 cm (5' 4) Wt 66.2 kg (146 lb) SpO2 99% BMI 25.06 kg/m?? Pathology: 03/28/20 INTERPRETATION: BREAST, RIGHT, ULTRASOUND-GUIDED [...] Tissue submitted: Paraffin embedded tissue block labelled [id number] From [facility] F 3+ positive Strong complete [...] performance characteristics have been determined by [facility] and/or by the referring laboratory. [...] 03/29/20 at 4:25 pm byDr. Ramana Chew. Federal Mediation Commissioner slides of this case were reviewed at [...] WBC 5.3, hemoglobin 13.5, platelet count 268 Imagin05/03/2020 LV ejection fraction 66%. 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 Lymph [...] Pertuzumab followed by surgery and radiation therapy. She may need to complete whole year of trastuzumab given that she has a response to chemotherapy. We discussed the benefits and risks of chemotherapy which include but not limited. Based on the clinical phase 3 data patient may have 40 to 50% of complete responses. Side effects include but not limited to nausea, vomiting, fatigue, hair loss, fluid retention, allergic reaction, kidney failure, hearing loss, numbness/tingling/pain in extremities, congestive heartfailure, decrease in LVEF fraction. Low blood counts requiring transfusion, infection including life- threatening infection and . All questions were answered to patient satisfaction. She is going to move to [place] for the winterand received treatment there. She will provide us with the name of her medical oncologist there so we can transfer all information to local oncologist. She will call us when she is back from [place]. Plan: 1. Follow-up with medical oncologist in [place] for neoadjuvant chemotherapy 2. Next visit as needed. Ms. Nina is accompanied by her today. [...] enzyme levels HER2-positive carcinoma of right breast documented in this encounter Care Teams Custom Car Builder Relationship Specialty Start Date End Date None None PCP - General 02/23/11 12/18/20 documented as of this encounter
--- OUTSIDE RECORDS SUMMARY | 2024-03-10 17:20 | XMS_ITS | Encounter Summary ---
Author Organization [facility] [place] [address] Care Team Providers Care Infrastructure Solutions Architect Name Role Phone Ghazal Joseph APRN Primary Care Provider [phone] [phone] Encounter Details Date Type Department Care Team (Late st Contact Info) Description 12/18/2020 Orders Only [facility] [address] [place] [address] Rere Faulkner RN Breast cancer metastasized to axillary lymph [...] right documented in this encounter Care Teams Infrastructure Solutions Architect Relationship Specialty Start Date End Date Ghazal Joseph APRN [address] [place] [address] PCP - General Family Medicine 12/19/20 documented as of this encounter
--- OUTSIDE RECORDS SUMMARY | 2024-03-10 17:20 | XMS_ITS | Encounter Summary ---
Author Organization Formerly [facility] Address [facility] [place] [address] Care Team Providers Care Vat House Supervisor Name Role Phone Ghazal Joseph APRN Primary Care Provider [phone] Reason for Visit * Reason Comments On Treatment Visit Encounter Details Date Type Department Care Team (Late st Contact Info) Description 01/14/2021 12:30 PM EDT Office Visit Radiation Oncology at [address] [address] Lee Lange MD [facility] [place] [address] Malignant neoplasm of upper-outer quadrant of right [...] Sign Reading Time Taken Comments Blood Pressure 134/78 01/14/2021 1:02 PM EDT Pulse 82 01/14/2021 1:02 PM EDT Temperature 36.7 ??C (98.1 ??F) 01/14/2021 1:02 PM ED T Respiratory Rate 16 01/14/2021 1:02 PM EDT Oxygen Saturation 100% 01/14/2021 1:02 PM EDT Inhaled Oxygen Concentration - - Weight 63.5 kg (140 lb) 01/14/2021 1:02 PM EDT w fasial beltre Height - - Body Mass Index 24.2 01/02/2021 9:14 AM EDT documented in this encounter Progress Notes * Lee Lange MD - 01/14/2021 12:30 PM EDT Images from the original note were not included. DIAGNOSIS: Breast ca, R, IDC, ER-[place]-, Her2+, cT1 cN1, s/p neoadjuvant TCHP followed by R mastectomy& SNB, then completion R ax lymph node dissxn, ypT1b ypN1. Continues on kadcyla & neratinibplanned. ?? CURRENT TREATMENT DOSE: 10 Gy R Supraclav, Axilla, IMC & R Chest Wall ANTICIPATED TOTAL DOSE: 50 Gy R Supraclav, Axilla, IMC & R Chest Wall; 60 Gy Mastectomy Scar Current # of xrt received: 5 R Supraclav, Axilla, IMC & R Chest Wall Anticipated total # of xrt txs: 25 R Supraclav, Axilla, IMC & R Chest Wall; 30 Mastectomy Scar Evaluation of port verification films: Approved. For details, see electronic film record in [employer]. Changes in Medical Condition: None. Pain?: When on tx table w/arms up, manages w/visualization, does not want to take analgesic. Your Medications Accurate as of January 14, 2021 1:26 PM. If you have any questions, ask [...] dose: 10 mg 5 mg Refills: 0 STOPPED Medications dexamethasone 4 mg Tab Commonly known as: Decadron Stopped by: LEE LANGE MD sulfamethoxazole-trimethoprim DS 800-160 mg Tab Commonly known as: Bactrim DS Stopped by: LEE LANGE MD Physical Exam: BP 134/78 (Patient Position: Sitting) Pulse 82 Temp 36.7 ??C (98.1 ??F) (Temporal) Resp 16 Wt 63.5 kg (140 lb) Comment: with sneakers SpO2 100% BMI 24.20 kg/m?? A&Ox3, NAD. Irrad'd area w/o erythema. Imagin12/24/20 Dx'ic Rad Interp CTsim: No suspicious lesion. Performance Status: KPS 100% Response to xrt: As expected. Irradiation Related Symptoms: None. Treatment for Symptom Control: Alvaro's cream. Pain Management: Visualization. Recommendation on Continuing Course of xrt: Cont. Resim today as beam films suggest significant decrease in chest wall swelling. documented in this encounter Plan of Treatment Not on file documented as of this encounter Visit Diagnoses Diagnosis Malignant neoplasm of upper-outer quadrant of right female breast, unspecified estrogen receptor status documented in this encounter Care Teams Vat House Supervisor Relationship Specialty Start Date End Date Ghazal Joseph APRN [address] [place] [address] PCP - General Family Medicine 12/19/20 documented as of this encounter
--- OUTSIDE RECORDS SUMMARY | 2024-03-10 17:20 | XMS_ITS | Encounter Summary ---
Author Organization [facility] Address [facility] [place] [address] Care Team Providers Care Food Service Aide Name Role Phone None Primary Care Provider Unavailabl e Encounter Details Date Type Department Care Team (Late st Contact Info) Description 04/19/2020 Abstract [facility] [address] [place] [address] Ally Bashir, RN Social History Tobacco Use Types Packs/Day Years Used Date Smoking Tobacco: Never Assessed Sex and Gender Information Value Date Recorded Sex Assigned at Not on file Gender Identity Not on file Sexual Orientation Not on file documented as of this encounter Last Filed Vital Signs Vital Sign Reading Time Taken Comments Blood Pressure - - Pulse - - Temperature - - Respiratory Rate - - Oxygen Saturation - - Inhaled Oxygen Concentration - - Weight 67.4 kg (148 lb 9.6 oz) 04/19/2020 9:43 A M EDT Height 162.6 cm (5' 4) 04/19/2020 9:43 AM EDT Body Mass Index 25.51 04/19/2020 9:43 AM EDT documented in this encounter Plan of Treatment Not on file documented as of this encounter Visit Diagnoses Not on filedocumented in this encounter Care Teams Food Service Aide Relationship Specialty Start Date End Date None None PCP - General 02/23/11 12/18/20 documented as of this encounter
[2024-03-10 21:03] LABS: Abs Immature Grans 0.01 10^3/uL (0.0-0.06); Absolute Basophil Count 0.04 10^3/uL (0.0-0.2); Absolute Eosinophil Count 0.29 10^3/uL (0.0-0.7); Absolute Lymphocyte Count 0.74 10^3/uL (1.2-3.4); Absolute Monocyte Count 0.32 10^3/uL (0.1-0.8); Absolute Neutrophil Count 2.73 10^3/uL (1.2-6.7); HCT 41.3 % (36.0-46.0); HGB 13.1 g/dL (11.2-15.7); Immature Grans % 0.2 %; Lymphocytes % 17.9 %; MCH 28.3 pg (27.0-33.0); MCHC 31.7 % (32.0-36.0); MCV 89 fL (80-95); MPV 9.3 fL (8.0-11.0); Monocytes % 7.7 %; Neutrophils % 66.2 %; Platelet Count 106 10^3/uL (130-400); RBC 4.63 10^6/uL (3.93-5.22); RDW 13.9 % (11.7-14.6); RDW-SD 45.3 fL; WBC 4.13 10^3/uL (4.4-10.8)
[2024-03-10 21:45] LABS: ALT 37 U/L (14-59); AST 21 U/L (15-37); Albumin 3.5 g/dL (3.4-5.0); Alkaline Phosphatase 353 U/L (46-116); Anion Gap 10.5 mmol/L (3-11); BUN 13 mg/dL (7-18); Bilirubin, Total 0.55 mg/dL (0.2-1.0); CO2 26.5 mmol/L (21.0-32.0); CREATININE 0.9 mg/dL (0.55-1.02); Calcium 8.7 mg/dL (8.5-10.1); Chloride 105 mmol/L (98-107); Estimated GFR 67.92 (mL/min/1.73m2); Glucose 89 mg/dL (74-106); PHOSPHORUS 3.9 mg/dL (2.6-4.7); Sodium 142 mmol/L (136-145); TSH (W/Ref FT4) 4.24 uIU/mL (0.36-3.74); Vitamin D 25 Total 53.6 ng/mL (30-100)
[2024-03-10 22:07] LABS: FREE T4 1.05 ng/dL (0.76-1.46)
[2024-03-13 09:09] LABS: AFP Tumor Marker <2.5 ng/mL (<8.1)
== END 2024-03-10 17:12 | disposition home or self-care (01) ==
LOC: NCHCN 17:11
PROVIDERS: PCP Nurse Practitioner Family; Visit Provider Nurse Practitioner Family
DX: E03.9 Hypothyroidism, unspecified (principal); M81.0 Age-related osteoporosis without current pathological fracture; K74.60 Unspecified cirrhosis of liver
CPT/HCPCS: 80053; 82306; 82105; 83735; 84100; 84439; 84443; 85025

== ENCOUNTER 2024-03-16 01:58 | Outpatient (CLI) | payer MEDICARE, BC, SELFPAY ==
--- OUTSIDE RECORDS SUMMARY | 2024-03-15 01:11 | XMS_ITS | Clinical Summary ---
Author Organization [facility] Address [facility] [place] [address] Care Team Providers Care Research And Development Specialist Name Role Phone Ghazal Joseph APRN Primary Care Provider [phone] Allergies Active Allergy Reactions Criticality Noted Date Comments Codeine Nausea Only 04/19/2020 Medications Medication Sig Dispensed Refills Start Date End Date Status montelukast (Singulair) 10 mg Tablet Take 10 mg by mouth nightly. Active FLUoxetine (PROzac) 10 mg Capsule Take 40 mg by mouth daily. Active calcium-vitamin D3 600 mg-5 mcg (200 unit) Tablet Take by mouth. Active fluticasone propionate (FLONASE) 50 mcg/actuation [place], Suspension 1 spray daily. Act basilio albuterol [...] Team Description 01/17/2024 Telephone Radiation Oncology at [address] [address] Kassandra Diaz from Last 3 [...] - Influenza standard series) 04/02/2024 Care Teams Research And Development Specialist Relationship Specialty Start Date End Date Ghazal Joseph APRN [address] [place] [address] PCP - General Family Medicine 12/19/20
--- OUTSIDE RECORDS SUMMARY | 2024-03-15 01:11 | XMS_ITS | Encounter Summary ---
Author Organization [facility] Address [address] [place] [address] Care Team Providers Care Speech Communication Professor Name Role Phone Nerissa Cody MACEY Primary Care Provider [phone] Encounter Details Date Type Department Care Team (Late st Contact Info) Description 12/09/2005 Results Only [facility] - Maple conversion [address] [place] [address] Carlos Hartley ARNP [address] [place] [address] Social History Tobacco Use Types Packs/Day Years [...] ? ROSANA NINA ? Accession #: ? [id number] : ? 1950 (Age: 54) ??F ?Collect Date: ? 12/09/2005 Location: ? [facility] ? Receive Date: ? 12/11/2005 Provider: ?CARLOS CULP Copy to: ? Specimen/Source: ?ThinPrep Pap Test, Cervix/Endocervix, processed on [place] ThinPrep Imaging System, with manual evaluation Last [...] PATHOLOGY ORDERABL ES [facility] [address] [place] [address] documented in this encounter Visit Diagnoses Not on filedocumented in this encounter Care Teams Speech Communication Professor Relationship Specialty Start Date End Date Nerissa Cody FNP [address] [place], [place] [id number] PCP - General 01/15/10 03/15/16 documented as of this encounter
--- OUTSIDE RECORDS SUMMARY | 2024-03-15 01:11 | XMS_ITS | Encounter Summary ---
Author Organization [facility] Address [address] [place] [address] Care Team Providers Care Senior It Recruiter Name Role Phone Nerissa Cody MACEY Primary Care Provider Encounter Details Date Type Department Care Team (Late st Contact Info) Description 02/07/2013 Results Only [facility] [phone] Rosana Simon, PICKER MACHINE OPERATOR [address] [facility] [address] [place] [id number] Social History Tobacco Use Types Packs/Day Years [...] reading/interpreting unformatted reports. Name: ? SELIN NINAHREVELINE Rueals ? Accession #: ? [id number] ? : ? 1950 (Age: 62) ??F ? Collect Date: ? 02/07/2013 ? Location: ? [facility] ? Receive Date: ? 02/08/2013 ? Provider: ROSANA SIMON PICKER MACHINE OPERATOR Copy to: ? Final Pathologic Diagnosis: SKIN [...] cell carcinoma at the deep margin. ??(Dr. Huerta)/[facility] Microscopic Description: The stratum corneum is [...] lymphohistiocytic infiltrate in the superficial dermis. ??(Dr. Huerta)/[facility] Document reviewed and electronically signed by: [...] 8:42 EDT 02/08/2013 8:42 EDT Rosana Simon PICKER MACHINE OPERATOR PATHOLOGY ORDERAB LES Performing Organization Address City/State/[facility] Co de Phone Number [facility] [address] [place] [address] documented in this encounter Visit Diagnoses Not on filedocumented in this encounter Care Teams Senior It Recruiter Relationship Specialty Start Date End Date Nerissa Cody FNP [address] [place], [place] [address] PCP - General 01/15/10 03/15/16 documented as of this encounter
--- OUTSIDE RECORDS SUMMARY | 2024-03-15 01:11 | XMS_ITS | Encounter Summary ---
Author Organization [facility] Address [address] [place] [address] Care Team Providers Care Metal Cutter Name Role Phone Unavailable Primary Care Provider Unavailabl e Encounter Details Date Type Department Care Team (Late st Contact Info) Description 05/11/2008 16:20 EDT Hospital Encounter [address] [address] Joaquin Mckeon MD PhD [address] [place] [address] [address] [place] [address] Social History Tobacco Use Types [...]
--- OUTSIDE RECORDS SUMMARY | 2024-03-15 01:11 | XMS_ITS | Encounter Summary ---
Author Organization [facility] Address [address] [place] [address] Care Team Providers Care Printing Equipment Mechanic Apprentice Name Role Phone Unavailable Primary Care Provider Unavailabl e Encounter Details Date Type Department Care Team (Latest Contact Info) Description 07/21/2006 11:36 EST - 07/21/2006 11:59 [facility] Hospital Encounter [address] [address] Joaquin Mckeon MD PhD [address] [place] [address] 2 [place] [phone] Discharge Disposition: Auto Discharge Social History Tobacco [...]
--- OUTSIDE RECORDS SUMMARY | 2024-03-15 01:11 | XMS_ITS | Encounter Summary ---
Author Organization [facility] Address [address] [place] [address] Care Team Providers Care Clip Bolter And Wrapper Name Role Phone Unavailable Primary Care Provider Unavailabl e Encounter Details Date Type Department Care Team (Late st Contact Info) Description 01/13/2010 Results Only [facility] Laboratory Services - [facility] ([facility]) [address] [place], [place] [id number] Dylan Torres MD [address] [place] [address] Social History Tobacco Use Types [...] ? ROSANA NINA ? Accession #: ? [id number] ? : ? 1950 (Age: 59) ??F [...] screen ? Gross Description: ? Received in [facility] fixative labelled Rosana Nina and #1 ? ascending colon polyp is a 0.3 x 0.2 x 0.1 cm biopsy. ??The specimen is ? submitted intact as (A). ? Received in [facility]'s fixative labelled Rosana Nina and #2 hepatic [...] Torres MD PATHOLOGY ORDERABLES Performing Organization Address City/State/[facility] Co de Phone Number [facility] [address] [place] [address] documented in this encounter Visit Diagnoses Not on filedocumented in this encounter
--- OUTSIDE RECORDS SUMMARY | 2024-03-15 01:11 | XMS_ITS | Encounter Summary ---
Author Organization [facility] Address [facility] [place] [address] Care Team Providers Care Drill Punch Operator Name Role Phone Ghazal Joseph APRN Primary Care Provider [phone] Reason for Visit * Reason Comments Follow-up Encounter Details Date Type Department Care Team (Late st Contact Info) Description 01/18/2023 2:00 PM EDT Office Visit Radiation Oncology at [address] [address] Jonna Lange MD [facility] [place] [address] S/P radiotherapy Social History Tobacco Use Types [...] ago (02/19/21) for breast ca, R, IDC, ER-[place]-, Her2+, cT1 cN1, s/p neoadjuvant TCHP followed [...] mg Refills: 0 fluticasone propionate 50 mcg/actuation [place], Suspension Commonly known as: Flonase 1 spray [...] P: Rtc 1 yr. She zayas in [place] where she is followed by Med Onc & Surg Onc. 15 mins encounter. . documented in this encounter Plan of Treatment Not on file documented as of this encounter Visit Diagnoses Diagnosis S/P radiotherapy Convalescence following radiotherapy documented in this encounter Care Teams Drill Punch Operator Relationship Specialty Start Date End Date Ghazal Joseph APRN [address] [place] [address] PCP - General Family Medicine 12/19/20 documented as of this encounter
--- OUTSIDE RECORDS SUMMARY | 2024-03-15 01:11 | XMS_ITS | Encounter Summary ---
Author Organization [facility] [place] [address] Care Team Providers Care Feed Grinder Name Role Phone Ghazal Joseph APRN Primary Care Provider [phone] Encounter Details Date Type Department Care Team (Late st Contact Info) Description 01/17/2024 Telephone Radiation Oncology at [address] [address] Kassandra Diaz Social History Tobacco [...] on filedocumented in this encounter Care Teams Feed Grinder Relationship Specialty Start Date End Date Ghazal Joseph APRN [address] [place] [address] PCP - General Family Medicine 12/19/20 documented as of this encounter
--- OUTSIDE RECORDS SUMMARY | 2024-03-15 01:11 | XMS_ITS | Clinical Summary ---
Author Organization [facility] Address [address] [place] [address] Care Team Providers Care Timber Hewer Name Role Phone Ghazal Joseph APRN Primary Care Provider [phone] Encounters Date Type Department Care Team Description 03/11/2024 Lab Requisition [facility] Pathology & Laboratory Medicine - [address] [address] Outr Resulting Lab, Provider from Last 3 Months Social History Tobacco Use Types Packs/Day Years [...] Screening 12/26/2016 COVID-19 Vaccine ( season) 2023 Procedures Procedure Name Priority Date/Time Associated Diagnosis Comments AFP TUMOR MARKER Routine 03/10/2024 15:4 0 EDT from Last 3 Months Results * AFP TUMOR MARKER (03/10/2024 15:40 EDT) AFP Tumor Marker <2.5 <8.1 ng/mL 03/13/2024 9:03 EDT [facility] Comment: AFP Tumor Marker cannot be interpreted in females. ?? NOTE: Serum AFP concentrations should not be interpreted as absolute evidence for the presence or absence of malignant disease. Assayed on Siemens ADVIA Centaur XPT using chemiluminescent technology. ??Values obtained by using different assay methods cannot be used interchangeably. Blood VENOUS BLOOD / Unknown 03/10/2024 15:40 EDT 03/11/2024 21:49 EDT Provider Outr Resulting Lab CHEMISTRY & BLOOD GAS ORDERABLES [facility] [address] [place], [place] [address] from Last 3 Months Care Teams Timber Hewer Relationship Specialty Start Date End Date Ghazal Joseph APRN [address] [place] [address] [facility] - General 03/16/16
--- OUTSIDE RECORDS SUMMARY | 2024-03-15 01:11 | XMS_ITS | Encounter Summary ---
Author Organization [facility] Address [address] [place] [address] Care Team Providers Care Baton Twirler Name Role Phone Unavailable Primary Care Provider Unavailabl e Encounter Details Date Type Department Care Team (Late st Contact Info) Description 01/21/2007 9:34 EDT Hospital Encounter [address] [address] Joaquin Mckeon MD PhD [address] [place] [address] [address] [place] [address] Social History Tobacco Use Types [...]
--- OUTSIDE RECORDS SUMMARY | 2024-03-15 01:11 | XMS_ITS | Referral Summary ---
Author Organization [facility] Address [address] [place] [address] Care Team Providers Care Human Resources Coordinator Name Role Phone JakeGhazal wray AYDIN Primary Care Provider [phone] Encounters Date Type Department Care Team Description 03/11/2024 Lab Requisition [facility] Pathology & Laboratory Medicine - [address] [address] Outr Resulting Lab, Provider from Last 3 [...] file Plan of Treatment Not on file Procedures Procedure Name Priority Date/Time Associated Diagnosis Comments AFP TUMOR MARKER Routine 03/10/2024 15:4 0 EDT from Last 3 Months Results * AFP TUMOR MARKER (03/10/2024 15:40 EDT) AFP Tumor Marker <2.5 <8.1 ng/mL 03/13/2024 9:03 EDT [facility] Comment: AFP Tumor Marker cannot [...] Resulting Lab CHEMISTRY & BLOOD GAS ORDERABLES [facility] [address] [place] [address] from Last 3 Months Care Teams Human Resources Coordinator Relationship Specialty Start Date End Date Ghazal Joseph APRN [address] [place] [address] PCP - General 03/16/16
--- OUTSIDE RECORDS SUMMARY | 2024-03-15 01:11 | XMS_ITS | Encounter Summary ---
Author Organization [facility] Address [address] [place] [address] Care Team Providers Care Quality Compliance Coordinator Name Role Phone Unavailable Primary Care Provider Unavailabl e Encounter Details Date Type Department Care Team (Late st Contact Info) Description 11/04/2007 Before PRISM Converted Visit (Maple) [facility] - Maple conversion [address] [place], [place] [phone] Joaquin Mckeon MD PhD [address] [facility] 2 [place] [phone] Social History Tobacco Use Types Packs/Day Years [...] - Joaquin Mckeon MD,PhD - Job ID: [id number] Doc ID: [id number] cc: MACEY Vidal documented in this encounter Plan of Treatment Not on file documented as of this encounter Visit Diagnoses Not on filedocumented in this encounter
--- OUTSIDE RECORDS SUMMARY | 2024-03-15 01:11 | XMS_ITS | Encounter Summary ---
Author Organization [facility] Address [address] [place] [address] Care Team Providers Care Director Institution Name Role Phone Nerissa Cody MACEY Primary Care Provider [phone] Encounter Details Date Type Department Care Team (Late st Contact Info) Description 12/10/2006 Results Only [facility] - Maple conversion [address] [place] [address] Carlos Hartley ARNP [address] [place] [address] Social History Tobacco Use Types Packs/Day Years [...] ? ROSANA NINA ? Accession #: ? [id number] : ? 1950 (Age: 55) ??F ?Collect Date: ? 12/10/2006 Location: ? [facility] ? Receive Date: ? 12/14/2006 Provider: ?CARLOS CULP Copy to: ? Specimen/Source: ?ThinPrep Pap Test, Vagina/Cervix/Endo cervix, processed on [employer] ThinPrep Imaging System, with manual evaluation Last Menstrual Period: ? Previous Gynecologic Pathology: ? Yes: MIld Atypia ? SPECIMEN ADEQUACY ? Satisfactory for Evaluation - transformation zone component present GENERAL CATEGORIZATION ? Negative for Intraepithelial Lesion or Malignancy ? Document reviewed and electronically signed by: ? Aliyah Crum, [facility](ASCP) ? Report Date: ??12/15/2006 11:18 End of Report [facility] 12/10/2006 12/14/2006 Carlos CULP PATHOLOGY ORDERABL ES [facility] [address] [place] [address] documented in this encounter Visit Diagnoses Not on filedocumented in this encounter Care Teams Director Institution Relationship Specialty Start Date End Date Nerissa Cody FNP [address] [place], [place] [id number] PCP - General 01/15/10 03/15/16 documented as of this encounter
--- OUTSIDE RECORDS SUMMARY | 2024-03-15 01:11 | XMS_ITS | Encounter Summary ---
Author Organization [facility] Address [address] [place] [address] Care Team Providers Care Sales Team Recruiter Name Role Phone Unavailable Primary Care Provider Unavailabl e Encounter Details Date Type Department Care Team (Late st Contact Info) Description 11/15/2009 Results Only [facility] Laboratory Services - [facility] ([facility]) [address] [place], [place] [id number] Carlos Hartley ARNP [address] [place] [address] Social History Tobacco Use Types Packs/Day Years [...] ? ROSANA NINA ? Accession #: ? [id number] ? : ? 1950 (Age: 58) ??F [...] PATHOLOGY ORDERABL ES [facility] [address] [place] [address] documented in this encounter Visit Diagnoses Not on filedocumented in this encounter
--- OUTSIDE RECORDS SUMMARY | 2024-03-15 01:11 | XMS_ITS | Encounter Summary ---
Author Organization [facility] Address [address] [place] [address] Care Team Providers Care Hand Cultivator Name Role Phone Nerissa Cody Primary Care Provider [phone] Encounter Details Date Type Department Care Team (Latest Contact Info) Description 03/11/2016 10:11 EDT - 03/11/2016 23:59 EDT Hospital Encounter [address] [address] Unknown, Provider, Discharge Disposition: Home or Self Care Social History Tobacco Use Types Packs/Day Years Used Date Smoking Tobacco: Never Assessed Sex and Gender Information Value Date Recorded Sex Assigned at Not on file Gender Identity Not on file Sexual Orientation Not on file documented as of this encounter Discharge Disposition Disposition Code Departure Means Destination Home or Self Jail documented in this encounter Plan of Treatment Not on file documented as of this encounter Visit Diagnoses Not on filedocumented in this encounter Care Teams Hand Cultivator Relationship Specialty Start Date End Date Nerissa Cody FNP [address] [place] [address] PCP - General 01/15/10 03/15/16 documented as of this encounter
--- OUTSIDE RECORDS SUMMARY | 2024-03-15 01:11 | XMS_ITS | Encounter Summary ---
Author Organization [facility] Address [address] [place] [address] Care Team Providers Care Customer Operations Manager Name Role Phone Unavailable Primary Care Provider Unavailabl e Encounter Details Date Type Department Care Team (Late st Contact Info) Description 01/21/2007 Before PRISM Converted Visit (Maple) [facility] - Maple conversion [address] [place] [address] Yaya Harris MD [address] [place] [address] Social History Tobacco Use Types Packs/Day Years [...] Yaya Harris MD - [facility] Job ID: [id number] Doc ID: [id number] cc: MACEY Vidal documented in this encounter Plan of Treatment Not on file documented as of this encounter Visit Diagnoses Not on filedocumented in this encounter
--- OUTSIDE RECORDS SUMMARY | 2024-03-15 01:11 | XMS_ITS | Encounter Summary ---
Author Organization [facility] Address [address] [place] [address] Care Team Providers Care Reducer Name Role Phone JakeNerissaGhazal Luis Antonio AYDIN Primary Care Provider [phone] Encounter Details Date Type Department Care Team (Late st Contact Info) Description 02/24/2023 Lab Requisition [facility] Pathology & Laboratory Medicine - [facility] [address] [place] [address] Outr Resulting Lab, Provider Social History Tobacco [...] Surface Ag Negative Negative 02/25/2023 10:43 EDT [facility] Hep C Antibody Negative Negative 02/25/2023 10:43 EDT [facility] Hepatitis A Antibody, IgM Negative Negative 02/25/2023 10:43 EDT [facility] Comment:The results of this assay can be falsely lowered due to the consumption of Biotin. Hepatitis B Core Ab, Total Negative Negative 02/25/2023 10:43 EDT [facility] Blood VENOUS BLOOD / Unknown 02/24/2023 10:10 EDT 02/24/2023 21:26 EDT Provider Outr Resulting Lab CHEMISTRY & BLOOD GAS ORDERABLES [facility] [address] [place] [address] documented in this encounter Visit Diagnoses Not on filedocumented in this encounter Care Teams Reducer Relationship Specialty Start Date End Date Ghazal Joseph APRN [address] [place] [address] PCP - General 03/16/16 documented as of this encounter
--- OUTSIDE RECORDS SUMMARY | 2024-03-15 01:11 | XMS_ITS | Encounter Summary ---
Author Organization [facility] Address [address] [place] [address] Care Team Providers Care Land Surveyor Manager Name Role Phone Nerissa Cody MACEY Primary Care Provider Encounter Details Date Type Department Care Team (Late st Contact Info) Description 03/11/2016 Results Only [facility] [phone] Nelly Mixon, DO [address] [place] [address] Social History Tobacco Use Types [...] ESTEPHANIE ROSANA Jessenia ? Accession #: ? [id number] ? : ? 1950 (Age: 65) ??F ? Collect Date: ? 03/11/2016 ? Location: ? [facility] ? Receive Date: ? 03/11/2016 ? Provider: NELLY MIXON DO Copy to: ROSANA Luis Antonio ALFRED TESTER ROCKET ENGINE ? Final Pathologic Diagnosis: RECTUM, POLYPS, BIOPSIES: [...] Osborn 03/12/2016 11:46 AM End of Report [facility] 03/11/2016 10:5 8 EDT 03/11/2016 10:58 EDT Nelly Mixon DO PATHOLOGY ORDERABLES [facility] [address] [place] [address] documented in this encounter Visit Diagnoses Not on filedocumented in this encounter Care Teams Land Surveyor Manager Relationship Specialty Start Date End Date Nerissa Cody FNP [address] [place], [place] [phone] PCP - General 01/15/10 03/15/16 documented as of this encounter
--- OUTSIDE RECORDS SUMMARY | 2024-03-15 01:11 | XMS_ITS | Encounter Summary ---
Author Organization [facility] Address [address] [place] [address] Care Team Providers Care Bioinformatics Computer Scientist Name Role Phone Unavailable Primary Care Provider Unavailabl e Encounter Details Date Type Department Care Team (Late st Contact Info) Description 02/10/2006 Before PRISM Converted Visit (Maple) [facility] - Maple conversion [address] [place] [address] Joaquin Mckeon MD PhD 1 [facility] [address] [place] [phone] Social History Tobacco Use Types Packs/Day Years [...] Mckeon MD P - cjr Job ID: [id number] Document ID: [id number] cc: MACEY Vidal documented in this encounter Plan of Treatment Not on file documented as of this encounter Visit Diagnoses Not on filedocumented in this encounter
--- OUTSIDE RECORDS SUMMARY | 2024-03-15 01:11 | XMS_ITS | Encounter Summary ---
Author Organization [facility] Address [address] [place] [address] Care Team Providers Care Can Patcher Name Role Phone Nerissa Cody Primary Care Provider [phone] Reason for Visit * Reason Onset Date Comments Other 05/04/2012 Encounter Details Date Type Department Care Team (Late st Contact Info) Description 05/04/2012 Telephone [facility] Neurology - [place] [address] [place] [phone] Joaquin Mckeon MD PhD [address] [place] [address] 2 [place] [phone] Other Social History Tobacco Use Types Packs/Day [...] on filedocumented in this encounter Care Teams Can Patcher Relationship Specialty Start Date End Date Nerissa Cody FNP [address] [place], [place] [phone] PCP - General 01/15/10 03/15/16 documented as of this encounter
--- OUTSIDE RECORDS SUMMARY | 2024-03-15 01:11 | XMS_ITS | Encounter Summary ---
Author Organization [facility] Address [address] [place] [address] Care Team Providers Care Mammography Tech Name Role Phone Unavailable Primary Care Provider Unavailabl e Encounter Details Date Type Department Care Team (Latest Contact Info) Description 11/04/2007 9:09 EDT - 11/04/2007 11:59 EDT Hospital Encounter [address] [address] Joaquin Mckeon MD PhD [address] [place] [address] 2 [place] [address] Discharge Disposition: Auto Discharge Social History Tobacco [...]
--- OUTSIDE RECORDS SUMMARY | 2024-03-15 01:11 | XMS_ITS | Encounter Summary ---
Author Organization [facility] Address [address] [place] [address] Care Team Providers Care Hvac Lead Name Role Phone Unavailable Primary Care Provider Unavailabl e Encounter Details Date Type Department Care Team (Late st Contact Info) Description 02/10/2006 8:05 EDT Hospital Encounter [address] [address] Joaquin Mckeon MD PhD [address] [place] [address] 2 [place] [address] Social History Tobacco Use Types [...]
--- OUTSIDE RECORDS SUMMARY | 2024-03-15 01:11 | XMS_ITS | Encounter Summary ---
Author Organization [facility] Address [address] [place] [address] Care Team Providers Care Childcare Attendant Name Role Phone Unavailable Primary Care Provider Unavailabl e Encounter Details Date Type Department Care Team (Late st Contact Info) Description 07/21/2006 Before PRISM Converted Visit (Maple) [facility] - Maple conversion [address] [place], [place] [address] Joaquin Mckeon MD PhD 1 [facility] 2 [place] [phone] Social History Tobacco Use Types Packs/Day Years Used Date Smoking Tobacco: Never Assessed Sex and Gender Information Value Date Recorded Sex Assigned at Not on file Gender Identity Not on file Sexual Orientation Not on file documented as of this encounter Progress Notes * Joaquin Mckeon MD - 08/05/2009 0491 EST NEUROLOGY HEALTH CARE SERVICE PROGRESS/FOLLOWUP NOTE [...] per month where her headaches reach a cbochykw-bq-efkoxj intensity. She typically takes Zomig with each [...] Mckeon MD,PhD A - ts Job ID: [id number] Document ID: [id number] cc: MACEY Vidal documented in this encounter Plan of Treatment Not on file documented as of this encounter Visit Diagnoses Not on filedocumented in this encounter
--- OUTSIDE RECORDS SUMMARY | 2024-03-15 01:11 | XMS_ITS | Encounter Summary ---
Author Organization [facility] Address [address] [place] [address] Care Team Providers Care Refrigerating Engineer Name Role Phone JakeNerissaGhazal Luis Antonio AYDIN Primary Care Provider [phone] Encounter Details Date Type Department Care Team (Late st Contact Info) Description 03/11/2024 Lab Requisition [facility] Pathology & Laboratory Medicine - [facility] [address] [place] [address] Outr Resulting Lab, Provider Social History Tobacco [...] TUMOR MARKER Routine 03/10/2024 15:4 0 EDT documented in this encounter Results * AFP TUMOR MARKER (03/10/2024 15:40 EDT) AFP Tumor Marker <2.5 <8.1 ng/mL 03/13/2024 9:03 EDT [facility] Comment: AFP Tumor Marker [...] Resulting Lab CHEMISTRY & BLOOD GAS ORDERABLES [facility] [address] [place], [place] [phone] documented in this encounter Visit Diagnoses Not on filedocumented in this encounter Care Teams Refrigerating Engineer Relationship Specialty Start Date End Date Ghazal Joseph APRN [address] [place] [address] PCP - General 03/16/16 documented as of this encounter
--- OUTSIDE RECORDS SUMMARY | 2024-03-15 01:11 | XMS_ITS | Encounter Summary ---
Author Organization [facility] Address [address] [place] [address] Care Team Providers Care Poly Operator Name Role Phone Jamal Josephyn Luis Antonio AYDIN Primary Care Provider [phone] [phone] Encounter Details Date Type Department Care Team (Late st Contact Info) Description 03/28/2020 Lab Requisition [facility] Pathology & Laboratory Medicine - [facility] [address] [place] [address] Rosa Maria Huff MD [address] [place] [address] Unspecified lump in the right breast, unspecified [...] Tissue submitted: Paraffin embedded tissue block labelled [id number] from [facility] Immunohistochemical assays for estrogen receptors (SP1, Laona) and progesterone receptors (16, Leica) have been [...] Recommendations for IHC testing of ER and RI. J Clin Oncol 2010;28:8560-2104. INTERPRETATION: BREAST, RIGHT, ULTRASOUND-GUIDED CORE BIOPSY: - Adenocarcinoma, invasive - Negative for estrogen receptors - Negative for progesterone receptors COMMENT: Cold ischemic time and total formalin fixation time appropriate: Yes Internal control benign epithelium is appropriately staining for estrogen and progesterone receptors HER2 (ERBB2) IMMUNOHISTOCHEMISTRY Tissue submitted: Paraffin embedded tissue block labelled [id number] From [facility] Fixative: Formalin This immunohistochemical assay is [...] performed under appropriate conditions according to the support services manager's instructions with appropriate assay and tissue controls using an Anti-Her2 (4B5) Rabbit Monoclonal Antibody (Laona). Her2 Scoring Guidelines (invasive tumor component only) [...] Tissue submitted: Paraffin embedded tissue block labelled [id number] from [facility] Immunohistochemical assays for estrogen receptors (SP1, Laona) and progesterone receptors (16, Leica) have been [...] Recommendations for IHC testing of ER and RI. J Clin Oncol 2010;28:5772-2813. INTERPRETATION: LYMPH NODE, RIGHT AXILLA, ULTRASOUND-GUIDED CORE BIOPSY: - Adenocarcinoma, invasive - Negative for estrogen receptors - Negative for progesterone receptors COMMENT: Cold ischemic time and total formalin fixation time appropriate: Yes HER2 (ERBB2) IMMUNOHISTOCHEMISTRY Tissue submitted: Paraffin embedded tissue block labelled [id number] From [facility] Fixative: Formalin This immunohistochemical assay is [...] performed under appropriate conditions according to the support services manager's instructions with appropriate assay and tissue controls using an Anti-Her2 (4B5) Rabbit Monoclonal Antibody (Laona). Her2 Scoring Guidelines (invasive tumor component only) [...] high complexity clinical laboratory testing. 0 13:47 [facility] Addendum electronically signed by [...] 2 to 3. See comment. 0 13:47 [facility] Diagnosis Comment A preliminary diagnosis was communicated to Dr. Ramana Huff on 03/29/20 at 4:[address] Ramana Chew. Surveyor Helper slides of this case were reviewed at [...] be issued in an Addendum. 0 13:47 [facility] Attestation There was significan t resident/fellow involvement in the diagnostic evaluation of this case. By the signature below, the attending physician certifies that they have personally conducted a gross and/or microscopic examination of the described specimens and rendered or confirmed the above diagnosis. 0 13:47 EDT [facility] at 0915 Clinical History Right breast mass 7 o'clock 5 cm from nipple. Right axillary lymph node; clinical diagnosis code: N63.10 0 13:47 EDT [facility] Gross Description A. Received in [...] Sophie Osborn 03/29/2020 7:28 0 13:47 EDT [facility] Resident/Fell ow: Shobha Oliver MD 0 13:47 EDT [facility] Performing Lab [facility] 0 13:47 EDT [facility] Scanned Images 0 13:47 EDT [facility] Tissue BREAST STRUCTURE / Unknown 03/28/2020 13:55 EDT 03/28/2020 22:59 EDT Tissue specimen (specimen) AXILLARY LYMPH NODE STRUCTURE / Unknown 03/28/2020 13:55 EDT 03/28/2020 22:59 EDT Rosa Maria Huff MD PATHOLOGY ORDERABLES [facility] [address] [place] [address] documented in this encounter Visit Diagnoses Diagnosis Unspecified lump in the right breast, unspecified quadrant documented in this encounter Care Teams Poly Operator Relationship Specialty Start Date End Date Ghazal Joseph APRN [address] [place] [address] PCP - General 03/16/16 documented as of this encounter
--- OUTSIDE RECORDS SUMMARY | 2024-03-15 01:11 | XMS_ITS | Encounter Summary ---
Author Organization [facility] Address [facility] [place] [address] Care Team Providers Care Food And Drug Inspector Name Role Phone Ghazal Joseph APRN Primary Care Provider [phone] [phone] Encounter Details Date Type Department Care Team (Late st Contact Info) Description 03/22/2023 11:30 AM EDT Office Visit Hematology Oncology at [address] [address] Graeme Grigsby MD [facility] [place]EMAT[place] [address] HER2-positive carcinoma of right breast Social History [...] place to sleep or slept in a retirement (including now)? No 12/19/2020 Sex and Gender [...] not included. 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 Ramana Chew. 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 Lymph [...] radiation therapy. --------- Luis Daniel back from [place] where she completed 6 cycle of TCHP [...] neratinib p.o. She completed adjuvant radiation in [facility] with Dr. Lange on 02/18/21. [...] off Kadcyla. She plans to go to [place] in couple of weeks or so, but [...] enough to halt neratinib. Her oncologist in [place] planned to restage her with CT scan [...] neratinib toxicity. She is going back to [place] in mid of May. Will do restaging CT scan prior next visit 12/14/22 Mrs. Nina continues on adjuvant neratinib. She returned from [place] recently where shewill follow with Dr. Lorena [...] neratinib. ARJUN. She is going back to [place] in the middle of May. ARJUN. She will see her primary oncologist in the end of May. She will call us back when she is back from [place] in November to schedule follow-up appointment. #Thrombocytopenia: Cause is unclear, patient will follow with her primary oncologist in [place]. # LFT's-alkaline phosphatase elevated # Headaches- she [...] call us when she is back from [place] to schedule the appointment Ghazal voiced understanding [...] breast documented in this encounter Care Teams Food And Drug Inspector Relationship Specialty Start Date End Date Ghazal Joseph APRN [address] [place] [address] PCP - General Family Medicine 12/19/20 documented as of this encounter
--- OUTSIDE RECORDS SUMMARY | 2024-03-15 01:11 | XMS_ITS | Encounter Summary ---
Author Organization [place] [address] Care Team Providers Care Needle Punch Operator Name Role Phone Ghazal Joseph APRN Primary Care Provider [phone] [phone] Encounter Details Date Type Department Care Team [...] on filedocumented in this encounter Care Teams Needle Punch Operator Relationship Specialty Start Date End Date Ghazal Joseph APRN [address] [place] [address] PCP - General Family Medicine 12/19/20 documented as of this encounter
--- OUTSIDE RECORDS SUMMARY | 2024-03-15 01:11 | XMS_ITS | Encounter Summary ---
Author Organization [facility] Address [address] [place] [address] Care Team Providers Care Organizational Effectiveness Consultant Name Role Phone Unavailable Primary Care Provider Unavailabl e Encounter Details Date Type Department Care Team (Late st Contact Info) Description 09/17/2005 Before PRISM Converted Visit (Maple) [facility] - Maple conversion [address] [place] [address] Maricruz Davies I, BRAKE MACHINE OPERATOR [address] [place] [phone] Social History Tobacco Use Types Packs/Day [...] for her. [facility]. 5. Reevaluatein three months. Signed by Maricruz Davies NP 09/24/2005 12:59 ANancMoira Ybarra NP Maricruz Davies NP - Maricruz Davies NP A - hw Job ID: [id number] Document ID: [id number] cc: MACEY Vidal documented in this encounter Plan of Treatment Not on file documented as of this encounter Visit Diagnoses Not on filedocumented in this encounter
--- OUTSIDE RECORDS SUMMARY | 2024-03-15 01:11 | XMS_ITS | Encounter Summary ---
Author Organization [facility] Address [address] [place] [address] Care Team Providers Care Broadcast Supervisor Name Role Phone Unavailable Primary Care Provider Unavailabl e Encounter Details Date Type Department Care Team (Late st Contact Info) Description 05/11/2008 Before PRISM Converted Visit (Maple) [facility] - Maple conversion [address] [place] [address] Gini Claudio [address] [place], [place] [phone] Social History Tobacco Use Types Packs/Day Years [...] or bowels. 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 [...] - Gini Claudio NP - Job ID: [id number] Doc ID: [id number] cc: MACEY Vidal documented in this encounter Plan of Treatment Not on file documented as of this encounter Visit Diagnoses Not on filedocumented in this encounter
--- OUTSIDE RECORDS SUMMARY | 2024-03-15 01:12 | XMS_ITS | Encounter Summary ---
Author Organization [facility] Address [facility] [place] [address] Care Team Providers Care Air Analysis Technician Name Role Phone Ghazal Joseph APRN Primary Care Provider [phone] [phone] Encounter Details Date Type Department Care Team (Late st Contact Info) Description 01/19/2022 2:00 PM EDT Office Visit [facility] [address] [place] [address] Graeme Grigsby MD [facility] HEMATOLOGY [place] [address] Breast cancer metastasized to axillary lymph node, [...] the beginning of March and went to [facility] on March 03. Another [...] at the end of May 2020 in [facility] Migraine, asthma, tonsillectomy, tubal ligation, [...] HYDROcodone-acetaminophen 5-325 mg Tab Commonly known as: [place] TAKE 1 TABLET BY MOUTH EVERY 4 [...] Tissue submitted: Paraffin embedded tissue block labelled [id number] From F 3+ positive Strong complete membrane staining [...] performance characteristics have been determined by The and/or by the referring laboratory. The positive [...] 03/29/20 at 4:25 pm byDr. Ramana Chew. Financial Foundations Associate slides of this case were reviewed at [...] Her2 3+ by IHC, T2N1M0, stage IIB, [id number], ER-/[place]-,Her 2 3+ By IHC Treatment: -06/04/2020 [...] radiation therapy. --------- Luis Daniel back from [place] where she completed 6 cycle of TCHP [...] neratinib p.o. She completed adjuvant radiation in [facility] with Dr. Lange on 02/18/21. She [...] off Kadcyla. She plans to go to [place] in couple of weeks or so, but [...] enough to halt neratinib. Her oncologist in [place] planned to restage her with CT scan [...] breast documented in this encounter Care Teams Air Analysis Technician Relationship Specialty Start Date End Date Ghazal Joseph APRN [address] [place] [address] PCP - General Family Medicine 12/19/20 documented as of this encounter
--- OUTSIDE RECORDS SUMMARY | 2024-03-15 01:12 | XMS_ITS | Encounter Summary ---
Author Organization [facility] Address [facility] [place] [address] Care Team Providers Care Court Collections Officer Name Role Phone Ghazal Joseph APRN Primary Care Provider [phone] [phone] Reason for Visit * Reason Comments On Treatment Visit Encounter Details Date Type Department Care Team (Late st Contact Info) Description 01/14/2021 12:30 PM EDT Office Visit Radiation Oncology at [address] [address] Lee Lange MD [facility] [place] [address] Malignant neoplasm of upper-outer quadrant of right [...] (140 lb) 01/14/2021 1:02 PM EDT w faisal beltre Height - - Body Mass Index 24.2 01/02/2021 9:14 AM EDT documented in this encounter Progress Notes * Lee Lange MD - 01/14/2021 12:30 PM EDT Images from the original note were not included. DIAGNOSIS: Breast ca, R, IDC, ER-[place]-, Her2+, cT1 cN1, s/p neoadjuvant TCHP followed [...] For details, see electronic film record in [employer] System. Changes in Medical Condition: None. Pain?: [...] status documented in this encounter Care Teams Court Collections Officer Relationship Specialty Start Date End Date Ghazal Joseph APRN [address] [place] [address] PCP - General Family Medicine 12/19/20 documented as of this encounter
--- OUTSIDE RECORDS SUMMARY | 2024-03-15 01:12 | XMS_ITS | Encounter Summary ---
Author Organization [facility] Address [facility] [place] [address] Care Team Providers Care Bridge Game Director Name Role Phone Ghazal Joseph APRN Primary Care Provider [phone] [phone] Reason for Visit * Reason Comments Radiation Follow-up Encounter Details Date Type Department Care Team (Late st Contact Info) Description 02/25/2021 11:00 AM EDT Office Visit Radiation Oncology at [address] [address] Jonna Lange MD [facility] [place] [address] Malignant neoplasm of upper-outer quadrant of right [...] ago (02/19/21) for breast ca, R, IDC, ER-[place]-, Her2+, cT1 cN1, s/p neoadjuvant TCHP followed [...] status documented in this encounter Care Teams Bridge Game Director Relationship Specialty Start Date End Date Ghazal Joseph APRN [address] [place] [address] PCP - General Family Medicine 12/19/20 documented as of this encounter
--- OUTSIDE RECORDS SUMMARY | 2024-03-15 01:12 | XMS_ITS | Encounter Summary ---
Author Organization [facility] Address [facility] [place] [address] Care Team Providers Care Grievance Coordinator Name Role Phone Ghazal Joseph APRN Primary Care Provider +1 [phone] Reason for Visit * Reason Comments On Treatment Visit Encounter Details Date Type Department Care Team (Late st Contact Info) Description 02/07/2021 11:45 AM EDT Office Visit Radiation Oncology at [address] [address] Jonna Lange MD [facility] [place] [address] Malignant neoplasm of upper-outer quadrant of right [...] not included. DIAGNOSIS: Breast ca, R, IDC, ER-[place]-, Her2+, cT1 cN1, s/p neoadjuvant TCHP followed [...] For details, see electronic film record in [employer] System. Changes in Medical Condition: Increased skin [...] status documented in this encounter Care Teams Grievance Coordinator Relationship Specialty Start Date End Date Ghazal Joseph APRN [address] [place] [address] PCP - General Family Medicine 12/19/20 documented as of this encounter
--- OUTSIDE RECORDS SUMMARY | 2024-03-15 01:12 | XMS_ITS | Encounter Summary ---
Author Organization [facility] Address [facility] [place] [address] Care Team Providers Care Supervisor Compounding And Finishing Name Role Phone Ghazal Joseph APRN Primary Care Provider +1 -[phone] Reason for Referral * Consultation (Routine) - Closed Specialty Diagnoses / Procedures Referred By Contsusy t Referred To Contact Hospice and Palliative Medicine Diagnoses Acute bilateral low back pain with bilateral sciatica Graeme Grigsby MD [facility] [address] [place] [address] Ruddy Leger MD [address] [place] [address] Referral ID Status Reason Start Date Expiration Date V isits Requested Visits Authorized [id number] Closed Consult, Test & Treat 04/14/2021 10/11/2021 1 1 Encounter Details Date Type Department Care Team (Late st Contact Info) Description 04/14/2021 9:30 AM EDT Office Visit [facility] [address] [place] [address] Graeme Grigsby MD [facility] [place] [address] Acute bilateral low back pain with bilateral [...] the beginning of March and went to [facility] on March 03-. Another visit [...] the end of May 2020 in [facility] Migraine, asthma, tonsillectomy, tubal ligation, cataract surgery, colonoscopy for colon polyp, frozen shoulder repair Social History: No interval changes since last visit. 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 Ramana Chew. Grain Combiner slides of this case were reviewed at [...] Her2 3+ by IHC, T2N1M0, stage IIB, [id number], ER-/WI-,Her 2 3+ By IHC Treatment: -06/04/2020 [...] off Kadcyla. She plans to go to [place] in couple of weeks or so, but [...] levels documented in this encounter Care Teams Supervisor Compounding And Finishing Relationship Specialty Start Date End Date Ghazal Joseph APRN [address] [place] [address] PCP - General Family Medicine 12/19/20 documented as of this encounter
--- OUTSIDE RECORDS SUMMARY | 2024-03-15 01:12 | XMS_ITS | Encounter Summary ---
Author Organization [facility] [place] [address] Care Team Providers Care Rod Greaser Name Role Phone Ghazal Joseph APRN Primary Care Provider +1 -[phone] Encounter Details Date Type Department Care Team (Late st Contact Info) Description 02/13/2021 10:30 AM EDT Office Visit [facility] [address] [place] [address] Maricruz Cooley, RN HER2-positive carcinoma [...] not included. 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 Ghazal is here today forC4. 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 Ramana Chew. Clerk Analyst slides of this case were reviewed [...] and Plan: Diagnosis:R ?multifocal IDC, Gr 2-3, ER-/ID-, Her2 3+ by IHC, T2N1M0, stage IIB, [id number], ER-/ID-,Her 2 3+ By IHC Treatment: -06/04/2020 -09/17/2020 6 cycle of neoadjuvant TCHP -11/07/20 right total mastectomy and sentinel lymph node biopsy -11/21/2020 right lymph node dissection - 12/10/20 started Kadcyla 3.6 mg/kg Mrs. 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 Lymph [...] radiation therapy. --------- Peggy is back from [place] where she completed 6 cycle of [...] She is currently receiving adjuvant radiation in [facility] with Dr. Lange. We will continue Kacyla [...] any questions/concerns or new symptoms. Maricruz HAY, METHODS ANALYST, AOCNP Medical Oncology documented in this encounter Plan of Treatment Not on file documented as of this encounter Visit Diagnoses Diagnosis HER2-positive carcinoma of right breast documented in this encounter Care Teams Rod Greaser Relationship Specialty Start Date End Date Ghazal Joseph APRN [address] [place] [address] PCP - General Family Medicine 12/19/20 documented as of this encounter
--- OUTSIDE RECORDS SUMMARY | 2024-03-15 01:12 | XMS_ITS | Encounter Summary ---
Author Organization [facility] Address [facility] [place] [address] Care Team Providers Care Groundwater Consultant Name Role Phone Ghazal Joseph APRN Primary Care Provider +1 -[phone] Reason for Visit * Reason Comments Follow-up Encounter Details Date Type Department Care Team (Late st Contact Info) Description 12/22/2021 3:00 PM EDT Office Visit Radiation Oncology at [address] [address] Jonna Lange MD [facility] [place] [address] S/P radiotherapy Social History Tobacco Use Types [...] ago (02/19/21) for breast ca, R, IDC, ER-OK-, Her2+, cT1 cN1, s/p neoadjuvant TCHP followed by R mastectomy &??SNB, then completion R ax lymph node dissxn, ypT1b ypN1. Continued on kadcyla during xrt & after xrt completion; completed adjuvant kadcyla 10/28/21. 12/11/21 full dose neratinib started, which continues. Subjective: No new problem. Lives in [place] Apr - November; has a surgical onc & a med onc in [place]. Surg onc obtained L mmg w/in past [...] HYDROcodone-acetaminophen 5-325 mg Tab Commonly known as: Mckin[place] TAKE 1 TABLET BY MOUTH EVERY 4 [...] radiotherapy documented in this encounter Care Teams Groundwater Consultant Relationship Specialty Start Date End Date Ghazal Joseph APRN [address] [place] [address] PCP - General Family Medicine 12/19/20 documented as of this encounter
--- OUTSIDE RECORDS SUMMARY | 2024-03-15 01:12 | XMS_ITS | Encounter Summary ---
Author Organization [facility] Address [facility] [place] [address] Care Team Providers Care Safe And Vault Service Mechanic Name Role Phone Ghazal Joseph APRN Primary Care Provider +1 -[phone] Reason for Visit * Reason Comments On Treatment Visit Encounter Details Date Type Department Care Team (Late st Contact Info) Description 02/18/2021 11:15 AM EDT Office Visit Radiation Oncology at [address] [address] Jonna Lange MD [facility] [place] [address] Malignant neoplasm of upper-outer quadrant of right [...] not included. DIAGNOSIS: Breast ca, R, IDC, ER-TN-, Her2+, cT1 [...] For details, see electronic film record in [employer] System. Changes in Medical Condition: Manages skin [...] status documented in this encounter Care Teams Safe And Vault Service Mechanic Relationship Specialty Start Date End Date Ghazal Joseph APRN [address] [place] [address] PCP - General Family Medicine 12/19/20 documented as of this encounter
--- OUTSIDE RECORDS SUMMARY | 2024-03-15 01:12 | XMS_ITS | Encounter Summary ---
Author Organization [facility] Address [facility] [place] [address] Care Team Providers Care Canine Service Instructor Trainer Name Role Phone Ghazal Joseph APRN Primary Care Provider +1 -[phone] Encounter Details Date Type Department Care Team (Late st Contact Info) Description 04/02/2022 Notes Only [facility] [address] [address] Tiffany Fernandez RN Social History [...] Fernandez RN - 04/02/2022 3:54 PM EDT [facility] Outreach Treatment Note - Socorro Ruelas Maico [id number] Allergies Allergen Reactions ??? Codeine Nausea [...] to treatment, patient was instructed to contact [facility] application programmer analyst oncologist after hours, on weekends and holidays for concernsrelated to their cancer diagnosis current treatment. documented in this encounter Plan of Treatment Not on file documented as of this encounter Visit Diagnoses Not on filedocumented in this encounter Care Teams Canine Service Instructor Trainer Relationship Specialty Start Date End Date Ghazal Joseph APRN [address] [place] [address] PCP - General Family Medicine 12/19/20 documented as of this encounter
--- OUTSIDE RECORDS SUMMARY | 2024-03-15 01:12 | XMS_ITS | Encounter Summary ---
Author Organization [facility] Address [facility] [place] [address] Care Team Providers Care Recharger Name Role Phone Ghazal Joseph APRN Primary Care Provider +1 -[phone] Reason for Visit * Reason Comments On Treatment Visit Encounter Details Date Type Department Care Team (Late st Contact Info) Description 01/21/2021 12:00 PM EDT Office Visit Radiation Oncology at [address] [address] Jonna Lange MD [facility] [place] [address] Malignant neoplasm of upper-outer quadrant of right [...] not included. DIAGNOSIS: Breast ca, R, IDC, ER-SC-, Her2+, cT1 cN1, s/p neoadjuvant TCHP followed [...] skin/throat irritation. Asks that her doc in [place], [place],Dr. Jens Lorenzo, be updated. Pain?: When [...] status documented in this encounter Care Teams Recharger Relationship Specialty Start Date End Date Ghazal Joseph APRN [address] [place] [address] PCP - General Family Medicine 12/19/20 documented as of this encounter
--- OUTSIDE RECORDS SUMMARY | 2024-03-15 01:12 | XMS_ITS | Encounter Summary ---
Author Organization [facility] Address [facility] [place] [address] Care Team Providers Care Plant Physiology Teacher Name Role Phone Ghazal Joseph AYDIN Primary Care Provider +1 -[phone] Reason for Visit * Consultation (Routine) - Closed Specialty Diagnoses / Procedures Referred By Sal fournier Referred To Contact Radiation Oncology Diagnoses Malignant neoplasm of upper-outer quadrant of right female breast, unspecified estrogen receptor status Procedures Simulation for Radiation Therapy Planning Jonna Lange MD [facility] [place] [address] [facility] Rad Onc Office [address] [place] [phone] Referral ID Status Reason Start Date Expiration Date V isits Requested Visits Authorized [id number] Closed Consult, Test & Treat 12/19/2020 12/19/2021 99 99 Encounter Details Date Type Department Care Team (Latest Contact Info) Description 12/24/2020 10:00 AM EDT Ancillary Appointment Radiation Oncology at [address] [address] Jonna Lange MD [facility] [place] [address] Malignant neoplasm of upper-outer quadrant of right [...] your treatment to your nurse or doctor. [facility] Radiation Oncology Our normal business hours are: Wednesday - Wednesday 8 AM to 5 PM [place], [place], [place] For emergent situations after hours please call for either location and ask for the Radiation Oncologist bessemer converter blower. documented in this encounter Progress Notes * [...] status documented in this encounter Care Teams Plant Physiology Teacher Relationship Specialty Start Date End Date Ghazal Joseph, AYDIN [address] [place] [address] PCP - General Family Medicine 12/19/20 documented as of this encounter
--- OUTSIDE RECORDS SUMMARY | 2024-03-15 01:12 | XMS_ITS | Encounter Summary ---
Author Organization [facility] Address [facility] [place] [address] Care Team Providers Care Executive Receptionist Name Role Phone Ghazal Joseph APRN Primary Care Provider +1 -[phone] Encounter Details Date Type Department Care Team (Late st Contact Info) Description 02/13/2021 Notes Only [facility] [address] [place] [address] Ashley Vazquez RN Social History [...] Vazquez RN - 02/13/2021 11:59 AM EDT [facility] Outreach Treatment Note - Socorro Nina [id number] Allergies Allergen Reactions ??? Codeine Nausea Only Cycle:4 Day: Medication Dose Route Kadcyla 225 mg IV Patient tolerated treatment well without incident or adverse reaction. Patient instructed to contact this clinic during regular business hours if they have any concerns related to treatment, patient was instructed to contact [facility] regional intermodal truck driver oncologist after hours, on weekends and holidays for concernsrelated to their cancer diagnosis current treatment. documented in this encounter Plan of Treatment Not on file documented as of this encounter Visit Diagnoses Not on filedocumented in this encounter Care Teams Executive Receptionist Relationship Specialty Start Date End Date Ghazal Joseph APRN [address] [place] [address] PCP - General Family Medicine 12/19/20 documented as of this encounter
--- OUTSIDE RECORDS SUMMARY | 2024-03-15 01:12 | XMS_ITS | Encounter Summary ---
Author Organization [facility] Address [facility] [place] [address] Care Team Providers Care Surface Supply Breathing Apparatus Name Role Phone Ghazal Joseph APRN Primary Care Provider +1 -[phone] Encounter Details Date Type Department Care Team (Late st Contact Info) Description 04/27/2022 Ancillary Procedure Radiology Library at [facility] [place] [address] Ghazal Joseph APRN [address] [place] [address] Social History Tobacco Use Types [...] Abdomen Pelvis (04/27/2022 12:00 AM EDT) Narrative [facility] - 04/28/2022 4:19 PM EDT This exam is auto-finalizing. It's purpose is for storage only. Ghazal Joseph APRN Fco FILM LIBRARY ORDERABLES Performing Organization Address City/State/[facility] Co de Phone Number [place], [place] documented in this encounter Visit Diagnoses Not on filedocumented in this encounter Care Teams Surface Supply Breathing Apparatus Relationship Specialty Start Date End Date Ghazal Joseph APRN [address] [place] [address] PCP - General Family Medicine 12/19/20 documented as of this encounter
--- OUTSIDE RECORDS SUMMARY | 2024-03-15 01:12 | XMS_ITS | Encounter Summary ---
Author Organization [facility] Address [facility] [place] [address] Care Team Providers Care Forestry Fire Aid Name Role Phone Ghazal Joseph APRN Primary Care Provider +1 -[phone] Encounter Details Date Type Department Care Team (Late st Contact Info) Description 02/06/2022 Ancillary Procedure Radiology Library at [facility] [place] [address] Ghazal Joseph APRN [address] [place] [address] Social History Tobacco Use Types [...] Abdomen Pelvis (02/06/2022 12:00 AM EDT) Narrative [facility] - 02/18/2022 1:19 PM EDT This exam is auto-finalizing. It's purpose is for storage only. Ghazal Joseph APRN Fco FILM LIBRARY ORDERABLES Performing Organization Address City/State/[facility] Co de Phone Number [place], [place] documented in this encounter Visit Diagnoses Not on filedocumented in this encounter Care Teams Forestry Fire Aid Relationship Specialty Start Date End Date Ghazal Joseph APRN [address] [place] [address] PCP - General Family Medicine 12/19/20 documented as of this encounter
--- OUTSIDE RECORDS SUMMARY | 2024-03-15 01:12 | XMS_ITS | Encounter Summary ---
Author Organization [facility] Address [facility] [place] [address] Care Team Providers Care Client Experience Manager Name Role Phone Ghazal Joseph APRN Primary Care Provider +1 -[phone] Encounter Details Date Type Department Care Team (Late st Contact Info) Description 01/11/2022 Orders Only Hematology and Oncology at [facility] [place] [address] Graeme Grigsby MD [facility] [address] [place]EMAT[place]Y [place] [address] High risk medication use (Primary Dx) Social [...] medications documented in this encounter Care Teams Client Experience Manager Relationship Specialty Start Date End Date Ghazal Joseph APRN [address] [place] [address] PCP - General Family Medicine 12/19/20 documented as of this encounter
--- OUTSIDE RECORDS SUMMARY | 2024-03-15 01:12 | XMS_ITS | Encounter Summary ---
Author Organization [facility] Address [facility] [place] [address] Care Team Providers Care Catering Convention Services Manager Name Role Phone Ghazal Joseph APRN Primary Care Provider +1 -[phone] Encounter Details Date Type Department Care Team (Late st Contact Info) Description 01/30/2021 4:40 PM EDT Ext Surgery or Single Event [facility] [address] [place] [address] Loreta Gonzalez MD [address] [place] [address] DR CARDIOLOGY [place], [place] [id number] HER2-positive carcinoma of right breast Social History [...] breast documented in this encounter Care Teams Catering Convention Services Manager Relationship Specialty Start Date End Date Ghazal Joseph APRN [address] [place] [address] PCP - General Family Medicine 12/19/20 documented as of this encounter
--- OUTSIDE RECORDS SUMMARY | 2024-03-15 01:12 | XMS_ITS | Encounter Summary ---
Author Organization [facility] Address [facility] [place] [address] Care Team Providers Care Clip And Hanger Attacher Name Role Phone Ghazal Joseph APRN Primary Care Provider +1 -[phone] Encounter Details Date Type Department Care Team (Late st Contact Info) Description 01/07/2022 4:40 PM EDT Ext Surgery or Single Event [facility] [address] [address] Loreta Gonzalez MD [address] [place] [address] DR CARDIOLOGY [place], [place] [id number] HER2-positive carcinoma of right breast Social History [...] breast documented in this encounter Care Teams Clip And Hanger Attacher Relationship Specialty Start Date End Date Ghazal Joseph APRN [address] [place] [address] PCP - General Family Medicine 12/19/20 documented as of this encounter
--- OUTSIDE RECORDS SUMMARY | 2024-03-15 01:12 | XMS_ITS | Encounter Summary ---
Author Organization [facility] Address [facility] [place] [address] Care Team Providers Care Powerhouse Mechanic Apprentice Name Role Phone Ghazal Joseph APRN Primary Care Provider +1 -[phone] Encounter Details Date Type Department Care Team (Late st Contact Info) Description 04/03/2021 Notes Only [facility] [address] [place] [address] Herlinda Payton, RN Social History [...] Payton, RN - 04/03/2021 1:30 PM EDT [facility] [place] Treatment Note - Socorro Nina [id number] Allergies Allergen Reactions ??? Codeine Nausea Only Cycle: 6 Day: Medication Dose Route Kadcyla 225mg IV Cumulative Drug Doses Medication Cumulative Dose Patient tolerated treatment well without incident or adverse reaction. Patient instructed to contact this clinic during regular business hours if they have any concerns related to treatment, patient was instructed to contact [facility] line installation supervisor oncologist after hours, on weekends and holidays for concernsrelated to their cancer diagnosis current treatment. documented in this encounter Plan of Treatment Not on file documented as of this encounter Visit Diagnoses Not on filedocumented in this encounter Care Teams Powerhouse Mechanic Apprentice Relationship Specialty Start Date End Date Ghazal Joseph APRN [address] [place] [address] PCP - General Family Medicine 12/19/20 documented as of this encounter
--- OUTSIDE RECORDS SUMMARY | 2024-03-15 01:12 | XMS_ITS | Encounter Summary ---
Author Organization [facility] [place] [address] Care Team Providers Care Abattoir Supervisor Name Role Phone Ghazal Joseph APRN Primary Care Provider +1 -[phone] Encounter Details Date Type Department Care Team (Late st Contact Info) Description 01/15/2021 7:20 PM EDT Ancillary Procedure [place] [address] Maricruz Cooley, RN Social History Tobacco Use [...] MR Head (01/15/2021 7:16 PM EDT) Narrative [facility] - 01/15/2021 7:16 PM EDT This exam is auto-finalizing. It's purpose is for storage only. Maricruz Cooley RN G FILM LIBRARY ORD ERABLES Performing Organization Address City/State/[facility] Co de Phone Number [place], [place] documented in this encounter Visit Diagnoses Not on filedocumented in this encounter Care Teams Abattoir Supervisor Relationship Specialty Start Date End Date Ghazal Joseph APRN [address] [place] [address] PCP - General Family Medicine 12/19/20 documented as of this encounter
--- OUTSIDE RECORDS SUMMARY | 2024-03-15 01:12 | XMS_ITS | Encounter Summary ---
Author Organization [facility] Address [facility] [place] [address] Care Team Providers Care Web Marketing Manager Name Role Phone Ghazal Joseph APRN Primary Care Provider +1 -[phone] Encounter Details Date Type Department Care Team (Late st Contact Info) Description 03/06/2021 Notes Only [facility] [address] [place] [address] Bindu Gutierres RN Social History [...] Gutierres RN - 03/06/2021 1:36 PM EDT [facility] Outreach Treatment Note - Socorro Nina [id number] Allergies Allergen Reactions ??? Codeine Nausea Only Cycle:5 Day: Medication Dose Route Kadcyla 225 Cumulative Drug Doses Medication Cumulative Dose Patient tolerated treatment well without incident or adverse reaction. Patient instructed to contact this clinic during regular business hours if they have any concerns related to treatment, patient was instructed to contact [facility] sessions clerk oncologist after hours, on weekends and holidays for concernsrelated to their cancer diagnosis current treatment. [facility] Outreach Treatment Note - Socorro documented in this encounter Plan of Treatment Not on file documented as of this encounter Visit Diagnoses Not on filedocumented in this encounter Care Teams Web Marketing Manager Relationship Specialty Start Date End Date Ghazal Joseph APRN [address] [place] [address] PCP - General Family Medicine 12/19/20 documented as of this encounter
--- OUTSIDE RECORDS SUMMARY | 2024-03-15 01:12 | XMS_ITS | Encounter Summary ---
Author Organization [facility] Address [facility] [place] [address] Care Team Providers Care Installation Supervisor Name Role Phone Ghazal Joseph APRN Primary Care Provider +1 -[phone] Encounter Details Date Type Department Care Team (Late st Contact Info) Description 02/19/2021 11:15 AM EDT Notes Only Radiation Oncology at [address] [phone] Jonna Lange MD [facility] [place] [address] Social History Tobacco Use Types Packs/Day Years [...] completed xrt for breast ca, R, IDC, ER-[place]-, Her2+, cT1 cN1, s/p neoadjuvantTCHP followed by [...] on filedocumented in this encounter Care Teams Installation Supervisor Relationship Specialty Start Date End Date Ghazal Joseph APRN [address] [place] [address] PCP - General Family Medicine 12/19/20 documented as of this encounter
--- OUTSIDE RECORDS SUMMARY | 2024-03-15 01:12 | XMS_ITS | Encounter Summary ---
Author Organization [facility] Address [address] [facility] [place] [address] Care Team Providers Care Income Tax Adjuster Name Role Phone Ghazal Joseph APRN Primary Care Provider +1 -[phone] Encounter Details Date Type Department Care Team (Late st Contact Info) Description 01/23/[address] [facility] [address] [place] [address] Rere Faulkner RN Social History [...] Faulkner RN - 01/23/2021 3:00 PM EDT [facility] Outreach Treatment Note - [place] Harman Jessenia Maico [phone] Allergies Allergen Reactions ??? Codeine Nausea Only Cycle: 3 Day: Medication Dose Route kadcyla 225 mg IV Cumulative Drug Doses Medication Cumulative Dose Patient tolerated treatment well without incident or adverse reaction. Patient instructed to contact this clinic during regular business hours if they have any concerns related to treatment, patient was instructed to contact [facility] owner oral surgeon oncologist after hours, on weekends and holidays for concernsrelated to their cancer diagnosis current treatment. documented in this encounter Plan of Treatment Not on file documented as of this encounter Visit Diagnoses Not on filedocumented in this encounter Care Teams Income Tax Adjuster Relationship Specialty Start Date End Date Ghazal Joseph APRN [address] [place] [address] PCP - General Family Medicine 12/19/20 documented as of this encounter
--- OUTSIDE RECORDS SUMMARY | 2024-03-15 01:12 | XMS_ITS | Encounter Summary ---
Author Organization [facility] [address] Care Team Providers Care Emt Intermediate Name Role Phone Ghazal Joseph INDUSTRIAL SERVICE TECHNICIAN Primary Care Provider +1 [phone] Reason for Visit * Diagnostic Test (Routine) - Closed Specialty Diagnoses / Procedures Referred By Contsusy t Referred To Contact Radiology Diagnoses Breast cancer metastasized to axillary lymph node, right Procedures NM PET CT Skull Base to Mid-thigh Graeme Grigsby MD [facility] [address] HEMATOLOGY [place] [address] [facility] [place] [address] Referral ID Status Reason Start Date Expiration Date V isits Requested Visits Authorized [id number] Closed Specialty Service Requested 03/31/2021 09/29/2022 1 1 Encounter Details Date Type Department Care Team (Latest Contact Info) Description 04/09/2021 2:29 PM EDT - 04/09/2021 11:59 PM EDT Hospital Encounter [place] [address] Graeme Grigsby MD [facility] [address] HEMATOLOGY [place] [address] Discharge Disposition: Home Social History [...] by mouth. fluticasone propionate (FLONASE) 50 mcg/actuation [place], Suspension 1 spray daily. albuterol sulfate 90 mcg/actuation Aerosol Powdr Breath Activated Inhale 180 mcg into the lungs. diazePAM (Valium) 5 mg Tablet Take by mouth. 03/19/2021 01/19/2022 HYDROcodone-acetaminophe n ([place]) 5-325 mg Tablet TAKE 1 TABLET BY [...] Glucose, POC 76 65 - 199 mg/dL [facility] Comment: Supplemental ranges: <140 mg/dL before meals <180 mg/dL all other times of the day Blood 04/09/2021 2:38 PM EDT 04/09/2021 2:38 PM EDT Graeme Grigsby MD POINT OF CARE TEST O RDERABLES [facility] [place] [address] documented in this encounter Visit Diagnoses Not on filedocumented in this encounter Care Teams Emt Intermediate Relationship Specialty Start Date End Date Ghazal Joseph APRN [address] [place] [address] PCP - General Family Medicine 12/19/20 documented as of this encounter
--- OUTSIDE RECORDS SUMMARY | 2024-03-15 01:12 | XMS_ITS | Encounter Summary ---
Author Organization [facility] [place] [address] Care Team Providers Care Metallurgy Laboratory Technician Name Role Phone Ghazal Joseph APRN Primary Care Provider +1 [phone] Encounter Details Date Type Department Care Team (Late st Contact Info) Description 01/02/2021 9:30 AM EDT Office Visit [facility][1] [address] [place] [address] Maricruz Cooley, RN Breast cancer [...] 2-3, ER-/[place]-, Her2 3+ by IHC, N1 Subjective- HPI:Ghazal [...] started on Kadcyla on December 10 in [place]. Ghazal is here today for C2. 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 Ramana Chew. Open Tenter Operator slides of this case were reviewed [...] Her2 3+ by IHC, T2N1M0, stage IIB, [id number], ER-/[place]-,Her 2 3+ By IHC Treatment: -06/04/2020 [...] radiation therapy. --------- Peggy is back from [place] where she completed 6 cycle of TCHP [...] p.o. She will be starting radiation in [facility] for adjuvant radiation therapy next week. We [...] questions/concerns or new symptoms. Maricruz Cooley MSN, ATTENDANT CHILD ACTIVITY, AOCNP Medical Oncology documented in this encounter Plan of Treatment Not on file documented as of this encounter Visit Diagnoses Diagnosis Breast cancer metastasized to axillary lymph node, right documented in this encounter Care Teams Metallurgy Laboratory Technician Relationship Specialty Start Date End Date Ghazal Joseph APRN [address] [place] [address] PCP - General Family Medicine 12/19/20 documented as of this encounter
--- OUTSIDE RECORDS SUMMARY | 2024-03-15 01:12 | XMS_ITS | Encounter Summary ---
Author Organization [facility] Address [facility] [place] [address] Care Team Providers Care Glove Finisher Name Role Phone Ghazal Joseph APRN Primary Care Provider +1 [phone] Encounter Details Date Type Department Care Team (Late st Contact Info) Description 12/24/2020 Notes Only Radiation Oncology at [address] [phone] Fallon Green, [facility] OFFICE OF CARE MANAGEMENT Social History Tobacco [...] with transportation. 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 Her is from [employer]. She has Medicare and BCBS for insurance. Advance Directives: Pt indicated she has completed her advance directive. Requested a copy for her medical record. Utilization of Community Resources: None at this time. Adjustment to Illness/Mental Health Issues: Pt indicated she is coping the best she can. She and her winter in [place] and they are back up now and brought the sunshine with them. She feels well supported by er family and friends. She is looking forward to watching her grandson play baseball. Offered support. Identified Needs: Pt did not identify any specific needs at this time. Referrals: None at this time. Plan: Informed pt of SECURITY SERGEANT availability and contact information. Will follow for support and resources. documented in this encounter Plan of Treatment Not on file documented as of this encounter Visit Diagnoses Not on filedocumented in this encounter Care Teams Glove Finisher Relationship Specialty Start Date End Date Ghazal Joseph APRN [address] [place] [address] PCP - General Family Medicine 12/19/20 documented as of this encounter
--- OUTSIDE RECORDS SUMMARY | 2024-03-15 01:12 | XMS_ITS | Encounter Summary ---
Author Organization [facility] [place] [address] Care Team Providers Care Venereal Disease Control Head Name Role Phone Ghazal Joseph APRN Primary Care Provider +1 [phone] Reason for Referral * Consultation (Routine) - Closed Specialty Diagnoses / Procedures Referred By Sal t Referred To Contact Diagnoses HER2-positive carcinoma of right breast Graeme Grigsby MD [facility] [address] HEMATOLOGY [place] [address] Rosa Maria Huff MD [address] [place] [id number] Referral ID Status Reason Start Date Expiration Date V isits Requested Visits Authorized [id number] Closed Consult, Test & Treat 12/14/2022 06/12/2023 1 1 Encounter Details Date Type Department Care Team (Latest Contact Info) Description 12/14/2022 2:30 PM EDT Office Visit Hematology Oncology at [address] [phone] Graeme Grigsby MD [facility] HEMATOLOGY [place] [address] HER2-positive carcinoma of right breast (Primary Dx); [...] not included. Diagnosis:R ?multifocal IDC, Gr 2-3, ER-/N[place]-, Her2 3+ by IHC, N1 CC: I [...] the beginning of March and went to [facility] on March 03-. Another visit [...] and neratinib toxicity check. She return from [place] a week ago she followed with Dr.Swati [...] at the end of May 2020 in [facility] Migraine, asthma, tonsillectomy, tubal ligation, cataract surgery, colonoscopy for colon polyp, frozen shoulder repair Social History: No interval changes since last visit. 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 Ramana Chew. Data Integrity Specialist slides of this case were reviewed at [...] and Plan: Diagnosis:R ?multifocal IDC, Gr 2-3, ER-/NJ-, Her2 3+ by IHC, T2N1M0, stage IIB, [id number], ER-/N[place]-,Her2 3+ By IHC Treatment: -06/04/2020 -09/17/2020 6 [...] breast ductal carcinoma grade 2-3 ER and [place] negative and HER-2 3+ by immunochemistry. Lymph [...] radiation therapy. --------- Luis Daniel back from [place] where she completed 6 [...] was positive for carcinoma. As per Dr. Steret plan Mrs. Nina started adjuvant Kadcyla on December 10 with plan for total of 14 cycles followed by neratinib p.o. She completed adjuvant radiation in [facility] with Dr. Lange on 02/18/21. She [...] off Kadcyla. She plans to go to [place] in couple of weeks or so, but [...] enough to halt neratinib. Her oncologist in [place] planned to restage her with CT scan [...] neratinib toxicity. She is going back to [place] in mid of May. Will do restaging CT scan prior next visit 12/14/22 Mrs. Nina continues on adjuvant neratinib. She returned from [place] recently where shewill follow with Dr. Lorena [...] anemia documented in this encounter Care Teams Venereal Disease Control Head Relationship Specialty Start Date End Date Ghazal Joseph APRN [address] [place] [address] PCP - General Family Medicine 12/19/20 documented as of this encounter
--- OUTSIDE RECORDS SUMMARY | 2024-03-15 01:12 | XMS_ITS | Encounter Summary ---
Author Organization [facility] [place] [address] Care Team Providers Care Pipe And Tank Fabricator Name Role Phone Ghazal Joseph APRN Primary Care Provider +1 [phone] Encounter Details Date Type Department Care Team (Late st Contact Info) Description 04/30/2022 1:00 PM EDT Office Visit [facility] [address] [place] [address] Maricruz Cooley, RN Breast cancer [...] the beginning of March and went to [facility] on March 03. Another visit [...] at the end of May 2020 in [facility] Migraine, asthma, tonsillectomy, tubal ligation, [...] Tissue submitted: Paraffin embedded tissue block labelled [id number] From [facility] F 3+ positive [...] on 03/29/20 at 4:25 [address]Dr. Ramana hCew. Printing Equipment Mechanic Apprentice slides of this case were reviewed at [...] Her2 3+ by IHC, T2N1M0, stage IIB, [id number], ER-/[place]-,Her 2 3+ By IHC Treatment: -06/04/2020 [...] radiation therapy. --------- Luis Daniel back from [place] where she completed 6 [...] neratinib p.o. She completed adjuvant radiation in [facility] with Dr. Lange on 02/18/21. She [...] off Kadcyla. She plans to go to [place] in couple of weeks or so, but [...] enough to halt neratinib. Her oncologist in [place] planned to restage her with CT scan [...] neratinib toxicity. She is going back to [place] in mid of May. Will do restaging [...] the visit. She will be going to [place] for the winter in mid May. --- [...] mg daily. She will be returning to [place] in 2 weeks and will follow up [...] 240 mg daily 2. Ghazal returns to [place] in 2 weeks and will follow up [...] migrainosus documented in this encounter Care Teams Pipe And Tank Fabricator Relationship Specialty Start Date End Date Ghazal Joseph APRN [address] [place] [address] PCP - General Family Medicine 12/19/20 documented as of this encounter
--- OUTSIDE RECORDS SUMMARY | 2024-03-15 01:12 | XMS_ITS | Encounter Summary ---
Author Organization [facility] Address [facility] [place] [address] Care Team Providers Care Groundskeeping Maintenance Worker Name Role Phone Ghazal Joseph AYDIN Primary Care Provider +1 [phone] Reason for Referral * Consultation (Routine) - Closed Specialty Diagnoses / Procedures Referred By Sal fournier Referred To Contact Radiation Oncology Diagnoses Malignant neoplasm of upper-outer quadrant of right female breast, unspecified estrogen receptor status Procedures Re-simulation for Radiation Therapy Planning Jonna Lange MD [facility] [place] [address] [facility] Rad Onc Office [address] [place] [phone] Referral ID Status Reason Start Date Expiration Date V isits Requested Visits Authorized [id number] Closed Consult, Test & Treat 01/13/2021 01/13/2022 1 1 Encounter Details Date Type Department Care Team (Late st Contact Info) Description 01/13/2021 Orders Only Radiation Oncology at [address] [phone] Jonna Lange MD [facility] [place] [address] Malignant neoplasm of upper-outer quadrant of right [...] place to sleep or slept in a group home (including now)? No 12/19/2020 Sex and [...] status documented in this encounter Care Teams Groundskeeping Maintenance Worker Relationship Specialty Start Date End Date Ghazal Joseph APRN [address] [place] [address] PCP - General Family Medicine 12/19/20 documented as of this encounter
--- OUTSIDE RECORDS SUMMARY | 2024-03-15 01:12 | XMS_ITS | Encounter Summary ---
Author Organization [facility] Address [facility] [place] [address] Care Team Providers Care Recreation Therapy Aides Teacher Name Role Phone Ghazal Joseph APRN Primary Care Provider +1 -[phone] Reason for Visit * Reason Comments On Treatment Visit Encounter Details Date Type Department Care Team (Late st Contact Info) Description 02/11/2021 11:15 AM EDT Office Visit Radiation Oncology at [address] [phone] Jonna Lange MD [facility] [place] [address] Malignant neoplasm of upper-outer quadrant of right [...] not included. DIAGNOSIS: Breast ca, R, IDC, ER-DC-, Her2+, cT1 cN1, s/p neoadjuvant TCHP followed [...] For details, see electronic film record in [employer] System. Changes in Medical Condition: Manages skin [...] status documented in this encounter Care Teams Recreation Therapy Aides Teacher Relationship Specialty Start Date End Date Ghazal Joseph APRN [address] [place] [address] PCP - General Family Medicine 12/19/20 documented as of this encounter
--- OUTSIDE RECORDS SUMMARY | 2024-03-15 01:12 | XMS_ITS | Encounter Summary ---
Author Organization [facility] [place] [address] Care Team Providers Care Public Health Doctor Name Role Phone Ghazal Joseph POWER TRANSFORMER INSPECTOR Primary Care Provider +1 -[phone] Reason for Referral * Diagnostic Test (Routine) - Closed Specialty Diagnoses / Procedures Referred By aSl t Referred To Contact Radiology Diagnoses Breast cancer metastasized to axillary lymph node, right Procedures NM PET CT Skull Base to Mid-thigh Graeme Grigsby MD [facility] [place] [address] [facility] [place] [address] Referral ID Status Reason Start Date Expiration Date V isits Requested Visits Authorized [id number] Closed Specialty Service Requested 03/31/2021 09/29/2022 1 1 * Consultation (Urgent) - Closed Specialty Diagnoses / Procedures Referred By Sal t Referred To Contact [facility] Diagnoses Acute left-sided low back pain without sciatica Pain- L sided low back pain/ h/o of breast cancer/ MRI 04/11/21 @ [place]/ ?pain mgmt options Graeme Grigsby MD [facility] [place] [address] [facility] [place] [address] Referral ID Status Reason Start Date Expiration Date V isits Requested Visits Authorized [id number] Closed Pain Consult 03/31/2021 03/31/2022 1 1 Encounter Details Date Type Department Care Team (Late st Contact Info) Description 03/31/2021 4:00 PM EDT Office Visit [facility] [address] [place] [phone] Graeme Grigsby MD [facility] DR [place] [address] Acute left-sided low back pain without sciatica [...] not included. Diagnosis:R ?multifocal IDC, Gr 2-3, ER-/[place]-, Her2 3+ by IHC, N1 CC: I [...] the beginning of March and went to [facility] on March 03. Another visit to ER on March 06. She was seen by her chiropractor on March 13. No improvement in back pain. She was seen in [place] [facility] on March 14 and in the emergency room of [facility] on March 19. Fourth visit to ER [...] the end of May 2020 in [facility] Migraine, asthma, tonsillectomy, tubal ligation, cataract surgery, colonoscopy for colon polyp, frozen shoulder repair Social History: No interval changes since last visit. 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 Ramana Chew. Medical Records Supervisor slides of this case were reviewed [...] and Plan: Diagnosis:R ?multifocal IDC, Gr 2-3, ER-/[place]-, Her2 3+ by IHC, T2N1M0, stage IIB, [id number], ER-/[place]-,Her 2 3+ By IHC Treatment: -06/04/2020 -09/17/2020 6 cycle of neoadjuvant TCHP -11/07/20 right total mastectomy and sentinel lymph node biopsy -11/21/2020 right lymph node dissection - 12/10/20 started Kadcyla 3.6 mg/kg -02/19/21 completed adjuvant radiation therapy Mrs. Nina is a new diagnosis of right breast ductal carcinoma grade 2-3 ER and [place] negative and HER-2 3+ by immunochemistry. Lymph [...] neratinib p.o. She completed adjuvant radiation in [facility] with Dr. Lange on [...] lumbar MRI. Referral to pain clinic at [facility] . We will send prescription for gabapentin [...] MRI 3. Referral to pain clinic at [facility] 4. Next visit on April 24 weeks [...] who have questions please contact the health transition of care specialist that requested your imaging first. ? Electronically signed by: Martin Aguilar MD, [facility] ([phone]), at 04/10/2021 12:51 PM Narrative 04/10/2021 12:51 PM EDT EXAMINATION: NM PET CT STANDARD SKULL BASE TO MID-THIGH CLINICAL HISTORY: Breast cancer, staging Restaging of breast cancer, new onset of back pain, please evaluate for bone metastasis TECHNIQUE: Following IV injection of 90-tbhgom-2-deoxyglucose (FDG) a standard uptake of approximately 60 [...] forbone metastasis TECHNIQUE: Following IV injection of 83-xhztso-2-deoxyglucose (FDG) astandard uptake of approximately 60 minutes, [...] nodes in the left periaortic region (axial [id number]) with adjacent inflammatory changes, with a similar [...] patients who have questions please contactthe health transition of care specialist that requested your imaging first. 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
--- OUTSIDE RECORDS SUMMARY | 2024-03-15 01:12 | XMS_ITS | Encounter Summary ---
Author Organization [facility] Address [facility] [place] [address] Care Team Providers Care Documentation Engineer Name Role Phone Ghazal Joseph APRN Primary Care Provider +1 [phone] Encounter Details Date Type Department Care Team (Late st Contact Info) Description 12/22/2021 10:00 AM EDT Office Visit [facility] [address] [place] [address] Graeme Chase MD [facility] [place] [address] HER2-positive carcinoma of right breast (Primary Dx) [...] not included. Diagnosis:R ?multifocal IDC, Gr 2-3, ER-/SD-, Her2 3+ by IHC, N1 CC: I [...] and neratinib toxicity check. She returned from [place]. Ghazal started neratinib and escalating dose on [...] focal complaints today. She had mammogram in [place] in October. PMH: No interval changes since last visit Acute back pain. ER visit on April 13 DERIK, diarrhea/pancytopenia and headaches admitted at the end of May 2020 in [place] [facility] Migraine, asthma, tonsillectomy, tubal ligation, cataract surgery, colonoscopy for colon polyp, frozen shoulder repair Social History: No interval changes since last visit. 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 Ramana Chew. Dietitian Research slides of this case were reviewed at [...] and Plan: Diagnosis:R ?multifocal IDC, Gr 2-3, ER-/SD-, Her2 3+ by IHC, T2N1M0, stage IIB, [id number], ER-/SD-,Her 2 3+ By IHC Treatment: -06/04/2020 -09/17/2020 [...] breast ductal carcinoma grade 2-3 ER and [place] negative and HER-2 3+ by immunochemistry. Lymph [...] radiation therapy. --------- Luis Daniel back from [place] where she completed 6 [...] neratinib p.o. She completed adjuvant radiation in [facility] with Dr. Lange on 02/18/21. She [...] off Kadcyla. She plans to go to [place] in couple of weeks or so, but [...] enough to halt neratinib. Her oncologist in [place] planned to restage her with CT scan [...] Primary documented in this encounter Care Teams Documentation Engineer Relationship Specialty Start Date End Date Ghazal Joseph APRN [address] [place] [address] PCP - General Family Medicine 12/19/20 documented as of this encounter
--- OUTSIDE RECORDS SUMMARY | 2024-03-15 01:12 | XMS_ITS | Encounter Summary ---
Author Organization [facility] Address [facility] [place] [address] Care Team Providers Care Tape Keller Operator Name Role Phone Ghazal Joseph APRN Primary Care Provider +1 [phone] Encounter Details Date Type Department Care Team (Late st Contact Info) Description 02/23/2022 2:30 PM EDT Office Visit [facility] [address] [place] [address] Graeme Grigsby MD [facility] [place] [address] Breast cancer metastasized to axillary lymph node, [...] not included. 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 Another visit [...] at the end of May 2020 in [facility] Migraine, asthma, tonsillectomy, tubal ligation, cataract surgery, colonoscopy for colon polyp, frozen shoulder repair Social History: No interval changes since last visit. 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 F 3+ positive Strong complete membrane [...] performance characteristics have been determined by [facility] and/or by the referring laboratory. The [...] 03/29/20 at 4:25 [address]Dr. Ramana Chew. 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 Lymph [...] radiation therapy. --------- Luis Daniel back from [place] where she completed 6 cycle of TCHP [...] neratinib p.o. She completed adjuvant radiation in [facility] with Dr. Lange on 02/18/21. She received [...] off Kadcyla. She plans to go to [place] in couple of weeks or so, but [...] enough to halt neratinib. Her oncologist in [place] planned to restage her with CT scan [...] neratinib toxicity. She is going back to [place] in mid of May. Will do restaging [...] 240 mg daily 2. Next visit with [facility] in 4-5 weeks with CBC, CMP Ghazal [...] levels documented in this encounter Care Teams Tape Keller Operator Relationship Specialty Start Date End Date Ghazal Joseph APRN [address] [place] [address] PCP - General Family Medicine 12/19/20 documented as of this encounter
--- OUTSIDE RECORDS SUMMARY | 2024-03-15 01:12 | XMS_ITS | Encounter Summary ---
Author Organization [facility] Address [facility] [place] [address] Care Team Providers Care Manager Energy Name Role Phone Ghazal Joseph APRN Primary Care Provider [phone] [phone] Reason for Visit * Reason Comments Radiation Follow-up Encounter Details Date Type Department Care Team (Late st Contact Info) Description 04/08/2021 4:30 PM EDT Office Visit Radiation Oncology at [address] [address] Jonna Lange MD [facility] [place] [address] Malignant neoplasm of upper-outer quadrant of right [...] HYDROcodone-acetaminophen 5-325 mg Tab Commonly known as: [place] TAKE 1 TABLET BY MOUTH EVERY 4 [...] tomorrow () & MRI L spine 04/11/21 ([facility]), both ordered by Dr. Grigsby. She plans to winter in [place] & will followup w/me in November 2021. She was informed that left mammogram due this month & she will get it done in [place] this winter. documented in this encounter Plan of Treatment Not on file documented as of this encounter Visit Diagnoses Diagnosis Malignant neoplasm of upper-outer quadrant of right female breast, unspecified estrogen receptor status documented in this encounter Care Teams Manager Energy Relationship Specialty Start Date End Date Ghazal Joseph APRN [address] [place] [address] PCP - General Family Medicine 12/19/20 documented as of this encounter
--- OUTSIDE RECORDS SUMMARY | 2024-03-15 01:12 | XMS_ITS | Encounter Summary ---
Author Organization [facility] [place] [address] Care Team Providers Care District Manager Major Accounts Sales Name Role Phone Ghazal Joseph MACHINE STRAW HAT PRESSER Primary Care Provider [phone] [phone] Reason for Referral * Diagnostic Test (Routine) - Closed Specialty Diagnoses / Procedures Referred By Contac t Referred To Contact Radiology Diagnoses Breast cancer metastasized to axillary lymph node, right Procedures NM PET CT Skull Base to Mid-thigh Graeme Grigsby MD [facility] DR HEMATOLOGY [place] [address] [place] [address] Referral ID Status Reason Start Date Expiration Date V isits Requested Visits Authorized [id number] Closed Specialty Service Requested 03/31/2021 09/29/2022 1 1 Reason for Visit * Diagnostic Test (Routine) - Closed Specialty Diagnoses / Procedures Referred By Contac t Referred To Contact Radiology Diagnoses Breast cancer metastasized to axillary lymph node, right Procedures NM PET CT Skull Base to Mid-thigh Graeme Grigsby MD [facility] DR HEMATOLOGY [place] [address] [place] [address] Referral ID Status Reason Start Date Expiration Date V isits Requested Visits Authorized [id number] Closed Specialty Service Requested 03/31/2021 09/29/2022 1 1 Encounter Details Date Type Department Care Team (Latest Contact Info) Description 04/09/2021 2:28 PM EDT Hospital Encounter [place] [address] Graeme Grigsby MD [facility] DR HEMATOLOGY [place] [address] Breast cancer metastasized to axillary lymph node, [...] place to sleep or slept in a intermediate (including now)? No 12/19/2020 Sex and Gender [...] by mouth. fluticasone propionate (FLONASE) 50 mcg/actuation [place], Suspension 1 spray daily. albuterol sulfate 90 mcg/actuation Aerosol Powdr Breath Activated Inhale 180 mcg into the lungs. diazePAM (Valium) 5 mg Tablet Take by mouth. 03/19/2021 01/19/2022 HYDROcodone-acetaminophe n ([place]) 5-325 mg Tablet TAKE 1 TABLET BY [...] who have questions please contact the health ocular care technologist that requested your imaging first. ? Narrative 04/10/2021 12:51 PM EDT EXAMINATION: NM PET CT STANDARD SKULL BASE TO MID-THIGH CLINICAL HISTORY: Breast cancer, staging Restaging of breast cancer, new onset of back pain, please evaluate for bone metastasis TECHNIQUE: Following IV injection of 63-odhaug-0-deoxyglucose (FDG) a standard uptake of approximately 60 [...] forbone metastasis TECHNIQUE: Following IV injection of 72-mseehk-2-deoxyglucose (FDG) astandard uptake of approximately 60 minutes, [...] nodes in the left periaortic region (axial [id number]) with adjacent inflammatory changes, with a similar [...] patients who have questions please contactthe health ocular care technologist that requested your imaging first. Graeme Grigsby MD IMG PET ORDERABLES documented [...] Arm documented in this encounter Care Teams District Manager Major Accounts Sales Relationship Specialty Start Date End Date Ghazal Joseph, MACHINE STRAW HAT PRESSER [address] [place] [address] PCP - General Family Medicine 12/19/20 documented as of this encounter
--- OUTSIDE RECORDS SUMMARY | 2024-03-15 01:12 | XMS_ITS | Encounter Summary ---
Author Organization [facility] Address [facility] [place] [address] Care Team Providers Care Crab Fisherman Name Role Phone Ghazal Joseph APRN Primary Care Provider [phone] [phone] Reason for Visit * Reason Comments On Treatment Visit Encounter Details Date Type Department Care Team (Late st Contact Info) Description 01/28/2021 11:30 AM EDT Office Visit Radiation Oncology at [address] [address] Lee Lange MD [facility] [address] [place] [address] Contact dermatitis due to radiation; Malignant neoplasm [...] EDT Prescription for silvadene cream sent to [facility] in [place]. 1% hydrocortisone cream available over the counter [...] For details, see electronic film record in [employer]. Changes in Medical Condition: Increased skin [...] status documented in this encounter Care Teams Crab Fisherman Relationship Specialty Start Date End Date Ghazal Joseph APRN [address] [place] [address] PCP - General Family Medicine 12/19/20 documented as of this encounter
--- OUTSIDE RECORDS SUMMARY | 2024-03-15 01:12 | XMS_ITS | Encounter Summary ---
Author Organization [facility] [place] [address] Care Team Providers Care Bilingual Executive Assistant Name Role Phone Ghazal Joseph APRN Primary Care Provider +1 -[phone] Encounter Details Date Type Department Care Team (Late st Contact Info) Description 03/06/2021 9:30 AM EDT Office Visit [facility] [address] [place] [address] Maricruz Cooley, RN HER2-positive carcinoma [...] not included. Diagnosis:R ?multifocal IDC, Gr 2-3, ER-/[place]-, Her2 3+ by IHC, N1 Subjective HPI:Ghazal [...] started on Kadcyla on December 10 in [place]. Ghazal is here today for C5. She [...] Tissue submitted: Paraffin embedded tissue block labelled [id number] From [facility] F 3+ positive Strong [...] 03/29/20 at 4:25 pm byDr. Ramana Chew. Business Education Instructor slides of this case were reviewed at [...] and Plan: Diagnosis:R ?multifocal IDC, Gr 2-3, ER-/[place]-, Her2 3+ by IHC, T2N1M0, stage IIB, [id number], ER-/[place]-,Her 2 3+ By IHC Treatment: -06/04/2020 -09/17/2020 6 cycle of neoadjuvant TCHP -11/07/20 right total mastectomy and sentinel lymph node biopsy -11/21/2020 right lymph node dissection - 12/10/20 started Kadcyla 3.6 mg/kg Mrs. Nina is a new diagnosis of right breast ductal carcinoma grade 2-3 ER and [place] negative and HER-2 3+ by immunochemistry. Lymph [...] radiation therapy. --------- Peggy is back from [place] where she completed 6 cycle of TCHP [...] neratinib p.o. She completed adjuvant radiation in [facility] with Dr. Lange on 02/18/21. We will [...] questions/concerns or new symptoms. Maricruz Cooley MSN, DOOR TO DOOR LEAD GENERATION, AOCNP Medical Oncology documented in this encounter Plan of Treatment Not on file documented as of this encounter Visit Diagnoses Diagnosis HER2-positive carcinoma of right breast Acute left-sided low back pain without sciatica documented in this encounter Care Teams Bilingual Executive Assistant Relationship Specialty Start Date End Date Ghazal Joseph APRN [address] [place] [address] PCP - General Family Medicine 12/19/20 documented as of this encounter
--- OUTSIDE RECORDS SUMMARY | 2024-03-15 01:12 | XMS_ITS | Encounter Summary ---
Author Organization [facility] Address [facility] [place] [address] Care Team Providers Care Hydrology Teacher Name Role Phone Ghazal Joseph AYDIN Primary Care Provider +1 -[phone] Reason for Visit * Consultation (Routine) - Closed Specialty Diagnoses / Procedures Referred By Sal fournier Referred To Contact Radiation Oncology Diagnoses Malignant neoplasm of upper-outer quadrant of right female breast, unspecified estrogen receptor status Procedures Re-simulation for Radiation Therapy Planning Jonna Lange MD [facility] [place] [address] [facility] Rad Onc Office [address] [place] [id number] Referral ID Status Reason Start Date Expiration Date V isits Requested Visits Authorized [id number] Closed Consult, Test & Treat 01/13/2021 01/13/2022 1 1 Encounter Details Date Type Department Care Team (Latest Contact Info) Description 01/14/2021 1:00 PM EDT Ancillary Appointment Radiation Oncology at [address] [address] Jonna Lange MD [facility] [place] [address] Malignant neoplasm of upper-outer quadrant of right [...] status documented in this encounter Care Teams Hydrology Teacher Relationship Specialty Start Date End Date Ghazal Joseph APRN [address] [place] [address] PCP - General Family Medicine 12/19/20 documented as of this encounter
--- OUTSIDE RECORDS SUMMARY | 2024-03-15 01:12 | XMS_ITS | Encounter Summary ---
Author Organization [facility] Address [facility] [place] [address] Care Team Providers Care Switch Foreman Name Role Phone Ghazal Joseph APRN Primary Care Provider +1 -[phone] Encounter Details Date Type Department Care Team (Late st Contact Info) Description 01/02/2021 Notes Only [facility] [address] [place] [address] Rere Faulkner RN Social History [...] Faulkner RN - 01/02/2021 1:43 PM EDT [facility] Treatment Note - Socorro Harman Jessenia Maico [phone] Allergies Allergen Reactions ??? Codeine Nausea Only Cycle: 2 Day: Medication Dose Route kadcyla 225 mg IV Cumulative Drug Doses Medication Cumulative Dose Patient tolerated treatment well without incident or adverse reaction. Patient instructed to contact this clinic during regular business hours if they have any concerns related to treatment, patient was instructed to contact [facility] geographic information systems analyst oncologist after hours, on weekends and holidays for concernsrelated to their cancer diagnosis current treatment. documented in this encounter Plan of Treatment Not on file documented as of this encounter Visit Diagnoses Not on filedocumented in this encounter Care Teams Switch Foreman Relationship Specialty Start Date End Date Ghazal Joseph APRN [address] [place] [address] PCP - General Family Medicine 12/19/20 documented as of this encounter
--- OUTSIDE RECORDS SUMMARY | 2024-03-15 01:12 | XMS_ITS | Encounter Summary ---
Author Organization [facility] Address [facility] [place] [address] Care Team Providers Care Change Management Name Role Phone Ghazal Joseph APRN Primary Care Provider +1 -[phone] Encounter Details Date Type Department Care Team (Late st Contact Info) Description 01/23/2021 9:30 AM EDT Office Visit [facility] [address] [place] [address] Maricruz Cooley, RN HER2-positive carcinoma [...] not included. Diagnosis:R ?multifocal IDC, Gr 2-3, ER-/[place]-, Her2 3+ by IHC, N1 Subjective HPI:Ghazal [...] started on Kadcyla on December 10 in [place]. Ghazal is here today forC3. She is [...] medication. She is seeing the neurologist in [facility] on the of this month. 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 F 3+ positive [...] 03/29/20 at 4:25 [address]Dr. Ramana Chew. Rounding Machine Operator slides of this case were reviewed [...] and Plan: Diagnosis:R ?multifocal IDC, Gr 2-3, ER-/[place]-, Her2 3+ by IHC, T2N1M0, stage IIB, [id number], ER-/[place]-,Her 2 3+ By IHC Treatment: -06/04/2020 -09/17/2020 6 cycle of neoadjuvant TCHP -11/07/20 right total mastectomy and sentinel lymph node biopsy -11/21/2020 right lymph node dissection - 12/10/20 started Kadcyla 3.6 mg/kg Mrs. Nina is a new diagnosis of right breast ductal carcinoma grade 2-3 ER and [place] negative and HER-2 3+ by immunochemistry. Lymph [...] She is currently receiving adjuvant radiation in [facility] with Dr. Lange. We will continue [...] She has an appt with Neurology in [facility] on the . Plan: 1. [...] questions/concerns or new symptoms. 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
--- OUTSIDE RECORDS SUMMARY | 2024-03-15 01:12 | XMS_ITS | Encounter Summary ---
Author Organization [facility] Address [facility] [place] [address] Care Team Providers Care Chief Executive Officer Name Role Phone Ghazal Joseph AYDIN Primary Care Provider +1 -[phone] Encounter Details Date Type Department Care Team (Late st Contact Info) Description 04/02/2022 11:30 AM EDT Office Visit [facility] [address] [place] [address] Keyona Hanley APRN [facility] [place] [address] HER2-positive carcinoma of right breast; Hypokalemia Social [...] not included. Diagnosis:R ?multifocal IDC, Gr 2-3, ER-/[place]-, Her2 3+ by IHC, N1 CC: I [...] went to [facility] on March 03-. Another visit to ER on March 06. She was seen by her chiropractor on March 13. No improvement in backpain. She had several visits to emergency room with back pain he followed with Dr. Street she has been on the full dose of 240 mg neratinib daily since December 11. Interval history 04/02/22 Ms Nnia returns to clinic today for routine followup [...] at the end of May 2020 in [facility] Migraine, asthma, tonsillectomy, tubal ligation, cataract surgery, colonoscopy for colon polyp, frozen shoulder repair Social History: No interval changes since last visit. 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 Ramana Chew. Job Site Supervisor slides of this case were reviewed [...] and Plan: Diagnosis:R ?multifocal IDC, Gr 2-3, ER-/[place]-, Her2 3+ by IHC, T2N1M0, stage IIB, [id number], ER-/[place]-,Her 2 3+ By IHC Treatment: -06/04/2020 -09/17/2020 [...] breast ductal carcinoma grade 2-3 ER and [place] negative and HER-2 3+ by immunochemistry. Lymph [...] neratinib p.o. She completed adjuvant radiation in [facility] with Dr. Lange on 02/18/21. She [...] the visit. She will be going to [place] for the winter in mid May. # [...] Hypopotassemia documented in this encounter Care Teams Chief Executive Officer Relationship Specialty Start Date End Date Ghazal Joseph APRN [address] [place] [address] PCP - General Family Medicine 12/19/20 documented as of this encounter
--- OUTSIDE RECORDS SUMMARY | 2024-03-15 01:12 | XMS_ITS | Encounter Summary ---
Author Organization [facility] [place] [address] Care Team Providers Care Community Center Coordinator Name Role Phone Ghazal Joseph APRN Primary Care Provider [phone] Encounter Details Date Type Department Care Team (Late st Contact Info) Description 03/27/2021 9:00 AM EDT Office Visit [facility] [address] [address] Maricruz Cooley, RN HER2-positive carcinoma [...] ER-/[place]-, Her2 3+ by IHC, N1 Subjective HPI:Ghaazl Nina is 70 y.o.F referred by Dr. [...] started on Kadcyla on December 10 in [place]. Ghazal is here today forC6. 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 Ramana Chew. Program Director [employer] slides of this case were reviewed at [...] Her2 3+ by IHC, T2N1M0, stage IIB, [id number], ER-/[place]-,Her 2 3+ By IHC Treatment: -06/04/2020 [...] radiation therapy. --------- Peggy is back from [place] where she completed 6 cycle of TCHP [...] neratinib p.o. She completed adjuvant radiation in [facility] with Dr. Lange on 02/18/21. We will [...] questions/concerns or new symptoms. Maricruz Cooley MSN, TOBACCO PRIZER, AOCNP Medical Oncology documented in this encounter Plan of Treatment Not on file documented as of this encounter Visit Diagnoses Diagnosis HER2-positive carcinoma of right breast Acute bilateral low back pain with bilateral sciatica documented in this encounter Care Teams Community Center Coordinator Relationship Specialty Start Date End Date Ghazal Joseph APRN [address] [place] [address] PCP - General Family Medicine 12/19/20 documented as of this encounter
--- OUTSIDE RECORDS SUMMARY | 2024-03-15 01:13 | XMS_ITS | Encounter Summary ---
Author Organization [facility] Address [facility] [place] [address] Care Team Providers Care Newspaper Copy Editor Name Role Phone Ghazal Joseph APRN Primary Care Provider [phone] Encounter Details Date Type Department Care Team (Late st Contact Info) Description 12/17/2005 [place] [phone] Vinicio Crowley MD PATHOLOGY [address] [place] [address] Social History Tobacco Use Types Packs/Day Years [...] (12/17/2005 8:02 AM EDT) Surgical Pathology Report [id number] ? Location: The signing pathologist has (i) examined the relevant preparation(s) for the specimen(s) and (ii) rendered or confirmed the diagnosis(es). . ?Pathology Surgical Pathology Final Report Clinical Information Specimen Submitted: CONSULTATION CASE A - 6 slides labeled [id number], collection date 12/11/05. [id number] Report to: Vinicio Crowley MD Department [place] [address] Phone: ??[phone] Fax: ??[phone] Gross Description [facility] pathology slide(s) are reviewed. ??Refer to Diagnosis and Specimen Submitted for specific case information. For the full text of the [facility] report(s) please refer to Non-DH Documentation Pathology [...] MD PATHOLOGY/CYTOLOGY O RDERABLES Performing Organization Address City/State/[facility] Co de Phone Number PRASANNA FERNANDES documented in this encounter Visit Diagnoses Not on filedocumented in this encounter Care Teams Newspaper Copy Editor Relationship Specialty Start Date End Date Ghazal Joseph, HEALTH TECHNICAL WRITER [address] [place] [address] PCP - General Family Medicine 12/19/20 documented as of this encounter
--- OUTSIDE RECORDS SUMMARY | 2024-03-15 01:13 | XMS_ITS | Encounter Summary ---
Author Organization [facility] Address [facility] [place] [address] Care Team Providers Care Fluid Jet Cutter Operator Name Role Phone Ghazal Joseph APRN Primary Care Provider [phone] Reason for Referral * Consultation (Routine) - Closed Specialty Diagnoses / Procedures Referred By Sal t Referred To Contact Radiation Oncology Diagnoses Malignant neoplasm of upper-outer quadrant of right female breast, unspecified estrogen receptor status Procedures Simulation for Radiation Therapy Planning Jonna Lange MD [facility] [place] [address] [facility] Rad Onc Office [address] [place] [phone] Referral ID Status Reason Start Date Expiration Date V isits Requested Visits Authorized [id number] Closed Consult, Test & Treat 12/19/2020 12/19/2021 99 99 Reason for Visit * Reason Comments Radiation Consult * Consultation (Routine) - Closed Specialty Diagnoses / Procedures Referred By Contac t Referred To Contact Radiation Oncology Diagnoses Breast cancer metastasized to axillary lymph node, right HER2-positive carcinoma of right breast Graeme Grigsby MD [facility] [place] [address] Jonna Lange MD [facility] [place] [address] Referral ID Status Reason Start Date Expiration Date V isits Requested Visits Authorized [id number] Closed Consult, Test & Treat 12/16/2020 12/16/2021 1 1 Encounter Details Date Type Department Care Team (Late st Contact Info) Description 12/19/2020 10:00 AM EDT Office Visit Radiation Oncology at [facility] [place] [address] Jonna Lange MD [facility] [place] [address] Malignant neoplasm of upper-outer quadrant of right [...] Path: A - R breast: [place], IDC, ER-MI-, Her2 IHC+. B _ R axilla: [place], IDC, ER-MI-, Her2 IHC+. 04/18/20 MRI B breast: Known R breast malignancy. 05/01/20 CT ch: R axillary adenopathy. R breast lesions. 05/01/20 CT a/p: Neg for met dz. 05/01/20 bs: Nl 05/03/20 MRI brain: No met dz. 05/25/20 LP. S/p neoadjuvant TCHP x 6. 10/04/[address] [place] ([place]) showed complete response in R breast & [...] Judgment normal. A: Breast ca, R, IDC, ER-MI-, Her2+, cT1 cN1, s/p neoadjuvant TCHP followed [...] extremity turns pink or starts to swell. Late/ocean transportation intermediary side effects of xrt discussed include: Treated soft tissue may tighten & become firmer; achiness/stiffness of chest wall on treated side; R sided rib fracture; CT after xrt may show scarring w/in small volume of lung on treated side; permanent swelling of R hand/arm; small risk of irradiation associated 2nd malignancy. Risk of occurrence of most of late/half-way side effects small. Need for CTsim prior to xrt discussed. She would like to proceed w/xrt & will undergo CTsim @ [facility] facility 12/24/20. We discussed exercises to increase [...] status documented in this encounter Care Teams Fluid Jet Cutter Operator Relationship Specialty Start Date End Date Ghazal Joseph APRN [address] [place] [address] PCP - General Family Medicine 12/19/20 documented as of this encounter
--- OUTSIDE RECORDS SUMMARY | 2024-03-15 01:13 | XMS_ITS | Encounter Summary ---
Author Organization [facility] [place] [address] Care Team Providers Care Vice President Of Instruction Name Role Phone Ghazal Joseph APRN Primary Care Provider [phone] Encounter Details Date Type Department Care Team (Late st Contact Info) Description 12/18/2020 Orders Only [facility] [address] [place] [address] Rere Faulkner RN Breast cancer [...] right documented in this encounter Care Teams Vice President Of Instruction Relationship Specialty Start Date End Date Ghazal Joseph APRN [address] [place] [address] PCP - General Family Medicine 12/19/20 documented as of this encounter
--- OUTSIDE RECORDS SUMMARY | 2024-03-15 01:13 | XMS_ITS | Encounter Summary ---
Author Organization [facility] Address [facility] [place] [address] Care Team Providers Care Agronomy Specialist Name Role Phone None Primary Care Provider Unavailabl e Encounter Details Date Type Department Care Team (Late st Contact Info) Description 05/01/2020 10:05 PM EDT Ancillary Procedure [place] [address] Graeme Grigsby MD [facility] [address] HEMATOLOGY [place] [address] Social History Tobacco Use Types Packs/Day Years [...] Grigsby MD IMG FILM LIBRARY ORD ERABLES [place], [place] documented in this encounter Visit Diagnoses Not on filedocumented in this encounter Care Teams Agronomy Specialist Relationship Specialty Start Date End Date None None PCP - General 02/23/11 12/18/20 documented as of this encounter
--- OUTSIDE RECORDS SUMMARY | 2024-03-15 01:13 | XMS_ITS | Encounter Summary ---
Author Organization [facility] Address [facility] [address] Care Team Providers Care Resident Care Supervisor Name Role Phone None Primary Care Provider Unavailabl e Reason for Referral * Consultation (Routine) - Specialty Diagnoses / Procedures Referred By Contac t Referred To Contact General Surgery Diagnoses HER2-positive carcinoma of right breast High risk medication use Graeme Grigsby MD [facility] [address] HEMATOLOGY [place] [address] Rosa Maria Huff MD [address] [place] [address] Referral ID Status Reason Start Date Expiration Date V isits Requested Visits Authorized [id number] Consult, Test & Treat 04/22/2020 10/19/2020 1 1 Encounter Details Date Type Department Care Team (Late st Contact Info) Description 04/22/2020 3:30 PM EDT Office Visit [facility] [address] [place] [phone] Graeme Grigsby MD [facility] [address] HEMATOLOG[place] [address] Breast cancer metastasized to axillary lymph node, [...] not included. 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 Ramana Chew. Electrical Maintenance Worker slides of this case were reviewed at [...] and Plan: Diagnosis:R ?multifocal IDC, Gr 2-3, ER-/MO-, Her2 3+ by IHC, N1 Treatment: None Mrs. 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 Lymph [...] levels documented in this encounter Care Teams Resident Care Supervisor Relationship Specialty Start Date End Date None None PCP - General 02/23/11 12/18/20 documented as of this encounter
--- OUTSIDE RECORDS SUMMARY | 2024-03-15 01:13 | XMS_ITS | Encounter Summary ---
Author Organization [facility] Address [facility] [address] Care Team Providers Care Acid Extractor Name Role Phone None Primary Care Provider Unavailabl e Encounter Details Date Type Department Care Team (Late st Contact Info) Description 05/06/2020 9:00 AM EDT Office Visit [facility] [address] [place] [address] Graeme Grigsby MD [facility] [address] [place] [address] Breast cancer metastasized to axillary lymph node, [...] 2-3, ER-/[place]-, Her2 3+ by IHC, N1 Subjective:I have [...] focal complaints. She plans to move to [place] for the winter. 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 Ramana Chew. Sap Basis slides of this case were reviewed at [...] Gr 2-3, ER-/[place]-, Her2 3+ by IHC, T2N1Mx, stage IIB [...] satisfaction. She is going to move to [place] for the winterand received treatment there. She will provide us with the name of her medical oncologist there so we can transfer all information to local oncologist. She will call us when she is back from [place]. Plan: 1. Follow-up with medical oncologist in [place] for neoadjuvant chemotherapy 2. Next visit as [...] breast documented in this encounter Care Teams Acid Extractor Relationship Specialty Start Date End Date None None PCP - General 02/23/11 12/18/20 documented as of this encounter
--- OUTSIDE RECORDS SUMMARY | 2024-03-15 01:13 | XMS_ITS | Encounter Summary ---
Author Organization [facility] [place] [address] Care Team Providers Care Movie Theater Manager Name Role Phone Nerissa Cody APRN Primary Care Provider [phone] Reason for Visit * Reason Comments Verrucous Vulgaris Encounter Details Date Type Department Care Team (Late st Contact Info) Description 01/26/2011 3:45 PM EDT Office Visit Dermatology [address] [place] [address] [address] [place] [address] Uche Gann MD [address] [facility] [place] [address] Verruca vulgaris (Primary Dx) Social History Tobacco [...] unspecified documented in this encounter Care Teams Movie Theater Manager Relationship Specialty Start Date End Date Nerissa Cody APRN [address] [place] [address] PCP - General 06/24/10 02/22/11 documented as of this encounter
--- OUTSIDE RECORDS SUMMARY | 2024-03-15 01:13 | XMS_ITS | Encounter Summary ---
Author Organization [facility] Address [facility] [place] [address] Care Team Providers Care Braiding Machine Operator Name Role Phone None Primary Care Provider Unavailabl e Encounter Details Date Type Department Care Team (Late st Contact Info) Description 05/01/2020 11:15 AM EDT Ancillary [place] [address] Graeme Grigsby MD [facility] [address] HEMATOLOGY [place] [address] Social History Tobacco Use Types Packs/Day Years [...] Abdomen Pelvis (05/01/2020 11:15 AM EDT) Narrative [facility] - 05/01/2020 11:15 AM EDT This exam is auto-finalizing. It's purpose is for storage only. Graeme Grigsby MD IMG FILM LIBRARY ORD ERABLES [place], [place] documented in this encounter Visit Diagnoses Not on filedocumented in this encounter Care Teams Braiding Machine Operator Relationship Specialty Start Date End Date None None PCP - General 02/23/11 12/18/20 documented as of this encounter
--- OUTSIDE RECORDS SUMMARY | 2024-03-15 01:13 | XMS_ITS | Encounter Summary ---
Author Organization [facility] Address [facility] [place] [address] Care Team Providers Care [employer] Flatbed Truck Driver Name Role Phone None Primary Care Provider Unavailabl e Encounter Details Date Type Department Care Team (Late st Contact Info) Description 04/19/2020 Abstract [facility] [address] [facility] [place] [address] Ally Bashir, RN Social History [...] on filedocumented in this encounter Care Teams Regional Company Flatbed Truck Driver Relationship Specialty Start Date End Date None None PCP - General 02/23/11 12/18/20 documented as of this encounter
--- OUTSIDE RECORDS SUMMARY | 2024-03-15 01:13 | XMS_ITS | Encounter Summary ---
Author Organization [facility] [place] [address] Care Team Providers Care Field Laborer Name Role Phone CodyRenuleelee Shankar APRN Primary Care Provider [phone] Reason for Visit * Reason Comments Dermatitis Encounter Details Date Type Department Care Team (Late st Contact Info) Description 12/10/2010 4:15 PM EDT Office Visit Dermatology [address] [place] [address] [address] [place] [address] Uche Gann MD [address] [facility] [place] [address] Actinic keratoses (Primary Dx); Wart; Hand dermatitis [...] is referred to me in consultation by Neirssa Cody. I have spoken over the phone [...] right dorsal hand and on the left worship. She has a verruca vulgaris present on [...] facial, right dorsal hand, right forearm, left worship area. a. Patient reassured about excellent results [...] cause documented in this encounter Care Teams Field Laborer Relationship Specialty Start Date End Date Nerissa Cody APRN [address] [place] [address] PCP - General 06/24/10 02/22/11 documented as of this encounter
--- OUTSIDE RECORDS SUMMARY | 2024-03-15 01:13 | XMS_ITS | Encounter Summary ---
Author Organization [facility] Address [facility] [place] [address] Care Team Providers Care Surgical Supply Assistant Name Role Phone None Primary Care Provider Unavailabl e Reason for Referral * Consultation (Routine) - Closed Specialty Diagnoses / Procedures Referred By Contac t Referred To Contact Radiation Oncology Diagnoses Breast cancer metastasized to axillary lymph node, right HER2-positive carcinoma of right breast Graeme Grigsby MD [facility] DR HEMATOLOGY [place] [address] Jonna Lange MD [facility] [place] [address] Referral ID Status Reason Start Date Expiration Date V isits Requested Visits Authorized [id number] Closed Consult, Test & Treat 12/16/2020 12/16/2021 1 1 Encounter Details Date Type Department Care Team (Late st Contact Info) Description 12/16/2020 2:00 PM EDT Office Visit [address] 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 Ramana Chew. Conference Producer slides of this case were reviewed at [...] Her2 3+ by IHC, T2N1M0, stage IIB, [id number], ER-/[place]-,Her 2 3+ By IHC Treatment: -06/04/2020 [...] a referral to our radiation oncologist at [facility] for adjuvant radiation therapy. We will continue [...] medications documented in this encounter Care Teams Surgical Supply Assistant Relationship Specialty Start Date End Date None None PCP - General 02/23/11 12/18/20 documented as of this encounter
--- OUTSIDE RECORDS SUMMARY | 2024-03-15 01:13 | XMS_ITS | Encounter Summary ---
Author Organization [facility] Address [facility] [place] [address] Care Team Providers Care Commercial Ocean Clammer Name Role Phone None Primary Care Provider Unavailabl e Encounter Details Date Type Department Care Team (Latest Contact Info) Description 12/15/2016 9:42 PM EDT - 12/15/2016 11:59 PM EDT Hospital Encounter [place] [address] Discharge Disposition: Home Social History Tobacco Use [...] Report (12/15/2016 12:00 PM EDT) Final Diagnosis [id number] ?Location: OPW The signing pathologist has (i) [...] intact. (T1) ??ksb 12/16/2016 2:44 PM EDT [facility] SPECIMEN FROM SKIN / Unknown 12/15/2016 12:00 PM EDT 12/15/2016 12:00 PM EDT Ninoska Prajapati MD PATHOLOGY/CYTOLOGY O RDERABLES [facility] [place] [address] documented in this encounter Visit Diagnoses Not on filedocumented in this encounter Care Teams Commercial Ocean Clammer Relationship Specialty Start Date End Date None None PCP - General 02/23/11 12/18/20 documented as of this encounter
--- OUTSIDE RECORDS SUMMARY | 2024-03-15 01:13 | XMS_ITS | Encounter Summary ---
Author Organization [facility] Address [facility] [place] [address] Care Team Providers Care Automatic Log Cut Off Sawyer Name Role Phone None Primary Care Provider Unavailabl e Encounter Details Date Type Department Care Team (Latest Contact Info) Description 04/24/2020 2:17 PM EDT - 04/24/2020 11:59 PM EDT Hospital Encounter Laboratory [facility] [place] [address] Discharge Disposition: Home Social History Tobacco Use [...] by mouth. fluticasone propionate (FLONASE) 50 mcg/actuation [place], Suspension 1 spray daily. albuterol sulfate 90 [...] Report (04/24/2020 2:17 PM EDT) Final Diagnosis [id number] ? Location: OPW The signing pathologist has (i) examined the relevant preparation(s) for the specimen(s) and (ii) rendered or confirmed the diagnosis(es). . ?Surgical Pathology DIAGNOSIS CONSULTATION CASE Outside slide(s) labeled [id number], collection date 03/28/2020. Needle biopsies: ?Right breast, 7 o'clock, 5 cm from nipple Diagnosis: ?Invasive ductal carcinoma with focal apocrine ?features, intermediate to high grade. Microcalcificatio ns: ??N/A ER, VA, and HER2 studies ([facility] slides reviewed): ER: Negative VA: Negative HER2 IHC: Positive (score 3+) Needle biopsies: ?Right axillary lymph node Diagnosis: ?Invasive ductal carcinoma, intermediate to high ?grade, with focal apocrine features, see Discussion. ER, VA, and HER2 studies ([facility] slides reviewed): ER: Negative VA: Negative HER2 IHC: Positive (score 3+) Electronically signed by: ??Jamilah Alejo DO Verified: ??04/25/2020 ?Pathologist Performed at: ??-[facility] Dept. of Pathology, [place], [place] DISCUSSION Focal lymphocytes are present in specimen B intermixed with the tumor; however, definite lymph node tissue is not seen in this sample. Clinical and radiologic correlation recommended to determine if this represents metastatic carcinoma in a lymph node. SPECIMEN(S) SUBMITTED CONSULTATION CASE A - 16 slide(s) labeled [id number], collection date 03/28/2020. [id number] Report to: [facility] Surgical Pathology Department [facility], [facility], [address]nd Floor [address] [place] [address] ??[id number] CLINICAL INFORMATION Right breast mass 7 o'clock 5 cm from nipple. Right axillary lymph node. SPECIMEN PROCESSING [facility] ([facility]) pathology slide(s) are reviewed. ??Refer to Diagnosis and Specimen Submitted for specific case information. . SPECIMEN PROCESSING For the full text of the [facility] report(s) please refer to Non- Documentation Pathology in the electronic health record (eDH). 04/25/2020 10:29 AM EDT [facility] Consult Case 04/24/2020 2:17 PM EDT 04/24/2020 2:17 PM EDT Graeme Devitskiy MD PATHOLOGY/CYTOLOGY O RDERABLES [facility] [place] [address] documented in this encounter Visit Diagnoses Not on filedocumented in this encounter Care Teams Automatic Log Cut Off Sawyer Relationship Specialty Start Date End Date None None PCP - General 02/23/11 12/18/20 documented as of this encounter
--- OUTSIDE RECORDS SUMMARY | 2024-03-15 01:13 | XMS_ITS | Encounter Summary ---
Author Organization [facility] Address [facility] [place] [address] Care Team Providers Care Boat Carpenter Mechanic Name Role Phone None Primary Care Provider Unavailabl e Encounter Details Date Type Department Care Team (Late st Contact Info) Description 05/03/2020 1:20 PM EDT Ancillary Procedure [place] [address] Graeme Grigsby MD [facility] [address] HEMATOLOGY [place] [address] Social History Tobacco Use Types Packs/Day Years [...] Grigsby MD IMG FILM LIBRARY ORD ERABLES [place], [place] documented in this encounter Visit Diagnoses Not on filedocumented in this encounter Care Teams Boat Carpenter Mechanic Relationship Specialty Start Date End Date None None PCP - General 02/23/11 12/18/20 documented as of this encounter
--- NOTE | 2024-03-16 | DI.US_ITS ---
Exam(s) US ABDOMEN LIMITED EXAM: US ABDOMEN LIMITED CLINICAL HISTORY: K74.60 Cirrhosis liver TECHNIQUE: Ultrasound abdomen performed using standard protocol. COMPARISON: US US ABDOMEN LIMITED from 03/05/2023 FINDINGS: PANCREAS: Normal where visualized. LIVER: Liver is echogenic which can be seen with fatty infiltration. It has a coarsened echotexture. There is mild lobulation of the contour of the liver suggesting hepatic cirrhosis. 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 The liver measures in 12.0 cm length. No evidence of a hepatic mass. GALLBLADDER: No evidence of cholelithiasis. No evidence of wall thickening. No pericholecystic fluid identified. BILIARY SYSTEM: Common bile duct measures < 7 mm. No intrahepatic biliary ductal dilation. MANUEL'S SIGN: Negative. RIGHT KIDNEY: Kidney is normal in size. No evidence of renal calculi. No evidence of hydronephrosis. No renal mass or cyst identified. ASCITES: None seen. IMPRESSION: No evidence of a hepatic mass. Findings suggestive of hepatic cirrhosis. DATA REPOSITORY:
== END 2024-03-16 02:18 ==
PROVIDERS: PCP Nurse Practitioner Family; Visit Provider Nurse Practitioner Family
DX: K74.60 Unspecified cirrhosis of liver (principal)
CPT/HCPCS: 76705

== ENCOUNTER 2025-03-15 10:50 | Outpatient (REF) | payer MEDICARE, BC, SELFPAY ==
[2025-03-15 16:13] LABS: Abs Immature Grans 0.01 10^3/uL (0.0-0.06); HCT 43.3 % (36.0-46.0); HGB 14.1 g/dL (11.2-15.7); Immature Grans % 0.3 %; MCH 28.1 pg (27.0-33.0); MCHC 32.6 % (32.0-36.0); MCV 86 fL (80-95); MPV 9.8 fL (8.0-11.0); Platelet Count 104 10^3/uL (130-400); RBC 5.01 10^6/uL (3.93-5.22); RDW 13.8 % (11.7-14.6); RDW-SD 43.4 fL; WBC 3.73 10^3/uL (4.4-10.8)
[2025-03-15 18:34] LABS: ALT 37 U/L (14-59); AST 28 U/L (15-37); Albumin 4.1 g/dL (3.4-5.0); Alkaline Phosphatase 313 U/L (46-116); Anion Gap 12.1 mmol/L (3-11); BUN 17 mg/dL (7-18); Bilirubin, Total 0.9 mg/dL (0.2-1.0); CO2 27.9 mmol/L (21.0-32.0); Calcium 9.0 mg/dL (8.5-10.1); Chloride 107 mmol/L (98-107); Estimated GFR 43.42 (mL/min/1.73m2); Glucose 90 mg/dL (74-106); Magnesium 2.1 mg/dL (1.8-2.4); Potassium 4.1 mmol/L (3.5-5.1); Sodium 147 mmol/L (136-145); TSH (W/Ref FT4) 4.35 uIU/mL (0.36-3.74); Total Protein 7.4 g/dL (6.4-8.2); Vitamin D 25 Total 60 ng/mL (30-100)
== END 2025-03-15 10:51 | disposition home or self-care (01) ==
LOC: NCHCN 10:50
PROVIDERS: PCP Nurse Practitioner Family; Visit Provider Nurse Practitioner Family
DX: E03.9 Hypothyroidism, unspecified (principal); M81.0 Age-related osteoporosis without current pathological fracture; K74.60 Unspecified cirrhosis of liver
CPT/HCPCS: 80053; 82306; 82105; 83735; 84439; 84443; 85025

== ENCOUNTER 2025-03-22 00:27 | Outpatient (CLI) | payer MEDICARE, BC, SELFPAY ==
--- NOTE | 2025-03-22 | DI.US_ITS ---
Exam(s) US ABDOMEN LIMITED EXAM: US ABDOMEN LIMITED CLINICAL HISTORY: CIRRHOSIS OF LIVER, K74.60 TECHNIQUE: Ultrasound abdomen performed using standard protocol. COMPARISON: US US ABDOMEN LIMITED from 03/16/2024 FINDINGS: There is no ascites evident. LIVER: There is a 10 x 17 mm cyst in the right hepatic lobe adjacent to the gallbladder fossa. GALLBLADDER/BILIARY: There are no gallstones. No gallbladder wall edema nor pericholecystic fluid. The common hepatic duct isnot dilated, measuring 5mm at the level of lola hepatis. PANCREAS: Only partially visualized. There is no evidence of obvious pancreatic mass nor dilatation of the pancreatic duct. RIGHT KIDNEY:No evidence of solid mass, calculus, nor hydronephrosis. No cortical cysts evident. However, the right kidney length is 7.4 cm which is slightly smaller than normal. This does not appear to be associated with significant cortical thinning nor loss of corticomedullary differentiation. The opposite-left kidney was not scanned on this right upper quadrant ultrasound IMPRESSION: 1. No evidence of cholelithiasis nor dilatation of the biliary tree. 2. Benign 1.7 x 1.0 cm cyst in the right hepatic lobe adjacent to the gallbladder fossa. No solid liver masses. 3. Smaller than normal right kidney measuring 7.4 cm length. No loss of normal cortical thickness nor loss of normal corticomedullary differentiation. No calculi seen in the right kidney. The left kidney was not scanned. DATA REPOSITORY:
== END 2025-03-22 00:47 ==
PROVIDERS: PCP Nurse Practitioner Family; Visit Provider Nurse Practitioner Family
DX: K74.60 Unspecified cirrhosis of liver (principal)
CPT/HCPCS: 76705

== ENCOUNTER 2025-04-05 09:56 | Outpatient (CLI) | payer MEDICARE, BC, SELFPAY ==
--- NOTE | 2025-04-05 | DI.DEXA_ITS ---
Exam(s) XR DEXA BONE DENSITY W/WO SALOMÓN EXAM: XR DEXA BONE DENSITY W/WO SALOMÓN CLINICAL HISTORY: OSTEOPOROSIS M81.0 W/OUT PATHOLOGICAL FX TECHNIQUE: [employer] Horizon C densitometer analysis of left hip, lumbar spine and left forearm. Lateral survey image of the thoracic and lumbar spine. COMPARISON: CR XR DEXA BONE DENSITY W/WO SALOMÓN from 04/01/2023 FINDINGS: Lateral view of the thoracic and lumbar spine shows no evidence of compression fractures. Bone mineral density measurements of the lumbar spine correspond to a total T- score of -1.7, in the osteopenic range. Bone mineral density measurements of the left hip correspond to a total T-score of -1.5. The femoral neck T-score is -2.2, in the osteopenic range. Theleft forearm bone mineral density measurements correspond to a T-score of the distal 3rd of -3.0, in the osteoporotic range. IMPRESSION: Osteopenia of the spine and hip. Osteoporosis of the forearm.
== END 2025-04-05 10:16 ==
PROVIDERS: PCP Nurse Practitioner Family; Visit Provider Nurse Practitioner Family
DX: M81.0 Age-related osteoporosis without current pathological fracture (principal)
CPT/HCPCS: 77080